=== PATIENT | female | born 1970 | race Caucasian/White ===

== ENCOUNTER 2017-02-28 09:29 | Inpatient (IN) | payer OTHER, MEDICARE ==
[~2017-02-28] VITALS: Ht 162.6 cm; Wt 46.1 kg
[2017-02-28] VITALS (19 sets, daily range): BP systolic 73–137; BP diastolic 52–83; PULSE 100–128; RESP 17–21; TEMP 98.2–98.6; O2SAT 97–100
[2017-02-28] MEDS ORDERED: SODIUM CHLOR 0.9% 1000 ML INJ 1,000 ML IV ONE ×2 (09:41→10:00)
--- NOTE | 2017-02-28 09:50 | PD ---
HPI Chief Complaint: General Weakness Time Seen by Provider: 09:41 Travel History International Travel<30 days: No Contact w/Intl Traveler<30days: No Traveled to known affect area: No History of Present Illness HPI The patient is a 46-year-old female who presents emergency department for lightheadedness, dizziness, weakness, multiple falls, and inability to ambulate. The patient states she has a history of gastric bypass that she states was "botched "by Dr. Villa in [place], [place]. The patient states she weighed 200 pounds when she had the gastric bypass performed, now weighs 80 pounds. The patient states she's had a steady decline in her weight and strength over the last year, progressively worse over the last several weeks. The patient recently moved from [place], [place] to [place], [place] with her best friend after her best friend's mother suffered a CVA several weeks ago. The patient states she has had multiple falls secondary to weakness with inability to ambulate and complains of right rib pain and right upper quadrant and left-sided abdominal pain. She also notes abrasions to the knees bilaterally. She denies any head injury or neck injury with her falls. She states she is unable to eat large quantities of food, has been able to eat a small amount of yogurt and soft foods or last several weeks, but has difficulty with solid foods. The patient does not currently have a primary physician. Symptoms are moderate, possibly exacerbated after previous surgery with steady decline, and there are no current alleviating factors. PFSH Past Medical History Anemia: Yes Asthma: Yes Anxiety: Yes ?: Not Past Surgical History Abdominal Surgery: Yes (GASTRIC BYPASS) Social History Alcohol Use: No Tobacco Use: Yes Substance Use: No Allergies-Medications (Allergen,Severity, Reaction): Coded Allergies: Sulfa (Verified Allergy, Severe, Anaphylaxis, 02/28/17) Reported Meds & Prescriptions Reported Meds & Active Scripts Active Reported Symbicort Inh (Budesonide/Formoterol Fumarate) 80-4.5 Mcg/Act Aero 1 Puff INH Q12HR Ventolin Hfa 18 GM Inh (Albuterol Sulfate) 90 Mcg/Act Aer 1 Puff INH Q4H PRN Percocet (Oxycodone-Acetaminophen) 10-325 mg Tab 1 Tab PO Q4H PRN Review of Systems Except as stated in HPI: all other systems reviewed are Neg General / Constitutional: Positive: Weight Loss, No: Fever HENT: Positive: Lightheadedness Cardiovascular: Positive: Chest Pain or Discomfort (right rib pain) Respiratory: No: Shortness of Breath Gastrointestinal: Positive: Nausea, Abdominal Pain, No: Vomiting Genitourinary: No: Dysuria Musculoskeletal: Positive: Weakness Neurologic: Positive: Weakness, Dizziness Physical Exam Narrative GENERAL: Awake, alert, 46-year-old female who appears her stated age and is in no acute respiratory distress. Cachectic appearing. SKIN: Focused skin assessment warm/dry. HEAD: Atraumatic. Normocephalic. EYES: Pupils equal and round. No scleral icterus. No injection or drainage. ENT: No nasal bleeding or discharge. Dry mucous membranes. Upper bridge is missing. NECK: Trachea midline. No JVD. CARDIOVASCULAR: Regular, tachycardic with a heart rate of 125. RESPIRATORY: No accessory muscle use. Clear to auscultation. Breath sounds equal bilaterally. GASTROINTESTINAL: Abdomen soft, tender palpation right upper quadrant and left flank. Well-healed midline scar superior to the umbilicus. Rectal exam: The exam was performed in the presence of a female nurse, no gross blood, guaiac positive. MUSCULOSKELETAL: No obvious deformities. No clubbing. No cyanosis. No edema. Thin extremities with muscle atrophy. NEUROLOGICAL: Awake and alert. No obvious cranial nerve deficits. Motor grossly within normal limits. Normal speech. Nonfocal. PSYCHIATRIC: Slightly flat affect. Insight and judgment appear normal. Data Data Last Documented VS Vital Signs Date Time Temp Pulse Resp B/P Pulse Ox O2 Delivery O2 Flow Rate FiO2 02/28/17 14:15 98.3 112 18 87/55 97 Room Air Orders Electrocardiogram (02/28/17 09:41) Complete Blood Count With Diff (02/28/17 09:41) Comprehensive Metabolic Panel (02/28/17 09:41) Magnesium (Mg) (02/28/17 09:41) Urinalysis - C+S If Indicated (02/28/17 09:41) Chest, Single Ap (02/28/17 09:41) Ecg Monitoring (02/28/17 09:41) Iv Access Insert/Monitor (02/28/17 09:41) Oximetry (02/28/17 09:41) Sodium Chloride 0.9% Flush (Ns Flush) (02/28/17 09:45) Sodium Chlor 0.9% 1000 Ml Inj (Ns 1000 M (02/28/17 09:41) Orthostatic Vital Signs (02/28/17 09:41) Ct Abd/Pel W/O Iv Contrast (02/28/17 ) Lactic Acid (02/28/17 09:50) Blood Culture (02/28/17 10:00) Sodium Chlor 0.9% 1000 Ml Inj (Ns 1000 M (02/28/17 10:00) Vascular Access Team Consult/P PRN (02/28/17 10:16) Vascular Poc Ultrasound (02/28/17 ) Type And Screen (02/28/17 10:18) Iron/Tibc Profile (02/28/17 10:18) Red Blood Cells (Rbc) (02/28/17 10:18) Blood Product Administration .UPON TRANSFUSION (02/28/17 10:18) Sodium Chlor 0.9% 250 Ml Inj (Ns 250 Ml (02/28/17 10:30) Diphenhydramine Inj (Benadryl Inj) (02/28/17 10:30) Acetaminophen (Tylenol) (02/28/17 10:30) Midazolam Inj (Versed Inj) (02/28/17 12:00) Midazolam Inj (Versed Inj) (02/28/17 11:54) Hydromorphone Pf Inj (Dilaudid Pf Inj) (02/28/17 13:00) Chest, Single Ap (02/28/17 ) Pantoprazole Inj (Protonix Inj) (02/28/17 14:15) Us Abdomen Gallbladder (02/28/17 ) Ampicillin-Sulbactam Inj (Unasyn Inj) (02/28/17 14:45) Admit Order (Ed Use Only) (02/28/17 15:26) Labs Laboratory Tests Test 02/28/17 02/28/17 02/28/17 02/28/17 09:50 09:55 10:52 12:35 White Blood Count 9.3 TH/MM3 Red Blood Count 2.98 MIL/MM3 Hemoglobin 7.2 GM/DL Hematocrit 22.0 % Mean Corpuscular Volume 73.7 FL Mean Corpuscular Hemoglobin 24.2 PG Mean Corpuscular Hemoglobin 32.8 % Concent Red Cell Distribution Width 22.6 % Platelet Count 288 TH/MM3 Mean Platelet Volume 8.5 FL Neutrophils (%) (Auto) 84.6 % Lymphocytes (%) (Auto) 10.0 % Monocytes (%) (Auto) 4.2 % Eosinophils (%) (Auto) 0.5 % Basophils (%) (Auto) 0.7 % Neutrophils # (Auto) 7.9 TH/MM3 Lymphocytes # (Auto) 0.9 TH/MM3 Monocytes # (Auto) 0.4 TH/MM3 Eosinophils # (Auto) 0.0 TH/MM3 Basophils # (Auto) 0.1 TH/MM3 CBC Comment DIFF FINAL Differential Comment Sodium Level 133 MEQ/L Potassium Level 4.1 MEQ/L Chloride Level 101 MEQ/L Carbon Dioxide Level 20.8 MEQ/L Anion Gap 11 MEQ/L Blood Urea Nitrogen 19 MG/DL Creatinine 0.57 MG/DL Estimat Glomerular Filtration 114 ML/MIN Rate Random Glucose 135 MG/DL Calcium Level 7.5 MG/DL Magnesium Level 1.7 MG/DL Iron Level 29 MCG/DL Total Iron Binding Capacity 217 MCG/DL Percent Iron Saturation 13.4 % Total Bilirubin 0.2 MG/DL Aspartate Amino Transf 21 U/L (AST/SGOT) Alanine Aminotransferase 12 U/L (ALT/SGPT) Alkaline Phosphatase 138 U/L Total Protein 5.9 GM/DL Albumin 1.7 GM/DL Lactic Acid Level 2.9 mmol/L Blood Type O POSITIVE O POSITIVE Antibody Screen NEGATIVE Crossmatch Leukocyte-Reduced Red Blood Cells Blood Bank Comment MDM Medical Decision Making Medical Screen Exam Complete: Yes Emergency Medical Condition: Yes Medical Record Reviewed: Yes Interpretation(s) EKG reveals sinus tachycardia with a heart rate of 122. Nonspecific T-wave changes. QT prolongation which appears to be just over one half of the RR interval. Laboratory Tests Test 02/28/17 02/28/17 02/28/17 09:50 09:55 10:52 White Blood Count 9.3 TH/MM3 Red Blood Count 2.98 MIL/MM3 Hemoglobin 7.2 GM/DL Hematocrit 22.0 % Mean Corpuscular Volume 73.7 FL Mean Corpuscular Hemoglobin 24.2 PG Mean Corpuscular Hemoglobin 32.8 % Concent Red Cell Distribution Width 22.6 % Platelet Count 288 TH/MM3 Mean Platelet Volume 8.5 FL Neutrophils (%) (Auto) 84.6 % Lymphocytes (%) (Auto) 10.0 % Monocytes (%) (Auto) 4.2 % Eosinophils (%) (Auto) 0.5 % Basophils (%) (Auto) 0.7 % Neutrophils # (Auto) 7.9 TH/MM3 Lymphocytes # (Auto) 0.9 TH/MM3 Monocytes # (Auto) 0.4 TH/MM3 Eosinophils # (Auto) 0.0 TH/MM3 Basophils # (Auto) 0.1 TH/MM3 CBC Comment DIFF FINAL Differential Comment Sodium Level 133 MEQ/L Potassium Level 4.1 MEQ/L Chloride Level 101 MEQ/L Carbon Dioxide Level 20.8 MEQ/L Anion Gap 11 MEQ/L Blood Urea Nitrogen 19 MG/DL Creatinine 0.57 MG/DL Estimat Glomerular Filtration 114 ML/MIN Rate Random Glucose 135 MG/DL Calcium Level 7.5 MG/DL Magnesium Level 1.7 MG/DL Iron Level 29 MCG/DL Total Iron Binding Capacity 217 MCG/DL Percent Iron Saturation 13.4 % Total Bilirubin 0.2 MG/DL Aspartate Amino Transf 21 U/L (AST/SGOT) Alanine Aminotransferase 12 U/L (ALT/SGPT) Alkaline Phosphatase 138 U/L Total Protein 5.9 GM/DL Albumin 1.7 GM/DL Lactic Acid Level 2.9 mmol/L Blood Type O POSITIVE Antibody Screen NEGATIVE Crossmatch Leukocyte-Reduced Red Blood Cells Blood Bank Comment CT of the abdomen and pelvis reveals apparent gallbladder wall thickening. If there is clinical concern for acute cholecystitis, hepatobiliary scan may be helpful to confirm cystic duct obstruction in this patient. Mild hepatosplenomegaly. Degenerative changes and scoliosis of the lumbar spine. Chronic mild compression deformity is noted involving L1. Last Impressions Chest X-Ray 02/28/17 0941 Signed Impressions: Service Date/Time: Tuesday, February 28, 2017 10:44 - CONCLUSION: Right fifth rib fracture which appears old. No evidence of acute fracture or acute cardiothymic process. Jean Love MD Gall Bladder Ultrasound 02/28/17 0000 Signed Impressions: Service Date/Time: Tuesday, February 28, 2017 14:50 - CONCLUSION: 1. Single mobile stone in the gallbladder. 2. Extrarenal pelvis on the right. Darren Pascual MD Chest X-Ray 02/28/17 0000 Signed Impressions: Service Date/Time: Tuesday, February 28, 2017 13:32 - CONCLUSION: Interval placement of a right jugular central venous catheter which is in good position. No evidence of acute cardio pulmonary process. Jean Love MD Abdomen/Pelvis CT 02/28/17 0000 Signed Impressions: Service Date/Time: Tuesday, February 28, 2017 13:20 - CONCLUSION: 1. Apparent gallbladder wall thickening. If there is clinical concern for acute cholecystitis, a hepatobiliary scan may be helpful to confirm cystic duct obstruction in this patient. 2. Mild hepatosplenomegaly. 3. Degenerative changes and scoliosis of the lumbar spine. Chronic mild compression deformity is noted involving L1. Maycol Castro MD Differential Diagnosis Differential diagnosis includes failure to thrive, right rib fracture, intra- abdominal injury, dehydration, electrolyte abnormality, malnutrition, neglect. Narrative Course IV was established, labs are drawn and sent, and the patient was placed on cardiac telemetry monitoring and continuous pulse oximetry monitoring. EKG was ordered and interpreted. Chest x-ray was obtained. CT of the abdomen and pelvis was obtained. The patient was administered 1 L of IV fluids. As the patient does have a recent history of sepsis with strep and staph per her report , one month ago, blood culture and lactic acid were sent to lab. A second liter of IV fluids was ordered as the patient's heart rate was elevated in the 120s and the patient's blood pressure was low with systolic in the 70s. The patient's previous IV in the right upper extremity "blew", therefore I placed an ultrasound-guided IV in the left upper extremity. There was good blood return, however, after flushing the IV apparently infiltrated once again. Therefore, the vascular access team was consulted for PICC placement. The patient's hemoglobin was low at 7.2, therefore, rectal exam was performed and type and screen was sent to lab. The second ultrasound-guided IV infiltrated, therefore, central line was placed in the right internal jugular vein. The patient was transfused 2 units of packed red blood cells, Protonix 40 mg intravenously as patient's rectal exam revealed guaiac positive blood. The patient's BUN is 19 and creatinine is 0.57, consistent with greater than 20-1 ratio, may be upper GI bleed versus dehydration. The patient is tachycardic, hypotensive, with evidence of dehydration and symptomatic anemia. Therefore, I am profile was sent to lab prior to transfusion consistent with iron deficiency anemia. As the patient continues to be tachycardic and hypotensive, patient will be admitted to intensive care unit. The on-call staff psychologist was paged for admission. CT reveals apparent gallbladder wall thickening, no evidence of intra-abdominal injury from trauma. Therefore, ultrasound was ordered and the patient was covered with Unasyn. The on-call staff psychologist was paged for admission. Critical Care Narrative Aggregate critical care time was 40 minutes. Time to perform other separately billable procedures was not included in the critical care time. My time did not include minutes spent treating any other patients simultaneously or on activities that did not directly contribute to the patient's treatment. The services I provided to this patient were to treat and/or prevent clinically significant deterioration that could result in: Dehydration, symptomatic anemia , hypovolemic shock, septic shock, arrhythmia. I provided critical care services requiring my management, as noted below: Chart data review, documentation time, medication orders and management, vital sign assessments/reviewing monitor data, ordering and reviewing lab tests, ordering and interpreting/reviewing x-rays and diagnostic studies, care of the patient and discussion of the patient with the admitting physicians. Procedures Procedure Narrative An ultrasound-guided IV was placed in the left upper extremity by myself using a linear probe. I was able to place a 20-gauge IV in the left upper extremity above the anterior cubital fossa, there was good blood return and the IV flowed easily. After the risks and benefits were discussed the following procedure was performed: CENTRAL VENOUS LINE: The site was prepped with Betadine and sterilely draped. It was infiltrated with 1% lidocaine plain. The deep vein was cannulated using normal Seldinger technique. A central line was placed in the right internal jugular site and secured with simple interrupted suture. The site was sterilely dressed. The patient tolerated the procedure well. [facility] Point of Care Internal Pos. & Neg. Controls: Passed Fecal Specimen Occult Blood: Positive Physician Communication Physician Communication The on-call staff psychologist was paged for admission. I discussed the patient with Dr. Moy who agrees with admission. Diagnosis Primary Impression: Symptomatic anemia Additional Impressions: GI bleed Qualified Code: K92.2 - Gastrointestinal hemorrhage, unspecified gastrointestinal hemorrhage type Hypotension Qualified Code: I95.9 - Hypotension, unspecified hypotension type Admitting Information Admitting Physician Requests: Admit Condition: Serious Fatima,Everett Z. MD Feb 28, 2017 09:50
[2017-02-28 10:06] LABS: AUTOMATED NEUTROPHIL # 7.9 TH/MM3 (1.8-7.7); BASOPHIL # 0.1 TH/MM3 (0-0.2); BASOPHIL % 0.7 % (0.0-2.0); EOSINOPHIL % 0.5 % (0.0-4.0); HEMO FLAGS DIFF FINAL; LYMPHOCYTE # 0.9 TH/MM3 (1.0-4.8); MEAN CELL VOLUME 73.7 FL (80.0-100.0); MEAN CORPUSCULAR HEMOGLOBIN 24.2 PG (27.0-34.0); MEAN CORPUSCULAR HGB CONC 32.8 % (32.0-36.0); MONO % 4.2 % (0.0-8.0); NEUT % 84.6 % (16.0-70.0); PLATELET COUNT 288 TH/MM3 (150-450); RED BLOOD COUNT 2.98 MIL/MM3 (4.00-5.30); RED CELL DISTRIBUTION WIDTH 22.6 % (11.6-17.2); WHITE BLOOD COUNT 9.3 TH/MM3 (4.0-11.0)
[2017-02-28 10:23] LABS: ALKALINE PHOSPHATASE 138 U/L (45-117); ALT (GPT) 12 U/L (10-53); ANION GAP 11 MEQ/L (5-15); AST (GOT) 21 U/L (15-37); BICARBONATE 20.8 MEQ/L (21.0-32.0); BLOOD UREA NITROGEN 19 MG/DL (7-18); CHLORIDE 101 MEQ/L (98-107); GLOMERULAR FILTRATION RATE 114 ML/MIN (>89); MAGNESIUM 1.7 MG/DL (1.5-2.5); POTASSIUM 4.1 MEQ/L (3.5-5.1); SODIUM (NA) 133 MEQ/L (136-145); TOTAL BILIRUBIN ADULT 0.2 MG/DL (0.2-1.0)
[2017-02-28] MEDS ORDERED: SODIUM CHLOR 0.9% 250 ML INJ 250 ML IV ONE (10:30)
[2017-02-28] MEDS ORDERED: ACETAMINOPHEN 325 MG TAB PO PRN (10:30)
--- NOTE | 2017-02-28 11:36 | RADRPT ---
EXAM DATE/TIME: 02/28/2017 10:44 [facility] COMPARISON: No previous studies available for comparison. INDICATIONS : Right sided chest pain, fall. MEDICAL HISTORY : Asthma SURGICAL HISTORY : None. ENCOUNTER: Initial ACUITY: 2 days PAIN SCORE: 8/10 LOCATION: Right upper chest FINDINGS: A single view of the chest demonstrates the lungs to be symmetrically aerated without evidence of mas s, infiltrate or effusion. The cardiomediastinal contours are unremarkable. No fracture is identifi ed of the right fifth rib. Osseous structures are otherwise intact. CONCLUSION: Right fifth rib fracture which appears old. No evidence of acute fracture or acute cardiothymic process. Jean Love MD on February 28, 2017 at 11:33 Board Certified Radiologist. This report was verified electronically.
[2017-02-28] MEDS ORDERED: MIDAZOLAM HCL 5 MG/ML VIAL (1 ML) ONE (11:54)
[2017-02-28] MEDS ORDERED: MIDAZOLAM HCL 5 MG/5 ML VIAL IV PUSH ONE (12:00)
[2017-02-28 12:07] LABS: TRANSFERRIN IRON PROFILE 155 MG/DL (200-360)
[2017-02-28] MEDS ORDERED: HYDROmorphone HCL PF 1 MG/ML VIAL IV PUSH ONE ×2 (13:00→19:00)
--- NOTE | 2017-02-28 13:53 | EKG ---
Date Performed: 02/28/2017 Time Performed: 09:45:08 PTAGE: 46 years EKG: SINUS TACHYCARDIA MODERATE INTRAVENTRICULAR CONDUCTION DELAY NONSPECIFIC T-WAVE ABNORMALITY ABNORMAL RHYTHM ECG NO PREVIOUS TRACING DOCTOR: Jam Granados Interpretating Date/Time 02/28/2017 13:53:00
[2017-02-28] MEDS ORDERED: PANTOPRAZOLE SODIUM 40 MG VIAL IV PUSH ONE (14:15)
--- NOTE | 2017-02-28 14:23 | RADRPT ---
EXAM DATE/TIME: 02/28/2017 13:32 [facility] COMPARISON: CHEST SINGLE AP, February 28, 2017, 10:44. INDICATIONS : Evaluate central line placement. MEDICAL HISTORY : Asthma SURGICAL HISTORY : None. ENCOUNTER: Initial ACUITY: 1 day PAIN SCORE: 0/10 LOCATION: Bilateral chest FINDINGS: Single view of the chest demonstrates interval insertion of a right jugular central venous catheter w hich is in good position. Lungs remain clear without evidence of acute process or pneumothorax. Heart and mediastinal structures are stable. CONCLUSION: Interval placement of a right jugular central venous catheter which is in good position. No evidence of acute cardio pulmonary process. Jean Love MD on February 28, 2017 at 14:19 Board Certified Radiologist. This report was verified electronically.
--- NOTE | 2017-02-28 14:41 | RADRPT ---
EXAM DATE/TIME: 02/28/2017 13:20 [facility] COMPARISON: No previous studies available for comparison. INDICATIONS : Right upper quadrant pain. Left abdominal pain. Weakness. Multiple falls. ORAL CONTRAST: No oral contrast ingested. RADIATION DOSE: 4.92 CTDIvol (mGy) MEDICAL HISTORY : Asthma. SURGICAL HISTORY : Gastric bypass. ENCOUNTER: Initial ACUITY: 3 weeks PAIN SCALE: 7/10 LOCATION: Right upper quadrant TECHNIQUE: Volumetric scanning of the abdomen and pelvis was performed. Using automated exposure control and ad justment of the mA and/or kV according to patient size, radiation dose was kept as low as reasonably achievable to obtain optimal diagnostic quality images. FINDINGS: The patient is status post gastric bypass procedure. Evaluation of the solid organs of the abdomen i s limited by the lack of intravenous contrast. The wall of the gallbladder appears somewhat thickene d. If there is clinical concern for acute cholelithiasis, a hepatobiliary scan may be helpful to con firm cystic duct obstruction. No bowel obstruction is noted. No acute obstructive uropathy is noted . The patient is status post tubal ligation bilaterally. The urinary bladder is unremarkable. Dege nerative changes and scoliosis of the thoracolumbar spine are noted. Mild compression deformity invo lving the L1 vertebral body is noted. There is evidence of mild hepatosplenomegaly. CONCLUSION: 1. Apparent gallbladder wall thickening. If there is clinical concern for acute cholecystitis, a he patobiliary scan may be helpful to confirm cystic duct obstruction in this patient. 2. Mild hepatosplenomegaly. 3. Degenerative changes and scoliosis of the lumbar spine. Chronic mild compression deformity is no neeraj involving L1. Maycol Castro MD on February 28, 2017 at 14:14 Board Certified Radiologist. This report was verified electronically.
[2017-02-28] MEDS ORDERED: AMPICILLIN-SULBACTAM INJ 3 GM in SODIUM CHLORIDE 0.9% INJ 100 ML IV ONE (14:45)
[2017-02-28] MEDS ORDERED: MISCELLANEOUS NURSING INFORMATION XX SCH (16:00)
[2017-02-28] MEDS ORDERED: CHLORHEXIDINE GLUCONATE 2 % 1 PACK (2 CLOTHS) TOP PRN (16:00)
[2017-02-28] MEDS ORDERED: SYMB80AE INH (16:07)
[2017-02-28] MEDS ORDERED: PERC10TA27 PO (16:07)
[2017-02-28] MEDS ORDERED: VENTAER INH (16:07)
[2017-02-28] MEDS: INSULIN NovoLIN REGULAR SUPPLEMENTAL SCALE SQ SCH ×2 (16:15→22:08)
[2017-02-28] MEDS ORDERED: DEXTROSE 50% IN WATER 50 ML VIAL(D50) IV PRN (16:15)
[2017-02-28] MEDS ORDERED: GLUCAGON 1 MG/ML VIAL OTHER PRN (16:15)
[2017-02-28] MEDS ORDERED: PANTOPRAZOLE SODIUM 40 MG VIAL IV PUSH SCH (16:30)
[2017-02-28] MEDS: RESP: ALBUTEROL 2.5 MG/IPRATROPIUM 0.5 MG NEB (SCH) INH ×2 (16:35→19:49)
--- NOTE | 2017-02-28 16:54 | RADRPT ---
EXAM DATE/TIME: 02/28/2017 14:50 [facility] COMPARISON: No previous studies available for comparison. INDICATIONS : Right upper quadrant pain. MEDICAL HISTORY : Anemia. Asthma. Anxiety. SURGICAL HISTORY : Gastric bypass. ENCOUNTER: Initial ACUITY: 1 year PAIN SCORE: 0/10 LOCATION: Right upper quadrant MEASUREMENTS: LIVER: 15.7 cm length COMMON DUCT: 6 mm RIGHT KIDNEY: 11.5 x 3.7 x 3.3 cm FINDINGS: LIVER: Normal echotexture without focal lesion or ductal dilatation. COMMON DUCT: No intraluminal mass or stone visualized. GALLBLADDER: There is a small mobile stone within the dependent portion the gallbladder. There is minimal sludge w ithin the neck of the gallbladder as well. No significant pericholecystic fluid is seen. No significa nt gallbladder wall thickening is evident. PANCREAS: The visualized portions are within normal limits. RIGHT KIDNEY: No stone or solid mass is seen. There is no hydronephrosis. There is a small extrarenal pelvis CONCLUSION: 1. Single mobile stone in the gallbladder. 2. Extrarenal pelvis on the right. Darren Pascual MD on February 28, 2017 at 16:50 Board Certified Radiologist. This report was verified electronically.
[2017-02-28 17:09] LABS: BACTERIA, URINE RARE /hpf; BLOOD, URINE NEG (NEG); GLUCOSE,URINE NEG (NEG); HYALINE CAST, URINE 1 /lpf (RARE); KETONE, URINE NEG (NEG); MUCUS URINE FEW /lpf (OCC); NITRITE,URINE NEG (NEG); SQUAMOUS EPITHELIAL CELL URINE 3 /hpf (0-5); URINE COLOR YELLOW (YELLW/STRAW)
[2017-02-28 17:13] LABS: COMMENT (UR) CULTURE INDICATED; CULTURE IF INDICATED CULTURE INDICATED
[2017-02-28] MEDS ORDERED: DIATRIZOATE MEGLUM/DIATRIZOATE SOD 120 ML BTL (for RAD DIAG) PO ONE (17:39)
--- NOTE | 2017-02-28 18:14 | RADRPT ---
EXAM DATE/TIME: 02/28/2017 17:21 [facility] COMPARISON: No previous studies available for comparison. INDICATIONS : Abdominal pain, vomiting, possible ulcer. FLUORO TIME: 1.0 minutes IMAGE COUNT: 12 CONTRAST: 1. MD Robin MEDICAL HISTORY : None. SURGICAL HISTORY : Gastric bypass four years ago. ENCOUNTER: Initial ACUITY: 1 week PAIN SCORE: 10/10 LOCATION: Bilateral upper quadrant abdomen. FINDINGS: There is no evidence of extravasation of Gastrografin. The patient is status post gastric bypass proc edure with patent gastrojejunostomy. There is a collection of contrast in the region of the gastric remnant which could represent a focal ulceration. Upper endoscopy may be indicated if there is a str christiane clinical concern for ulceration. CONCLUSION: 1. No evidence of extravasation to suggest perforation. 2. Focal collection of contrast within the gastric remnant raising the possibility of focal ulceratio n. Upper endoscopy would be helpful for further evaluation of this finding if there is strong clinica l concern for ulceration within the gastric remnant. Maycol Castro MD on February 28, 2017 at 18:05 Board Certified Radiologist. This report was verified electronically.
--- NOTE | 2017-02-28 18:26 | MH ---
cc: JANICE GTZ M.D. DATE OF ADMISSION: 02/28/2017 DATE OF : 1970 HISTORY OF PRESENT ILLNESS: The patient is a 46 year-old female with a past medical history of bronchial asthma, bipolar disorder, schizophrenia, anxiety/depression, and anemia. She presented to [facility] Emergency Department withy complaints of feeling dizziness, light headedness, generalized weakness, multiple falls and inability to ambulate. On further history she has a history of gastric bypass four years ago in [place] and another abdominal surgery about one to two years ago for <<1:05>> in [place] as well. The patient states that she weighed 200 lbs when she had the gastric bypass surgery preformed, now she weighs 80 pounds, she reports chronic abdominal pain associated with intractable nausea and vomiting for several months. In addition to decreased p.o. intake. Her abdominal pain progressively worsened and mainly in the right upper quadrant and left lower quadrat. She denies any chest pain, shortness of breath, cough or any constitutional symptoms. On arrival to the emergency room she was hypotensive with systolic blood pressure in the 80's, tachycardic with heart rate in the 120's and her laboratory data showed hemoglobin of 7.2, lactic acid level of 2.9. Her liver enzymes are within normal limits with a total bilirubin of 0.2. Aspartate aminotransferase 21, alt 12, alkaline phosphatase 138. In the ER she received one out of two units of packed red blood cells and approximately 1.5 liters of normal saline. She responded to volume resuscitation and current blood pressure is 108/71 with a pulse of 112. Her o2 saturation is 97% on room air. Due to her abdominal pain, CT abdomen and pelvis were preformed which showed gallbladder wall thickening, mild hepatosplenomegaly and chronic mild compression deformity is noted involving L1. Chest x-ray in the emergency department showed right fifth rib fractures which appear old, otherwise no evidence of acute cardiopulmonary disease. Right eye IJ central line was placed by emergency department physician. She also has a ultrasound of the abdomen which is pending during the time of this dictation. The patient received Protonix, Unasyn and dilated in the emergency room. PAST MEDICAL HISTORY: 1. Significant for schizophrenia. 2. Bipolar disorder. 3. Anxiety, depression. 4. Anemia. 5. Bronchial asthma. PAST SURGICAL HISTORY: 1. Gastric bypass surgery four years ago. 2. Previous abdominal surgery about one to two years ago for <<4:24>> . ALLERGIES SULFA SOCIAL HISTORY: The patient is an active smoker. However, she quit smoking two days ago and normally she smokes one pack per day. Nondrinker. She denies any drug use. MEDICATIONS 1. At home include; Klonopin. 2. Doxepin. 3. Zyprexa FAMILY HISTORY: Noncontributory. REVIEW OF SYSTEMS As per history of present illness. The rest of the review of systems is unremarkable. PHYSICAL EXAMINATION: IN GENERAL: A 46 year-old female, lying in bed in no acute respiratory distress. VITAL SIGNS: Temperature 98.2. Pulse 112, blood pressure 108/71. Saturation 97% on room air. HEAD, EYES, EARS, NOSE, AND THROAT: Atraumatic, normocephalic. Pupils equal, round, accommodation. Extraocular muscles intact. Conjunctivae pink. Nonicteric sclera. Oral mucosa with dry mucous membranes noted. NECK: The neck is supple. No jugular venous distention or adenopathy, or thyromegaly, trachea is midline. CARDIOVASCULAR SYSTEM: Tachycardic, normal S1, S2, no murmurs, rubs or gallops noted. PULMONARY: Normal equal air entry, no rales or wheezing. ABDOMEN: The abdomen is soft, tenderness in the right upper quadrant and left lower quadrant. A well healed mid line scar superior to the umbilicus. EXTREMITIES: No clubbing, cyanosis or edema. Muscle atrophy noted, no focal sensory deficit. LABORATORY DATA: Sodium 133, potassium 4.1. Chloride 101, co2 20. Blood urea nitrogen 19, creatinine 0.57, glucose 135, lactic acid 2.9. Aspartate aminotransferase 21, ALT 12, Alkaline phosphatase 138. Albumin 1.7, hemoglobin 7.2, white blood count 9.3. Hematocrit 22, platelet count 288. Radiographic studies; Chest x-ray showed no evidence of any acute cardiopulmonary disease. Old left fifth rib fracture noted. CT of the abdomen and pelvis, showed gallbladder wall thickening, mild hepatosplenomegaly. IMPRESSION: 1. Hypotension. 2. Dehydration. 3. Mild lactic acidemia. 4. Hyponatremia. 5. Anemia. 6. Chronic abdominal pain associated with retractable nausea and vomiting. 7. Previous gastric bypass surgery four years ago. 8. Malnutrition. 9. History of anxiety and depression. 10. History of schizophrenia. RECOMMENDATIONS: 1. Monitor neurostatus, patient is awake and alert. Oxygen as needed to maintain saturations above 92%. Bronchial dilators on a as needed basis. Moderate heart rhythm, blood pressure grossly and maintain MAP greater then 65 mmHg. The patient received approximately 1.5 liter bolus of normal saline. We will place on maintenance fluids, D5 NS at 84 ml per hour. Serial lactic acid monitoring. 2. Monitor renal function. Intake and outputs and electrolyte replacement protocol. 3. Keep NPO for now and place on Protonix 40 mg IV daily. 4. We will consult gastrointestinal service. The patient will likely need a Panendoscopy. We will defer to gastrointestinal, in addition we will consult general surgery as the patient had significant weight loss since her previous gastric bypass surgery. The case was discussed with Dr. Suárez and he will have Dr. Arias see the patient. 5. Continue with empiric antibiotics in the form of Zosyn and monitor for signs of infections which include fever and white blood count. Follow up on blood cultures which were preformed in the emergency room. 6. Sliding scale insulin as needed for glycemic control. 7. Monitor complete blood count Coags. Patient scheduled to receive two units of packed red blood cells in the emergency room. We will check hemoglobin and hematocrit post transfusion. 8. Gastrointestinal prophylaxis with Protonix 40 mg IV daily. 9. Deep venous thrombosis prophylaxis with sequential compression devices. We will hold off on anticoagulation for now. Given anemia requiring blood transfusions. 10. Further recommendations will be based on hospital course. MD KEILA Sorto/allegra /4:20 PM /4:33 PM
[2017-02-28] MEDS: DEXT 5%-NACL 0.9% 1000 ML INJ 1,000 ML IV SCH (18:54)
[2017-02-28] MEDS: PIPERACIL-TAZO 4.5 GM PREMIX 100 ML IV SCH (18:54)
[2017-02-28 20:14] LABS: HEMATOCRIT 22.9 % (35.0-46.0)
[2017-02-28 20:23] LABS: REVIEW FLAG FINAL
[2017-02-28] MEDS ORDERED: KLON2TAB PO (20:40)
[2017-02-28 21:04] LABS: PROTHROMBIN TIME - PATIENT 10.9 SEC (9.8-11.6)
[2017-02-28] MEDS: clonazePAM 0.5 MG TAB PO PRN (21:17)
--- NOTE | 2017-02-28 21:52 | MB ---
cc: JACK VILLAGOMEZ MD DATE OF CONSULTATION 02/28/17 REASON FOR CONSULTATION Abdominal flank pain, history of gastric bypass. HISTORY OF PRESENT ILLNESS The patient is a 46-year-old female who presented with a history of chronic pain. She states that she has had a gastric bypass four years ago in [place]. She was initially 200 pounds, currently 80 pounds. She states her abdominal pain has been going on for several years. She did relatively well after her bypass, but has developed significant weight loss, nausea, vomiting and decreased p.o. intake. She did undergo surgery for left-sided pain approximately two years ago which she had intussusception and was treated for this. She states some improvement on the left sided pain, but she states pain has recently returned. The patient also with a history of GI bleed and gastrojejunostomy ulcers for which she has had endoscopy and further workup in [place], last approximately two months ago. The patient is somewhat of a difficult historian and does not recall all pertinent details to event. She states again that she is somewhat improved but again had progressively worsening abdominal pain about the left lower quadrant and now in the right upper quadrant as well. This pain has been going on for several weeks and getting worse in intensity. She states the pain got so severe she decided to come to the emergency department. The patient also notes that she has been feeling very dizzy and lightheaded recently and has had multiple falls as a results. Surgery was consulted for further evaluation after obtaining a CT scan showing some thickening of gallbladder wall gallstones along with this history of gastric bypass and the complicated medical-surgical situation. On my exam, the patient is resting comfortably. She does state the pain is pretty persistent and somewhat sharp and diffuse significant in the left lower and right upper quadrant, but on that palpation more diffusely tender. On admission, she was hypotensive and tachycardiac. However, she has received several liter boluses and also received transfusion for a hemoglobin 7.2 which she responded to. She is not currently following up with a bariatric surgeon. Further she does not take her bariatric recommended vitamins post gastric bypass and further the patient admits to chronic long history of smoking from which she states she quit two weeks ago. She further uses chronic NSAIDs including Aleve at least more than two times per week and again confirms the history of GI bleed in the past. The patient states that her diet is relatively poor. She does tolerate small intake but has a lot of nausea and tolerates yogurts and soft consistency. The patient also has issues with bowel movements and is taking lactulose and stool softeners for significant constipation. In regards to the patient's gallbladder, she stated previous issue with her gallbladder several months ago for which she states they are considering removing the gallbladder but for unknown reasons did not proceed with surgery at this time. PAST MEDICAL HISTORY 1. Schizophrenia, 2. Bipolar disorder, 3. Anxiety/depression. 4. GI bleed 5. Morbid obesity 6. Bronchial asthma. PAST SURGICAL HISTORY 1. Gastric bypass four years ago in [place] 2. Exploratory laparotomy with treatment of intussusception 1-2 years ago. ALLERGIES SULFA SOCIAL HISTORY The patient is a smoker but states she quit two weeks ago. Smoked without about one pack a day. Denies ETOH or IVDA. Chronic NSAID USE. MEDICATIONS See EMR. FAMILY HISTORY Hypertension and diabetes. REVIEW OF SYSTEMS GENERAL: The patient complains of dizziness and abdominal pain. HEENT: Denies eye pain, ear pain. Complains of dry mucous membranes. NECK: Denies swelling or pain. CARDIOVASCULAR: Complained of tachycardia. Denies chest pains. RESPIRATORY: Denies cough or wheeze. ABDOMEN: Complains of nausea, vomiting, abdominal pain. EXTREMITIES: Denies arthralgia, myalgia. NEUROLOGIC: Complained of dizziness and falls INTEGUMENTARY: Complained of dry skin, denies lesions. PSYCHIATRIC: Schizophrenia, bipolar PHYSICAL EXAMINATION GENERAL: The patient in mild distress. VITAL SIGNS: Temperature 98.2, pulse 112, blood pressure 108/71, saturation 97%, respirations 22. HEENT: PERRLA. No scleral icterus. NECK: Supple. Trachea midline. HEART: S1-S2, no murmur or tachycardia. PULMONARY: Bilateral expansion. No wheeze. ABDOMEN: Soft, positive tenderness to palpation more significant right upper quadrant than left lower quadrant. No significant rebound or guarding. Diffuse tenderness. Well-healed midline surgical scar, small midline hernias, reducible. EXTREMITIES: Cachectic warm. NEUROLOGIC: 5/5 motor all extremities with numbness. PSYCHIATRIC: Appropriate mood, anxious. LABORATORY AND DIAGNOSTIC DATA WBC 9.3, hemoglobin 7.2, hematocrit 22, platelets 288. Sodium 133, potassium 4.1, BUN 19, creatinine 0.57, lactate 2.9, magnesium 1.7, total bili 0.2, AST 21, ALT 12, alkaline phos 138, albumin 1.7. IMAGING STUDIES CT reviewed by myself. Thickening gallbladder wall, hepatomegaly, degenerative changes, evidence of gastric bypass, retained fecal load. Gallbladder ultrasound single mobile stone in the gallbladder. Chest x-ray - no acute cardiopulmonary abnormality. ASSESSMENT The patient is a 46-year-old female who presents status post gastric bypass with severe weight loss, cachectic, malnutrition, concern for GI bleed, anemia of blood loss, concern for potential ulcers, chronic NSAID use and smoker, poor compliance Bariatric nectar vitamins and medications and gallbladder wall thickening and hypotension. PLAN After full clinical, radiologic and laboratory workup, the patient with above-named issues. The patient has history of gastric bypass for which she does not appear to be compliant with the bariatric medications. Also, further recommendations to avoid all smoking and NSAIDs as these are very significant risk factors to develop ulcers following gastric bypass. This was discussed in detail and counseled with the patient. Further, the patient is anemic status post transfusion. Concern for GI bleed potential gastrojejunostomy ulcer source. Agree with transfusion. We will check coags and continue to monitor closely. Agree with Protonix. We will recommend 40 b.i.d. We will add Carafate as well. I will be available to do endoscopy to evaluate the gastrojejunostomy pouch for any abnormalities and ulcers. Concern further with patient's nausea, vomiting and decreased p.o. intake, possible small pouch due to chronic ulcer and scarring. We will obtain an upper GI to further evaluate this and again further recommend endoscopy for further evaluation. We will give the patient a dose of bariatric vitamins. Recommend stool softeners as the patient appears to have constipation on CT scan. In regards to the patient's gallbladder, AST, ALT, alkaline phos and T bili all within normal limits. However, the patient appears to be potentially symptomatic from her cholelithiasis and thickened gallbladder wall. At this point, recommend antibiotic treatment as I think she has more pressing issue to deal with first. Also would consider nutritional status and potentially recommending TPN until the patient is able to take adequate p.o. intake. MD ANAIS Matos/ /8:33 PM /9:28 PM
[2017-02-28] MEDS: HYDROmorphone HCL PF 1 MG/ML VIAL IV PUSH PRN (22:05)
[2017-02-28] MEDS ORDERED: MULTIVITAMIN INJ 10 ML, THIAMINE INJ 100 MG, FOLIC ACID INJ 1 MG in SODIUM CHLORID 0.9%... IV SCH (22:15)
[2017-03-01] VITALS (17 sets, daily range): BP systolic 101–132; BP diastolic 67–85; PULSE 79–107; RESP 17–28; TEMP 97.7–98.6; O2SAT 96–100
[2017-03-01] MEDS: PIPERACIL-TAZO 4.5 GM PREMIX 100 ML IV SCH ×3 (02:07→17:08)
[2017-03-01] MEDS: HYDROmorphone HCL PF 1 MG/ML VIAL IV PUSH PRN ×7 (02:08→23:11)
[2017-03-01] MEDS: diphenhydrAMINE HCL 50 MG/ML VIAL IV PRN ×2 (02:51→17:09)
[2017-03-01] MEDS: RESP: ALBUTEROL 2.5 MG/IPRATROPIUM 0.5 MG NEB (SCH) INH ×4 (03:13→21:26)
[2017-03-01] MEDS: CHLORHEXIDINE GLUCONATE 2 % 1 PACK (2 CLOTHS) TOP SCH (04:00)
[2017-03-01] MEDS: INSULIN NovoLIN REGULAR SUPPLEMENTAL SCALE SQ SCH ×4 (04:15→20:02)
[2017-03-01] MEDS: DEXT 5%-NACL 0.9% 1000 ML INJ 1,000 ML IV SCH ×2 (04:23→17:10)
[2017-03-01 05:34] LABS: AUTOMATED NEUTROPHIL # 3.4 TH/MM3 (1.8-7.7); BASOPHIL % 0.6 % (0.0-2.0); EOSINOPHIL # 0.2 TH/MM3 (0-0.4); LYMPH % 22.4 % (9.0-44.0); LYMPHOCYTE # 1.2 TH/MM3 (1.0-4.8); MEAN CELL VOLUME 77.2 FL (80.0-100.0); MEAN CORPUSCULAR HEMOGLOBIN 25.9 PG (27.0-34.0); MEAN CORPUSCULAR HGB CONC 33.6 % (32.0-36.0); MONO % 7.4 % (0.0-8.0); NEUT % 66.6 % (16.0-70.0); PLATELET COUNT 173 TH/MM3 (150-450); RED BLOOD COUNT 2.65 MIL/MM3 (4.00-5.30); RED CELL DISTRIBUTION WIDTH 20.6 % (11.6-17.2); WHITE BLOOD COUNT 5.2 TH/MM3 (4.0-11.0)
[2017-03-01 05:36] LABS: HEMO FLAGS AUTO DIFF
[2017-03-01 05:39] LABS: HEMATOCRIT 20.5 % (35.0-46.0)
[2017-03-01 05:51] LABS: BICARBONATE 23.5 MEQ/L (21.0-32.0); CALCIUM-PROTEIN CORRECTED 8.2 MG/DL (8.5-10.1); MAGNESIUM 1.4 MG/DL (1.5-2.5); POTASSIUM 3.4 MEQ/L (3.5-5.1); TOTAL BILIRUBIN ADULT 0.4 MG/DL (0.2-1.0)
[2017-03-01] MEDS: clonazePAM 0.5 MG TAB PO PRN ×2 (06:23→14:35)
[2017-03-01 06:58] LABS: SCAN/DIFF AUTO DIFF CONFIRMED
[2017-03-01] MEDS ORDERED: KETAMINE HCL 500 MG/10 ML VIAL IV ONE (08:00)
--- NOTE | 2017-03-01 08:20 | HHI.PR ---
Subjective Subjective Notes pt with persistent pain, some improvement with dilaudid, anemic s/p transfusion Objective Vitals/I&O Vital Signs Date Time Temp Pulse Resp B/P Pulse Ox O2 Delivery O2 Flow Rate FiO2 03/01/17 08:00 98.4 105 22 110/72 100 Room Air 02/28/17 19:52 21 Labs Laboratory Tests Test 02/28/17 02/28/17 02/28/17 02/28/17 09:50 09:55 10:52 12:35 White Blood Count 9.3 Red Blood Count 2.98 Hemoglobin 7.2 Hematocrit 22.0 Mean Corpuscular Volume 73.7 Mean Corpuscular Hemoglobin 24.2 Mean Corpuscular Hemoglobin 32.8 Concent Red Cell Distribution Width 22.6 Platelet Count 288 Mean Platelet Volume 8.5 Neutrophils (%) (Auto) 84.6 Lymphocytes (%) (Auto) 10.0 Monocytes (%) (Auto) 4.2 Eosinophils (%) (Auto) 0.5 Basophils (%) (Auto) 0.7 Neutrophils # (Auto) 7.9 Lymphocytes # (Auto) 0.9 Monocytes # (Auto) 0.4 Eosinophils # (Auto) 0.0 Basophils # (Auto) 0.1 CBC Comment DIFF FINAL Differential Comment Sodium Level 133 Potassium Level 4.1 Chloride Level 101 Carbon Dioxide Level 20.8 Anion Gap 11 Blood Urea Nitrogen 19 Creatinine 0.57 Estimat Glomerular Filtration 114 Rate Random Glucose 135 Calcium Level 7.5 Magnesium Level 1.7 Iron Level 29 Total Iron Binding Capacity 217 Percent Iron Saturation 13.4 Total Bilirubin 0.2 Aspartate Amino Transf 21 (AST/SGOT) Alanine Aminotransferase 12 (ALT/SGPT) Alkaline Phosphatase 138 Total Protein 5.9 Albumin 1.7 Lactic Acid Level 2.9 Blood Type O POSITIVE O POSITIVE Antibody Screen NEGATIVE Crossmatch Leukocyte-Reduced Red Blood Cells Blood Bank Comment Test 02/28/17 02/28/17 02/28/17 03/01/17 15:50 19:50 20:35 05:15 Urine Color YELLOW Urine Turbidity HAZY Urine pH 6.0 Urine Specific [place] 1.022 Urine Protein TRACE Urine Glucose (UA) NEG Urine Ketones NEG Urine Occult Blood NEG Urine Nitrite NEG Urine Bilirubin NEG Urine Urobilinogen LESS THAN 2.0 Urine Leukocyte Esterase LARGE Urine RBC 3 Urine WBC 65 Urine Squamous Epithelial 3 Cells Urine Bacteria RARE Urine Hyaline Casts 1 Urine Mucus FEW Microscopic Urinalysis Comment CULTURE INDICATED Hemoglobin 7.6 6.9 Hematocrit 22.9 20.5 Lactic Acid Level 0.8 0.9 Prothrombin Time 10.9 Prothromb Time International 1.0 Ratio White Blood Count 5.2 Red Blood Count 2.65 Mean Corpuscular Volume 77.2 Mean Corpuscular Hemoglobin 25.9 Mean Corpuscular Hemoglobin 33.6 Concent Red Cell Distribution Width 20.6 Platelet Count 173 Mean Platelet Volume 8.2 Neutrophils (%) (Auto) 66.6 Lymphocytes (%) (Auto) 22.4 Monocytes (%) (Auto) 7.4 Eosinophils (%) (Auto) 3.0 Basophils (%) (Auto) 0.6 Neutrophils # (Auto) 3.4 Lymphocytes # (Auto) 1.2 Monocytes # (Auto) 0.4 Eosinophils # (Auto) 0.2 Basophils # (Auto) 0.0 CBC Comment AUTO DIFF Differential Comment AUTO DIFF CONFIRMED Sodium Level 138 Potassium Level 3.4 Chloride Level 108 Carbon Dioxide Level 23.5 Anion Gap 7 Blood Urea Nitrogen 14 Creatinine 0.27 Estimat Glomerular Filtration 269 Rate Random Glucose 92 Calcium Level 6.8 Protein Corrected Calcium 8.2 Phosphorus Level 2.4 Magnesium Level 1.4 Total Bilirubin 0.4 Aspartate Amino Transf 16 (AST/SGOT) Alanine Aminotransferase 10 (ALT/SGPT) Alkaline Phosphatase 107 Total Protein 4.5 Albumin 1.4 Test 03/01/17 05:54 Blood Type O POSITIVE Crossmatch Leukocyte-Reduced Red Blood Cells Blood Bank Comment Date/Time Procedure Status Source Growth 02/28/17 15:50 Urine Culture Received Urine Random Urine Pending 02/28/17 12:35 Aerobic Blood Culture Received Blood Peripheral Pending 02/28/17 12:35 Anaerobic Blood Culture Received Blood Peripheral Pending Cardiovascular: Regular Lungs: Clear Abdomen: Other (soft +ttp diffuse right UQ, LLQ, no rebound) A/P Assessment and Plan hx rygb, hx of gj ulcers presents with abd pain, gi bleed UGI shows concern for G-G fistula PLAN EGD today transfusion 2 U prbcs pain control vitamins PPI, Carafate npo, recommend TPN Jerome Arias MD Mar 01, 2017 08:20
[2017-03-01] MEDS ORDERED: PROPOFOL 200 MG/20 ML AMP IV ONE (09:03)
[2017-03-01] MEDS ORDERED: MIDAZOLAM HCL 2 MG/2 ML VIAL IV ONE (09:03)
--- NOTE | 2017-03-01 09:14 | PD.CONS ---
HPI History of Present Illness This is a 46 year old female with multiple medical problems including a history of schizophrenia/bipolar disorder, anxiety/depression, GI bleeding, asthma, gastrojejunostomy ulcers, and asthma, who presented to the ER for evaluation of nausea and vomiting and right upper quadrant pain. She recently relocated from [place]. She underwent a gastric bypass about 4 years ago and has lost 120 pounds since that time. She reports that prior to her surgery she weighed 201 and she is currently at 80 pounds. She is a poor historian. She states that she's been having nausea and vomiting for about a month and a half and that this seems to be associated with any food intake. However she also reports that she is starving and she is requesting a diet including cottage cheese and dry cereal. She reports that she knows what to eat and what aggravates her nausea and vomiting. She also endorses right upper quadrant pain , although she associates this with frequent falls. She reports that she had surgery for left sided abdominal pain about 2 years ago in [place] and was found to have an intussusception. She also has a history of GI bleeding and last had an endoscopy about 2 months ago in [place] which revealed gastrojejunostomy ulcers. She continues to use Aleve at least twice a week. She reports that she has seen a small amount of bright red blood streaked in her emesis at times. She is not currently on any medications for her stomach although she has been on Carafate in the past. She also endorses heartburn that she cannot tell me how often this occurs. It does seem to be aggravated by large meals. She has a long history of chronic constipation and takes lactulose as needed. She has not seen any black tarry stools or red blood in her stool although she reports that she recently had a stool test which was guaiac positive. She has been seen by Dr. Suarez and is scheduled for an upper endoscopy later this morning. (Mere Conrad) PFSH Past Medical History Weight loss 120 pounds since gastric bypass about 4 years ago Schizophrenia Bipolar disorder Anxiety and depression Prior GI bleeding History of obesity Bronchial asthma History of intussusception History of gastrojejunostomy ulcers Past Surgical History Gastric bypass EGD Exploratory laparoscopy for intussusception (Mere Conrad) Coded Allergies: Sulfa (Verified Allergy, Severe, Anaphylaxis, 02/28/17) Medications Allergies Coded Allergies Type Severity Reaction Last Updated Verified Sulfa Allergy Severe Anaphylaxis 02/28/17 Yes Active Scripts Medications Dose Route/Sig Days Date Category Klonopin (Clonazepam) 2 Mg Tab 2 Mg PO TID 02/28/17 Reported Symbicort Inh (Budesonide/Formoterol Fumarate) 80-4.5 Mcg/Act Aero 1 Puff INH Q12HR 02/28/17 Reported Ventolin Hfa 18 GM Inh (Albuterol Sulfate) 90 Mcg/Act Aer 1 Puff INH Q4H PRN 02/28/17 Reported Percocet (Oxycodone-Acetaminophen) 10-325 mg Tab 1 Tab PO Q4H PRN 02/28/17 Reported Family History Denies any family history of esophageal, gastric, colorectal cancer Social History States she stopped smoking about one week ago. Prior to that she smoked 3/4 PPD x 8 years No alcohol use No illicit drug use (Mere Conrad) Review of Systems Constitutional: COMPLAINS OF: Fatigue, Weight loss, Change in appetite, DENIES : Fever, Chills Respiratory: DENIES: Cough Cardiovascular: DENIES: Chest pain Gastrointestinal: COMPLAINS OF: Abdominal pain, Constipation, Nausea, Vomiting , Anorexia, Heartburn, Hematemesis, DENIES: Black stools, Bloody stools, Diarrhea, Swelling of Abdomen Musculoskeletal: COMPLAINS OF: Joint pain, Muscle aches, Back pain Integumentary: DENIES: Abnormal pigmentation Hematologic/lymphatic: DENIES: Bruising Neurologic: COMPLAINS OF: Headache Psychiatric: COMPLAINS OF: Anxiety, DENIES: Confusion (Mere Conrad) GI Exam Vitals I&O Vital Signs Date Time Temp Pulse Resp B/P Pulse Ox O2 Delivery O2 Flow Rate FiO2 03/01/17 08:00 98.4 105 22 110/72 100 Room Air 03/01/17 06:52 18 03/01/17 05:00 102 22 106/67 97 Room Air 03/01/17 03:00 98 20 105/69 96 Room Air 03/01/17 01:00 98 17 101/68 98 Room Air 02/28/17 23:00 100 17 122/63 97 Room Air 02/28/17 21:00 112 19 137/69 97 Room Air 02/28/17 19:52 99 21 02/28/17 19:00 112 21 117/83 97 Room Air 02/28/17 17:45 114 18 104/73 98 Room Air 02/28/17 17:00 108 18 101/71 97 Room Air 02/28/17 15:55 98.2 103 18 100/65 97 Room Air 02/28/17 15:32 104 18 105/58 97 Room Air 02/28/17 14:15 98.3 112 18 87/55 97 Room Air 02/28/17 14:02 98.6 123 18 94/61 97 Room Air 02/28/17 14:02 98.6 120 18 94/61 98 Room Air 02/28/17 12:50 122 18 102/62 98 Room Air 02/28/17 12:30 122 20 96/56 99 Room Air 02/28/17 11:30 120 20 87/61 98 Room Air 02/28/17 11:00 122 18 95/60 98 Room Air 02/28/17 10:30 126 20 86/58 98 Room Air 02/28/17 10:00 120 20 73/52 97 Room Air 02/28/17 09:43 100 Room Air 02/28/17 09:42 98.3 128 18 80/54 100 Room Air 02/28/17 09:35 132 20 95 Room Air Imaging Last Impressions Chest X-Ray 02/28/17 0941 Signed Impressions: Service Date/Time: Tuesday, February 28, 2017 10:44 - CONCLUSION: Right fifth rib fracture which appears old. No evidence of acute fracture or acute cardiothymic process. Jean Love MD Upper GI Series 02/28/17 0000 Signed Impressions: Service Date/Time: Tuesday, February 28, 2017 17:21 - CONCLUSION: 1. No evidence of extravasation to suggest perforation. 2. Focal collection of contrast within the gastric remnant raising the possibility of focal ulceration. Upper endoscopy would be helpful for further evaluation of this finding if there is strong clinical concern for ulceration within the gastric remnant. Maycol Castro MD Gall Bladder Ultrasound 02/28/17 0000 Signed Impressions: Service Date/Time: Tuesday, February 28, 2017 14:50 - CONCLUSION: 1. Single mobile stone in the gallbladder. 2. Extrarenal pelvis on the right. Darren Pascual MD Abdomen/Pelvis CT 02/28/17 0000 Signed Impressions: Service Date/Time: Tuesday, February 28, 2017 13:20 - CONCLUSION: 1. Apparent gallbladder wall thickening. If there is clinical concern for acute cholecystitis, a hepatobiliary scan may be helpful to confirm cystic duct obstruction in this patient. 2. Mild hepatosplenomegaly. 3. Degenerative changes and scoliosis of the lumbar spine. Chronic mild compression deformity is noted involving L1. Maycol Castro MD Laboratory Test 02/28/17 02/28/17 02/28/17 02/28/17 09:50 09:55 10:52 12:35 White Blood Count 9.3 TH/MM3 Red Blood Count 2.98 MIL/MM3 Hemoglobin 7.2 GM/DL Hematocrit 22.0 % Mean Corpuscular Volume 73.7 FL Mean Corpuscular Hemoglobin 24.2 PG Mean Corpuscular Hemoglobin 32.8 % Concent Red Cell Distribution Width 22.6 % Platelet Count 288 TH/MM3 Mean Platelet Volume 8.5 FL Neutrophils (%) (Auto) 84.6 % Lymphocytes (%) (Auto) 10.0 % Monocytes (%) (Auto) 4.2 % Eosinophils (%) (Auto) 0.5 % Basophils (%) (Auto) 0.7 % Neutrophils # (Auto) 7.9 TH/MM3 Lymphocytes # (Auto) 0.9 TH/MM3 Monocytes # (Auto) 0.4 TH/MM3 Eosinophils # (Auto) 0.0 TH/MM3 Basophils # (Auto) 0.1 TH/MM3 CBC Comment DIFF FINAL Differential Comment Sodium Level 133 MEQ/L Potassium Level 4.1 MEQ/L Chloride Level 101 MEQ/L Carbon Dioxide Level 20.8 MEQ/L Anion Gap 11 MEQ/L Blood Urea Nitrogen 19 MG/DL Creatinine 0.57 MG/DL Estimat Glomerular Filtration 114 ML/MIN Rate Random Glucose 135 MG/DL Calcium Level 7.5 MG/DL Magnesium Level 1.7 MG/DL Iron Level 29 MCG/DL Total Iron Binding Capacity 217 MCG/DL Percent Iron Saturation 13.4 % Total Bilirubin 0.2 MG/DL Aspartate Amino Transf 21 U/L (AST/SGOT) Alanine Aminotransferase 12 U/L (ALT/SGPT) Alkaline Phosphatase 138 U/L Total Protein 5.9 GM/DL Albumin 1.7 GM/DL Lactic Acid Level 2.9 mmol/L Blood Type O POSITIVE O POSITIVE Antibody Screen NEGATIVE Crossmatch Leukocyte-Reduced Red Blood Cells Blood Bank Comment Test 02/28/17 02/28/17 02/28/17 03/01/17 15:50 19:50 20:35 05:15 Urine Color YELLOW Urine Turbidity HAZY Urine pH 6.0 Urine Specific [place] 1.022 Urine Protein TRACE mg/dL Urine Glucose (UA) NEG mg/dL Urine Ketones NEG mg/dL Urine Occult Blood NEG Urine Nitrite NEG Urine Bilirubin NEG Urine Urobilinogen LESS THAN 2.0 MG/DL Urine Leukocyte Esterase LARGE Urine RBC 3 /hpf Urine WBC 65 /hpf Urine Squamous Epithelial 3 /hpf Cells Urine Bacteria RARE /hpf Urine Hyaline Casts 1 /lpf Urine Mucus FEW /lpf Microscopic Urinalysis Comment CULTURE INDICATED Hemoglobin 7.6 GM/DL 6.9 GM/DL Hematocrit 22.9 % 20.5 % Lactic Acid Level 0.8 mmol/L 0.9 mmol/L Prothrombin Time 10.9 SEC Prothromb Time International 1.0 RATIO Ratio White Blood Count 5.2 TH/MM3 Red Blood Count 2.65 MIL/MM3 Mean Corpuscular Volume 77.2 FL Mean Corpuscular Hemoglobin 25.9 PG Mean Corpuscular Hemoglobin 33.6 % Concent Red Cell Distribution Width 20.6 % Platelet Count 173 TH/MM3 Mean Platelet Volume 8.2 FL Neutrophils (%) (Auto) 66.6 % Lymphocytes (%) (Auto) 22.4 % Monocytes (%) (Auto) 7.4 % Eosinophils (%) (Auto) 3.0 % Basophils (%) (Auto) 0.6 % Neutrophils # (Auto) 3.4 TH/MM3 Lymphocytes # (Auto) 1.2 TH/MM3 Monocytes # (Auto) 0.4 TH/MM3 Eosinophils # (Auto) 0.2 TH/MM3 Basophils # (Auto) 0.0 TH/MM3 CBC Comment AUTO DIFF Differential Comment AUTO DIFF CONFIRMED Sodium Level 138 MEQ/L Potassium Level 3.4 MEQ/L Chloride Level 108 MEQ/L Carbon Dioxide Level 23.5 MEQ/L Anion Gap 7 MEQ/L Blood Urea Nitrogen 14 MG/DL Creatinine 0.27 MG/DL Estimat Glomerular Filtration 269 ML/MIN Rate Random Glucose 92 MG/DL Calcium Level 6.8 MG/DL Protein Corrected Calcium 8.2 MG/DL Phosphorus Level 2.4 MG/DL Magnesium Level 1.4 MG/DL Total Bilirubin 0.4 MG/DL Aspartate Amino Transf 16 U/L (AST/SGOT) Alanine Aminotransferase 10 U/L (ALT/SGPT) Alkaline Phosphatase 107 U/L Total Protein 4.5 GM/DL Albumin 1.4 GM/DL Test 03/01/17 05:54 Blood Type O POSITIVE Crossmatch Leukocyte-Reduced Red Blood Cells Blood Bank Comment Date/Time Procedure Status Source Growth 02/28/17 15:50 Urine Culture Received Urine Random Urine Pending 02/28/17 12:35 Aerobic Blood Culture Received Blood Peripheral Pending 02/28/17 12:35 Anaerobic Blood Culture Received Blood Peripheral Pending Physical Examination HEENT: Normocephalic; atraumatic; no jaundice. CHEST: CTA CARDIAC: RRR ABDOMEN: Soft, nondistended, RUQ tenderness; no hepatosplenomegaly; bowel sounds are present in all four quadrants. EXTREMITIES: No clubbing, cyanosis, or edema. SKIN: Normal; no rash; no jaundice. PRICING CLERK: No focal deficits; alert and oriented times three. (Mere Conrad) Assessment and Plan Plan ASSESSMENT: - GIB, Hematemesis with recent history of gastrojejunostomy ulcers. Patient has a history of gastric bypass 4 years ago in April. She recently relocated from [place]. She was evaluated with EGD 2 months ago in [place] and states that this revealed gastrojejunostomy ulcers. She reports that she was on Carafate but is no longer taking any medications for her stomach. She continues to use Aleve at least twice a week for headaches or abdominal pain. Abdomen/Pelvis CT (02/28/17)----> 1. Apparent gallbladder wall thickening. If there is clinical concern for acute cholecystitis, a hepatobiliary scan may be helpful to confirm cystic duct obstruction in this patient. 2. Mild hepatosplenomegaly. 3. Degenerative changes and scoliosis of the lumbar spine. Chronic mild compression deformity is noted involving L1. Gall Bladder Ultrasound (02/28/17)----> 1. Single mobile stone in the gallbladder. 2. Extrarenal pelvis on the right. Upper GI Series (02/28/17)---> 1. No evidence of extravasation to suggest perforation. 2. Focal collection of contrast within the gastric remnant raising the possibility of focal ulceration. Upper endoscopy would be helpful for further evaluation of this finding if there is strong clinical concern for ulceration within the gastric remnant. H&H is 6.9/20.5. General surgery is following and has scheduled EGD for today. - RUQ pain. Pt states an intermittent sharp pain associated with movement and inspiration. Pt reports that she has had frequent falls and pain started after hitting her right side during a fall. She does have single mobile stone in the gallbladder. She is on abx per GS. - Iron Deficiency Anemia secondary to blood loss. 6.9/20.5. EGD today with GS. - Abn. Wt. Loss. S/P Gastric Bypass ~ 4 years ago. 201 prior to surgery, now 80. - Constipation. Takes lactulose as needed at home. - Schizophrenia/Bipolar d/o, Depression/Anxiety, Asthma per primary PLAN: - EGD today with GS - NPO - Increase protonix to 40mg IV BID - Cont. Abx per GS - Monitor HH - Transfuse as necessary - Supportive care - Further recommendations to follow based on results of above - Pt seen and examined by Dr. Ortega and myself and this note is written on his behalf (Mere Conrad) Physician Comments Seen and examined with YASMIN, egd earlier today showed large gastr- jejunal ulcers. This was done by Surgery. Not much to add from gi standpoint, discussed with Dr. Arias . Will sign off reconsult as needed. Thank you (Thee Ortega MD) Mere Conrad Mar 01, 2017 09:14 Thee Ortega MD Mar 01, 2017 13:14
--- NOTE | 2017-03-01 09:21 | GIPROC ---
[facility] [address] [facility]. [facility], [address] EGD PROCEDURE REPORT EXAM DATE: 03/01/2017 PATIENT NAME: Dea Baugh MR #: [id number] BIRTHDATE: 1970 ATTENDING: Jerome Arias MD ORDER #: [id number] LAWN CARE PROFESSIONAL: Len Phipps and Amna Ocampo STATUS: inpatient INDICATIONS: The patient is a 46 yr old female here for an EGD due to hematemesis , hx of gastric bypass 4 years ago. Anemia of blood loss. PROCEDURE PERFORMED: EGD, diagnostic MEDICATIONS: None and Per Anesthesia. TOPICAL ANESTHETIC: none CONSENT: The patient understands the risks and benefits of the procedure and understands that these risks include, but are not limited to: sedation, allergic reaction, infection, perforation and/or bleeding. Alternative means of evaluation and treatment include, among others: physical exam, x-rays, and/or surgical intervention. The patient elects to proceed with this endoscopic procedure. medical equipment was checked for proper function. Hand hygiene and appropriate measures for infection prevention was taken. After the risks, benefits and alternatives of the procedure were thoroughly explained, Informed consent was verified, confirmed and timeout was successfully executed by the treatment team. The patient was anesthetized with anesthesia and the Pentax [id number] and [id number] endoscope was introduced through the mouth and advanced to the anastomosis. There was evidence of large ulcer with adherent clot. Likely gastrogastro fitula but could not be confirmed on EGD due to clot. Retroflexion was not performed The gastroscope was then slowly withdrawn and removed. Gastrojejunostomy ulcer, adherent clot, no evidence of acute bleeding. ADVERSE EVENTS: There were no complications. IMPRESSIONS: 1. Gastrojejunostomy ulcer, adherent clot, no evidence of acute bleeding 2. Retroflexion was not performed RECOMMENDATIONS: ICU monitoring PATIENT CONDITION: stable DISPOSITION: Inpatient REPEAT EXAM: Return as needed for EGD Jerome Arias MD eSigned: Jerome Arias MD 03/01/2017 9:20 AM cc:
[2017-03-01] MEDS ORDERED: CYANOCOBALAMIN 1000 MCG/ML VIAL IM ONE (09:45)
[2017-03-01] MEDS ORDERED: POTASSIUM CHLOR 20 MEQ PREMIX 100 ML IV PRN ×2 (10:00)
[2017-03-01] MEDS ORDERED: POTASSIUM PHOSPHATE MONOBASIC 500 MG TAB PO PRN (10:00)
[2017-03-01] MEDS ORDERED: POTASSIUM PHOSPHATE MONOBASIC 500 MG TAB PO/TUBE PRN (10:00)
[2017-03-01] MEDS ORDERED: MAGNESIUM OXIDE 400 MG TAB PO PRN (10:00)
[2017-03-01] MEDS ORDERED: MAGNESIUM SULFATE INJ 4 GM in SODIUM CHLORIDE 0.9% INJ 92 ML IV PRN (10:00)
[2017-03-01] MEDS ORDERED: SODIUM PHOSPHATE INJ 30 MMOL in SODIUM CHLOR 0.9% 250 ML INJ 240 ML IV PRN (10:00)
[2017-03-01] MEDS ORDERED: POTASSIUM PHOSPHATE INJ 30 MMOL in SODIUM CHLOR 0.9% 250 ML INJ 250 ML IV PRN (10:00)
[2017-03-01] MEDS ORDERED: POTASSIUM CHLOR 40 MEQ PREMIX 100 ML IV PRN (10:00)
[2017-03-01] MEDS ORDERED: POTASSIUM CHLORIDE 25 MEQ EFFERVESCENT TAB PO PRN (10:00)
[2017-03-01] MEDS ORDERED: MAGNESIUM SULFATE INJ 2 GM in SODIUM CHLORIDE 0.9% INJ 96 ML IV PRN (10:00)
[2017-03-01] MEDS ORDERED: MIDAZOLAM HCL 2 MG/2 ML VIAL ONE (10:07)
[2017-03-01] MEDS ORDERED: CALCIUM GLUCONATE INJ 1 GM in SODIUM CHLORIDE 0.9% INJ 100 ML IV ONE (10:30)
[2017-03-01] MEDS: PANTOPRAZOLE SODIUM 40 MG VIAL IV PUSH SCH ×2 (10:44→20:02)
[2017-03-01] MEDS: SUCRALFATE 1 GM/10 ML CUP PO SCH ×3 (11:12→20:02)
--- NOTE | 2017-03-01 12:11 | HHI.CCPN ---
Subjective Remarks/Hospital Course Patient is a 46 year-old female with a past medical history of bronchial asthma , bipolar disorder, schizophrenia, anxiety/depression, and anemia. She presented to [facility] Emergency Department withy complaints of feeling dizziness, light headedness, generalized weakness, multiple falls and inability to ambulate. On further history she has a history of gastric bypass four years ago in [place] and another abdominal surgery about one to two years ago for Intussusception in [place] as well. She states that she weighed 200 lbs when she had the gastric bypass surgery preformed, now she weighs 80 pounds, she reports chronic abdominal pain associated with intractable nausea and vomiting for several months. In addition to decreased p.o. intake. Her abdominal pain progressively worsened and mainly in the right upper quadrant and left lower quadrat. She denies any chest pain, shortness of breath, cough or any constitutional symptoms. On arrival to the emergency room she was hypotensive with systolic blood pressure in the 80's, tachycardic with heart rate in the 120's and her laboratory data showed hemoglobin of 7.2, lactic acid level of 2.9. Her liver enzymes are within normal limits with a total bilirubin of 0.2. Aspartate aminotransferase 21, alt 12, alkaline phosphatase 138. In the ER she received one out of two units of packed red blood cells and approximately 1.5 liters of normal saline. She responded to volume resuscitation and current blood pressure is 108/71 with a pulse of 112. Her o2 saturation is 97% on room air. Due to her abdominal pain, CT abdomen and pelvis were preformed which showed gallbladder wall thickening, mild hepatosplenomegaly and chronic mild compression deformity is noted involving L1. Chest x-ray in the emergency department showed right fifth rib fractures which appear old, otherwise no evidence of acute cardiopulmonary disease. Right IJ central line was placed by emergency department physician. She also has a ultrasound of the abdomen which is pending during the time of this dictation. The patient received Protonix, Unasyn and dilated in the emergency room. 03/01 Patient is lying in bed in NAD. s/p transfusion 2units PRBC this morning for Hgb 6.9. s/p EGD showed G-J ulcer, adherent clot with no evidence of bleeding. Objective Vital Signs Date Time Temp Pulse Resp B/P Pulse Ox O2 Delivery O2 Flow Rate FiO2 03/01/17 11:30 97.7 107 22 109/70 99 Room Air 03/01/17 09:55 2.00 02/28/17 19:52 21 Result Diagram: 03/01/17 0515 03/01/17 0515 Other Results Laboratory Tests Test 02/28/17 02/28/17 02/28/17 02/28/17 12:35 15:50 19:50 20:35 Blood Type O POSITIVE Urine Color YELLOW Urine Turbidity HAZY Urine pH 6.0 Urine Specific [place] 1.022 Urine Protein TRACE mg/dL Urine Glucose (UA) NEG mg/dL Urine Ketones NEG mg/dL Urine Occult Blood NEG Urine Nitrite NEG Urine Bilirubin NEG Urine Urobilinogen LESS THAN 2.0 MG/DL Urine Leukocyte Esterase LARGE Urine RBC 3 /hpf Urine WBC 65 /hpf Urine Squamous Epithelial 3 /hpf Cells Urine Bacteria RARE /hpf Urine Hyaline Casts 1 /lpf Urine Mucus FEW /lpf Microscopic Urinalysis Comment CULTURE INDICATED Hemoglobin 7.6 GM/DL Hematocrit 22.9 % Lactic Acid Level 0.8 mmol/L Prothrombin Time 10.9 SEC Prothromb Time International 1.0 RATIO Ratio Test 03/01/17 03/01/17 03/01/17 05:15 05:54 10:00 White Blood Count 5.2 TH/MM3 Red Blood Count 2.65 MIL/MM3 Hemoglobin 6.9 GM/DL Hematocrit 20.5 % Mean Corpuscular Volume 77.2 FL Mean Corpuscular Hemoglobin 25.9 PG Mean Corpuscular Hemoglobin 33.6 % Concent Red Cell Distribution Width 20.6 % Platelet Count 173 TH/MM3 Mean Platelet Volume 8.2 FL Neutrophils (%) (Auto) 66.6 % Lymphocytes (%) (Auto) 22.4 % Monocytes (%) (Auto) 7.4 % Eosinophils (%) (Auto) 3.0 % Basophils (%) (Auto) 0.6 % Neutrophils # (Auto) 3.4 TH/MM3 Lymphocytes # (Auto) 1.2 TH/MM3 Monocytes # (Auto) 0.4 TH/MM3 Eosinophils # (Auto) 0.2 TH/MM3 Basophils # (Auto) 0.0 TH/MM3 CBC Comment AUTO DIFF Differential Comment AUTO DIFF CONFIRMED Sodium Level 138 MEQ/L Potassium Level 3.4 MEQ/L Chloride Level 108 MEQ/L Carbon Dioxide Level 23.5 MEQ/L Anion Gap 7 MEQ/L Blood Urea Nitrogen 14 MG/DL Creatinine 0.27 MG/DL Estimat Glomerular Filtration 269 ML/MIN Rate Random Glucose 92 MG/DL Lactic Acid Level 0.9 mmol/L Calcium Level 6.8 MG/DL Protein Corrected Calcium 8.2 MG/DL Phosphorus Level 2.4 MG/DL Magnesium Level 1.4 MG/DL Total Bilirubin 0.4 MG/DL Aspartate Amino Transf 16 U/L (AST/SGOT) Alanine Aminotransferase 10 U/L (ALT/SGPT) Alkaline Phosphatase 107 U/L Total Protein 4.5 GM/DL Albumin 1.4 GM/DL Blood Type O POSITIVE Crossmatch Leukocyte-Reduced Leukocyte-Reduced Red Blood Red Blood Cells Cells Blood Bank Comment Imaging Last Impressions Chest X-Ray 02/28/17 0941 Signed Impressions: Service Date/Time: Tuesday, February 28, 2017 10:44 - CONCLUSION: Right fifth rib fracture which appears old. No evidence of acute fracture or acute cardiothymic process. Jean Love MD Upper GI Series 02/28/17 0000 Signed Impressions: Service Date/Time: Tuesday, February 28, 2017 17:21 - CONCLUSION: 1. No evidence of extravasation to suggest perforation. 2. Focal collection of contrast within the gastric remnant raising the possibility of focal ulceration. Upper endoscopy would be helpful for further evaluation of this finding if there is strong clinical concern for ulceration within the gastric remnant. Maycol Castro MD Gall Bladder Ultrasound 02/28/17 0000 Signed Impressions: Service Date/Time: Tuesday, February 28, 2017 14:50 - CONCLUSION: 1. Single mobile stone in the gallbladder. 2. Extrarenal pelvis on the right. Darren Pascual MD Abdomen/Pelvis CT 02/28/17 0000 Signed Impressions: Service Date/Time: Tuesday, February 28, 2017 13:20 - CONCLUSION: 1. Apparent gallbladder wall thickening. If there is clinical concern for acute cholecystitis, a hepatobiliary scan may be helpful to confirm cystic duct obstruction in this patient. 2. Mild hepatosplenomegaly. 3. Degenerative changes and scoliosis of the lumbar spine. Chronic mild compression deformity is noted involving L1. Maycol Castro MD Objective Remarks GENERAL: Patient is lying in bed in NAD SKIN: Warm and dry. HEAD: Normocephalic. EYES: No scleral icterus. No injection or drainage. NECK: Supple, trachea midline. No JVD or lymphadenopathy. CARDIOVASCULAR: Regular rate and rhythm without murmurs, gallops, or rubs. RESPIRATORY: Breath sounds equal bilaterally. No accessory muscle use. GASTROINTESTINAL: Abdomen soft, non-tender, nondistended. MUSCULOSKELETAL: No cyanosis, or edema. BACK: Nontender without obvious deformity. No CVA tenderness. Neuro: awake and alert A/P Assessment and Plan 1. Anemia 2. Dehydration. 3. Mild lactic acidemia..resolved 4. Electrolytes abnormalities( Hypokalemia, Hypomag, Hypophos) 5. Anemia. 6. Chronic abdominal pain 7. Previous gastric bypass surgery four years ago. 8. Malnutrition. 9. History of anxiety and depression. 10. History of schizophrenia. Plan Neuro: Monitor neurostatus, Awake and alert Pulm: Oxygen as needed to maintain sats >92%. Bronchodilators PRN CV: Monitor HR and BP and maintain MAP >65 mmHg. lactic acid resolved : Monitor renal function. Intake and outputs and electrolyte replacement protocol. Will need K, Phos, mag replacement today GI: On Protonix 40 mg IV daily. s/p EGD today showed G-G ulcer, adherent clot no evidence of bleeding. Gi and Surgery are following. Patient was placed on TPN per surgery. ID: Continue abx(Zosyn) and monitor for signs of infections( fever and WBC). 02/28 BC, Urine cx: NGTD Endo: SSI if needed for glycemic control. Heme: Monitor CBC, patient s/p transfusion 2units PRBC yesterday and 2units PRBC today for Hgb 6.9 GI prophylaxis with Protonix 40 mg IV daily. DVT prophylaxis with SCD. Lines: Right IJ CVP placed 02/28 Bridgette Acosta MD Mar 01, 2017 12:11
[2017-03-01 16:31] LABS: HEMATOCRIT 33.6 % (35.0-46.0)
[2017-03-01 16:36] LABS: REVIEW FLAG FINAL
[2017-03-01] MEDS: RESP: ALBUTEROL 2.5 MG/IPRATROPIUM 0.5 MG NEB (PRN) INH (19:30)
[2017-03-01] MEDS: CLINIMIX E 4.25/25 2000 mL- >42 mls/hr IV-CENTRAL SCH ×3 (20:01)
[2017-03-01] MEDS: FAT EMULSION 20% INJ 250 ML (Daily over 8 hours) IV-CENTRAL SCH (20:01)
[2017-03-01] MEDS: OLANZapine 2.5 MG TAB PO SCH (20:27)
[2017-03-02] VITALS (13 sets, daily range): BP systolic 93–120; BP diastolic 60–83; PULSE 80–110; RESP 10–30; TEMP 97.9–98.7; O2SAT 97–100
[2017-03-02] MEDS: PIPERACIL-TAZO 4.5 GM PREMIX 100 ML IV SCH ×3 (00:42→16:45)
[2017-03-02 01:07] LABS: HEMATOCRIT 31.2 % (35.0-46.0); REVIEW FLAG FINAL
[2017-03-02] MEDS: HYDROmorphone HCL PF 1 MG/ML VIAL IV PUSH PRN ×8 (01:31→22:55)
[2017-03-02] MEDS: DEXT 5%-NACL 0.9% 1000 ML INJ 1,000 ML IV SCH (02:29)
[2017-03-02] MEDS: CHLORHEXIDINE GLUCONATE 2 % 1 PACK (2 CLOTHS) TOP SCH (02:29)
[2017-03-02] MEDS: SUCRALFATE 1 GM/10 ML CUP PO SCH ×4 (02:30→20:50)
[2017-03-02] MEDS: INSULIN NovoLIN REGULAR SUPPLEMENTAL SCALE SQ SCH ×4 (02:30→21:46)
[2017-03-02] MEDS: RESP: ALBUTEROL 2.5 MG/IPRATROPIUM 0.5 MG NEB (SCH) INH ×4 (03:51→20:22)
[2017-03-02 05:30] LABS: AUTOMATED NEUTROPHIL # 3.6 TH/MM3 (1.8-7.7); BASOPHIL % 0.8 % (0.0-2.0); EOSINOPHIL # 0.2 TH/MM3 (0-0.4); EOSINOPHIL % 4.5 % (0.0-4.0); HEMATOCRIT 33.1 % (35.0-46.0); HEMO FLAGS DIFF FINAL; LYMPH % 22.3 % (9.0-44.0); LYMPHOCYTE # 1.2 TH/MM3 (1.0-4.8); MEAN CELL VOLUME 81.3 FL (80.0-100.0); MEAN CORPUSCULAR HEMOGLOBIN 26.7 PG (27.0-34.0); MEAN CORPUSCULAR HGB CONC 32.9 % (32.0-36.0); MONO % 4.9 % (0.0-8.0); NEUT % 67.5 % (16.0-70.0); PLATELET COUNT 167 TH/MM3 (150-450); RED BLOOD COUNT 4.08 MIL/MM3 (4.00-5.30); RED CELL DISTRIBUTION WIDTH 18.9 % (11.6-17.2); WHITE BLOOD COUNT 5.3 TH/MM3 (4.0-11.0)
[2017-03-02 06:17] LABS: CALCIUM-PROTEIN CORRECTED 8.5 MG/DL (8.5-10.1); MAGNESIUM 1.4 MG/DL (1.5-2.5); TOTAL BILIRUBIN ADULT 0.3 MG/DL (0.2-1.0)
[2017-03-02 06:19] LABS: POTASSIUM 2.7 MEQ/L (3.5-5.1)
[2017-03-02] MEDS: POTASSIUM CHLOR 40 MEQ PREMIX 100 ML IV PRN ×3 (06:37→08:41)
[2017-03-02] MEDS: OLANZapine 2.5 MG TAB PO SCH ×2 (08:38→20:51)
[2017-03-02] MEDS: clonazePAM 0.5 MG TAB PO PRN (08:38)
[2017-03-02] MEDS: PANTOPRAZOLE SODIUM 40 MG VIAL IV PUSH SCH ×2 (08:39→20:50)
[2017-03-02] MEDS: SODIUM CHLORIDE 0.9% FLUSH 10 ML FLUSH IVF PRN (08:40)
--- NOTE | 2017-03-02 12:16 | HHI.PR ---
Subjective Subjective Notes Resting in bed Reports that she is very hungry Wants to drink apple juice and maybe some chicken broth later Objective Vitals/I&O Vital Signs Date Time Temp Pulse Resp B/P Pulse Ox O2 Delivery O2 Flow Rate FiO2 03/02/17 10:00 94 03/02/17 09:14 99 21 03/02/17 09:10 15 03/02/17 08:00 98.3 117/78 03/02/17 07:00 Room Air 03/01/17 09:55 2.00 Labs Laboratory Tests Test 03/01/17 03/01/17 03/01/17 03/02/17 16:07 18:50 23:15 04:00 Hemoglobin 10.9 10.4 10.9 Hematocrit 33.6 31.2 33.1 Phosphorus Level 3.0 2.9 Nasal Screen MRSA (PCR) MRSA NOT DETECTED White Blood Count 5.3 Red Blood Count 4.08 Mean Corpuscular Volume 81.3 Mean Corpuscular Hemoglobin 26.7 Mean Corpuscular Hemoglobin 32.9 Concent Red Cell Distribution Width 18.9 Platelet Count 167 Mean Platelet Volume 8.8 Neutrophils (%) (Auto) 67.5 Lymphocytes (%) (Auto) 22.3 Monocytes (%) (Auto) 4.9 Eosinophils (%) (Auto) 4.5 Basophils (%) (Auto) 0.8 Neutrophils # (Auto) 3.6 Lymphocytes # (Auto) 1.2 Monocytes # (Auto) 0.3 Eosinophils # (Auto) 0.2 Basophils # (Auto) 0.0 CBC Comment DIFF FINAL Differential Comment Sodium Level 141 Potassium Level 2.7 Chloride Level 107 Carbon Dioxide Level 26.0 Anion Gap 8 Blood Urea Nitrogen 8 Creatinine 0.35 Estimat Glomerular Filtration 200 Rate Random Glucose 190 Calcium Level 7.4 Protein Corrected Calcium 8.5 Magnesium Level 1.4 Total Bilirubin 0.3 Aspartate Amino Transf 18 (AST/SGOT) Alanine Aminotransferase 12 (ALT/SGPT) Alkaline Phosphatase 116 Total Protein 5.1 Albumin 1.6 Date/Time Procedure Status Source Growth 02/28/17 15:50 Urine Culture - Final Complete Urine Random Urine 50-100,000 CFU/ML MIXED BRIANNA... 02/28/17 12:35 Aerobic Blood Culture - Preliminary Resulted Blood Peripheral NO GROWTH IN 2 DAYS 02/28/17 12:35 Anaerobic Blood Culture - Preliminary Resulted Blood Peripheral NO GROWTH IN 2 DAYS Cardiovascular: Regular Lungs: Clear Abdomen: Non-distended, Non-tender Extremities: No edema Narrative Exam RIJ Central line in place with TPN infusing A/P Assessment and Plan 46 year old female s/p gastric bypass surgery, weight loss, cachetic, malnutrition, GI bleed; anemia and NSAID use -S/p EGD yesterday -- Gastrojejunostomy ulcer; adherent clot without evidence of active bleeding -Continue to monitor Hmg -Okay for some sips of apple juice -TPN -Labs in AM Attending Statement Patient seen at bedside s/p egd without active bleed but large clot and ulcer ppi, carafate monitor closely ok for apple juice Attestation The exam, history, and the medical decision-making described in the above note were completed with the assistance of the mid-level provider. I reviewed and agree with the findings presented. I attest that I had a [id number] encounter with the patient on the same day, and personally performed and documented my assessment and findings in the medical record. Jannette Garnett Mar 02, 2017 12:16 Jerome Arias MD Mar 09, 2017 23:16
--- NOTE | 2017-03-02 12:22 | HHI.CCPN ---
Subjective Remarks/Hospital Course Patient is a 46 year-old female with a past medical history of bronchial asthma , bipolar disorder, schizophrenia, anxiety/depression, and anemia. She presented to [facility] Emergency Department withy complaints of feeling dizziness, light headedness, generalized weakness, multiple falls and inability to ambulate. On further history she has a history of gastric bypass four years ago in [place] and another abdominal surgery about one to two years ago for Intussusception in [place] as well. She states that she weighed 200 lbs when she had the gastric bypass surgery preformed, now she weighs 80 pounds, she reports chronic abdominal pain associated with intractable nausea and vomiting for several months. In addition to decreased p.o. intake. Her abdominal pain progressively worsened and mainly in the right upper quadrant and left lower quadrat. She denies any chest pain, shortness of breath, cough or any constitutional symptoms. On arrival to the emergency room she was hypotensive with systolic blood pressure in the 80's, tachycardic with heart rate in the 120's and her laboratory data showed hemoglobin of 7.2, lactic acid level of 2.9. Her liver enzymes are within normal limits with a total bilirubin of 0.2. Aspartate aminotransferase 21, alt 12, alkaline phosphatase 138. In the ER she received one out of two units of packed red blood cells and approximately 1.5 liters of normal saline. She responded to volume resuscitation and current blood pressure is 108/71 with a pulse of 112. Her o2 saturation is 97% on room air. Due to her abdominal pain, CT abdomen and pelvis were preformed which showed gallbladder wall thickening, mild hepatosplenomegaly and chronic mild compression deformity is noted involving L1. Chest x-ray in the emergency department showed right fifth rib fractures which appear old, otherwise no evidence of acute cardiopulmonary disease. Right IJ central line was placed by emergency department physician. She also has a ultrasound of the abdomen which is pending during the time of this dictation. The patient received Protonix, Unasyn and dilated in the emergency room. 03/01 Patient is lying in bed in NAD. s/p transfusion 2units PRBC this morning for Hgb 6.9. s/p EGD showed G-J ulcer, adherent clot with no evidence of bleeding. Subjective 03/02: Requesting Klonopin today. Hemoglobin stable for the past 12 hours. Very anxious and verbose. Complaining of pain epigastric/right upper quadrant region. Objective Vital Signs Date Time Temp Pulse Resp B/P Pulse Ox O2 Delivery O2 Flow Rate FiO2 03/02/17 10:00 94 03/02/17 09:14 99 21 03/02/17 09:10 15 03/02/17 08:00 98.3 117/78 03/02/17 07:00 Room Air 03/01/17 09:55 2.00 Intake and Output 03/01/17 03/01/17 03/02/17 08:00 16:00 00:00 Intake Total 475 ml 1267 ml Balance 475 ml 1267 ml Result Diagram: 03/02/17 0400 03/02/17 0400 Other Results Microbiology Date/Time Procedure Status Source Growth 02/28/17 15:50 Urine Culture - Final Complete Urine Random Urine 50-100,000 CFU/ML MIXED BRIANNA... 02/28/17 12:35 Aerobic Blood Culture - Preliminary Resulted Blood Peripheral NO GROWTH IN 2 DAYS 02/28/17 12:35 Anaerobic Blood Culture - Preliminary Resulted Blood Peripheral NO GROWTH IN 2 DAYS Imaging Last Impressions Chest X-Ray 02/28/17 0941 Signed Impressions: Service Date/Time: Tuesday, February 28, 2017 10:44 - CONCLUSION: Right fifth rib fracture which appears old. No evidence of acute fracture or acute cardiothymic process. Jean Love MD Upper GI Series 02/28/17 0000 Signed Impressions: Service Date/Time: Tuesday, February 28, 2017 17:21 - CONCLUSION: 1. No evidence of extravasation to suggest perforation. 2. Focal collection of contrast within the gastric remnant raising the possibility of focal ulceration. Upper endoscopy would be helpful for further evaluation of this finding if there is strong clinical concern for ulceration within the gastric remnant. Maycol Castro MD Gall Bladder Ultrasound 02/28/17 0000 Signed Impressions: Service Date/Time: Tuesday, February 28, 2017 14:50 - CONCLUSION: 1. Single mobile stone in the gallbladder. 2. Extrarenal pelvis on the right. Darren Pascual MD Abdomen/Pelvis CT 02/28/17 0000 Signed Impressions: Service Date/Time: Tuesday, February 28, 2017 13:20 - CONCLUSION: 1. Apparent gallbladder wall thickening. If there is clinical concern for acute cholecystitis, a hepatobiliary scan may be helpful to confirm cystic duct obstruction in this patient. 2. Mild hepatosplenomegaly. 3. Degenerative changes and scoliosis of the lumbar spine. Chronic mild compression deformity is noted involving L1. Maycol Castro MD Objective Remarks GENERAL: 46-year-old cachectic female, lying in bed in no acute distress SKIN: Warm and dry. No rash HEAD: Normocephalic. EYES: No scleral icterus. No injection or drainage. PERRL. 3 mm bilaterally and reactive. NECK: Supple, trachea midline. No JVD or lymphadenopathy. Right IJ clean dry and intact CARDIOVASCULAR: Regular rate and rhythm. S1, S2 no S4 without murmur RESPIRATORY: Breath sounds clear to auscultation and equal bilaterally. Symmetrical excursion. No accessory muscle use. GASTROINTESTINAL: Abdomen soft, tender to palpation epigastric/right upper quadrant with voluntary rebound and no rigidity. Hypoactive bowel sounds MUSCULOSKELETAL: No edema Neuro: awake and alert. Cranial nerves II through XII appear grossly intact. Strength is equal symmetric. Normal sensation. A/P Assessment and Plan 1. Anemia 2. Dehydration. 3. Mild lactic acidemia..resolved 4. Electrolytes abnormalities( Hypokalemia, Hypomag, Hypophos) 5. Anemia. 6. Chronic abdominal pain 7. Previous gastric bypass surgery four years ago. 8. Malnutrition. Plan Neuro/Psych: Bipolar disorder Schizophrenia Depression/anxiety Resume Klonopin 1 mg by mouth 3 times a day/home medication 2 mg 3 times a day On Zyprexa 2.5 mg by mouth twice a day. Continue Hydromorphone 0.5 mill grams every 2 hours. Pain management Monitor neurostatus, Awake and alert Pulm: Tobaccoism History of bronchial asthma Oxygen as needed to maintain sats >92%. Bronchodilators PRN CV: Monitor HR and BP and maintain MAP >65 mmHg. Discontinue IV fluids /renal/FEN: Hypopotassemia Hypo-magnesium Monitor renal function. Intake and outputs and electrolyte replacement protocol. 80 mEq potassium, 3 g mag sulfate IV 1. 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 Upper GI revealed possible extravasation at bypass site. EGD 03/01 revealed a large ulcer with adjacent clot. Recommended TPN and/nothing by mouth status Current Protonix 40 mg IV twice a day and Carafate 1 g 4 times a day ID: Continue abx(Zosyn) and monitor for signs of infections( fever and WBC). 02/28 BC, Urine cx: NGTD Endo: SSI last low regimen with Accu-Cheks every 6 hours for glycemic control. Heme: Acute blood loss posthemorrhagic anemia Monitor CBC, patient s/p transfusion 2units PRBC 02/28 and 2units PRBC 03/01 for Hgb 6.9 GI prophylaxis with Protonix 40 mg IV daily. DVT prophylaxis with SCD. No pharmacological prophylaxis with bleeding Lines: Right IJ CVP placed 02/28 Level II Rich Coles MD Mar 02, 2017 12:21
[2017-03-02] MEDS: clonazePAM 1 MG TAB PO SCH ×2 (12:48→20:51)
[2017-03-02] MEDS: MAGNESIUM SULFATE 1 GM PREMIX 100 ML IV SCH ×3 (12:48→14:37)
[2017-03-02] MEDS ORDERED: clonazePAM 1 MG TAB PO SCH (13:00)
[2017-03-02] MEDS ORDERED: LORazepam 2 MG/ML VIAL IV PUSH SCH (14:00)
[2017-03-02] MEDS ORDERED: PROCHLORPERAZINE INJ 10 MG/2 ML VIAL IV PUSH PRN (16:00)
[2017-03-02] MEDS: ONDANSETRON HCL 4 MG/2 ML VIAL IV PUSH PRN (16:45)
[2017-03-02 19:35] LABS: HEMATOCRIT 36.2 % (35.0-46.0); REVIEW FLAG FINAL
[2017-03-02 20:02] LABS: POTASSIUM 3.9 MEQ/L (3.5-5.1)
[2017-03-02 20:44] LABS: MAGNESIUM 2.5 MG/DL (1.5-2.5)
[2017-03-02] MEDS: BUDESONIDE-FORMOTEROL 80/4.5 MCG INHALER INH SCH (20:51)
[2017-03-02] MEDS: diphenhydrAMINE HCL 50 MG/ML VIAL IV PRN (20:51)
[2017-03-02] MEDS: CLINIMIX E 4.25/25 2000 mL- >42 mls/hr IV-CENTRAL SCH ×3 (20:52)
[2017-03-02] MEDS: FAT EMULSION 20% INJ 250 ML (Daily over 8 hours) IV-CENTRAL SCH (20:52)
[2017-03-02] MEDS: ALPRAZolam 1 MG TAB PO PRN (22:08)
[2017-03-03] VITALS (15 sets, daily range): BP systolic 90–106; BP diastolic 57–73; PULSE 71–118; RESP 16–31; TEMP 97.2–100; O2SAT 92–100
[2017-03-03] MEDS: PIPERACIL-TAZO 4.5 GM PREMIX 100 ML IV SCH ×3 (01:20→18:00)
[2017-03-03] MEDS: HYDROmorphone HCL PF 1 MG/ML VIAL IV PUSH PRN ×7 (01:20→22:03)
[2017-03-03] MEDS: CHLORHEXIDINE GLUCONATE 2 % 1 PACK (2 CLOTHS) TOP SCH (04:00)
[2017-03-03] MEDS: RESP: ALBUTEROL 2.5 MG/IPRATROPIUM 0.5 MG NEB (SCH) INH (04:14)
[2017-03-03] MEDS: INSULIN NovoLIN REGULAR SUPPLEMENTAL SCALE SQ SCH ×4 (04:15→21:43)
[2017-03-03] MEDS: SUCRALFATE 1 GM/10 ML CUP PO SCH ×4 (05:59→21:30)
[2017-03-03] MEDS: clonazePAM 1 MG TAB PO SCH ×3 (06:00→21:37)
[2017-03-03 06:59] LABS: AUTOMATED NEUTROPHIL # 4.3 TH/MM3 (1.8-7.7); BASOPHIL % 0.7 % (0.0-2.0); EOSINOPHIL # 0.2 TH/MM3 (0-0.4); EOSINOPHIL % 3.6 % (0.0-4.0); HEMATOCRIT 36.3 % (35.0-46.0); HEMO FLAGS DIFF FINAL; LYMPH % 20.8 % (9.0-44.0); LYMPHOCYTE # 1.3 TH/MM3 (1.0-4.8); MEAN CELL VOLUME 82.2 FL (80.0-100.0); MEAN CORPUSCULAR HEMOGLOBIN 27.5 PG (27.0-34.0); MEAN CORPUSCULAR HGB CONC 33.5 % (32.0-36.0); NEUT % 68.9 % (16.0-70.0); PLATELET COUNT 211 TH/MM3 (150-450); RED BLOOD COUNT 4.41 MIL/MM3 (4.00-5.30); RED CELL DISTRIBUTION WIDTH 19.6 % (11.6-17.2); WHITE BLOOD COUNT 6.3 TH/MM3 (4.0-11.0)
[2017-03-03 07:31] LABS: ALT (GPT) 14 U/L (10-53); ANION GAP 7 MEQ/L (5-15); AST (GOT) 18 U/L (15-37); BLOOD UREA NITROGEN 9 MG/DL (7-18); CHLORIDE 100 MEQ/L (98-107); GLOMERULAR FILTRATION RATE 200 ML/MIN (>89); MAGNESIUM 2.1 MG/DL (1.5-2.5); SODIUM (NA) 137 MEQ/L (136-145)
[2017-03-03 07:46] LABS: ALKALINE PHOSPHATASE 117 U/L (45-117)
[2017-03-03 07:59] LABS: TOTAL BILIRUBIN ADULT 0.3 MG/DL (0.2-1.0)
[2017-03-03] MEDS: RESP: ALBUTEROL 2.5 MG/IPRATROPIUM 0.5 MG NEB (PRN) INH (08:43)
[2017-03-03] MEDS: BUDESONIDE-FORMOTEROL 80/4.5 MCG INHALER INH SCH ×2 (08:53→21:00)
[2017-03-03] MEDS: PANTOPRAZOLE SODIUM 40 MG VIAL IV PUSH SCH ×2 (08:54→21:24)
[2017-03-03] MEDS: OLANZapine 2.5 MG TAB PO SCH ×2 (08:54→21:35)
[2017-03-03] MEDS: TIOTROPIUM BROMIDE 18 MCG INH INH SCH (08:55)
--- NOTE | 2017-03-03 10:05 | HHI.CCPN ---
Subjective Remarks/Hospital Course Patient is a 46 year-old female with a past medical history of bronchial asthma , bipolar disorder, schizophrenia, anxiety/depression, and anemia. She presented to [facility] Emergency Department withy complaints of feeling dizziness, light headedness, generalized weakness, multiple falls and inability to ambulate. On further history she has a history of gastric bypass four years ago in [place] and another abdominal surgery about one to two years ago for Intussusception in [place] as well. She states that she weighed 200 lbs when she had the gastric bypass surgery preformed, now she weighs 80 pounds, she reports chronic abdominal pain associated with intractable nausea and vomiting for several months. In addition to decreased p.o. intake. Her abdominal pain progressively worsened and mainly in the right upper quadrant and left lower quadrat. She denies any chest pain, shortness of breath, cough or any constitutional symptoms. On arrival to the emergency room she was hypotensive with systolic blood pressure in the 80's, tachycardic with heart rate in the 120's and her laboratory data showed hemoglobin of 7.2, lactic acid level of 2.9. Her liver enzymes are within normal limits with a total bilirubin of 0.2. Aspartate aminotransferase 21, alt 12, alkaline phosphatase 138. In the ER she received one out of two units of packed red blood cells and approximately 1.5 liters of normal saline. She responded to volume resuscitation and current blood pressure is 108/71 with a pulse of 112. Her o2 saturation is 97% on room air. Due to her abdominal pain, CT abdomen and pelvis were preformed which showed gallbladder wall thickening, mild hepatosplenomegaly and chronic mild compression deformity is noted involving L1. Chest x-ray in the emergency department showed right fifth rib fractures which appear old, otherwise no evidence of acute cardiopulmonary disease. Right IJ central line was placed by emergency department physician. She also has a ultrasound of the abdomen which is pending during the time of this dictation. The patient received Protonix, Unasyn and dilated in the emergency room. 03/01 Patient is lying in bed in NAD. s/p transfusion 2units PRBC this morning for Hgb 6.9. s/p EGD showed G-J ulcer, adherent clot with no evidence of bleeding. 03/02: Requesting Klonopin today. Hemoglobin stable for the past 12 hours. Very anxious and verbose. Complaining of pain epigastric/right upper quadrant region. Subjective 03/03: Currently afebrile. Requesting doxepin along with increasing pain medications. Days of pain in epigastric/right upper quadrant region. Hemoglobin stable. Objective Vital Signs Date Time Temp Pulse Resp B/P Pulse Ox O2 Delivery O2 Flow Rate FiO2 03/03/17 09:42 18 03/03/17 08:46 99 21 03/03/17 06:00 71 03/03/17 04:00 98.5 90/62 03/02/17 19:00 Room Air 03/01/17 09:55 2.00 Intake and Output 03/02/17 03/02/17 03/03/17 08:00 16:00 00:00 Intake Total 1214 ml 1701 ml 696 ml Output Total 2500 ml 3300 ml 650 ml Balance -1286 ml -1599 ml 46 ml Result Diagram: 03/03/17 0600 03/03/17 0600 Other Results Microbiology Date/Time Procedure Status Source Growth 02/28/17 15:50 Urine Culture - Final Complete Urine Random Urine 50-100,000 CFU/ML MIXED BRIANNA... 02/28/17 12:35 Aerobic Blood Culture - Preliminary Resulted Blood Peripheral NO GROWTH IN 2 DAYS 02/28/17 12:35 Anaerobic Blood Culture - Preliminary Resulted Blood Peripheral NO GROWTH IN 2 DAYS Imaging Last Impressions Chest X-Ray 02/28/17 0941 Signed Impressions: Service Date/Time: Tuesday, February 28, 2017 10:44 - CONCLUSION: Right fifth rib fracture which appears old. No evidence of acute fracture or acute cardiothymic process. Jean Love MD Upper GI Series 02/28/17 0000 Signed Impressions: Service Date/Time: Tuesday, February 28, 2017 17:21 - CONCLUSION: 1. No evidence of extravasation to suggest perforation. 2. Focal collection of contrast within the gastric remnant raising the possibility of focal ulceration. Upper endoscopy would be helpful for further evaluation of this finding if there is strong clinical concern for ulceration within the gastric remnant. Maycol Castro MD Gall Bladder Ultrasound 02/28/17 0000 Signed Impressions: Service Date/Time: Tuesday, February 28, 2017 14:50 - CONCLUSION: 1. Single mobile stone in the gallbladder. 2. Extrarenal pelvis on the right. Darren Pascual MD Abdomen/Pelvis CT 02/28/17 0000 Signed Impressions: Service Date/Time: Tuesday, February 28, 2017 13:20 - CONCLUSION: 1. Apparent gallbladder wall thickening. If there is clinical concern for acute cholecystitis, a hepatobiliary scan may be helpful to confirm cystic duct obstruction in this patient. 2. Mild hepatosplenomegaly. 3. Degenerative changes and scoliosis of the lumbar spine. Chronic mild compression deformity is noted involving L1. Maycol Castro MD Objective Remarks GENERAL: 46-year-old cachectic female, lying in bed in no acute distress SKIN: Warm and dry. No rash HEAD: Normocephalic. EYES: No scleral icterus. No injection or drainage. PERRL. 3 mm bilaterally and reactive. NECK: Supple, trachea midline. No JVD or lymphadenopathy. Right IJ clean dry and intact CARDIOVASCULAR: Regular rate and rhythm. S1, S2 no S4 without murmur RESPIRATORY: Breath sounds clear to auscultation and equal bilaterally. Symmetrical excursion. No accessory muscle use. GASTROINTESTINAL: Abdomen soft, tender to palpation epigastric/right upper quadrant with voluntary rebound and no rigidity. Hypoactive bowel sounds MUSCULOSKELETAL: No edema Neuro: awake and alert. Cranial nerves II through XII appear grossly intact. Strength is equal symmetric. Normal sensation. A/P Assessment and Plan Neuro/Psych: Bipolar disorder Schizophrenia Depression/anxiety Resume Klonopin 1 mg by mouth 3 times a day/home medication 2 mg 3 times a day On Zyprexa 2.5 mg by mouth twice a day. Continue Hydromorphone 1 mg every 3 hours for. pain management Monitor neurostatus, Awake and alert Requesting doxepin we'll start at 2 mg at night. Pulm: Tobaccoism History of bronchial asthma Oxygen as needed to maintain sats >92%. Albuterol HFA 4 times a day with Spiriva daily and Symbicort twice a day CV: Monitor HR and BP and maintain MAP >65 mmHg. Discontinue IV fluids /renal/FEN: Hypopotassemia - resolved Hypo-magnesium - resolved Monitor renal function. Intake and outputs and electrolyte replacement protocol. GI: Large ulcer with adjacent thrombus at GJ junction Possible GG fistula Seen by Dr Arias. Upper GI revealed possible extravasation at bypass site. EGD 03/01 revealed a large ulcer with adjacent clot. Recommended TPN. On clears per surgery Current Protonix 40 mg IV twice a day and Carafate 1 g 4 times a day ID: Continue abx(Zosyn) and monitor for signs of infections( fever and WBC). 02/28 BC, Urine cx: NGTD Endo: SSI last low regimen with Accu-Cheks every 6 hours for glycemic control. Heme: Acute blood loss posthemorrhagic anemia Monitor CBC, patient s/p transfusion 2units PRBC 02/28 and 2units PRBC 03/01 for Hgb 6.9. Hemoglobin currently 12 GI prophylaxis with Protonix 40 mg IV twice a day. DVT prophylaxis with SCD. No pharmacological prophylaxis with bleeding Lines: Right IJ CVP placed 02/28 Level II Rich Coles MD Mar 03, 2017 10:05
--- NOTE | 2017-03-03 12:03 | PD.TRANSFR ---
Transfer Summary Admission Date Feb 28, 2017 at 15:29 Transfer Date: Mar 03, 2017 Admitting Diagnosis symptomatic anemia, GI bleed, hypotension, right upper quadrant abdo Diagnoses: (1) GI bleed Diagnosis: Principal Significant Findings EGD - fistula to GJ junction. Possible GG fistula. Transfer Summary/Subjective Please see note below Objective Vital Signs Date Time Temp Pulse Resp B/P Pulse Ox O2 Delivery O2 Flow Rate FiO2 03/03/17 10:00 110 03/03/17 09:42 18 03/03/17 08:46 99 21 03/03/17 07:00 Room Air 03/03/17 04:00 98.5 90/62 03/01/17 09:55 2.00 Intake and Output 03/02/17 03/02/17 03/03/17 08:00 16:00 00:00 Intake Total 1214 ml 1701 ml 696 ml Output Total 2500 ml 3300 ml 650 ml Balance -1286 ml -1599 ml 46 ml Result Diagram: 03/03/17 0600 03/03/17 0600 Other Results Microbiology Date/Time Procedure Status Source Growth 02/28/17 15:50 Urine Culture - Final Complete Urine Random Urine 50-100,000 CFU/ML MIXED BRIANNA... Imaging Last Impressions Chest X-Ray 02/28/17 0941 Signed Impressions: Service Date/Time: Tuesday, February 28, 2017 10:44 - CONCLUSION: Right fifth rib fracture which appears old. No evidence of acute fracture or acute cardiothymic process. Jean Love MD Upper GI Series 02/28/17 0000 Signed Impressions: Service Date/Time: Tuesday, February 28, 2017 17:21 - CONCLUSION: 1. No evidence of extravasation to suggest perforation. 2. Focal collection of contrast within the gastric remnant raising the possibility of focal ulceration. Upper endoscopy would be helpful for further evaluation of this finding if there is strong clinical concern for ulceration within the gastric remnant. Maycol Castro MD Gall Bladder Ultrasound 02/28/17 0000 Signed Impressions: Service Date/Time: Tuesday, February 28, 2017 14:50 - CONCLUSION: 1. Single mobile stone in the gallbladder. 2. Extrarenal pelvis on the right. Darren Pascual MD Abdomen/Pelvis CT 02/28/17 0000 Signed Impressions: Service Date/Time: Tuesday, February 28, 2017 13:20 - CONCLUSION: 1. Apparent gallbladder wall thickening. If there is clinical concern for acute cholecystitis, a hepatobiliary scan may be helpful to confirm cystic duct obstruction in this patient. 2. Mild hepatosplenomegaly. 3. Degenerative changes and scoliosis of the lumbar spine. Chronic mild compression deformity is noted involving L1. Maycol Castro MD Objective Remarks GENERAL: 46-year-old cachectic female, lying in bed in no acute distress SKIN: Warm and dry. No rash HEAD: Normocephalic. EYES: No scleral icterus. No injection or drainage. PERRL. 3 mm bilaterally and reactive. NECK: Supple, trachea midline. No JVD or lymphadenopathy. Right IJ clean dry and intact CARDIOVASCULAR: Regular rate and rhythm. S1, S2 no S4 without murmur RESPIRATORY: Breath sounds clear to auscultation and equal bilaterally. Symmetrical excursion. No accessory muscle use. GASTROINTESTINAL: Abdomen soft, tender to palpation epigastric/right upper quadrant with voluntary rebound and no rigidity. Hypoactive bowel sounds MUSCULOSKELETAL: No edema Neuro: awake and alert. Cranial nerves II through XII appear grossly intact. Strength is equal symmetric. Normal sensation. A/P Assessment and Plan Neuro/Psych: Bipolar disorder Schizophrenia Depression/anxiety Resume Klonopin 1 mg by mouth 3 times a day/home medication 2 mg 3 times a day On Zyprexa 2.5 mg by mouth twice a day. Continue Hydromorphone 1 mg every 3 hours for. pain management Monitor neurostatus, Awake and alert Requesting doxepin we'll start at 2 mg at night. Pulm: Tobaccoism History of bronchial asthma Oxygen as needed to maintain sats >92%. Albuterol HFA 4 times a day with Spiriva daily and Symbicort twice a day CV: Monitor HR and BP and maintain MAP >65 mmHg. Discontinue IV fluids /renal/FEN: Hypopotassemia - resolved Hypo-magnesium - resolved Monitor renal function. Intake and outputs and electrolyte replacement protocol. GI: Large ulcer with adjacent thrombus at GJ junction Possible GG fistula Seen by Dr Arias. Upper GI revealed possible extravasation at bypass site. EGD 03/01 revealed a large ulcer with adjacent clot. Recommended TPN. On clears per surgery Current Protonix 40 mg IV twice a day and Carafate 1 g 4 times a day ID: Continue abx(Zosyn) and monitor for signs of infections( fever and WBC). 02/28 BC, Urine cx: NGTD Endo: SSI last low regimen with Accu-Cheks every 6 hours for glycemic control. Heme: Acute blood loss posthemorrhagic anemia Monitor CBC, patient s/p transfusion 2units PRBC 02/28 and 2units PRBC 03/01 for Hgb 6.9. Hemoglobin currently 12 GI prophylaxis with Protonix 40 mg IV twice a day. DVT prophylaxis with SCD. No pharmacological prophylaxis with bleeding Lines: Right IJ CVP placed 02/28 Level II Rich Coles MD Mar 03, 2017 12:03
[2017-03-03] MEDS: ALBUTEROL SULFATE 90 MCG/ACT HFA 18 GM INHALER INH SCH ×2 (12:32→17:40)
[2017-03-03] MEDS: FAT EMULSION 20% INJ 250 ML (Daily over 8 hours) IV-CENTRAL SCH (20:12)
[2017-03-03] MEDS: CLINIMIX E 4.25/25 2000 mL- >42 mls/hr IV-CENTRAL SCH ×3 (20:13)
[2017-03-03] MEDS: DOXEPIN HCL 50 MG CAP PO SCH (21:28)
[2017-03-04] VITALS (7 sets, daily range): BP systolic 86–104; BP diastolic 54–66; PULSE 76–118; RESP 16–20; TEMP 96–97.3; O2SAT 95–100
[2017-03-04] MEDS: PIPERACIL-TAZO 4.5 GM PREMIX 100 ML IV SCH ×3 (02:10→16:58)
[2017-03-04] MEDS: ALBUTEROL SULFATE 90 MCG/ACT HFA 18 GM INHALER INH SCH ×4 (02:10→16:58)
[2017-03-04] MEDS: SUCRALFATE 1 GM/10 ML CUP PO SCH ×4 (02:27→21:31)
[2017-03-04] MEDS: HYDROmorphone HCL PF 1 MG/ML VIAL IV PUSH PRN ×5 (02:32→21:32)
[2017-03-04] MEDS: CHLORHEXIDINE GLUCONATE 2 % 1 PACK (2 CLOTHS) TOP SCH (04:00)
[2017-03-04] MEDS: INSULIN NovoLIN REGULAR SUPPLEMENTAL SCALE SQ SCH ×4 (04:15→22:15)
[2017-03-04] MEDS: clonazePAM 1 MG TAB PO SCH ×3 (05:55→21:31)
[2017-03-04 06:49] LABS: AUTOMATED NEUTROPHIL # 3.6 TH/MM3 (1.8-7.7); BASOPHIL % 0.8 % (0.0-2.0); EOSINOPHIL # 0.2 TH/MM3 (0-0.4); EOSINOPHIL % 4.4 % (0.0-4.0); HEMATOCRIT 32.8 % (35.0-46.0); HEMO FLAGS DIFF FINAL; LYMPH % 22.3 % (9.0-44.0); LYMPHOCYTE # 1.2 TH/MM3 (1.0-4.8); MEAN CELL VOLUME 83.1 FL (80.0-100.0); MEAN CORPUSCULAR HEMOGLOBIN 27.8 PG (27.0-34.0); MEAN CORPUSCULAR HGB CONC 33.5 % (32.0-36.0); MONO % 6.6 % (0.0-8.0); NEUT % 65.9 % (16.0-70.0); PLATELET COUNT 178 TH/MM3 (150-450); RED BLOOD COUNT 3.95 MIL/MM3 (4.00-5.30); RED CELL DISTRIBUTION WIDTH 18.8 % (11.6-17.2); WHITE BLOOD COUNT 5.5 TH/MM3 (4.0-11.0)
[2017-03-04 07:04] LABS: ALKALINE PHOSPHATASE 111 U/L (45-117); ALT (GPT) 13 U/L (10-53); ANION GAP 6 MEQ/L (5-15); AST (GOT) 20 U/L (15-37); BICARBONATE 32.1 MEQ/L (21.0-32.0); BLOOD UREA NITROGEN 9 MG/DL (7-18); CHLORIDE 100 MEQ/L (98-107); GLOMERULAR FILTRATION RATE 214 ML/MIN (>89); MAGNESIUM 1.7 MG/DL (1.5-2.5); POTASSIUM 4.2 MEQ/L (3.5-5.1); SODIUM (NA) 138 MEQ/L (136-145); TOTAL BILIRUBIN ADULT 0.2 MG/DL (0.2-1.0)
[2017-03-04] MEDS: TIOTROPIUM BROMIDE 18 MCG INH INH SCH (08:13)
[2017-03-04] MEDS: OLANZapine 2.5 MG TAB PO SCH ×2 (08:14→19:44)
[2017-03-04] MEDS: PANTOPRAZOLE SODIUM 40 MG VIAL IV PUSH SCH ×2 (08:15→19:44)
[2017-03-04] MEDS: BUDESONIDE-FORMOTEROL 80/4.5 MCG INHALER INH SCH ×2 (08:21→21:00)
--- NOTE | 2017-03-04 12:12 | HHI.PR ---
Subjective Subjective Notes c/o diffuse discomfort. Had a red and black stool. No nausea, no hematemesis. Objective Vitals/I&O Vital Signs Date Time Temp Pulse Resp B/P Pulse Ox O2 Delivery O2 Flow Rate FiO2 03/04/17 08:00 97.1 89 18 102/66 97 03/04/17 07:00 Room Air 21 03/01/17 09:55 2.00 Labs Laboratory Tests Test 03/04/17 05:59 White Blood Count 5.5 Red Blood Count 3.95 Hemoglobin 11.0 Hematocrit 32.8 Mean Corpuscular Volume 83.1 Mean Corpuscular Hemoglobin 27.8 Mean Corpuscular Hemoglobin 33.5 Concent Red Cell Distribution Width 18.8 Platelet Count 178 Mean Platelet Volume 8.7 Neutrophils (%) (Auto) 65.9 Lymphocytes (%) (Auto) 22.3 Monocytes (%) (Auto) 6.6 Eosinophils (%) (Auto) 4.4 Basophils (%) (Auto) 0.8 Neutrophils # (Auto) 3.6 Lymphocytes # (Auto) 1.2 Monocytes # (Auto) 0.4 Eosinophils # (Auto) 0.2 Basophils # (Auto) 0.0 CBC Comment DIFF FINAL Differential Comment Sodium Level 138 Potassium Level 4.2 Chloride Level 100 Carbon Dioxide Level 32.1 Anion Gap 6 Blood Urea Nitrogen 9 Creatinine 0.33 Estimat Glomerular Filtration 214 Rate Random Glucose 85 Calcium Level 8.3 Phosphorus Level 3.6 Magnesium Level 1.7 Total Bilirubin 0.2 Aspartate Amino Transf 20 (AST/SGOT) Alanine Aminotransferase 13 (ALT/SGPT) Alkaline Phosphatase 111 Total Protein 5.6 Albumin 1.7 Date/Time Procedure Status Source Growth 02/28/17 15:50 Urine Culture - Final Complete Urine Random Urine 50-100,000 CFU/ML MIXED BRIANNA... 02/28/17 12:35 Aerobic Blood Culture - Preliminary Resulted Blood Peripheral NO GROWTH IN 4 DAYS 02/28/17 12:35 Anaerobic Blood Culture - Preliminary Resulted Blood Peripheral NO GROWTH IN 4 DAYS Abdomen: Other (soft protuberant abdomen, normal bowel sounds, mildly tender L side to palpation, no rebound or guarding.) A/P Assessment and Plan GJ anastomotic ulcer. Hgb stable, no sign of active bleed. Pt wants full liquids- chocolate milk and chicken soup. Will follow along. Henry Luke MD Mar 04, 2017 12:12
[2017-03-04] MEDS ORDERED: oxyCODONE/ACETAMINOPHEN 5 MG/325 MG TAB PO PRN (13:00)
[2017-03-04] MEDS: ONDANSETRON HCL 4 MG/2 ML VIAL IV PUSH PRN ×2 (13:26→17:08)
--- NOTE | 2017-03-04 13:41 | HHI.PR ---
Subjective Remarks Patient complains of bilateral lower rib pains. No complaints of nausea. She is tolerating by mouth clear liquid diet. Objective Vital Signs Date Time Temp Pulse Resp B/P Pulse Ox O2 Delivery O2 Flow Rate FiO2 03/04/17 12:00 97.3 85 20 104/64 97 03/04/17 08:00 97.1 89 18 102/66 97 03/04/17 07:00 Room Air 21 03/04/17 04:00 96.0 83 16 99/63 100 03/04/17 03:56 20 03/04/17 00:00 96.3 90 16 86/63 99 03/03/17 21:00 100 Room Air 21 03/03/17 21:00 83 03/03/17 20:00 97.2 103 17 106/73 100 03/03/17 17:54 Room Air 03/03/17 16:59 98.0 118 16 99/57 92 03/03/17 16:00 100.0 104 25 96/57 97 03/03/17 16:00 95 03/03/17 14:00 79 I/O 03/03/17 03/03/17 03/03/17 03/04/17 03/04/17 03/04/17 07:00 15:00 23:00 07:00 15:00 23:00 Intake Total 672 ml 2844 ml 480 ml 960 ml Output Total 1000 ml 2000 ml 700 ml 1450 ml 700 ml Balance -328 ml 844 ml -220 ml -490 ml -700 ml Intake Oral 1920 ml 480 ml 960 ml IV Total 672 ml 149 ml TPN/PPN 775 ml Output Urine Total 1000 ml 2000 ml 700 ml 1450 ml 700 ml # Bowel Movements 0 0 Result Diagram: 03/04/17 0559 03/04/17 0559 Imaging Last Impressions Chest X-Ray 02/28/17 0941 Signed Impressions: Service Date/Time: Tuesday, February 28, 2017 10:44 - CONCLUSION: Right fifth rib fracture which appears old. No evidence of acute fracture or acute cardiothymic process. Jean Love MD Upper GI Series 02/28/17 0000 Signed Impressions: Service Date/Time: Tuesday, February 28, 2017 17:21 - CONCLUSION: 1. No evidence of extravasation to suggest perforation. 2. Focal collection of contrast within the gastric remnant raising the possibility of focal ulceration. Upper endoscopy would be helpful for further evaluation of this finding if there is strong clinical concern for ulceration within the gastric remnant. Maycol Castro MD Gall Bladder Ultrasound 02/28/17 0000 Signed Impressions: Service Date/Time: Tuesday, February 28, 2017 14:50 - CONCLUSION: 1. Single mobile stone in the gallbladder. 2. Extrarenal pelvis on the right. Darrne Pascual MD Abdomen/Pelvis CT 02/28/17 0000 Signed Impressions: Service Date/Time: Tuesday, February 28, 2017 13:20 - CONCLUSION: 1. Apparent gallbladder wall thickening. If there is clinical concern for acute cholecystitis, a hepatobiliary scan may be helpful to confirm cystic duct obstruction in this patient. 2. Mild hepatosplenomegaly. 3. Degenerative changes and scoliosis of the lumbar spine. Chronic mild compression deformity is noted involving L1. Maycol Castro MD Objective Remarks GENERAL: NAD, A&Ox3 HEAD: Normocephalic. NECK: Supple, trachea midline. No lymphadenopathy. EYES: No scleral icterus. No injection or drainage. CARDIOVASCULAR: Regular rate and rhythm without murmurs, gallops, or rubs. RESPIRATORY: Breath sounds equal bilaterally. No accessory muscle use. GASTROINTESTINAL: Abdomen soft, non-tender, nondistended. MUSCULOSKELETAL: No cyanosis, or edema. SKIN: Warm and dry. Right jugular line NEURO: No focal neurological deficitis. Medications and IVs Administered Medications Medications (Trade) Dose Ordered Sig/Kaleb Route PRN Reason Start Time Stop Time Status Last Admin Dose Admin Sodium Chloride (NS Flush) 2 ml UNSCH PRN IVF FLUSH AFTER USING IV ACCESS 02/28/17 09:45 03/02/17 08:40 Chlorhexidine Gluconate 3 pack 3 pack Taper DAILY@04 TOP 03/01/17 04:00 02/25/18 03:59 03/04/17 04:00 Piperacillin Sod/ Tazobactam Sod (Zosyn 4.5 Gm Premix) 100 ml @ 200 mls/hr Q8H IV 02/28/17 18:00 03/04/17 09:49 Pantoprazole Sodium (Protonix Inj) 40 mg BID IV PUSH 03/01/17 09:30 03/04/17 08:15 Sucralfate 1 gm 1 gm Q6H PO 03/01/17 10:00 03/04/17 09:48 Potassium Chloride 100 ml @ 50 mls/hr Q2H PRN IV For Potassium 2.8 - 3.2 mEq/L 03/01/17 10:00 03/02/17 08:41 Multivitamins 10 ml/Folic Acid 1 mg/Amino Acids/ Electrolytes/ Dextrose 2,010.2 ml @ 60 mls/hr Q24H IV-CENTRAL 03/01/17 20:00 03/03/17 20:13 Fat Emulsion Intravenous (Liposyn Iii 20% Inj) 250 ml @ 31.25 mls/ hr Q24H IV-CENTRAL 03/01/17 20:00 03/03/17 20:12 Olanzapine (ZyPREXA) 2.5 mg Q12HR PO 03/01/17 21:00 03/04/17 08:14 Clonazepam (KlonoPIN) 1 mg Q8HR PO 03/02/17 14:00 03/04/17 13:26 Ondansetron HCl (Zofran Inj) 4 mg Q6H PRN IV PUSH NAUSEA 03/02/17 16:00 03/04/17 13:26 Alprazolam (Xanax) 1 mg Q8H PRN PO ANXIETY 03/02/17 22:00 03/02/17 22:08 Albuterol Sulfate (Ventolin Hfa Inh) 2 puff Q6HR INH 03/03/17 12:00 03/04/17 06:18 Tiotropium [place] (Spiriva Inh) 18 mcg DAILY INH 03/03/17 09:00 03/04/17 08:13 Doxepin HCl (SINEquan) 200 mg HS PO 03/03/17 21:00 03/03/17 21:28 Budesonide/ Formoterol Fumarate (Symbicort 80-4.5 Mcg Inh) 2 puff Q12HR INH 03/03/17 21:00 03/04/17 08:21 Oxycodone/ Acetaminophen (Percocet 5-325 Mg) 1 tab Q4H PRN PO PAIN SCALE 4 TO 10 03/04/17 13:00 03/04/17 13:27 A/P Problem List: (1) Symptomatic anemia ICD Code: D64.9 (2) GI bleed ICD Code: K92.2 Assessment and Plan Assessment and Plan 46-year-old female admitted with GI bleed Large ulcer with adjacent thrombus at GJ junction Possible GG fistula GI bleed Acute blood loss posthemorrhagic anemia GI following Clear liquids for now Surgery following Continue Protonix Continue Carafate transfuse as needed Follow CBC s/p transfusion 2units PRBC 02/28 and 2units PRBC 03/01 Hydromorphone 1 mg every 3 hours for. pain management History of bronchial asthma Albuterol as needed Spiriva Symbicort twice a day Leukocytosis Fever Continue Zosyn Follow for signs of infection Follow cultures Bipolar disorder Schizophrenia Depression/anxiety Continue Klonopin 1 mg by mouth 3 times (home dosing is 2 mg 3 times a day) Continue Zyprexa 2.5 mg by mouth twice a day. Doxepin 2 mg by mouth daily at bedtime Tobaccoism As needed oxygen Follow clinically GI prophylaxis Protonix 40 mg IV twice a day. DVT prophylaxis SCDs, no blood thinners secondary to bleeding Lines: Right IJ CVP placed 02/28 Problem Qualifiers (1) GI bleed: Qualified Code: K92.2 - Gastrointestinal hemorrhage, unspecified gastrointestinal hemorrhage type Darren Brock MD Mar 04, 2017 13:41
[2017-03-04] MEDS ORDERED: cloNIDine HCL 0.1 MG TAB PO PRN (16:30)
[2017-03-04] MEDS: oxyCODONE/ACETAMINOPHEN 10 MG/325 MG TAB PO PRN (16:58)
[2017-03-04] MEDS: DOXEPIN HCL 50 MG CAP PO SCH (19:44)
[2017-03-04] MEDS: CLINIMIX E 4.25/25 2000 mL- >42 mls/hr IV-CENTRAL SCH ×3 (19:53)
[2017-03-04] MEDS: FAT EMULSION 20% INJ 250 ML (Daily over 8 hours) IV-CENTRAL SCH (19:53)
[2017-03-05] VITALS (7 sets, daily range): BP systolic 88–102; BP diastolic 52–61; PULSE 75–151; RESP 16–22; TEMP 96–97.8; O2SAT 88–100
[2017-03-05] MEDS: PIPERACIL-TAZO 4.5 GM PREMIX 100 ML IV SCH ×3 (01:43→17:03)
[2017-03-05] MEDS: ALBUTEROL SULFATE 90 MCG/ACT HFA 18 GM INHALER INH SCH ×4 (01:44→16:54)
[2017-03-05] MEDS: HYDROmorphone HCL PF 1 MG/ML VIAL IV PUSH PRN ×3 (01:44→16:53)
[2017-03-05] MEDS: SUCRALFATE 1 GM/10 ML CUP PO SCH ×4 (03:57→22:00)
[2017-03-05] MEDS: CHLORHEXIDINE GLUCONATE 2 % 1 PACK (2 CLOTHS) TOP SCH (03:57)
[2017-03-05] MEDS: INSULIN NovoLIN REGULAR SUPPLEMENTAL SCALE SQ SCH ×3 (03:58→16:15)
[2017-03-05] MEDS ORDERED: SODIUM BICARBONATE 8.4% INJ 50 MEQ/50 ML SYR IV ONE (05:00)
[2017-03-05] MEDS: clonazePAM 1 MG TAB PO SCH ×3 (05:42→22:00)
[2017-03-05] MEDS: oxyCODONE/ACETAMINOPHEN 10 MG/325 MG TAB PO PRN ×3 (05:42→14:10)
[2017-03-05 06:26] LABS: HEMATOCRIT 34.2 % (35.0-46.0); MEAN CELL VOLUME 83.5 FL (80.0-100.0); MEAN CORPUSCULAR HEMOGLOBIN 26.8 PG (27.0-34.0); MEAN CORPUSCULAR HGB CONC 32.1 % (32.0-36.0); PLATELET COUNT 165 TH/MM3 (150-450); RED CELL DISTRIBUTION WIDTH 19.3 % (11.6-17.2); REVIEW FLAG FINAL; WHITE BLOOD COUNT 4.9 TH/MM3 (4.0-11.0)
[2017-03-05] MEDS: BUDESONIDE-FORMOTEROL 80/4.5 MCG INHALER INH SCH ×2 (09:00→21:00)
[2017-03-05] MEDS: PANTOPRAZOLE SODIUM 40 MG VIAL IV PUSH SCH (09:38)
[2017-03-05] MEDS: OLANZapine 2.5 MG TAB PO SCH ×2 (09:38→21:00)
[2017-03-05] MEDS: TIOTROPIUM BROMIDE 18 MCG INH INH SCH (09:40)
--- NOTE | 2017-03-05 11:20 | HHI.PR ---
Subjective Subjective Notes Still painful, but tolerating full liquids Objective Vitals/I&O Vital Signs Date Time Temp Pulse Resp B/P Pulse Ox O2 Delivery O2 Flow Rate FiO2 03/05/17 09:30 95 21 03/05/17 08:00 97.6 77 20 102/61 03/04/17 07:00 Room Air 03/01/17 09:55 2.00 Labs Laboratory Tests Test 03/05/17 05:50 White Blood Count 4.9 Red Blood Count 4.10 Hemoglobin 11.0 Hematocrit 34.2 Mean Corpuscular Volume 83.5 Mean Corpuscular Hemoglobin 26.8 Mean Corpuscular Hemoglobin 32.1 Concent Red Cell Distribution Width 19.3 Platelet Count 165 Mean Platelet Volume 8.6 Sodium Level 137 Potassium Level 4.0 Chloride Level 97 Carbon Dioxide Level 35.0 Anion Gap 5 Blood Urea Nitrogen 10 Creatinine 0.37 Estimat Glomerular Filtration 187 Rate Random Glucose 127 Calcium Level 8.5 Date/Time Procedure Status Source Growth 02/28/17 15:50 Urine Culture - Final Complete Urine Random Urine 50-100,000 CFU/ML MIXED BRIANNA... 02/28/17 12:35 Aerobic Blood Culture - Final Complete Blood Peripheral NO GROWTH IN 5 DAYS 02/28/17 12:35 Anaerobic Blood Culture - Final Complete Blood Peripheral NO GROWTH IN 5 DAYS Lungs: Clear Abdomen: Non-distended A/P Assessment and Plan Assessment and Plan GJ anastomotic ulcer. Hgb stable. Tolerating full liquids Will follow along. Attending Note - Dr. Monterroso Abdomen still sore, but not acute The exam, history, and the medical decision-making described in the above note were completed with the assistance of the mid-level provider. I reviewed and agree with the findings presented. I attest that I had a [id number] encounter with the patient on the same day, and personally performed and documented my assessment and findings in the medical record. Mesfin Monterroso MD Mar 05, 2017 11:20
--- NOTE | 2017-03-05 14:42 | HHI.PR ---
Subjective Remarks Rib pains have improved. Patient complains of lower abdominal pain today. It is colicky in nature. She reports that she needed to have bowel movement at the end of her visit. No fevers. She does feel nauseous and has not been eating as much. She hasn't found benefit from the by mouth Percocet and right now is feeling nauseous and unable to take pills. Objective Vital Signs Date Time Temp Pulse Resp B/P Pulse Ox O2 Delivery O2 Flow Rate FiO2 03/05/17 12:00 97.8 113 20 96/55 97 03/05/17 09:30 95 21 03/05/17 08:00 97.6 77 20 102/61 97 03/05/17 07:13 18 03/05/17 04:00 96.0 103 16 90/57 94 03/05/17 02:24 18 03/05/17 00:00 97.8 108 16 88/53 94 03/04/17 20:12 76 03/04/17 20:00 96.2 114 16 92/54 95 03/04/17 15:42 97.0 118 20 102/62 97 I/O 03/04/17 03/04/17 03/04/17 03/05/17 03/05/17 03/05/17 07:00 15:00 23:00 07:00 15:00 23:00 Intake Total 960 ml 440 ml 2160 ml 480 ml Output Total 1450 ml 700 ml 3950 ml 1200 ml Balance -490 ml -260 ml -1790 ml -720 ml Intake Oral 960 ml 2160 ml 480 ml IV Total 440 ml Output Urine Total 1450 ml 700 ml 3950 ml 1200 ml Result Diagram: 03/05/17 0550 03/05/17 0550 Objective Remarks GENERAL: NAD, A&Ox3 HEAD: Normocephalic. NECK: Supple, trachea midline. No lymphadenopathy. EYES: No scleral icterus. No injection or drainage. CARDIOVASCULAR: Regular rate and rhythm without murmurs, gallops, or rubs. RESPIRATORY: Breath sounds equal bilaterally. No accessory muscle use. GASTROINTESTINAL: Abdomen soft, non-tender, nondistended. MUSCULOSKELETAL: No cyanosis, or edema. SKIN: Warm and dry. Right jugular line NEURO: No focal neurological deficitis. A/P Problem List: (1) Symptomatic anemia ICD Code: D64.9 (2) GI bleed ICD Code: K92.2 Assessment and Plan Assessment and Plan 46-year-old female admitted with GI bleed secondary to ulcer. Hemoglobin stable overnight. Return to IV Dilaudid as patient can take by mouth treatments at the moment. Increase IV hydration rate. Large ulcer with adjacent thrombus at GJ junction Possible GG fistula GI bleed Acute blood loss posthemorrhagic anemia GI following Clear liquids for now Surgery following Continue Protonix Continue Carafate transfuse as needed Follow CBC s/p transfusion 2units PRBC 02/28 and 2units PRBC 03/01 Hydromorphone 1 mg every 3 hours for. pain management History of bronchial asthma Albuterol as needed Spiriva Symbicort twice a day Leukocytosis Fever Continue Zosyn Follow for signs of infection Follow cultures Bipolar disorder Schizophrenia Depression/anxiety Continue Klonopin 1 mg by mouth 3 times (home dosing is 2 mg 3 times a day) Continue Zyprexa 2.5 mg by mouth twice a day. Doxepin 2 mg by mouth daily at bedtime Tobaccoism As needed oxygen Follow clinically GI prophylaxis Protonix 40 mg IV twice a day. DVT prophylaxis SCDs, no blood thinners secondary to bleeding Lines: Right IJ CVP placed 02/28 Problem Qualifiers (1) GI bleed: Qualified Code: K92.2 - Gastrointestinal hemorrhage, unspecified gastrointestinal hemorrhage type Darren Brock MD Mar 05, 2017 14:42
[2017-03-05] MEDS: SODIUM CHLOR 0.9% 1000 ML INJ 1,000 ML IV SCH (14:45)
[2017-03-05 18:20] LABS: BLOOD GAS BASE EXCESS -0.5 mmol/L (-2-2); BLOOD GAS CARBOXYHEMOGLOBIN 1.3 % (0-4); BLOOD GAS HCO3 24 mmol/L (22-26); BLOOD GAS METHEMOGLOBIN 1.3 % (0-2); BLOOD GAS O2 HGB SATURATION 98 % (90-100); BLOOD GAS OXYGEN CONTENT 12.5 Vol % (12.0-20.0); BLOOD GAS PCO2 44 mmHg (38-42); BLOOD GAS PO2 418 mmHg (61-120); BLOOD GAS TOTAL HGB 8.3 G/DL (12.0-16.0); CRITICAL VALUE NO; DRAW SITE RT RADIAL; LITER FLOW 15 L/M; NUMBER OF ARTERIAL PUNCTURES 1; OXYGEN DEVICE NONREBREATHER; STAT YES; TEMP CORR TO 98.6
[2017-03-05] MEDS ORDERED: PANTOPRAZOLE SODIUM 40 MG VIAL IV PUSH SCH (18:30)
[2017-03-05 18:31] LABS: AUTOMATED NEUTROPHIL # 2.9 TH/MM3 (1.8-7.7); BASOPHIL # 0.1 TH/MM3 (0-0.2); BASOPHIL % 1.4 % (0.0-2.0); EOSINOPHIL # 0.4 TH/MM3 (0-0.4); EOSINOPHIL % 5.3 % (0.0-4.0); HEMATOCRIT 25.5 % (35.0-46.0); HEMO FLAGS DIFF FINAL; LYMPHOCYTE # 2.6 TH/MM3 (1.0-4.8); MEAN CELL VOLUME 85.6 FL (80.0-100.0); MEAN CORPUSCULAR HEMOGLOBIN 27.3 PG (27.0-34.0); MEAN CORPUSCULAR HGB CONC 31.9 % (32.0-36.0); MONO % 10.9 % (0.0-8.0); NEUT % 43.4 % (16.0-70.0); PLATELET COUNT 218 TH/MM3 (150-450); RED BLOOD COUNT 2.98 MIL/MM3 (4.00-5.30); RED CELL DISTRIBUTION WIDTH 19.4 % (11.6-17.2); WHITE BLOOD COUNT 6.7 TH/MM3 (4.0-11.0)
--- NOTE | 2017-03-05 18:41 | PD.CONS ---
HPI Service Critical Care Medicine Consult Requested By Primary Care Physician No Primary Care Physician History of Present Illness 46-year-old female with past medical history of bronchial asthma, bipolar disorder schizophrenia, anxiety depression, anemia status post bypass surgery, presented to [facility] with complaints of feeling dizzy, lightheaded, generalized weakness, multiple falls, inability to ambulate. On further history and examination she had a gastric bypass 4 years ago in [place] and had essentially 12 years ago. She was admitted with severe anemia and abdominal pain. She had upper EGD done by Dr. Arias with findings of nonbleeding gastric ulcer with a clot on the surface. Today March 05, 2017 around 6 PM a rapid response was activated due to low blood pressure in the hematemesis. She was transferred to ICU. The fluid resuscitation was started however patient continued vomiting blood and required intubation for an airway protection. Shortly probably intubation she dropped her blood pressure again without palpable pulses in the CPR was initiated. There was a run of 2 cycles of CPR with return of spontaneous circulation. The Cordis introducer was inserted to left femoral vein and the rapid infuser was used to transfuse 4 units of PRBCs and FFP since cryoprecipitate. Dr. Arias emergently performed upper EGD. Without successful finding off source of bleeding. This was discussed with interventional radiologist Dr. Pascual and the patient is going to be taken to IR for possible embolization emergently due to life-threatening condition uncontrolled GI bleed. Review of Systems ROS Unable to obtain patient is sedated and intubated Past Family Social History Allergies: Coded Allergies: Sulfa (Verified Allergy, Severe, Anaphylaxis, 02/28/17) Past Medical History Schizophrenia Bipolar disorder Anxiety/depression Anemia Bronchial asthma Past Surgical History Gastric bypass surgery 4 years ago Reported Medications Reported Meds & Active Scripts Active Reported Klonopin (Clonazepam) 2 Mg Tab 2 Mg PO TID Symbicort Inh (Budesonide/Formoterol Fumarate) 80-4.5 Mcg/Act Aero 1 Puff INH Q12HR Ventolin Hfa 18 GM Inh (Albuterol Sulfate) 90 Mcg/Act Aer 1 Puff INH Q4H PRN Percocet (Oxycodone-Acetaminophen) 10-325 mg Tab 1 Tab PO Q4H PRN Active Ordered Medications Current Medications Medications (Trade) Dose Ordered Sig/Kaleb Route PRN Reason Start Time Stop Time Status Last Admin Dose Admin Sodium Chloride (NS Flush) 2 ml UNSCH PRN IVF FLUSH AFTER USING IV ACCESS 02/28/17 09:45 03/02/17 08:40 Miscellaneous Information 1 Q361D XX 02/28/17 16:00 Chlorhexidine Gluconate (Chlorhexidine 2% Cloth) 3 pack Taper DAILY@04 TOP 03/01/17 04:00 02/25/18 03:59 03/05/17 03:57 Chlorhexidine Gluconate (Chlorhexidine 2% Cloth) 3 pack UNSCH PRN TOP HYGIENIC CARE 02/28/17 16:00 Dextrose (D50w (Vial) Inj) 50 ml UNSCH PRN IV HYPOGLYCEMIA-SEE COMMENTS 02/28/17 16:15 Glucagon (Glucagon Inj) 1 mg UNSCH PRN OTHER HYPOGLYCEMIA-SEE COMMENTS 02/28/17 16:15 Insulin Human Regular 1 1 Q6H SQ 02/28/17 16:15 Piperacillin Sod/ Tazobactam Sod (Zosyn 4.5 Gm Premix) 100 ml @ 200 mls/hr Q8H IV 02/28/17 18:00 03/05/17 17:03 Sucralfate 1 gm 1 gm Q6H PO 03/01/17 10:00 03/05/17 16:53 Potassium Chloride 100 ml @ 50 mls/hr Q2H PRN IV For Potassium 2.8 - 3.2 mEq/L 03/01/17 10:00 03/02/17 08:41 Potassium Chloride (KCl 20 Meq Premix Inj) 100 ml @ 50 mls/hr Q2H PRN IV For Potassium 2.8 - 3.2 mEq/L 03/01/17 10:00 Potassium Bicarb/ Potassium Chloride 50 meq 50 meq UNSCH PRN PO For Potassium 3.3 - 3.5 mEq/L 03/01/17 10:00 Potassium Chloride 100 ml @ 25 mls/hr UNSCH PRN IV For Potassium 3.3 - 3.5 mEq/L 03/01/17 10:00 Potassium Chloride 100 ml @ 50 mls/hr Q2H PRN IV For Potassium 3.3 - 3.5 mEq/L 03/01/17 10:00 Magnesium Sulfate/ Sodium Chloride (Magnesium Sulfate Inj/NS Inj) 100 ml @ 50 mls/hr UNSCH PRN IV For Magnesium 0.9 - 1.1 mg/dL 03/01/17 10:00 Magnesium Oxide 800 mg 800 mg UNSCH PRN PO For Magnesium 1.2 - 1.6 mg/dL 03/01/17 10:00 Magnesium Sulfate/ Sodium Chloride (Magnesium Sulfate Inj/NS Inj) 100 ml @ 50 mls/hr UNSCH PRN IV For Magnesium 1.2 - 1.6 mg/dL 03/01/17 10:00 Potassium Phosphate 2000 mg 2,000 mg Q4H PRN PO For Phosphorus < 2.5 mg/dL 03/01/17 10:00 Sodium Phosphate/ Sodium Chloride (Sodium Phosphate Inj/NS 250 ml Inj) 250 ml @ 42 mls/hr UNSCH PRN IV For Phosphorus < 2.5 mg/dL 03/01/17 10:00 Potassium Phosphate 2000 mg 2,000 mg UNSCH PRN PO/TUBE SEE LABEL COMMENTS 03/01/17 10:00 Potassium Phosphate 30 mmol/ Sodium Chloride 260 ml @ 42 mls/hr UNSCH PRN IV SEE LABEL COMMENTS 03/01/17 10:00 Multivitamins 10 ml/Folic Acid 1 mg/Amino Acids/ Electrolytes/ Dextrose 2,010.2 ml @ 60 mls/hr Q24H IV-CENTRAL 03/01/17 20:00 03/04/17 19:53 Fat Emulsion Intravenous (Liposyn Iii 20% Inj) 250 ml @ 31.25 mls/ hr Q24H IV-CENTRAL 03/01/17 20:00 03/04/17 19:53 Olanzapine (ZyPREXA) 2.5 mg Q12HR PO 03/01/17 21:00 03/05/17 09:38 Clonazepam (KlonoPIN) 1 mg Q8HR PO 03/02/17 14:00 03/05/17 12:56 Ondansetron HCl (Zofran Inj) 4 mg Q6H PRN IV PUSH NAUSEA 03/02/17 16:00 03/04/17 17:08 Prochlorperazine Edisylate (Compazine Inj) 5 mg Q6H PRN IV PUSH NAUSEA 03/02/17 16:00 Alprazolam (Xanax) 1 mg Q8H PRN PO ANXIETY 03/02/17 22:00 03/02/17 22:08 Albuterol Sulfate (Ventolin Hfa Inh) 2 puff Q6HR INH 03/03/17 12:00 03/05/17 16:54 Tiotropium Ralph (Spiriva Inh) 18 mcg DAILY INH 03/03/17 09:00 03/05/17 09:40 Doxepin HCl (SINEquan) 200 mg HS PO 03/03/17 21:00 03/04/17 19:44 Budesonide/ Formoterol Fumarate (Symbicort 80-4.5 Mcg Inh) 2 puff Q12HR INH 03/03/17 21:00 03/05/17 09:00 Clonidine (Catapres) 0.1 mg Q6H PRN PO SEE LABEL COMMENTS 03/04/17 16:30 Hydromorphone HCl 1 mg 1 mg Q4H PRN IV PUSH PAIN SCALE 4 TO 10 03/05/17 14:45 03/05/17 16:53 Sodium Chloride (NS 1000 ml Inj) 1,000 ml @ 84 mls/hr [id number] IV 03/05/17 14:45 03/05/17 14:45 Pantoprazole Sodium 40 mg 40 mg Q12H IV PUSH 03/05/17 18:30 Norepinephrine Bitartrate 250 ml @ 0 mls/hr TITRATE IV 03/05/17 20:00 Vasopressin 40 units/Dextrose 100 ml @ 30 mls/hr Q3H20M IV 03/05/17 19:52 Epinephrine HCl 2 mg/Dextrose 250 ml @ 22.5 mls/hr TITRATE IV 03/05/17 20:00 Fentanyl Citrate 250 ml @ 0 mls/hr TITRATE IV 03/05/17 20:45 Midazolam HCl (Versed Inj) 100 ml @ 0 mls/hr TITRATE IV 03/05/17 20:45 Family History Noncontributory Social History Unable to obtain Physical Exam Vital Signs Vital Signs Date Time Temp Pulse Resp B/P Pulse Ox O2 Delivery O2 Flow Rate FiO2 03/05/17 16:00 97.2 75 20 98/59 97 03/05/17 12:00 97.8 113 20 96/55 97 03/05/17 09:30 95 21 03/05/17 08:00 97.6 77 20 102/61 97 03/05/17 07:13 18 03/05/17 04:00 96.0 103 16 90/57 94 03/05/17 02:24 18 03/05/17 00:00 97.8 108 16 88/53 94 03/04/17 20:12 76 03/04/17 20:00 96.2 114 16 92/54 95 Physical Exam GENERAL: 46-year-old cachectic female, lying in bed in no acute distress SKIN: Warm and dry. No rash HEAD: Normocephalic. EYES: No scleral icterus. No injection or drainage. PERRL. 3 mm bilaterally and reactive. NECK: Supple, trachea midline. No JVD or lymphadenopathy. Right IJ clean dry and intact CARDIOVASCULAR: Regular rate and rhythm. S1, S2 no S4 without murmur RESPIRATORY: Breath sounds clear to auscultation and equal bilaterally. Symmetrical excursion. No accessory muscle use. GASTROINTESTINAL: Abdomen soft, tender to palpation epigastric/right upper quadrant with voluntary rebound and no rigidity. Hypoactive bowel sounds MUSCULOSKELETAL: No edema Neuro: awake and alert. Cranial nerves II through XII appear grossly intact. Strength is equal symmetric. Normal sensation. Laboratory Laboratory Tests Test 03/05/17 03/05/17 05:50 18:08 White Blood Count 4.9 Red Blood Count 4.10 Hemoglobin 11.0 Hematocrit 34.2 Mean Corpuscular Volume 83.5 Mean Corpuscular Hemoglobin 26.8 Mean Corpuscular Hemoglobin 32.1 Concent Red Cell Distribution Width 19.3 Platelet Count 165 Mean Platelet Volume 8.6 Sodium Level 137 Potassium Level 4.0 Chloride Level 97 Carbon Dioxide Level 35.0 Anion Gap 5 Blood Urea Nitrogen 10 Creatinine 0.37 Estimat Glomerular Filtration 187 Rate Random Glucose 127 Calcium Level 8.5 Blood Gas Puncture Site RT RADIAL Blood Gas Patient Temperature 98.6 Blood Gas HCO3 24 Blood Gas Base Excess -0.5 Blood Gas Oxygen Saturation 98 Arterial Blood pH 7.36 Arterial Blood Partial 44 Pressure CO2 Arterial Blood Partial 418 Pressure O2 Arterial Blood Oxygen Content 12.5 Arterial Blood 1.3 Carboxyhemoglobin Arterial Blood Methemoglobin 1.3 Blood Gas Hemoglobin 8.3 Oxygen Delivery Device NONREBREATHER Blood Gas Liter Flow 15 Result Diagram: 03/05/17 0550 03/05/17 0550 Imaging Last 24 hours Impressions Chest X-Ray 03/05/17 0000 Signed Impressions: Service Date/Time: Sunday, March 05, 2017 21:05 - CONCLUSION: 1. The endotracheal tube extends into the right main bronchus and should be retracted. 2. No other acute finding is identified. 3. 4. These findings were relayed to the patient's nurse via telephone at 9: 5. 40 PM on 03/05/2017. Terry Larry MD Chest X-Ray 03/05/17 0000 Signed Impressions: Service Date/Time: Sunday, March 05, 2017 18:19 - CONCLUSION: 1. No acute abnormality or significant change. Evangelista Louise MD Assessment and Plan Assessment and Plan Neuro/Psych: Bipolar disorder Schizophrenia Depression/anxiety Fentanyl/Versed drip for sedation ESTRADA goal -2 Continue Klonopin 1 mg by mouth 3 times a day/home medication 2 mg 3 times a day On Zyprexa 2.5 mg by mouth twice a day. Continue Hydromorphone 1 mg every 3 hours for. pain management Monitor neurostatus, Awake and alert Requesting doxepin we'll start at 2 mg at night. Pulm: Acute respiratory failure Tobaccoism History of bronchial asthma Intubated for an airway protection Oxygen as needed to maintain sats >92%. Albuterol HFA 4 times a day with Spiriva daily and Symbicort twice a day CV: Hypotension Due to volume loss Monitor HR and BP and maintain MAP >65 mmHg. IV fluids resuscitation Transfuse blood products Levophed epinephrine vasopressin when necessary to keep MEP above 65 /renal/FEN: Hypopotassemia - resolved Hypo-magnesium - resolved Monitor renal function. Intake and outputs and electrolyte replacement protocol. GI: Active GI bleeding Large ulcer with adjacent thrombus at GJ junction Possible GG fistula Dr Arias's assistance appreciated Status post emergent EGD Upper GI revealed possible extravasation at bypass site. EGD 03/01 revealed a large ulcer with adjacent clot. Recommended TPN. Current Protonix 40 mg IV twice a day and Carafate 1 g 4 times a day Protonix drip and octreotide drip Emergent IR intervention with possible embolization due to life-threatening upper GI bleed ID: Continue abx(Zosyn) and monitor for signs of infections( fever and WBC). 02/28 BC, Urine cx: NGTD Endo: SSI last low regimen with Accu-Cheks every 6 hours for glycemic control. Heme: Acute blood loss posthemorrhagic anemia Transfuse 4 units of PRBC/4 units of FFP's/1 unit of cryoprecipitate Monitor CBC, patient s/p transfusion 2units PRBC 02/28 and 2units PRBC 03/01 for Hgb 6.9. Hemoglobin currently 12 GI prophylaxis with Protonix 40 mg IV twice a day. DVT prophylaxis with SCD. No pharmacological prophylaxis with bleeding Lines: Right IJ CVP placed 02/28 Critical Care: The total critical care time was 45 minutes. Time to perform other separately billable procedures was not included in the critical care time. Liu Joshi MD Mar 05, 2017 18:41
[2017-03-05] MEDS ORDERED: SODIUM CHLOR 0.9% 1000 ML INJ 1,000 ML IV ONE ×2 (18:45)
--- NOTE | 2017-03-05 18:56 | RADRPT ---
EXAM DATE/TIME: 03/05/2017 18:19 [facility] COMPARISON: CHEST SINGLE AP, February 28, 2017, 13:32. INDICATIONS : Shortness of breath. Helicat. MEDICAL HISTORY : Asthma SURGICAL HISTORY : None. ENCOUNTER: Subsequent ACUITY: 1 week PAIN SCORE: 0/10 LOCATION: Bilateral chest FINDINGS: Stable right IJ central line with tip near the atrial junction. No significant new focal pleural or p arenteral opacities. Cardiomediastinal contours are within normal limits. Remainder of exam is unchan ged. CONCLUSION: 1. No acute abnormality or significant change. Evangelista Louise MD on March 05, 2017 at 18:53 Board Certified Radiologist. This report was verified electronically.
[2017-03-05 18:58] LABS: BICARBONATE 29.3 MEQ/L (21.0-32.0); POTASSIUM 4.3 MEQ/L (3.5-5.1)
[2017-03-05 19:02] LABS: CALCIUM-PROTEIN CORRECTED 7.8 MG/DL (8.5-10.1); TOTAL BILIRUBIN ADULT 0.2 MG/DL (0.2-1.0)
[2017-03-05] MEDS ORDERED: VASOPRESSIN INJ 40 UNITS in DEXTROSE 5% IN WATER 100ML INJ 98 ML IV SCH ×2 (19:52)
[2017-03-05] MEDS ORDERED: EPINEPHrine HCL (1:10,000) 1 MG/10 ML SYRINGE ONE (19:56)
[2017-03-05] MEDS ORDERED: NOREPINEPHRINE 4 MG/D5W 250 ML IV SCH (20:00)
[2017-03-05] MEDS ORDERED: EPINEPHrine (1:1000) INJ 2 MG in DEXTROSE 5% IN WATER INJ 248 ML IV SCH ×2 (20:00)
[2017-03-05] MEDS ORDERED: SODIUM BICARBONATE 8.4% INJ 50 MEQ/50 ML SYR ONE (20:15)
[2017-03-05 20:26] LABS: BLOOD GAS HCO3 17 mmol/L (22-26); BLOOD GAS METHEMOGLOBIN 1.2 % (0-2); BLOOD GAS O2 HGB SATURATION 93 % (90-100); BLOOD GAS OXYGEN CONTENT 6.1 Vol % (12.0-20.0); BLOOD GAS PCO2 44 mmHg (38-42); BLOOD GAS PO2 88 mmHg (61-120); BLOOD GAS TOTAL HGB 4.5 G/DL (12.0-16.0); CRITICAL VALUE YES; DRAW SITE ALINE; FIO2 100 %; LITER FLOW 15 L/M; OXYGEN DEVICE AMBU; STAT YES; TEMP CORR TO 98.6; ULNAR PULSE PRESENT
[2017-03-05] MEDS ORDERED: MIDAZOLAM HCL 5 MG/ML VIAL (1 ML) ONE (20:46)
[2017-03-05] MEDS: DOXEPIN HCL 50 MG CAP PO SCH (21:00)
[2017-03-05] MEDS ORDERED: MIDAZOLAM HCL 2 MG/2 ML VIAL ONE (21:07)
[2017-03-05] MEDS ORDERED: KETAMINE HCL 500 MG/5 ML VIAL ONE (21:08)
--- NOTE | 2017-03-05 21:45 | RADRPT ---
EXAM DATE/TIME: 03/05/2017 21:05 [facility] COMPARISON: CHEST SINGLE AP, March 05, 2017, 18:19. INDICATIONS : Post intubation. MEDICAL HISTORY : Asthma. SURGICAL HISTORY : None. ENCOUNTER: Subsequent ACUITY: 1 week PAIN SCORE: 0/10 LOCATION: Bilateral chest FINDINGS: Portable AP view of the chest demonstrates a normal-sized cardiac silhouette. Endotracheal tube has b een placed and extends into the right main bronchus. Nasogastric tube courses beyond the GE junction and right IJ line tip is in the SVC. No pneumothorax is identified. No effusion or consolidation is p resent. CONCLUSION: 1. The endotracheal tube extends into the right main bronchus and should be retracted. 2. No other acute finding is identified. 3. 4. These findings were relayed to the patient's nurse via telephone at 9: 5. 40 PM on 03/05/2017. Terry Larry MD on March 05, 2017 at 21:33 Board Certified Radiologist. This report was verified electronically.
[2017-03-05 21:51] LABS: BLOOD GAS BASE EXCESS 4.8 mmol/L (-2-2); BLOOD GAS CARBOXYHEMOGLOBIN 1.6 % (0-4); BLOOD GAS HCO3 30 mmol/L (22-26); BLOOD GAS METHEMOGLOBIN 1.2 % (0-2); BLOOD GAS O2 HGB SATURATION 97 % (90-100); BLOOD GAS OXYGEN CONTENT 15.6 Vol % (12.0-20.0); BLOOD GAS PCO2 52 mmHg (38-42); BLOOD GAS PO2 528 mmHg (61-120); BLOOD GAS TOTAL HGB 10.4 G/DL (12.0-16.0); TEMP CORR TO 98.6
[2017-03-05 21:52] LABS: CRITICAL VALUE YES; OXYGEN DEVICE VENTILATOR
[2017-03-05 21:53] LABS: DRAW SITE ART LINE; FIO2 100 %; STAT NO; VENT SETTINGS AC 14/500/PEEP8
[2017-03-05 22:09] LABS: APTT (PATIENT) 31.3 SEC (24.3-30.1); INTERNATIONAL NORMALIZED RATIO 1.1 RATIO; PROTHROMBIN TIME - PATIENT 11.8 SEC (9.8-11.6)
--- NOTE | 2017-03-05 22:49 | GIPROC ---
[facility] [address] [facility], [address] EGD PROCEDURE REPORT EXAM DATE: 03/05/2017 PATIENT NAME: Dea Baugh MR #: [id number] BIRTHDATE: 1970 ATTENDING: Jerome Arias MD ORDER #: [id number] [employer] PROGRAM MANAGER: Debra Spaulding RN and Linette Hernandez RN STATUS: inpatient INDICATIONS: The patient is a 46 yr old female here for an EGD due to hematemesis, hx of GJ ulcer, hx or RYGB PROCEDURE PERFORMED: Panendoscopy with GI bleeding control MEDICATIONS: Per Anesthesia and None. TOPICAL ANESTHETIC: none CONSENT: The patient understands the risks and benefits of the procedure and understands that these risks include, but are not limited to: sedation, allergic reaction, infection, perforation and/or bleeding. Alternative means of evaluation and treatment include, among others: physical exam, x-rays, and/or surgical intervention. The patient elects to proceed with this endoscopic procedure. medical equipment was checked for proper function. Hand hygiene and appropriate measures for infection prevention was taken. After the risks, benefits and alternatives of the procedure were thoroughly explained, Informed consent was verified, confirmed and timeout was successfully executed by the treatment team. The patient was anesthetized with topical anesthesia and the Pentax [id number] endoscope was introduced through the mouth and advanced to the anastomosis There was large clot with bright red blood, unable to identify bleeding site. Retroflexion was not performed The gastroscope was then slowly withdrawn and removed. Large clot with bright red blood. ADVERSE EVENTS: There were no complications. IMPRESSIONS: 1. Large clot with bright red blood 2. Retroflexion was not performed RECOMMENDATIONS: 1. Continue PPI, Carafate, resuscitation 2. Transfer to PATIENT CONDITION: stable DISPOSITION: Inpatient REPEAT EXAM: NONE Jerome Arias MD eSigned: Jerome Arias MD 03/05/2017 10:49 PM cc:
[2017-03-05] MEDS ORDERED: PROPOFOL 200 MG/20 ML AMP IV ONE (23:09)
[2017-03-05 23:11] LABS: HEMATOCRIT 30.9 % (35.0-46.0)
[2017-03-05 23:13] LABS: REVIEW FLAG FINAL
--- NOTE | 2017-03-05 23:19 | HHI.PR ---
Subjective Subjective Notes intubated sedated, GI bleed Objective Vitals/I&O Vital Signs Date Time Temp Pulse Resp B/P Pulse Ox O2 Delivery O2 Flow Rate FiO2 03/05/17 20:00 100 100 03/05/17 18:33 19 03/05/17 16:00 97.2 75 98/59 03/04/17 07:00 Room Air 03/01/17 09:55 2.00 Labs Laboratory Tests Test 03/05/17 03/05/17 03/05/17 03/05/17 05:50 18:08 18:15 18:28 White Blood Count 4.9 6.7 Red Blood Count 4.10 2.98 Hemoglobin 11.0 8.1 Hematocrit 34.2 25.5 Mean Corpuscular Volume 83.5 85.6 Mean Corpuscular Hemoglobin 26.8 27.3 Mean Corpuscular Hemoglobin 32.1 31.9 Concent Red Cell Distribution Width 19.3 19.4 Platelet Count 165 218 Mean Platelet Volume 8.6 8.8 Sodium Level 137 138 Potassium Level 4.0 4.3 Chloride Level 97 102 Carbon Dioxide Level 35.0 29.3 Anion Gap 5 7 Blood Urea Nitrogen 10 12 Creatinine 0.37 0.35 Estimat Glomerular Filtration 187 200 Rate Random Glucose 127 241 Calcium Level 8.5 6.5 Blood Gas Puncture Site RT RADIAL Blood Gas Patient Temperature 98.6 Blood Gas HCO3 24 Blood Gas Base Excess -0.5 Blood Gas Oxygen Saturation 98 Arterial Blood pH 7.36 Arterial Blood Partial 44 Pressure CO2 Arterial Blood Partial 418 Pressure O2 Arterial Blood Oxygen Content 12.5 Arterial Blood 1.3 Carboxyhemoglobin Arterial Blood Methemoglobin 1.3 Blood Gas Hemoglobin 8.3 Oxygen Delivery Device NONREBREATHER Blood Gas Liter Flow 15 Neutrophils (%) (Auto) 43.4 Lymphocytes (%) (Auto) 39.0 Monocytes (%) (Auto) 10.9 Eosinophils (%) (Auto) 5.3 Basophils (%) (Auto) 1.4 Neutrophils # (Auto) 2.9 Lymphocytes # (Auto) 2.6 Monocytes # (Auto) 0.7 Eosinophils # (Auto) 0.4 Basophils # (Auto) 0.1 CBC Comment DIFF FINAL Differential Comment Protein Corrected Calcium 7.8 Total Bilirubin 0.2 Aspartate Amino Transf 16 (AST/SGOT) Alanine Aminotransferase 11 (ALT/SGPT) Alkaline Phosphatase 78 Total Protein 4.5 Albumin 1.4 Blood Type O POSITIVE Antibody Screen NEGATIVE Crossmatch Leukocyte-Reduced Red Blood Cells Blood Bank Comment Test 03/05/17 03/05/17 03/05/17 03/05/17 20:00 20:28 21:37 21:46 Blood Gas Puncture Site CORDELIA ART LINE Blood Gas Patient Temperature 98.6 98.6 Blood Gas HCO3 17 30 Blood Gas Base Excess -10.0 4.8 Blood Gas Oxygen Saturation 93 97 Arterial Blood pH 7.20 7.38 Arterial Blood Partial 44 52 Pressure CO2 Arterial Blood Partial 88 528 Pressure O2 Arterial Blood Oxygen Content 6.1 15.6 Arterial Blood 1.0 1.6 Carboxyhemoglobin Arterial Blood Methemoglobin 1.2 1.2 Blood Gas Hemoglobin 4.5 10.4 Oxygen Delivery Device AMBU VENTILATOR Blood Gas Liter Flow 15 Blood Gas Inspired Oxygen 100 100 Crossmatch Leukocyte-Reduced Red Blood Cells Blood Bank Comment Blood Gas Ventilator Setting AC 14/500/PEEP8 Prothrombin Time 11.8 Prothromb Time International 1.1 Ratio Activated Partial 31.3 Thromboplast Time Test 03/05/17 03/05/17 21:54 22:49 Crossmatch Leukocyte-Reduced Red Blood Cells Blood Bank Comment Hemoglobin 10.6 Hematocrit 30.9 Cardiovascular: Regular Lungs: Upper airway course sound Abdomen: Other (distended ) A/P Assessment and Plan hx rygb, hx of gj ulcers presents with abd pain, gi bleed UGI shows concern for G-G fistula, egd with bleeding and clot unable to visualized ulcer due to blood, pt remains tachycardic on pressors PLAN Discuss with IR Patient in need of emergent embolization to assist with bleeding cessation, patient is intubated sedated and unable to consent to procedure transfuse at needed ISC aware PPI, Carafate npo, recommend TPN Jerome Arias MD Mar 05, 2017 23:19
[2017-03-06] VITALS (17 sets, daily range): BP systolic 82–114; BP diastolic 41–64; PULSE 88–124; RESP 14–16; TEMP 98.1–100.7; O2SAT 97–100
[2017-03-06] MEDS ORDERED: GELATIN 12 MM/7 MM FOAM I-ARTERIAL ONE (01:00)
[2017-03-06] MEDS ORDERED: IODIXANOL 320 MG/ML 50 ML VIAL (for RAD SPEC) I-ARTERIAL ONE (01:25)
--- NOTE | 2017-03-06 01:28 | PD.RAD ---
Post Procedure Progress Note Pre Procedure Diagnosis: (1) GI bleed Post Procedure Diagnosis: (1) GI bleed Procedure Date: Mar 06, 2017 Supervising Radiologist: Darren Pascual Anesthesia: Local Plan of Activity Patient to Unit: Critical Care Patient Condition: Critical Additional Comments: Mesenteric angio completed. Angio demonstrated erosion through the splenic artery with a very large pseudoaneurysm and active, massive GI bleed. Splenic artery was essentially transected and the distal artery could not be accessed. Splenic artery was embolized to occlusion with coils and Gel foam. Spoke with Dr. Arias via telephone at conclusion of the case. See PACS Report for procedural detail/treatment Darren Pascual MD Mar 06, 2017 01:28
[2017-03-06] MEDS ORDERED: PANTOPRAZOLE 80 MG/35 ML NS - BOLUS IV ONE ×2 (01:30)
--- NOTE | 2017-03-06 02:16 | RADRPT ---
EXAM DATE/TIME: 03/06/2017 01:51 [facility] COMPARISON: CT ABDOMEN & PELVIS W/O CONTRAST, February 28, 2017, 13:20. INDICATIONS : G I bleed; abdominal distention. ORAL CONTRAST: No oral contrast ingested. RADIATION DOSE: 9.96 CTDIvol (mGy) MEDICAL HISTORY : Asthma SURGICAL HISTORY : Gastric bypass. ENCOUNTER: Subsequent ACUITY: 1 week PAIN SCALE: Non-responsive LOCATION: abdomen TECHNIQUE: Volumetric scanning of the abdomen and pelvis was performed. Using automated exposure control and ad justment of the mA and/or kV according to patient size, radiation dose was kept as low as reasonably achievable to obtain optimal diagnostic quality images. FINDINGS: There is distention now seen of essentially all of the small bowel but I believe a few fairly normal caliber loops of distal ileum. There is stool and contrast from the previous CT seen in the colon, ge nerally upper limits of normal caliber. Patient has had previous gastric bypass in the region of the gastrojejunal anastomosis is also very distended. No evidence of perforation. A moderate size hiatal hernia is present. There is a nasogastric tube with tip just above the diaphragm. Small ascites has developed. Noncontrast appearance of the liver within normal limits. Patchy areas o f heterogeneous attenuation have developed in the spleen. Intravenous contrast is being excreted by t he kidneys, when this was administered uncertain. Patient is cachectic and there is body wall edema. Small effusions are seen of both lung bases and wi th mild atelectasis. CONCLUSION: 1. Apparent early or partial small bowel obstruction, appears to be occurring at the level of the mid to distal ileum and is probably in the low abdomen. 2. Heterogeneous attenuation of the spleen and of concern for incomplete infarction. Patient has been administered intravenous contrast recently but not for this study. 3. Mild ascites. Anasarca and small bilateral pleural effusions are also noted. 4. Previous gastric bypass, with distention of the stomach and gastrojejunal anastomosis noted. The n asogastric tube tip is above the diaphragm within a moderate hiatal hernia. 5. There is a right femoral vein catheter with tip in main common iliac vein. A left femoral vein she ath is present with tip in main external iliac vein. Terry Hurtado MD on March 06, 2017 at 2:06 Board Certified Radiologist. This report was verified electronically.
[2017-03-06] MEDS: OCTREOTIDE 500 MCG/NS 500 ML - 50 mcg/hr IV SCH ×6 (03:33→22:17)
[2017-03-06] MEDS: PANTOPRAZOLE 80 MG/100 ML NS IV SCH ×6 (03:33→22:18)
[2017-03-06] MEDS: PIPERACIL-TAZO 4.5 GM PREMIX 100 ML IV SCH ×3 (03:34→17:59)
[2017-03-06] MEDS: SODIUM CHLOR 0.9% 1000 ML INJ 1,000 ML IV SCH ×5 (03:37→18:00)
[2017-03-06] MEDS: FAT EMULSION 20% INJ 250 ML (Daily over 8 hours) IV-CENTRAL SCH ×2 (03:37→20:27)
[2017-03-06] MEDS: CLINIMIX E 4.25/25 2000 mL- >42 mls/hr IV-CENTRAL SCH ×6 (03:37→20:27)
[2017-03-06] MEDS: CHLORHEXIDINE GLUCONATE 2 % 1 PACK (2 CLOTHS) TOP SCH (04:00)
[2017-03-06] MEDS: SUCRALFATE 1 GM/10 ML CUP PO SCH ×4 (04:00→22:17)
[2017-03-06] MEDS: INSULIN NovoLIN REGULAR SUPPLEMENTAL SCALE SQ SCH ×4 (04:15→22:15)
[2017-03-06 05:13] LABS: HEMATOCRIT 28.3 % (35.0-46.0); MEAN CELL VOLUME 82.9 FL (80.0-100.0); MEAN CORPUSCULAR HEMOGLOBIN 27.9 PG (27.0-34.0); MEAN CORPUSCULAR HGB CONC 33.7 % (32.0-36.0); PLATELET COUNT 103 TH/MM3 (150-450); RED BLOOD COUNT 3.41 MIL/MM3 (4.00-5.30); RED CELL DISTRIBUTION WIDTH 15.4 % (11.6-17.2); REVIEW FLAG FINAL
[2017-03-06 05:36] LABS: ANION GAP 4 MEQ/L (5-15); BICARBONATE 33.6 MEQ/L (21.0-32.0); BLOOD UREA NITROGEN 14 MG/DL (7-18); CHLORIDE 107 MEQ/L (98-107); GLOMERULAR FILTRATION RATE 381 ML/MIN (>89); POTASSIUM 3.7 MEQ/L (3.5-5.1); SODIUM (NA) 145 MEQ/L (136-145)
[2017-03-06] MEDS: clonazePAM 1 MG TAB PO SCH ×3 (06:00→22:17)
[2017-03-06] MEDS: ALBUTEROL SULFATE 90 MCG/ACT HFA 18 GM INHALER INH SCH ×3 (06:00→12:00)
[2017-03-06 06:11] LABS: CALCIUM-PROTEIN CORRECTED 6.5 MG/DL (8.5-10.1)
[2017-03-06] MEDS ORDERED: CALCIUM CHLORIDE INJ 2 GM in DEXTROSE 5% IN WATER 100ML INJ 100 ML IV ONE ×2 (07:00)
[2017-03-06] MEDS: fentaNYL DRIP 250 ML IV SCH ×2 (07:35→17:59)
[2017-03-06] MEDS: MIDAZOLAM 100 MG/ML INJ 100 ML IV SCH ×2 (07:35→20:23)
[2017-03-06] MEDS: OLANZapine 2.5 MG TAB PO SCH ×2 (07:53→20:25)
[2017-03-06] MEDS: TIOTROPIUM BROMIDE 18 MCG INH INH SCH (07:53)
[2017-03-06] MEDS: BUDESONIDE-FORMOTEROL 80/4.5 MCG INHALER INH SCH ×2 (07:53→20:26)
[2017-03-06 08:29] LABS: AUTOMATED NEUTROPHIL # 8.4 TH/MM3 (1.8-7.7); BASOPHIL # 0.1 TH/MM3 (0-0.2); BASOPHIL % 0.5 % (0.0-2.0); EOSINOPHIL # 0.2 TH/MM3 (0-0.4); EOSINOPHIL % 1.9 % (0.0-4.0); HEMATOCRIT 26.5 % (35.0-46.0); LYMPH % 13.9 % (9.0-44.0); LYMPHOCYTE # 1.5 TH/MM3 (1.0-4.8); MEAN CELL VOLUME 83.4 FL (80.0-100.0); MEAN CORPUSCULAR HGB CONC 33.5 % (32.0-36.0); MONO % 7.2 % (0.0-8.0); NEUT % 76.5 % (16.0-70.0); PLATELET COUNT 97 TH/MM3 (150-450); RED BLOOD COUNT 3.18 MIL/MM3 (4.00-5.30); RED CELL DISTRIBUTION WIDTH 15.4 % (11.6-17.2)
[2017-03-06 08:31] LABS: HEMO FLAGS AUTO DIFF
[2017-03-06 08:57] LABS: PLATELET ESTIMATE SMEAR LOW (NORMAL); PLATELET MORPHOLOGY NORMAL (NORMAL); SCAN/DIFF AUTO DIFF CONFIRMED
--- NOTE | 2017-03-06 09:09 | HHI.CCPN ---
Subjective Remarks/Hospital Course Patient is a 46 year-old female with a past medical history of bronchial asthma , bipolar disorder, schizophrenia, anxiety/depression, and anemia. She presented to [facility] Emergency Department withy complaints of feeling dizziness, light headedness, generalized weakness, multiple falls and inability to ambulate. On further history she has a history of gastric bypass four years ago in [place] and another abdominal surgery about one to two years ago for Intussusception in [place] as well. She states that she weighed 200 lbs when she had the gastric bypass surgery preformed, now she weighs 80 pounds, she reports chronic abdominal pain associated with intractable nausea and vomiting for several months. In addition to decreased p.o. intake. Her abdominal pain progressively worsened and mainly in the right upper quadrant and left lower quadrat. She denies any chest pain, shortness of breath, cough or any constitutional symptoms. On arrival to the emergency room she was hypotensive with systolic blood pressure in the 80's, tachycardic with heart rate in the 120's and her laboratory data showed hemoglobin of 7.2, lactic acid level of 2.9. Her liver enzymes are within normal limits with a total bilirubin of 0.2. Aspartate aminotransferase 21, alt 12, alkaline phosphatase 138. In the ER she received one out of two units of packed red blood cells and approximately 1.5 liters of normal saline. She responded to volume resuscitation and current blood pressure is 108/71 with a pulse of 112. Her o2 saturation is 97% on room air. Due to her abdominal pain, CT abdomen and pelvis were preformed which showed gallbladder wall thickening, mild hepatosplenomegaly and chronic mild compression deformity is noted involving L1. Chest x-ray in the emergency department showed right fifth rib fractures which appear old, otherwise no evidence of acute cardiopulmonary disease. Right IJ central line was placed by emergency department physician. She also has a ultrasound of the abdomen which is pending during the time of this dictation. The patient received Protonix, Unasyn and dilated in the emergency room. 03/01 Patient is lying in bed in NAD. s/p transfusion 2units PRBC this morning for Hgb 6.9. s/p EGD showed G-J ulcer, adherent clot with no evidence of bleeding. 03/02: Requesting Klonopin today. Hemoglobin stable for the past 12 hours. Very anxious and verbose. Complaining of pain epigastric/right upper quadrant region. Subjective 02/22/16: Currently afebrile. Requesting doxepin along with increasing pain medications. Days of pain in epigastric/right upper quadrant region. Hemoglobin stable. CCM reconsulted on 03/05/17 -around 6 PM a rapid response was activated due to low blood pressure and hematemesis. She was transferred to ICU. The fluid resuscitation was started however patient continued vomiting blood and required intubation for an airway protection. Shortly after intubation she dropped her blood pressure again without palpable pulses in the CPR was initiated. There was a run of 2 cycles of CPR with return of spontaneous circulation. The Cordis introducer was inserted to left femoral vein and the rapid infuser was used to transfuse 4 units of PRBCs and FFP since cryoprecipitate. Dr. Arias emergently performed upper EGD. Without successful finding off source of bleeding. This was discussed with interventional radiologist Dr. Pascual and the patient is going to be taken to IR for possible embolization emergently due to life-threatening condition uncontrolled GI bleed. 03/06: Remains intubated sedated. 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 Pascual. Episode of hypotension today, started on Levophed, 2U PRBC stat ordered, and 2L NS bolus. with improvement in BP. No evident GIB. Remains on Protonix and octreotide gtt. Hb 8.9 on Stat re check Objective Vital Signs Date Time Temp Pulse Resp B/P Pulse Ox O2 Delivery O2 Flow Rate FiO2 03/06/17 08:34 99 45 03/06/17 04:00 99.5 114 16 99/64 101/57 Manual Cuff/Auscultation 03/04/17 07:00 Room Air Intake and Output 03/05/17 03/05/17 03/06/17 08:00 16:00 00:00 Intake Total 480 ml 960 ml Output Total 1200 ml 1500 ml Balance -720 ml -540 ml Result Diagram: 03/06/17 0810 03/06/17 0423 Other Results Laboratory Tests Test 03/05/17 03/05/17 03/05/17 18:08 20:00 21:37 Blood Gas Puncture Site RT RADIAL CORDELIA ART LINE Blood Gas Patient Temperature 98.6 98.6 98.6 Blood Gas HCO3 24 mmol/L 17 mmol/L 30 mmol/L (22-26) (22-26) (22-26) Blood Gas Base Excess -0.5 mmol/L -10.0 mmol/L 4.8 mmol/L (-2-2) (-2-2) (-2-2) Blood Gas Oxygen Saturation 98 % (90-100) 93 % (90-100) 97 % (90-100) Arterial Blood pH 7.36 7.20 7.38 (7.380-7.420) (7.380-7.420) (7.380-7.420) Arterial Blood Partial 44 mmHg (38-42) 44 mmHg (38-42) 52 mmHg (38-42) Pressure CO2 Arterial Blood Partial 418 mmHg 88 mmHg 528 mmHg Pressure O2 (61-120) (61-120) (61-120) Arterial Blood Oxygen Content 12.5 Vol % 6.1 Vol % 15.6 Vol % (12.0-20.0) (12.0-20.0) (12.0-20.0) Arterial Blood 1.3 % (0-4) 1.0 % (0-4) 1.6 % (0-4) Carboxyhemoglobin Arterial Blood Methemoglobin 1.3 % (0-2) 1.2 % (0-2) 1.2 % (0-2) Blood Gas Hemoglobin 8.3 G/DL 4.5 G/DL 10.4 G/DL (12.0-16.0) (12.0-16.0) (12.0-16.0) Oxygen Delivery Device NONREBREATHER AMBU VENTILATOR Blood Gas Liter Flow 15 L/M 15 L/M Blood Gas Inspired Oxygen 100 % 100 % Blood Gas Ventilator Setting AC 14/500/PEEP8 Imaging Last 24 hours Impressions Chest X-Ray 03/05/17 0000 Signed Impressions: Service Date/Time: Sunday, March 05, 2017 21:05 - CONCLUSION: 1. The endotracheal tube extends into the right main bronchus and should be retracted. 2. No other acute finding is identified. 3. 4. These findings were relayed to the patient's nurse via telephone at 9: 5. 40 PM on 03/05/2017. Terry Larry MD Chest X-Ray 03/05/17 0000 Signed Impressions: Service Date/Time: Sunday, March 05, 2017 18:19 - CONCLUSION: 1. No acute abnormality or significant change. Evangelista Louise MD Objective Remarks GENERAL: 46-year-old cachectic female, lying in bed in intubated sedates SKIN: Warm and dry. No rash HEAD: Normocephalic. EYES: No scleral icterus. No injection or drainage. PERRL. 3 mm bilaterally and reactive. NECK: Supple, trachea midline. No JVD or lymphadenopathy. Right IJ clean dry and intact CARDIOVASCULAR: Regular rate and rhythm. S1, S2 no S4 without murmur RESPIRATORY: Breath sounds clear to auscultation and equal bilaterally. Symmetrical excursion. No accessory muscle use. GASTROINTESTINAL: Abdomen soft, tender to palpation epigastric/right upper quadrant with voluntary rebound and no rigidity. Hypoactive bowel sounds MUSCULOSKELETAL: No edema. R groin Cordis in place Neuro: awake on sedation. Attempts to follow commands while on sedation A/P Assessment and Plan Neuro/Psych: Bipolar disorder Schizophrenia Depression/anxiety Fentanyl/Versed drip for sedation. ESTRADA goal -2 Continue Klonopin 1 mg by mouth 3 times a day/home medication 2 mg 3 times a day On Zyprexa 2.5 mg by mouth twice a day. Continue Hold Hydromorphone 1 mg every 3 hours for. pain management Monitor neurostatus, Awake on sedation Pulm: Acute respiratory failure Tobaccoism History of bronchial asthma Intubated for airway protection Oxygen as needed to maintain sats >90%. Albuterol HFA 4 times a day with Spiriva daily and Symbicort twice a day SBT once hemodynamically stable and bleeding controlled CV: Hypotension Hemorrhagic shock Due to volume loss Monitor HR and BP and maintain MAP >65 mmHg. IV fluids resuscitation Transfuse blood products, keep Hb >8 Levophed to keep MAP above 65 /renal/FEN: Hypocalcemia Monitor renal function. Intake and outputs and electrolyte replacement protocol. GI: Massive upper GIB secondary to erosion through the splenic artery with a very large pseudoaneurysm Large ulcer with adjacent thrombus at GJ junction Possible GG fistula Mesenteric angio 03/05/17 demonstrated erosion through the splenic artery with a very large pseudoaneurysm and active, massive GI bleed. 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 Pascual. Status post emergent EGD by Dr. Arias EGD 03/01 revealed a large ulcer with adjacent clot. Protonix drip and octreotide drip ID: Continue abx (Zosyn) and monitor for signs of infections( fever and WBC). 02/28 BC, Urine cx: NGTD Endo: SSI last low regimen with Accu-Cheks every 6 hours for glycemic control. Heme: Acute blood loss posthemorrhagic anemia Thrombocytopenia, consumptive s/p 4 units of PRBC/4 units of FFP's/1 unit of cryoprecipitate Additional 2 U PRBC today 03/06 Monitor CBC, patient s/p transfusion 2units PRBC 02/28 and 2units PRBC 03/01 for Hgb 6.9. GI prophylaxis with Protonix gtt DVT prophylaxis with SCD. No pharmacological prophylaxis with bleeding Lines: Right IJ CVP placed 02/28, R femoral cordis placed 03/05 Critical Care: The total critical care time was 40 minutes. Time to perform other separately billable procedures was not included in the critical care time. Kaycee Stewart MD Mar 06, 2017 09:09 billable procedures was not included in the critical care time. Kaycee Stewart MD Mar 06, 2017 09:09 Kaycee Stewart MD Mar 06, 2017 09:09
--- NOTE | 2017-03-06 10:52 | RADRPT ---
EXAM DATE/TIME: 03/05/2017 23:50 [place] COMPARISON: No previous studies available for comparison. INDICATIONS : Patient is in need of a splenic arteriogram with embolization due to acute arterial bleed. MEDICAL HISTORY : History of asthma, bipolar disorder, schizophrenia, anemia, gastric ulcer. SURGICAL HISTORY : History of EGD, gastric bypass, abdominal surgery for intussusception. ENCOUNTER: Initial ACUITY: 4-6 days PAIN SCORE: 0/10 LOCATION: Patient is vented. FLUORO TIME: 30.7 minutes IMAGE SERIES: 14 ACCESS SITE: Right Femoral artery CONTRAST: 1.) 102 cc Visipaque (iodixanol) DEVICE(S): 1.) Splenic artery 12-7mm Gelfoam 2.) Splenic artery 5mm x 8cm embolic coil(s).018 Interlock 3.) Splenic artery 6mm x 20cm embolic coil(s).018 Interlock 4.) Splenic artery 6/2 embolic coil(s).018 [place]ornado 5.) Splenic artery 4/2 embolic coil(s).018 [place]ornado PROCEDURE : 1. Ultrasound-guided puncture of the access site. 2. Conscious sedation with continuous EKG and Oximetry monitoring. 3. Angiography of the SMA 4. Angiography of the hepatic artery 5. Angiography of the splenic artery 6. Coil embolization of the splenic artery. The patient had an active massive GI bleed. Consent was deemed emergent as the patient was intubated. Emergent consent orders were written by Dr. Arias and Dr. Joshi. The site was prepped in sterile fas hion. Full sterile technique was used, including cap, mask, sterile gloves and gown and a large ster ile sheet. Hand hygiene and 2% chlorhexidine and/or betadine/alcohol prep was utilized per protocol for cutaneous antisepsis. The skin and subcutaneous tissues were infiltrated with local anesthetic s olution. The right common femoral artery was accessed under direct ulcer nonvisualization. A 4 Sudanese sheath w as placed. A 0.035 angle Glidewire and catheter were advanced into the abdominal aorta. The SMA was e asily selected. Angiography of the superior mesenteric artery was performed. Results: The SMA is widely patent. No active gastrointestinal bleed was seen arising from the superior mesente dalila circulation. The catheter was withdrawn. The hepatic artery and splenic artery arise from a separate trunk. The he patic artery was easily selected. Angiographic runs of the hepatic circulation were performed. No GI bleed was seen. The catheter was placed at the origin of the splenic artery. 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 There was ac tive contrast extravasation from the splenic artery into what appeared to be residual stomach. Rugal folds could be identified with injection of the splenic artery. The artery was accessed. Covered stent placement within the splenic artery was not felt to be a viabl e option due to the extensive tortuosity of the artery and the steep angle which she artery arose fro m the aorta. Several attempts were made to pass a 0.018 wire and a retrograde high flow microcatheter through the pseudoaneurysm and into the more distal aspect of the splenic artery in an attempt to coil both dista l and proximal to the pseudoaneurysm. Each time the catheter wire were passed through the splenic art leo they simply fell into the stomach and pseudoaneurysm. The decision was made to embolize the patient splenic artery in its entirety. Approximately 4-5 cc of Gelfoam was advanced into the pseudoaneurysm. A coil was placed at the neck of the aneurysm. Then se veral large coils were placed approximately 1-2 cm distal to the origin of the splenic artery. There was complete occlusion of the splenic artery at the termination of the procedure. The puncture site was closed with manual pressure and hemostasis was obtained. The patient tolerated the procedure well and there were no complications. Conscious sedation was performed with the prescribed dosages and duration as above in the presence of an independent trained radiology nurse to assist in the monitoring of the patient. EKG and oximetry remained stable throughout the procedure. CONCLUSION: 1. The examination demonstrated complete erosion of the anterior wall of the splenic artery at the pa tient's anastomosis from the gastric bypass. It was not possible to trap the aneurysm both proximal a nd distal nor was it possible to place a covered stent. The proximal splenic artery was embolized to occlusion. The patient will likely need splenectomy to prevent back bleeding into the anastomosis. Th ere is also high probability of complete infarct of the spleen as well. Darren Pascual MD on March 06, 2017 at 10:38 Board Certified Radiologist. This report was verified electronically.
--- NOTE | 2017-03-06 13:49 | HHI.PR ---
Subjective Subjective Notes hypotension, placed on levo, acute gi bleed, s/p ir coil of splenic a, pressure improved, hypotension this am transfused with improvement, minimal ng output, no bloody bm Objective Vitals/I&O Vital Signs Date Time Temp Pulse Resp B/P Pulse Ox O2 Delivery O2 Flow Rate FiO2 03/06/17 12:00 98.8 118 14 107/62 97 114/61 03/06/17 12:00 40 03/04/17 07:00 Room Air Labs Laboratory Tests Test 03/05/17 03/05/17 03/05/17 03/05/17 18:08 18:15 18:28 20:00 Blood Gas Puncture Site RT RADIAL CORDELIA Blood Gas Patient Temperature 98.6 98.6 Blood Gas HCO3 24 17 Blood Gas Base Excess -0.5 -10.0 Blood Gas Oxygen Saturation 98 93 Arterial Blood pH 7.36 7.20 Arterial Blood Partial 44 44 Pressure CO2 Arterial Blood Partial 418 88 Pressure O2 Arterial Blood Oxygen Content 12.5 6.1 Arterial Blood 1.3 1.0 Carboxyhemoglobin Arterial Blood Methemoglobin 1.3 1.2 Blood Gas Hemoglobin 8.3 4.5 Oxygen Delivery Device NONREBREATHER AMBU Blood Gas Liter Flow 15 15 White Blood Count 6.7 Red Blood Count 2.98 Hemoglobin 8.1 Hematocrit 25.5 Mean Corpuscular Volume 85.6 Mean Corpuscular Hemoglobin 27.3 Mean Corpuscular Hemoglobin 31.9 Concent Red Cell Distribution Width 19.4 Platelet Count 218 Mean Platelet Volume 8.8 Neutrophils (%) (Auto) 43.4 Lymphocytes (%) (Auto) 39.0 Monocytes (%) (Auto) 10.9 Eosinophils (%) (Auto) 5.3 Basophils (%) (Auto) 1.4 Neutrophils # (Auto) 2.9 Lymphocytes # (Auto) 2.6 Monocytes # (Auto) 0.7 Eosinophils # (Auto) 0.4 Basophils # (Auto) 0.1 CBC Comment DIFF FINAL Differential Comment Sodium Level 138 Potassium Level 4.3 Chloride Level 102 Carbon Dioxide Level 29.3 Anion Gap 7 Blood Urea Nitrogen 12 Creatinine 0.35 Estimat Glomerular Filtration 200 Rate Random Glucose 241 Calcium Level 6.5 Protein Corrected Calcium 7.8 Total Bilirubin 0.2 Aspartate Amino Transf 16 (AST/SGOT) Alanine Aminotransferase 11 (ALT/SGPT) Alkaline Phosphatase 78 Total Protein 4.5 Albumin 1.4 Blood Type O POSITIVE Antibody Screen NEGATIVE Crossmatch Leukocyte-Reduced Red Blood Cells Blood Bank Comment Blood Gas Inspired Oxygen 100 Test 03/05/17 03/05/17 03/05/17 03/05/17 20:28 21:37 21:46 21:54 Crossmatch Leukocyte-Reduced Leukocyte-Reduced Red Blood Red Blood Cells Cells Blood Bank Comment Blood Gas Puncture Site ART LINE Blood Gas Patient Temperature 98.6 Blood Gas HCO3 30 Blood Gas Base Excess 4.8 Blood Gas Oxygen Saturation 97 Arterial Blood pH 7.38 Arterial Blood Partial 52 Pressure CO2 Arterial Blood Partial 528 Pressure O2 Arterial Blood Oxygen Content 15.6 Arterial Blood 1.6 Carboxyhemoglobin Arterial Blood Methemoglobin 1.2 Blood Gas Hemoglobin 10.4 Oxygen Delivery Device VENTILATOR Blood Gas Ventilator Setting AC 14/500/PEEP8 Blood Gas Inspired Oxygen 100 Prothrombin Time 11.8 Prothromb Time International 1.1 Ratio Activated Partial 31.3 Thromboplast Time Test 03/05/17 03/06/17 03/06/17 03/06/17 22:49 04:23 08:09 08:10 Hemoglobin 10.6 9.5 8.9 Hematocrit 30.9 28.3 26.5 White Blood Count 11.0 11.0 Red Blood Count 3.41 3.18 Mean Corpuscular Volume 82.9 83.4 Mean Corpuscular Hemoglobin 27.9 28.0 Mean Corpuscular Hemoglobin 33.7 33.5 Concent Red Cell Distribution Width 15.4 15.4 Platelet Count 103 97 Mean Platelet Volume 9.3 8.9 Sodium Level 145 Potassium Level 3.7 Chloride Level 107 Carbon Dioxide Level 33.6 Anion Gap 4 Blood Urea Nitrogen 14 Creatinine 0.20 Estimat Glomerular Filtration 381 Rate Random Glucose 193 Calcium Level LESS THAN 5.0 Protein Corrected Calcium 6.5 Total Protein 3.5 Crossmatch Leukocyte-Reduced Red Blood Cells Blood Bank Comment Neutrophils (%) (Auto) 76.5 Lymphocytes (%) (Auto) 13.9 Monocytes (%) (Auto) 7.2 Eosinophils (%) (Auto) 1.9 Basophils (%) (Auto) 0.5 Neutrophils # (Auto) 8.4 Lymphocytes # (Auto) 1.5 Monocytes # (Auto) 0.8 Eosinophils # (Auto) 0.2 Basophils # (Auto) 0.1 CBC Comment AUTO DIFF Differential Comment AUTO DIFF CONFIRMED Platelet Estimate LOW Platelet Morphology Comment NORMAL Red Cell Morphology Comment NORMAL Cardiovascular: Regular Abdomen: Other (soft distended) A/P Assessment and Plan hx rygb, hx of gj ulcers presents with abd pain, gi bleed UGI shows concern for G-G fistula, egd with bleeding and clot unable to visualized ulcer due to blood, pt remains tachycardic on pressors, s/p EGD s/p ir coil splenic a PLAN transfuse at needed, recheck hh ISC aware PPI, Carafate npo, recommend TPN Jerome Arias MD Mar 06, 2017 13:49
--- NOTE | 2017-03-06 15:54 | EKG ---
Date Performed: 03/05/2017 Time Performed: 18:28:00 PTAGE: 46 years EKG: Probable supraventricular tachycardia Lateral ST changes are nonspecific When compared to p revious tracing, the probable supraventricular Tachycardia has replaced sinus tachycardia. Abnormal E CG PREVIOUS TRACING : 02/28/2017 09.45 DOCTOR: Shree Payan Interpretating Date/Time 03/06/2017 15:53:48
[2017-03-06 16:21] LABS: HEMATOCRIT 30.6 % (35.0-46.0)
[2017-03-06 16:33] LABS: REVIEW FLAG FINAL
[2017-03-06] MEDS: DOXEPIN HCL 50 MG CAP PO SCH (20:25)
[2017-03-07] VITALS (41 sets, daily range): BP systolic 81–130; BP diastolic 46–83; PULSE 67–111; RESP 0–28; TEMP 98.4–100; O2SAT 95–100
[2017-03-07] MEDS: ALBUTEROL SULFATE 90 MCG/ACT HFA 18 GM INHALER INH SCH ×2 (00:20→05:28)
[2017-03-07] MEDS: CHLORHEXIDINE GLUCONATE 2 % 1 PACK (2 CLOTHS) TOP SCH (02:00)
[2017-03-07] MEDS: PIPERACIL-TAZO 4.5 GM PREMIX 100 ML IV SCH ×3 (02:23→17:56)
[2017-03-07] MEDS: SUCRALFATE 1 GM/10 ML CUP PO SCH ×4 (04:07→21:24)
[2017-03-07] MEDS: fentaNYL DRIP 250 ML IV SCH (04:07)
[2017-03-07] MEDS: INSULIN NovoLIN REGULAR SUPPLEMENTAL SCALE SQ SCH ×4 (04:07→21:24)
[2017-03-07] MEDS: clonazePAM 1 MG TAB PO SCH ×3 (05:28→21:23)
[2017-03-07] MEDS: SODIUM CHLOR 0.9% 1000 ML INJ 1,000 ML IV SCH ×2 (05:36→22:44)
[2017-03-07 08:11] LABS: HEMATOCRIT 27.6 % (35.0-46.0); MEAN CELL VOLUME 82.5 FL (80.0-100.0); MEAN CORPUSCULAR HEMOGLOBIN 27.9 PG (27.0-34.0); MEAN CORPUSCULAR HGB CONC 33.8 % (32.0-36.0); PLATELET COUNT 100 TH/MM3 (150-450); RED BLOOD COUNT 3.35 MIL/MM3 (4.00-5.30); RED CELL DISTRIBUTION WIDTH 17.3 % (11.6-17.2); REVIEW FLAG FINAL; WHITE BLOOD COUNT 8.3 TH/MM3 (4.0-11.0)
[2017-03-07] MEDS: OLANZapine 2.5 MG TAB PO SCH ×2 (08:23→21:23)
[2017-03-07] MEDS: PANTOPRAZOLE 80 MG/100 ML NS IV SCH ×4 (08:24→17:55)
[2017-03-07] MEDS: OCTREOTIDE 500 MCG/NS 500 ML - 50 mcg/hr IV SCH ×4 (08:25→18:13)
[2017-03-07 08:30] LABS: BICARBONATE 34.1 MEQ/L (21.0-32.0); POTASSIUM 3.7 MEQ/L (3.5-5.1); TOTAL BILIRUBIN ADULT 0.2 MG/DL (0.2-1.0)
[2017-03-07] MEDS ORDERED: BUMETANIDE INJ 1 MG/4 ML VIAL IV PUSH ONE (08:30)
--- NOTE | 2017-03-07 08:37 | HHI.CCPN ---
Subjective Remarks/Hospital Course Patient is a 46 year-old female with a past medical history of bronchial asthma , bipolar disorder, schizophrenia, anxiety/depression, and anemia. She presented to [facility] Emergency Department withy complaints of feeling dizziness, light headedness, generalized weakness, multiple falls and inability to ambulate. On further history she has a history of gastric bypass four years ago in [place] and another abdominal surgery about one to two years ago for Intussusception in [place] as well. She states that she weighed 200 lbs when she had the gastric bypass surgery preformed, now she weighs 80 pounds, she reports chronic abdominal pain associated with intractable nausea and vomiting for several months. In addition to decreased p.o. intake. Her abdominal pain progressively worsened and mainly in the right upper quadrant and left lower quadrat. She denies any chest pain, shortness of breath, cough or any constitutional symptoms. On arrival to the emergency room she was hypotensive with systolic blood pressure in the 80's, tachycardic with heart rate in the 120's and her laboratory data showed hemoglobin of 7.2, lactic acid level of 2.9. Her liver enzymes are within normal limits with a total bilirubin of 0.2. Aspartate aminotransferase 21, alt 12, alkaline phosphatase 138. In the ER she received one out of two units of packed red blood cells and approximately 1.5 liters of normal saline. She responded to volume resuscitation and current blood pressure is 108/71 with a pulse of 112. Her o2 saturation is 97% on room air. Due to her abdominal pain, CT abdomen and pelvis were preformed which showed gallbladder wall thickening, mild hepatosplenomegaly and chronic mild compression deformity is noted involving L1. Chest x-ray in the emergency department showed right fifth rib fractures which appear old, otherwise no evidence of acute cardiopulmonary disease. Right IJ central line was placed by emergency department physician. She also has a ultrasound of the abdomen which is pending during the time of this dictation. The patient received Protonix, Unasyn and dilated in the emergency room. 03/01 Patient is lying in bed in NAD. s/p transfusion 2units PRBC this morning for Hgb 6.9. s/p EGD showed G-J ulcer, adherent clot with no evidence of bleeding. 03/02: Requesting Klonopin today. Hemoglobin stable for the past 12 hours. Very anxious and verbose. Complaining of pain epigastric/right upper quadrant region. Subjective 02/22/16: Currently afebrile. Requesting doxepin along with increasing pain medications. Days of pain in epigastric/right upper quadrant region. Hemoglobin stable. [facility] reconsulted on 03/05/17 -around 6 PM a rapid response was activated due to low blood pressure and hematemesis. She was transferred to ICU. The fluid resuscitation was started however patient continued vomiting blood and required intubation for an airway protection. Shortly after intubation she dropped her blood pressure again without palpable pulses in the CPR was initiated. There was a run of 2 cycles of CPR with return of spontaneous circulation. The Cordis introducer was inserted to left femoral vein and the rapid infuser was used to transfuse 4 units of PRBCs and FFP since cryoprecipitate. Dr. Beverly emergently performed upper EGD. Without successful finding off source of bleeding. This was discussed with interventional radiologist Dr. Pascual and the patient is going to be taken to IR for possible embolization emergently due to life-threatening condition uncontrolled GI bleed. 03/06: Remains intubated sedated. 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 Pascual. Episode of hypotension today, started on Levophed, 2U PRBC stat ordered, and 2L NS bolus. with improvement in BP. No evident GIB. Remains on Protonix and octreotide gtt. Hb 8.9 on Stat re check 03/07: Remains intubated, now off Levophed. Hb remains stable. No GIB reported. Will attempt SBT today for possible extubation. Discuss with Dr. Jerome Beverly. No plan for any surgical procedures at this time. DC octreotide in 24 hours. Continue Protonix infusion and Carafate per Dr. beverly Objective Vital Signs Date Time Temp Pulse Resp B/P Pulse Ox O2 Delivery O2 Flow Rate FiO2 03/07/17 06:00 68 03/07/17 04:00 100.0 14 90/55 100 105/48 03/07/17 04:00 40 03/04/17 07:00 Room Air Intake and Output 03/06/17 03/06/17 03/07/17 08:00 16:00 00:00 Intake Total 89637 ml 4564 ml 2216 ml Output Total 2225 ml 800 ml 1000 ml Balance 7872 ml 3764 ml 1216 ml Result Diagram: 03/07/17 0743 03/06/17 0423 Imaging Last 24 hours Impressions Chest X-Ray 03/05/17 0000 Signed Impressions: Service Date/Time: Sunday, March 05, 2017 21:05 - CONCLUSION: 1. The endotracheal tube extends into the right main bronchus and should be retracted. 2. No other acute finding is identified. 3. 4. These findings were relayed to the patient's nurse via telephone at 9: 5. 40 PM on 03/05/2017. Terry Larry MD Chest X-Ray 03/05/17 0000 Signed Impressions: Service Date/Time: Sunday, March 05, 2017 18:19 - CONCLUSION: 1. No acute abnormality or significant change. Evangelista Louise MD Objective Remarks GENERAL: 46-year-old cachectic female, lying in bed in intubated sedated. Wakes up and follows commands SKIN: Warm and dry. No rash HEAD: Normocephalic. EYES: No scleral icterus. No injection or drainage. PERRL. 3 mm bilaterally and reactive. NECK: Supple, trachea midline. No JVD or lymphadenopathy. Right IJ clean dry and intact CARDIOVASCULAR: Regular rate and rhythm. S1, S2 no S4 without murmur RESPIRATORY: Breath sounds clear to auscultation and equal bilaterally. Symmetrical excursion. No accessory muscle use. GASTROINTESTINAL: Abdomen soft, tender to palpation epigastric/right upper quadrant with voluntary rebound and no rigidity. Hypoactive bowel sounds MUSCULOSKELETAL: No edema. L groin Cordis in place, R groin art line in place Neuro: awake on sedation. Attempts to follow commands while on sedation Urinary Catheter: Yes Assessment to: Continue Vascular Central Line Catheter: Yes Assessment to: Continue A/P Assessment and Plan Neuro/Psych: Bipolar disorder Schizophrenia Depression/anxiety Fentanyl/Versed drip for sedation. ESTRADA goal -1. Hold sedation for weaning trials Continue Klonopin 1 mg by mouth 3 times a day/home medication 2 mg 3 times a day On Zyprexa 2.5 mg by mouth twice a day. Hold Hydromorphone 1 mg every 3 hours for. pain management Monitor neurostatus, Awake on sedation Pulm: Acute respiratory failure Tobaccoism History of bronchial asthma Intubated for airway protection Maintain sats >90%. DuoNeb PRN Post extubation, restart Albuterol HFA 4 times a day with Spiriva daily and Symbicort twice a day SBT with possible extubation CV: Hypotension Hemorrhagic shock Due to volume loss Monitor HR and BP and maintain MAP >65 mmHg. IV fluids resuscitation Transfuse blood products, keep Hb >8 Levophed to keep MAP above 65, now weaned off /renal/FEN: Hypocalcemia Monitor renal function. Intake and outputs and electrolyte replacement protocol. GI: Massive upper GIB secondary to erosion through the splenic artery with a very large pseudoaneurysm Large ulcer with adjacent thrombus at GJ junction Possible GG fistula Mesenteric angio 03/05/17 demonstrated erosion through the splenic artery with a very large pseudoaneurysm and active, massive GI bleed. 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 Pascual. Status post emergent EGD by Dr. Beverly, no further surgical interventions planned at this time EGD 03/01 revealed a large ulcer with adjacent clot. Protonix drip and octreotide drip. Discontinue octreotide drip in 24 hours Continue Carafate po q6hr ID: Continue abx (Zosyn) and monitor for signs of infections( fever and WBC). 02/28 BC, Urine cx: NGTD Endo: SSI last low regimen with Accu-Cheks every 6 hours for glycemic control. Heme: Acute blood loss posthemorrhagic anemia Thrombocytopenia, consumptive s/p 4 units of PRBC/4 units of FFP's/1 unit of cryoprecipitate Additional 2 U PRBC 03/06 Monitor CBC, patient s/p transfusion 2units PRBC 02/28 and 2units PRBC 03/01 for Hgb 6.9. GI prophylaxis with Protonix gtt DVT prophylaxis with SCD. No pharmacological prophylaxis with bleeding Lines: Right IJ CVP placed 02/28, femoral cordis placed 03/05-DC 03/07 Critical Care: The total critical care time was 35 minutes. Time to perform other separately billable procedures was not included in the critical care time. Kaycee Stewart MD Mar 07, 2017 08:37
[2017-03-07] MEDS ORDERED: ALBUMIN HUMAN 25% 25 GM/100 ML BAGP IV ONE (09:00)
[2017-03-07] MEDS: TIOTROPIUM BROMIDE 18 MCG INH INH SCH (09:00)
[2017-03-07] MEDS: BUDESONIDE-FORMOTEROL 80/4.5 MCG INHALER INH SCH ×2 (09:00→21:00)
[2017-03-07] MEDS ORDERED: POTASSIUM CHLORIDE INJ 40 MEQ in SODIUM CHLORID 0.9% 500 ML INJ 500 ML IV-CENTRAL ONE (09:00)
--- NOTE | 2017-03-07 10:15 | RADRPT ---
EXAM DATE/TIME: 03/07/2017 09:02 [facility] COMPARISON: CHEST SINGLE AP, March 05, 2017, 21:05. INDICATIONS : Respiratory distress. MEDICAL HISTORY : Asthma. SURGICAL HISTORY : Gastric bypass. ENCOUNTER: Subsequent ACUITY: 4 - 6 days PAIN SCORE: Non-responsive. LOCATION: Bilateral chest FINDINGS: The patient is intubated with the tip of the ET tube 3 cm from the aleksander. NG tube is in place with the tip at the EG junction. It should be advanced. There is a right internal jugular central line i n place with the tip overlying the right atrium. The heart size is normal. There is mild increased density at the right bases some silhouetting at the left hemidiaphragm. There is some minimal increa sed density at the right base. CONCLUSION: 1. Mild areas of consolidation or atelectasis at the bases being worse on the left. 2. The NG tube tip is at the EG junction and should be advanced. Terry Poon MD on March 07, 2017 at 9:42 Board Certified Radiologist. This report was verified electronically.
--- NOTE | 2017-03-07 12:51 | HHI.PR ---
Subjective Subjective Notes Intubated; planning for extubation today Able to answer yes and no questions BREANA Castillo and BREANA Saul at bedside Objective Vitals/I&O Vital Signs Date Time Temp Pulse Resp B/P Pulse Ox O2 Delivery O2 Flow Rate FiO2 03/07/17 12:30 99 Nasal Cannula 3 03/07/17 11:30 40 03/07/17 10:00 98 03/07/17 08:00 98.8 14 84/54 102/52 Labs Laboratory Tests Test 03/06/17 03/06/17 03/07/17 15:25 18:40 07:43 Hemoglobin 10.4 9.3 Hematocrit 30.6 27.6 Nasal Screen MRSA (PCR) MRSA NOT DETECTED White Blood Count 8.3 Red Blood Count 3.35 Mean Corpuscular Volume 82.5 Mean Corpuscular Hemoglobin 27.9 Mean Corpuscular Hemoglobin 33.8 Concent Red Cell Distribution Width 17.3 Platelet Count 100 Mean Platelet Volume 9.6 Sodium Level 144 Potassium Level 3.7 Chloride Level 107 Carbon Dioxide Level 34.1 Anion Gap 3 Blood Urea Nitrogen 11 Creatinine 0.21 Estimat Glomerular Filtration 360 Rate Random Glucose 117 Lactic Acid Level 0.6 Calcium Level 7.0 Protein Corrected Calcium 9.0 Total Bilirubin 0.2 Aspartate Amino Transf 39 (AST/SGOT) Alanine Aminotransferase 13 (ALT/SGPT) Alkaline Phosphatase 51 Total Protein 3.7 Albumin 1.2 Cardiovascular: Regular Lungs: Clear Abdomen: Non-distended, Non-tender Extremities: Other (mild BUE edema ) Narrative Exam RIJ Central line in place with TPN infusing A/P Assessment and Plan 46 year old female s/p gastric bypass surgery, weight loss, cachetic, malnutrition, GI bleed; anemia and NSAID use -S/p EGD yesterday -- Gastrojejunostomy ulcer; with active bleeding Monday night -S/p EGD and IR coil of splenic artery for massive GI bleed -Continue to monitor Hmg; transfuse as needed -Off pressors -TPN -NPO Attending Statement patient seen at bedside as above off pressors stable no bm Attestation The exam, history, and the medical decision-making described in the above note were completed with the assistance of the mid-level provider. I reviewed and agree with the findings presented. I attest that I had a [id number] encounter with the patient on the same day, and personally performed and documented my assessment and findings in the medical record. Jannette Garnett Mar 07, 2017 12:51 Jerome Arias MD Mar 14, 2017 22:40
[2017-03-07] MEDS: HYDROmorphone HCL PF 1 MG/ML VIAL IV PUSH PRN ×3 (13:57→21:39)
[2017-03-07] MEDS: DOXEPIN HCL 50 MG CAP PO SCH (21:24)
[2017-03-07] MEDS: CLINIMIX E 4.25/25 2000 mL- >42 mls/hr IV-CENTRAL SCH ×3 (21:24)
[2017-03-07] MEDS: FAT EMULSION 20% INJ 250 ML (Daily over 8 hours) IV-CENTRAL SCH (21:24)
[2017-03-07] MEDS: ALPRAZolam 1 MG TAB PO PRN (22:50)
[2017-03-08] VITALS (24 sets, daily range): BP systolic 98–139; BP diastolic 64–81; PULSE 64–92; RESP 6–29; TEMP 97.8–98.8; O2SAT 91–100
[2017-03-08] MEDS: PIPERACIL-TAZO 4.5 GM PREMIX 100 ML IV SCH ×3 (02:11→17:38)
[2017-03-08] MEDS: ALBUTEROL SULFATE 90 MCG/ACT HFA 18 GM INHALER INH SCH ×4 (02:13→17:44)
[2017-03-08] MEDS: HYDROmorphone HCL PF 1 MG/ML VIAL IV PUSH PRN ×7 (03:10→22:44)
[2017-03-08] MEDS: PANTOPRAZOLE 80 MG/100 ML NS IV SCH ×6 (03:48→22:47)
[2017-03-08] MEDS: OCTREOTIDE 500 MCG/NS 500 ML - 50 mcg/hr IV SCH ×6 (03:48→22:47)
[2017-03-08] MEDS: CHLORHEXIDINE GLUCONATE 2 % 1 PACK (2 CLOTHS) TOP SCH (04:00)
[2017-03-08] MEDS: SUCRALFATE 1 GM/10 ML CUP PO SCH ×4 (04:06→22:45)
[2017-03-08] MEDS: INSULIN NovoLIN REGULAR SUPPLEMENTAL SCALE SQ SCH ×4 (04:07→22:15)
[2017-03-08 05:20] LABS: AUTOMATED NEUTROPHIL # 5.8 TH/MM3 (1.8-7.7); BASOPHIL % 0.5 % (0.0-2.0); EOSINOPHIL # 0.3 TH/MM3 (0-0.4); EOSINOPHIL % 3.3 % (0.0-4.0); HEMATOCRIT 28.3 % (35.0-46.0); HEMO FLAGS DIFF FINAL; LYMPH % 17.1 % (9.0-44.0); LYMPHOCYTE # 1.4 TH/MM3 (1.0-4.8); MEAN CELL VOLUME 82.2 FL (80.0-100.0); MEAN CORPUSCULAR HEMOGLOBIN 28.4 PG (27.0-34.0); MEAN CORPUSCULAR HGB CONC 34.6 % (32.0-36.0); MONO % 7.3 % (0.0-8.0); NEUT % 71.8 % (16.0-70.0); PLATELET COUNT 114 TH/MM3 (150-450); RED BLOOD COUNT 3.44 MIL/MM3 (4.00-5.30); RED CELL DISTRIBUTION WIDTH 16.9 % (11.6-17.2); WHITE BLOOD COUNT 8.1 TH/MM3 (4.0-11.0)
[2017-03-08] MEDS: clonazePAM 1 MG TAB PO SCH ×3 (05:34→22:44)
[2017-03-08 05:43] LABS: ANION GAP 7 MEQ/L (5-15); AST (GOT) 34 U/L (15-37); BICARBONATE 33.8 MEQ/L (21.0-32.0); BLOOD UREA NITROGEN 8 MG/DL (7-18); CHLORIDE 101 MEQ/L (98-107); GLOMERULAR FILTRATION RATE 381 ML/MIN (>89); MAGNESIUM 1.2 MG/DL (1.5-2.5); POTASSIUM 3.4 MEQ/L (3.5-5.1); SODIUM (NA) 142 MEQ/L (136-145)
[2017-03-08 05:44] LABS: ALT (GPT) 13 U/L (10-53)
[2017-03-08 05:46] LABS: ALKALINE PHOSPHATASE 64 U/L (45-117); TOTAL BILIRUBIN ADULT 0.2 MG/DL (0.2-1.0)
--- NOTE | 2017-03-08 05:46 | RADRPT ---
EXAM DATE/TIME: 03/08/2017 04:35 [facility] COMPARISON: CHEST SINGLE AP, March 07, 2017, 9:02. INDICATIONS : Short of breath. MEDICAL HISTORY : Asthma. SURGICAL HISTORY : Gastric bypass. ENCOUNTER: Subsequent ACUITY: 1 week PAIN SCORE: 0/10 LOCATION: Bilateral chest FINDINGS: Mild left greater than right bibasilar atelectasis again noted without significant change. No large e ffusion seen. No pneumothorax. Heart size stable, normal. Right internal jugular central venous catheter remains in place, tip in the superior vena cava. Endot ginger tube and nasogastric tube have been removed. CONCLUSION: Internal extubation and nasogastric tube removal. Otherwise no significant change. Terry Hurtado MD on March 08, 2017 at 5:43 Board Certified Radiologist. This report was verified electronically.
[2017-03-08] MEDS: OLANZapine 2.5 MG TAB PO SCH ×2 (08:39→20:17)
[2017-03-08] MEDS: TIOTROPIUM BROMIDE 18 MCG INH INH SCH (08:44)
[2017-03-08] MEDS: BUDESONIDE-FORMOTEROL 80/4.5 MCG INHALER INH SCH ×2 (08:44→20:57)
--- NOTE | 2017-03-08 09:17 | HHI.CCPN ---
Subjective Remarks/Hospital Course Patient is a 46 year-old female with a past medical history of bronchial asthma , bipolar disorder, schizophrenia, anxiety/depression, and anemia. She presented to [facility] Emergency Department withy complaints of feeling dizziness, light headedness, generalized weakness, multiple falls and inability to ambulate. On further history she has a history of gastric bypass four years ago in [place] and another abdominal surgery about one to two years ago for Intussusception in [place] as well. She states that she weighed 200 lbs when she had the gastric bypass surgery preformed, now she weighs 80 pounds, she reports chronic abdominal pain associated with intractable nausea and vomiting for several months. In addition to decreased p.o. intake. Her abdominal pain progressively worsened and mainly in the right upper quadrant and left lower quadrat. She denies any chest pain, shortness of breath, cough or any constitutional symptoms. On arrival to the emergency room she was hypotensive with systolic blood pressure in the 80's, tachycardic with heart rate in the 120's and her laboratory data showed hemoglobin of 7.2, lactic acid level of 2.9. Her liver enzymes are within normal limits with a total bilirubin of 0.2. Aspartate aminotransferase 21, alt 12, alkaline phosphatase 138. In the ER she received one out of two units of packed red blood cells and approximately 1.5 liters of normal saline. She responded to volume resuscitation and current blood pressure is 108/71 with a pulse of 112. Her o2 saturation is 97% on room air. Due to her abdominal pain, CT abdomen and pelvis were preformed which showed gallbladder wall thickening, mild hepatosplenomegaly and chronic mild compression deformity is noted involving L1. Chest x-ray in the emergency department showed right fifth rib fractures which appear old, otherwise no evidence of acute cardiopulmonary disease. Right IJ central line was placed by emergency department physician. She also has a ultrasound of the abdomen which is pending during the time of this dictation. The patient received Protonix, Unasyn and dilated in the emergency room. 03/01 Patient is lying in bed in NAD. s/p transfusion 2units PRBC this morning for Hgb 6.9. s/p EGD showed G-J ulcer, adherent clot with no evidence of bleeding. 03/02: Requesting Klonopin today. Hemoglobin stable for the past 12 hours. Very anxious and verbose. Complaining of pain epigastric/right upper quadrant region. 02/22/16: Currently afebrile. Requesting doxepin along with increasing pain medications. Days of pain in epigastric/right upper quadrant region. Hemoglobin stable. [facility] reconsulted on 03/05/17 -around 6 PM a rapid response was activated due to low blood pressure and hematemesis. She was transferred to ICU. The fluid resuscitation was started however patient continued vomiting blood and required intubation for an airway protection. Shortly after intubation she dropped her blood pressure again without palpable pulses in the CPR was initiated. There was a run of 2 cycles of CPR with return of spontaneous circulation. The Cordis introducer was inserted to left femoral vein and the rapid infuser was used to transfuse 4 units of PRBCs and FFP since cryoprecipitate. Dr. Beverly emergently performed upper EGD. Without successful finding off source of bleeding. This was discussed with interventional radiologist Dr. Pascual and the patient is going to be taken to IR for possible embolization emergently due to life-threatening condition uncontrolled GI bleed. 03/06: Remains intubated sedated. 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 Pascual. Episode of hypotension today, started on Levophed, 2U PRBC stat ordered, and 2L NS bolus. with improvement in BP. No evident GIB. Remains on Protonix and octreotide gtt. Hb 8.9 on Stat re check 03/07: Remains intubated, now off Levophed. Hb remains stable. No GIB reported. Will attempt SBT today for possible extubation. Discuss with Dr. Jerome Beverly. No plan for any surgical procedures at this time. DC octreotide in 24 hours. Continue Protonix infusion and Carafate per Dr. beverly Subjective 03/08: Extubated yesterday without complication. Hemoglobin this a.m. pending. No additional GI bleeding. Still complaining of abdominal pain. Requesting pain medication at the present time. Objective Vital Signs Date Time Temp Pulse Resp B/P Pulse Ox O2 Delivery O2 Flow Rate FiO2 03/08/17 07:34 98 Nasal Cannula 2.00 03/08/17 06:00 66 9 03/08/17 05:34 117/77 6/21/17 04:00 97.8 03/07/17 12:00 35 Intake and Output 03/07/17 03/07/17 03/08/17 08:00 16:00 00:00 Intake Total 1958 ml 2421 ml 1781 ml Output Total 2625 ml 4450 ml 3725 ml Balance -667 ml -2029 ml -1944 ml Result Diagram: 03/08/17 0358 03/08/17 0358 Imaging Last Impressions Chest X-Ray 03/08/17 0600 Signed Impressions: Service Date/Time: Wednesday, March 08, 2017 04:35 - CONCLUSION: Internal extubation and nasogastric tube removal. Otherwise no significant change. Terry Hurtado MD Splenic Arteriogram 03/06/17 0000 Signed Impressions: Service Date/Time: Sunday, March 05, 2017 23:50 - CONCLUSION: 1. 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 The proximal splenic artery was embolized to occlusion. The patient will likely need splenectomy to prevent back bleeding into the anastomosis. There is also high probability of complete infarct of the spleen as well. Darren Pascual MD Abdomen/Pelvis CT 03/05/17 0000 Signed Impressions: Service Date/Time: Monday, March 06, 2017 01:51 - CONCLUSION: 1. Apparent early or partial small bowel obstruction, appears to be occurring at the level of the mid to distal ileum and is probably in the low abdomen. 2. Heterogeneous attenuation of the spleen and of concern for incomplete infarction. Patient has been administered intravenous contrast recently but not for this study. 3. Mild ascites. Anasarca and small bilateral pleural effusions are also noted. 4. Previous gastric bypass, with distention of the stomach and gastrojejunal anastomosis noted. The nasogastric tube tip is above the diaphragm within a moderate hiatal hernia. 5. There is a right femoral vein catheter with tip in main common iliac vein. A left femoral vein sheath is present with tip in main external iliac vein. Terry Hurtado MD Upper GI Series 02/28/17 0000 Signed Impressions: Service Date/Time: Tuesday, February 28, 2017 17:21 - CONCLUSION: 1. No evidence of extravasation to suggest perforation. 2. Focal collection of contrast within the gastric remnant raising the possibility of focal ulceration. Upper endoscopy would be helpful for further evaluation of this finding if there is strong clinical concern for ulceration within the gastric remnant. Maycol Castro MD Gall Bladder Ultrasound 02/28/17 0000 Signed Impressions: Service Date/Time: Tuesday, February 28, 2017 14:50 - CONCLUSION: 1. Single mobile stone in the gallbladder. 2. Extrarenal pelvis on the right. Darren Pascual MD Objective Remarks GENERAL: 46-year-old cachectic female, lying in bed in no acute distress SKIN: Warm and dry. No rash HEAD: Normocephalic. EYES: No scleral icterus. No injection or drainage. PERRL. 3 mm bilaterally and reactive. NECK: Supple, trachea midline. No JVD or lymphadenopathy. Right IJ clean dry and intact CARDIOVASCULAR: RRR. S1, S2. No S4. Without murmur, clicks, Gallops or rubs RESPIRATORY: Breath sounds clear to auscultation and equal bilaterally. Symmetrical excursion. No accessory muscle use. GASTROINTESTINAL: Abdomen soft, tender to palpation epigastric/right upper quadrant with voluntary rebound and no rigidity. Hypoactive bowel sounds MUSCULOSKELETAL: No edema. L groin Cordis removed yesterday that hematoma, R groin art line removed yesterday without hematoma Neuro: Cranial nerves II through XII grossly intact. Strength is equal symmetric. Normal sensation. Vascular Central Line Catheter: Yes Assessment to: Continue Line: Central Venous Catheter Side: Right Location: Internal, Jugular A/P Assessment and Plan Neuro/Psych: Bipolar disorder Schizophrenia Depression/anxiety Continue Klonopin 1 mg by mouth 3 times a day/home medication 2 mg 3 times a day On Zyprexa 2.5 mg by mouth twice a day. Continue doxepin 200 mg at night Kidney Xanax 1 every 8 when necessary anxiety Hydromorphone 1 mg every 3 hours for. pain management Pulm: Acute respiratory failure - resolved Tobaccoism History of bronchial asthma Nasal cannula to maintain saturations greater than equal to 92% Incentive spirometry while awake Albuterol HFA 4 times a day with Spiriva 18 mg inhalation daily and Symbicort 80 /4.5 2 puffs twice a day CV: Hemorrhagic shock - resolved Monitor HR and BP and maintain MAP >65 mmHg. IV fluids resuscitation Transfuse blood products, keep Hb >8 Currently off all vasopressors /Renal/FEN: Hypocalcemia Hypopotassemia Hypo-magnesium Monitor renal function. Intake and outputs and electrolyte replacement protocol. 30 mEq KCl, 2 g mag sulfate. 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 Pascual. Status post emergent EGD on 03/[address] Beverly, no further surgical interventions planned at this time EGD 03/01 revealed a large ulcer with adjacent clot. Protonix drip and octreotide drip. Discontinue octreotide drip in 24 hours Continue Carafate 1 g po q6hr ID: Continue abx (Zosyn) and monitor for signs of infections( fever and WBC). 02/28 BC, Urine cx: NGTD Endo: SSI last low regimen with Accu-Cheks every 6 hours for glycemic control. Heme: Acute blood loss posthemorrhagic anemia Thrombocytopenia, consumptive s/p 4 units of PRBC/4 units of FFP's/1 unit of cryoprecipitate Additional 2 U PRBC 03/06 Monitor CBC, patient s/p transfusion 2units PRBC 02/28 and 2units PRBC 03/01 for Hgb 6.9. GI prophylaxis with Protonix gtt DVT prophylaxis with SCD. No pharmacological prophylaxis with bleeding Lines: Right IJ CVP placed 02/28, femoral cordis placed 03/05-DC 03/07 Critical Care: Level II. Rich Coles MD Mar 08, 2017 09:17
[2017-03-08] MEDS: MAGNESIUM SULFATE 1 GM PREMIX 100 ML IV SCH ×2 (09:48→11:01)
[2017-03-08] MEDS ORDERED: POTASSIUM CHLORIDE INJ 30 MEQ in SODIUM CHLORIDE 0.9% INJ 100 ML IV-CENTRAL ONE ×2 (11:00→20:00)
--- NOTE | 2017-03-08 12:13 | HHI.PR ---
Subjective Subjective Notes Resting in bed Requesting apple juice Objective Vitals/I&O Vital Signs Date Time Temp Pulse Resp B/P Pulse Ox O2 Delivery O2 Flow Rate FiO2 03/08/17 10:50 16 03/08/17 10:00 66 03/08/17 08:00 98.2 98/64 99 03/08/17 07:34 Nasal Cannula 2.00 03/07/17 12:00 35 Labs Laboratory Tests Test 03/08/17 03/08/17 03:58 09:50 White Blood Count 8.1 Red Blood Count 3.44 Hemoglobin 9.8 Hematocrit 28.3 Mean Corpuscular Volume 82.2 Mean Corpuscular Hemoglobin 28.4 Mean Corpuscular Hemoglobin 34.6 Concent Red Cell Distribution Width 16.9 Platelet Count 114 Mean Platelet Volume 11.2 Neutrophils (%) (Auto) 71.8 Lymphocytes (%) (Auto) 17.1 Monocytes (%) (Auto) 7.3 Eosinophils (%) (Auto) 3.3 Basophils (%) (Auto) 0.5 Neutrophils # (Auto) 5.8 Lymphocytes # (Auto) 1.4 Monocytes # (Auto) 0.6 Eosinophils # (Auto) 0.3 Basophils # (Auto) 0.0 CBC Comment DIFF FINAL Differential Comment Sodium Level 142 Potassium Level 3.4 Chloride Level 101 Carbon Dioxide Level 33.8 Anion Gap 7 Blood Urea Nitrogen 8 Creatinine 0.20 Estimat Glomerular Filtration 381 Rate Random Glucose 117 Calcium Level 7.5 Magnesium Level 1.2 Total Bilirubin 0.2 Aspartate Amino Transf 34 (AST/SGOT) Alanine Aminotransferase 13 (ALT/SGPT) Alkaline Phosphatase 64 Total Protein 4.4 Albumin 1.4 Phosphorus Level 3.4 Blood Type O POSITIVE Antibody Screen NEGATIVE Crossmatch Leukocyte-Reduced Red Blood Cells Blood Bank Comment Cardiovascular: Regular Lungs: Clear Abdomen: Other (abdomen flat; non distended; RLQ pain with palpation ) Extremities: No edema Narrative Exam RIJ Central line in place with TPN infusing A/P Assessment and Plan 46 year old female s/p gastric bypass surgery, weight loss, cachetic, malnutrition, GI bleed; anemia and NSAID use -S/p EGD -- Gastrojejunostomy ulcer; with active bleeding Monday night -S/p EGD and IR coil of splenic artery for massive GI bleed -Continue to monitor Hmg; transfuse as needed--hmg currently 9.8 -Cotninue to stay off pressors -Continue TPN -Okay for sips of clear liquids -NPO Attending Statement patient seen at bedside as above HH stable start sips of clears Attestation The exam, history, and the medical decision-making described in the above note were completed with the assistance of the mid-level provider. I reviewed and agree with the findings presented. I attest that I had a [id number] encounter with the patient on the same day, and personally performed and documented my assessment and findings in the medical record. Jannette Garnett Mar 08, 2017 12:13 Jerome Arias MD Mar 14, 2017 22:45
[2017-03-08 15:49] LABS: MAGNESIUM 1.9 MG/DL (1.5-2.5); POTASSIUM 3.6 MEQ/L (3.5-5.1)
[2017-03-08] MEDS: ALPRAZolam 1 MG TAB PO PRN (17:38)
[2017-03-08] MEDS ORDERED: MAGNESIUM SULFATE 1 GM PREMIX 100 ML IV ONE (18:00)
[2017-03-08] MEDS: FAT EMULSION 20% INJ 250 ML (Daily over 8 hours) IV-CENTRAL SCH (20:15)
[2017-03-08] MEDS: CLINIMIX E 4.25/25 2000 mL- >42 mls/hr IV-CENTRAL SCH ×3 (20:16)
[2017-03-08] MEDS: DOXEPIN HCL 50 MG CAP PO SCH (20:55)
[2017-03-09] VITALS (16 sets, daily range): BP systolic 100–140; BP diastolic 68–88; PULSE 64–111; RESP 10–27; TEMP 97.9–98.6; O2SAT 92–98
[2017-03-09] MEDS: ALBUTEROL SULFATE 90 MCG/ACT HFA 18 GM INHALER INH SCH ×5 (01:02→20:46)
[2017-03-09] MEDS: PIPERACIL-TAZO 4.5 GM PREMIX 100 ML IV SCH ×3 (01:02→17:39)
[2017-03-09] MEDS: SUCRALFATE 1 GM/10 ML CUP PO SCH ×4 (03:12→20:45)
[2017-03-09] MEDS: HYDROmorphone HCL PF 1 MG/ML VIAL IV PUSH PRN ×8 (03:12→22:31)
[2017-03-09] MEDS: ALPRAZolam 1 MG TAB PO PRN ×3 (03:12→22:30)
[2017-03-09] MEDS: CHLORHEXIDINE GLUCONATE 2 % 1 PACK (2 CLOTHS) TOP SCH (03:51)
[2017-03-09] MEDS: INSULIN NovoLIN REGULAR SUPPLEMENTAL SCALE SQ SCH ×4 (03:51→22:15)
[2017-03-09 05:21] LABS: AUTOMATED NEUTROPHIL # 4.2 TH/MM3 (1.8-7.7); BASOPHIL % 0.7 % (0.0-2.0); EOSINOPHIL # 0.3 TH/MM3 (0-0.4); EOSINOPHIL % 4.7 % (0.0-4.0); HEMATOCRIT 28.8 % (35.0-46.0); HEMO FLAGS DIFF FINAL; LYMPH % 21.7 % (9.0-44.0); LYMPHOCYTE # 1.4 TH/MM3 (1.0-4.8); MEAN CELL VOLUME 82.5 FL (80.0-100.0); MEAN CORPUSCULAR HEMOGLOBIN 28.4 PG (27.0-34.0); MEAN CORPUSCULAR HGB CONC 34.5 % (32.0-36.0); MONO % 8.3 % (0.0-8.0); NEUT % 64.6 % (16.0-70.0); PLATELET COUNT 122 TH/MM3 (150-450); WHITE BLOOD COUNT 6.5 TH/MM3 (4.0-11.0)
[2017-03-09] MEDS: clonazePAM 1 MG TAB PO SCH ×3 (05:24→20:46)
[2017-03-09 05:48] LABS: BICARBONATE 35.4 MEQ/L (21.0-32.0); CALCIUM-PROTEIN CORRECTED 8.5 MG/DL (8.5-10.1); MAGNESIUM 1.5 MG/DL (1.5-2.5); POTASSIUM 3.5 MEQ/L (3.5-5.1); TOTAL BILIRUBIN ADULT 0.2 MG/DL (0.2-1.0)
[2017-03-09] MEDS: BUDESONIDE-FORMOTEROL 80/4.5 MCG INHALER INH SCH ×2 (09:00→20:48)
[2017-03-09] MEDS: OCTREOTIDE 500 MCG/NS 500 ML - 50 mcg/hr IV SCH ×2 (09:00)
[2017-03-09] MEDS ORDERED: POTASSIUM CHLOR 40 MEQ PREMIX 100 ML IV ONE (09:00)
[2017-03-09] MEDS: PANTOPRAZOLE 80 MG/100 ML NS IV SCH ×4 (09:01→20:45)
[2017-03-09] MEDS: TIOTROPIUM BROMIDE 18 MCG INH INH SCH (09:02)
[2017-03-09] MEDS: OLANZapine 2.5 MG TAB PO SCH ×2 (09:16→19:52)
--- NOTE | 2017-03-09 09:16 | HHI.CCPN ---
Subjective Remarks/Hospital Course Patient is a 46 year-old female with a past medical history of bronchial asthma , bipolar disorder, schizophrenia, anxiety/depression, and anemia. She presented to [facility] Emergency Department withy complaints of feeling dizziness, light headedness, generalized weakness, multiple falls and inability to ambulate. On further history she has a history of gastric bypass four years ago in [place] and another abdominal surgery about one to two years ago for Intussusception in [place] as well. She states that she weighed 200 lbs when she had the gastric bypass surgery preformed, now she weighs 80 pounds, she reports chronic abdominal pain associated with intractable nausea and vomiting for several months. In addition to decreased p.o. intake. Her abdominal pain progressively worsened and mainly in the right upper quadrant and left lower quadrat. She denies any chest pain, shortness of breath, cough or any constitutional symptoms. On arrival to the emergency room she was hypotensive with systolic blood pressure in the 80's, tachycardic with heart rate in the 120's and her laboratory data showed hemoglobin of 7.2, lactic acid level of 2.9. Her liver enzymes are within normal limits with a total bilirubin of 0.2. Aspartate aminotransferase 21, alt 12, alkaline phosphatase 138. In the ER she received one out of two units of packed red blood cells and approximately 1.5 liters of normal saline. She responded to volume resuscitation and current blood pressure is 108/71 with a pulse of 112. Her o2 saturation is 97% on room air. Due to her abdominal pain, CT abdomen and pelvis were preformed which showed gallbladder wall thickening, mild hepatosplenomegaly and chronic mild compression deformity is noted involving L1. Chest x-ray in the emergency department showed right fifth rib fractures which appear old, otherwise no evidence of acute cardiopulmonary disease. Right IJ central line was placed by emergency department physician. She also has a ultrasound of the abdomen which is pending during the time of this dictation. The patient received Protonix, Unasyn and dilated in the emergency room. 03/01 Patient is lying in bed in NAD. s/p transfusion 2units PRBC this morning for Hgb 6.9. s/p EGD showed G-J ulcer, adherent clot with no evidence of bleeding. 03/02: Requesting Klonopin today. Hemoglobin stable for the past 12 hours. Very anxious and verbose. Complaining of pain epigastric/right upper quadrant region. 02/22/16: Currently afebrile. Requesting doxepin along with increasing pain medications. Days of pain in epigastric/right upper quadrant region. Hemoglobin stable. [facility] reconsulted on 03/05/17 -around 6 PM a rapid response was activated due to low blood pressure and hematemesis. She was transferred to ICU. The fluid resuscitation was started however patient continued vomiting blood and required intubation for an airway protection. Shortly after intubation she dropped her blood pressure again without palpable pulses in the CPR was initiated. There was a run of 2 cycles of CPR with return of spontaneous circulation. The Cordis introducer was inserted to left femoral vein and the rapid infuser was used to transfuse 4 units of PRBCs and FFP since cryoprecipitate. Dr. Beverly emergently performed upper EGD. Without successful finding off source of bleeding. This was discussed with interventional radiologist Dr. Pascual and the patient is going to be taken to IR for possible embolization emergently due to life-threatening condition uncontrolled GI bleed. 03/06: Remains intubated sedated. 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 Pascual. Episode of hypotension today, started on Levophed, 2U PRBC stat ordered, and 2L NS bolus. with improvement in BP. No evident GIB. Remains on Protonix and octreotide gtt. Hb 8.9 on Stat re check 03/07: Remains intubated, now off Levophed. Hb remains stable. No GIB reported. Will attempt SBT today for possible extubation. Discuss with Dr. Jerome Beverly. No plan for any surgical procedures at this time. DC octreotide in 24 hours. Continue Protonix infusion and Carafate per Dr. beverly 03/08: Extubated yesterday without complication. Hemoglobin this a.m. pending. No additional GI bleeding. Still complaining of abdominal pain. Requesting pain medication at the present time. Subjective 03/09: Complaining of abdominal pain 8 out of 10. Hemoglobin remained stable. Positive BM. Tolerating clear liquid diet. Objective Vital Signs Date Time Temp Pulse Resp B/P Pulse Ox O2 Delivery O2 Flow Rate FiO2 03/09/17 06:00 79 03/09/17 04:00 98.6 10 122/70 94 03/08/17 20:00 21 03/08/17 19:00 Nasal Cannula 2.00 Intake and Output 03/08/17 03/08/17 03/09/17 08:00 16:00 00:00 Intake Total 1636 ml 2230 ml 1624 ml Output Total 2875 ml 3250 ml 5125 ml Balance -1239 ml -1020 ml -3501 ml Result Diagram: 03/09/17 0454 03/09/17 0454 Imaging Last Impressions Chest X-Ray 03/08/17 0600 Signed Impressions: Service Date/Time: Wednesday, March 08, 2017 04:35 - CONCLUSION: Internal extubation and nasogastric tube removal. Otherwise no significant change. Terry Hurtado MD Splenic Arteriogram 03/06/17 0000 Signed Impressions: Service Date/Time: Sunday, March 05, 2017 23:50 - CONCLUSION: 1. 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 The proximal splenic artery was embolized to occlusion. The patient will likely need splenectomy to prevent back bleeding into the anastomosis. There is also high probability of complete infarct of the spleen as well. Darren Pascual MD Abdomen/Pelvis CT 03/05/17 0000 Signed Impressions: Service Date/Time: Monday, March 06, 2017 01:51 - CONCLUSION: 1. Apparent early or partial small bowel obstruction, appears to be occurring at the level of the mid to distal ileum and is probably in the low abdomen. 2. Heterogeneous attenuation of the spleen and of concern for incomplete infarction. Patient has been administered intravenous contrast recently but not for this study. 3. Mild ascites. Anasarca and small bilateral pleural effusions are also noted. 4. Previous gastric bypass, with distention of the stomach and gastrojejunal anastomosis noted. The nasogastric tube tip is above the diaphragm within a moderate hiatal hernia. 5. There is a right femoral vein catheter with tip in main common iliac vein. A left femoral vein sheath is present with tip in main external iliac vein. Terry Hurtado MD Upper GI Series 02/28/17 0000 Signed Impressions: Service Date/Time: Tuesday, February 28, 2017 17:21 - CONCLUSION: 1. No evidence of extravasation to suggest perforation. 2. Focal collection of contrast within the gastric remnant raising the possibility of focal ulceration. Upper endoscopy would be helpful for further evaluation of this finding if there is strong clinical concern for ulceration within the gastric remnant. Maycol Castro MD Gall Bladder Ultrasound 02/28/17 0000 Signed Impressions: Service Date/Time: Tuesday, February 28, 2017 14:50 - CONCLUSION: 1. Single mobile stone in the gallbladder. 2. Extrarenal pelvis on the right. Darren Pascual MD Objective Remarks GENERAL: 46-year-old cachectic female, lying in bed in no acute distress SKIN: Warm and dry. No rash HEAD: Normocephalic. EYES: No scleral icterus. No injection or drainage. PERRL. 3 mm bilaterally and reactive. NECK: Supple, trachea midline. No JVD or lymphadenopathy. Right IJ clean dry and intact CARDIOVASCULAR: RRR. S1, S2. No S4. Without murmur, clicks, Gallops or rubs RESPIRATORY: Breath sounds clear to auscultation and equal bilaterally. Symmetrical excursion. No accessory muscle use. GASTROINTESTINAL: Abdomen soft, tender to palpation epigastric/right upper quadrant with voluntary rebound and no rigidity. Hypoactive bowel sounds MUSCULOSKELETAL: No edema. L groin Cordis removed yesterday that hematoma, R groin art line removed yesterday without hematoma Neuro: Cranial nerves II through XII grossly intact. Strength is equal symmetric. Normal sensation. Line: Central Venous Catheter Side: Right Location: Internal, Jugular A/P Assessment and Plan Neuro/Psych: Bipolar disorder Schizophrenia Depression/anxiety Continue Klonopin 1 mg by mouth 3 times a day/home medication 2 mg 3 times a day On Zyprexa 2.5 mg by mouth twice a day. Continue doxepin 200 mg at night Kidney Xanax 1 every 8 when necessary anxiety Hydromorphone 1 mg every 3 hours for. pain management Pulm: Acute respiratory failure - resolved Tobaccoism History of bronchial asthma Nasal cannula to maintain saturations greater than equal to 92% currently on room air Incentive spirometry while awake Albuterol HFA 4 times a day with Spiriva 18 mg inhalation daily and Symbicort 80 /4.5 2 puffs twice a day CV: Hemorrhagic shock - resolved Monitor HR and BP and maintain MAP >65 mmHg. IV fluids resuscitation has been completed Transfuse blood products, keep Hb >8 Currently off all vasopressors /Renal/FEN: Hypocalcemia Hypopotassemia Hypo-magnesium Currently on clear liquid diet per general surgery Monitor renal function. Intake and outputs and electrolyte replacement protocol. 40 mEq KCl, 2 g mag sulfate. Recheck in a.m. 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 Pascual. Status post emergent EGD on 03/[address] Beverly, no further surgical interventions planned at this time EGD 03/01 revealed a large ulcer with adjacent clot. Protonix drip and octreotide drip. Discontinue octreotide drip in 24 hours Continue Carafate 1 g po q6hr ID: Continue abx (Zosyn) and monitor for signs of infections( fever and WBC). 02/28 BC, Urine cx: NGTD Endo: SSI last low regimen with Accu-Cheks every 6 hours for glycemic control. Heme: Acute blood loss posthemorrhagic anemia Thrombocytopenia, consumptive s/p 4 units of PRBC/4 units of FFP's/1 unit of cryoprecipitate Additional 2 U PRBC 03/06 Monitor CBC, patient s/p transfusion 2units PRBC 02/28 and 2units PRBC 03/01 for Hgb 6.9. GI prophylaxis with Protonix gtt DVT prophylaxis with SCD. No pharmacological prophylaxis with bleeding Lines: Right IJ CVP placed 02/28, femoral cordis placed 03/05-DC 03/07 Critical Care: Level II. Rich Coles MD Mar 09, 2017 09:16
[2017-03-09] MEDS: MAGNESIUM SULFATE 1 GM PREMIX 100 ML IV SCH ×2 (09:31→11:23)
--- NOTE | 2017-03-09 12:02 | HHI.PR ---
Subjective Subjective Notes Requesting tomato soup Otherwise no issues Objective Vitals/I&O Vital Signs Date Time Temp Pulse Resp B/P Pulse Ox O2 Delivery O2 Flow Rate FiO2 03/09/17 10:16 94 Nasal Cannula 2.00 03/09/17 06:00 79 03/09/17 04:00 98.6 10 122/70 03/08/17 20:00 21 Labs Laboratory Tests Test 03/08/17 03/09/17 14:40 04:54 Potassium Level 3.6 3.5 Magnesium Level 1.9 1.5 White Blood Count 6.5 Red Blood Count 3.50 Hemoglobin 9.9 Hematocrit 28.8 Mean Corpuscular Volume 82.5 Mean Corpuscular Hemoglobin 28.4 Mean Corpuscular Hemoglobin 34.5 Concent Red Cell Distribution Width 17.0 Platelet Count 122 Mean Platelet Volume 10.0 Neutrophils (%) (Auto) 64.6 Lymphocytes (%) (Auto) 21.7 Monocytes (%) (Auto) 8.3 Eosinophils (%) (Auto) 4.7 Basophils (%) (Auto) 0.7 Neutrophils # (Auto) 4.2 Lymphocytes # (Auto) 1.4 Monocytes # (Auto) 0.5 Eosinophils # (Auto) 0.3 Basophils # (Auto) 0.0 CBC Comment DIFF FINAL Differential Comment Sodium Level 142 Chloride Level 102 Carbon Dioxide Level 35.4 Anion Gap 5 Blood Urea Nitrogen 8 Creatinine 0.22 Estimat Glomerular Filtration 341 Rate Random Glucose 125 Calcium Level 7.4 Protein Corrected Calcium 8.5 Phosphorus Level 4.0 Total Bilirubin 0.2 Aspartate Amino Transf 33 (AST/SGOT) Alanine Aminotransferase 13 (ALT/SGPT) Alkaline Phosphatase 64 Total Protein 5.1 Albumin 1.7 Cardiovascular: Regular Lungs: Clear Abdomen: Other (Abdomen flat; tenderness with palpation ) Extremities: No edema Narrative Exam RIJ Central line in place with TPN infusing A/P Assessment and Plan 46 year old female s/p gastric bypass surgery, weight loss, cachetic, malnutrition, GI bleed; anemia and NSAID use -S/p EGD -- Gastrojejunostomy ulcer; with active bleeding Monday night -S/p EGD and IR coil of splenic artery for massive GI bleed -Continue to monitor Hmg; transfuse as needed--hmg currently 9.9 -Cotninue to stay off pressors -Continue TPN -DC Sandostatin -Okay for sips of clear liquids + tomato soup Attending Statement patient seen at bedside as above hh stable no more bleeding currently Attestation The exam, history, and the medical decision-making described in the above note were completed with the assistance of the mid-level provider. I reviewed and agree with the findings presented. I attest that I had a [id number] encounter with the patient on the same day, and personally performed and documented my assessment and findings in the medical record. Jannette Garnett Mar 09, 2017 12:02 Jerome Arias MD Mar 21, 2017 14:49
[2017-03-09] MEDS: SODIUM CHLORIDE 0.9% FLUSH 10 ML FLUSH IVF PRN (17:18)
[2017-03-09] MEDS: CLINIMIX E 4.25/25 2000 mL- >42 mls/hr IV-CENTRAL SCH ×3 (19:51)
[2017-03-09] MEDS: FAT EMULSION 20% INJ 250 ML (Daily over 8 hours) IV-CENTRAL SCH (19:51)
[2017-03-09] MEDS: DOXEPIN HCL 50 MG CAP PO SCH (19:52)
[2017-03-10] VITALS (13 sets, daily range): BP systolic 86–116; BP diastolic 55–70; PULSE 71–127; RESP 11–17; TEMP 98.6–98.9; O2SAT 93–97
[2017-03-10] MEDS: PIPERACIL-TAZO 4.5 GM PREMIX 100 ML IV SCH ×3 (01:19→16:59)
[2017-03-10] MEDS: HYDROmorphone HCL PF 1 MG/ML VIAL IV PUSH PRN ×10 (01:19→21:34)
[2017-03-10] MEDS: CHLORHEXIDINE GLUCONATE 2 % 1 PACK (2 CLOTHS) TOP SCH (03:40)
[2017-03-10] MEDS: INSULIN NovoLIN REGULAR SUPPLEMENTAL SCALE SQ SCH ×4 (03:40→21:41)
[2017-03-10] MEDS: SUCRALFATE 1 GM/10 ML CUP PO SCH ×4 (03:40→21:34)
[2017-03-10] MEDS: PANTOPRAZOLE 80 MG/100 ML NS IV SCH ×6 (05:13→20:32)
[2017-03-10] MEDS: clonazePAM 1 MG TAB PO SCH ×3 (05:13→21:34)
[2017-03-10] MEDS: ALBUTEROL SULFATE 90 MCG/ACT HFA 18 GM INHALER INH SCH ×4 (05:13→23:51)
[2017-03-10 05:15] LABS: AUTOMATED NEUTROPHIL # 3.6 TH/MM3 (1.8-7.7); BASOPHIL # 0.1 TH/MM3 (0-0.2); BASOPHIL % 1.1 % (0.0-2.0); EOSINOPHIL # 0.4 TH/MM3 (0-0.4); EOSINOPHIL % 6.1 % (0.0-4.0); HEMATOCRIT 31.1 % (35.0-46.0); HEMO FLAGS DIFF FINAL; LYMPH % 23.2 % (9.0-44.0); LYMPHOCYTE # 1.4 TH/MM3 (1.0-4.8); MEAN CELL VOLUME 83.2 FL (80.0-100.0); MEAN CORPUSCULAR HEMOGLOBIN 28.4 PG (27.0-34.0); MEAN CORPUSCULAR HGB CONC 34.2 % (32.0-36.0); MONO % 9.4 % (0.0-8.0); NEUT % 60.2 % (16.0-70.0); PLATELET COUNT 172 TH/MM3 (150-450); RED BLOOD COUNT 3.74 MIL/MM3 (4.00-5.30); RED CELL DISTRIBUTION WIDTH 16.5 % (11.6-17.2)
[2017-03-10 05:40] LABS: ALKALINE PHOSPHATASE 78 U/L (45-117); ALT (GPT) 14 U/L (10-53); ANION GAP 7 MEQ/L (5-15); AST (GOT) 23 U/L (15-37); BICARBONATE 33.3 MEQ/L (21.0-32.0); BLOOD UREA NITROGEN 6 MG/DL (7-18); CHLORIDE 100 MEQ/L (98-107); GLOMERULAR FILTRATION RATE 200 ML/MIN (>89); MAGNESIUM 1.7 MG/DL (1.5-2.5); POTASSIUM 3.6 MEQ/L (3.5-5.1); SODIUM (NA) 140 MEQ/L (136-145); TOTAL BILIRUBIN ADULT 0.2 MG/DL (0.2-1.0)
[2017-03-10] MEDS: BUDESONIDE-FORMOTEROL 80/4.5 MCG INHALER INH SCH ×2 (08:44→20:25)
[2017-03-10] MEDS: TIOTROPIUM BROMIDE 18 MCG INH INH SCH (08:44)
[2017-03-10] MEDS: OLANZapine 2.5 MG TAB PO SCH ×2 (08:46→20:25)
[2017-03-10] MEDS: ACETAMINOPHEN 325MG/HYDROcodone 7.5MG/15ML UDC PO PRN ×3 (09:43→17:57)
--- NOTE | 2017-03-10 10:05 | HHI.CCPN ---
Subjective Remarks/Hospital Course Patient is a 46 year-old female with a past medical history of bronchial asthma , bipolar disorder, schizophrenia, anxiety/depression, and anemia. She presented to [facility] Emergency Department withy complaints of feeling dizziness, light headedness, generalized weakness, multiple falls and inability to ambulate. On further history she has a history of gastric bypass four years ago in [place] and another abdominal surgery about one to two years ago for Intussusception in [place] as well. She states that she weighed 200 lbs when she had the gastric bypass surgery preformed, now she weighs 80 pounds, she reports chronic abdominal pain associated with intractable nausea and vomiting for several months. In addition to decreased p.o. intake. Her abdominal pain progressively worsened and mainly in the right upper quadrant and left lower quadrat. She denies any chest pain, shortness of breath, cough or any constitutional symptoms. On arrival to the emergency room she was hypotensive with systolic blood pressure in the 80's, tachycardic with heart rate in the 120's and her laboratory data showed hemoglobin of 7.2, lactic acid level of 2.9. Her liver enzymes are within normal limits with a total bilirubin of 0.2. Aspartate aminotransferase 21, alt 12, alkaline phosphatase 138. In the ER she received one out of two units of packed red blood cells and approximately 1.5 liters of normal saline. She responded to volume resuscitation and current blood pressure is 108/71 with a pulse of 112. Her o2 saturation is 97% on room air. Due to her abdominal pain, CT abdomen and pelvis were preformed which showed gallbladder wall thickening, mild hepatosplenomegaly and chronic mild compression deformity is noted involving L1. Chest x-ray in the emergency department showed right fifth rib fractures which appear old, otherwise no evidence of acute cardiopulmonary disease. Right IJ central line was placed by emergency department physician. She also has a ultrasound of the abdomen which is pending during the time of this dictation. The patient received Protonix, Unasyn and dilated in the emergency room. 03/01 Patient is lying in bed in NAD. s/p transfusion 2units PRBC this morning for Hgb 6.9. s/p EGD showed G-J ulcer, adherent clot with no evidence of bleeding. 03/02: Requesting Klonopin today. Hemoglobin stable for the past 12 hours. Very anxious and verbose. Complaining of pain epigastric/right upper quadrant region. 02/22/16: Currently afebrile. Requesting doxepin along with increasing pain medications. Days of pain in epigastric/right upper quadrant region. Hemoglobin stable. [facility] reconsulted on 03/05/17 -around 6 PM a rapid response was activated due to low blood pressure and hematemesis. She was transferred to ICU. The fluid resuscitation was started however patient continued vomiting blood and required intubation for an airway protection. Shortly after intubation she dropped her blood pressure again without palpable pulses in the CPR was initiated. There was a run of 2 cycles of CPR with return of spontaneous circulation. The Cordis introducer was inserted to left femoral vein and the rapid infuser was used to transfuse 4 units of PRBCs and FFP since cryoprecipitate. Dr. Beverly emergently performed upper EGD. Without successful finding off source of bleeding. This was discussed with interventional radiologist Dr. Pascual and the patient is going to be taken to IR for possible embolization emergently due to life-threatening condition uncontrolled GI bleed. 03/06: Remains intubated sedated. 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 Pascual. Episode of hypotension today, started on Levophed, 2U PRBC stat ordered, and 2L NS bolus. with improvement in BP. No evident GIB. Remains on Protonix and octreotide gtt. Hb 8.9 on Stat re check 03/07: Remains intubated, now off Levophed. Hb remains stable. No GIB reported. Will attempt SBT today for possible extubation. Discuss with Dr. Jerome Beverly. No plan for any surgical procedures at this time. DC octreotide in 24 hours. Continue Protonix infusion and Carafate per Dr. beverly 03/08: Extubated yesterday without complication. Hemoglobin this a.m. pending. No additional GI bleeding. Still complaining of abdominal pain. Requesting pain medication at the present time. 03/09: Complaining of abdominal pain 8 out of 10. Hemoglobin remained stable. Positive BM. Tolerating clear liquid diet. Subjective 03/10: Complaining of right lower quadrant pain 8 out of 10. On liquid [place] 7.5/325 added by general surgery today. On full liquid diet. Continues to have heme + smelling stools. Objective Vital Signs Date Time Temp Pulse Resp B/P Pulse Ox O2 Delivery O2 Flow Rate FiO2 03/10/17 08:00 85 03/10/17 08:00 98.8 13 116/70 94 03/10/17 07:00 Room Air 2.00 03/09/17 21:07 21 Intake and Output 03/09/17 03/09/17 03/10/17 08:00 16:00 00:00 Intake Total 1586 ml 2011 ml 1664 ml Output Total 825 ml 4850 ml 3450 ml Balance 761 ml -2839 ml -1786 ml Result Diagram: 03/10/17 0350 03/10/17 0350 Imaging Last Impressions Chest X-Ray 03/08/17 0600 Signed Impressions: Service Date/Time: Wednesday, March 08, 2017 04:35 - CONCLUSION: Internal extubation and nasogastric tube removal. Otherwise no significant change. Terry Hurtado MD Splenic Arteriogram 03/06/17 0000 Signed Impressions: Service Date/Time: Sunday, March 05, 2017 23:50 - CONCLUSION: 1. 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 The proximal splenic artery was embolized to occlusion. The patient will likely need splenectomy to prevent back bleeding into the anastomosis. There is also high probability of complete infarct of the spleen as well. Darren Pascual MD Abdomen/Pelvis CT 03/05/17 0000 Signed Impressions: Service Date/Time: Monday, March 06, 2017 01:51 - CONCLUSION: 1. Apparent early or partial small bowel obstruction, appears to be occurring at the level of the mid to distal ileum and is probably in the low abdomen. 2. Heterogeneous attenuation of the spleen and of concern for incomplete infarction. Patient has been administered intravenous contrast recently but not for this study. 3. Mild ascites. Anasarca and small bilateral pleural effusions are also noted. 4. Previous gastric bypass, with distention of the stomach and gastrojejunal anastomosis noted. The nasogastric tube tip is above the diaphragm within a moderate hiatal hernia. 5. There is a right femoral vein catheter with tip in main common iliac vein. A left femoral vein sheath is present with tip in main external iliac vein. Terry Hurtado MD Upper GI Series 02/28/17 0000 Signed Impressions: Service Date/Time: Tuesday, February 28, 2017 17:21 - CONCLUSION: 1. No evidence of extravasation to suggest perforation. 2. Focal collection of contrast within the gastric remnant raising the possibility of focal ulceration. Upper endoscopy would be helpful for further evaluation of this finding if there is strong clinical concern for ulceration within the gastric remnant. Maycol Castro MD Gall Bladder Ultrasound 02/28/17 0000 Signed Impressions: Service Date/Time: Tuesday, February 28, 2017 14:50 - CONCLUSION: 1. Single mobile stone in the gallbladder. 2. Extrarenal pelvis on the right. Darren Pascual MD Objective Remarks GENERAL: 46-year-old cachectic female, lying in bed in no acute distress SKIN: Warm and dry. No rash HEAD: Normocephalic. EYES: No scleral icterus. No injection or drainage. PERRL. 3 mm bilaterally and reactive. NECK: Supple, trachea midline. No JVD or lymphadenopathy. Right IJ clean dry and intact CARDIOVASCULAR: RRR. S1, S2. No S4. Without murmur, clicks, Gallops or rubs RESPIRATORY: Breath sounds clear to auscultation and equal bilaterally. Symmetrical excursion. No accessory muscle use. GASTROINTESTINAL: Abdomen soft, tender to palpation epigastric/right lower quadrant with voluntary rebound and no rigidity. Hypoactive bowel sounds MUSCULOSKELETAL: No edema. L groin Cordis removed yesterday that hematoma, R groin art line removed yesterday without hematoma Neuro: Cranial nerves II through XII grossly intact. Strength is equal symmetric. Normal sensation. Line: Central Venous Catheter Side: Right Location: Internal, Jugular A/P Assessment and Plan Neuro/Psych: Bipolar disorder Schizophrenia Depression/anxiety Continue Klonopin 1 mg by mouth 3 times a day/home medication 2 mg 3 times a day On Zyprexa 2.5 mg by mouth twice a day. Continue doxepin 200 mg at night Continue Xanax 1 every 8 when necessary anxiety Hydrocodone 7.5/325 every 4 hours and Hydromorphone 1 mg every 2hours for pain management Pulm: Acute respiratory failure - resolved Tobaccoism History of bronchial asthma Nasal cannula to maintain saturations greater than equal to 92% currently on room air Incentive spirometry while awake Albuterol HFA 4 times a day with Spiriva 18 mg inhalation daily and Symbicort 80 /4.5 2 puffs twice a day CV: Hemorrhagic shock - resolved Monitor HR and BP and maintain MAP >65 mmHg. IV fluids resuscitation has been completed Transfuse blood products, keep Hb >8 Currently off all vasopressors /Renal/FEN: Hypopotassemia - resolved Hypo-magnesium - resolved Currently on full liquid diet per general surgery Monitor renal function. Intake and outputs and electrolyte replacement protocol. 40 mEq KCl, 2 g mag sulfate IV 1. Recheck in a.m. 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 Pascual. Status post emergent EGD on 03/[address] Beverly, no further surgical interventions planned at this time EGD 03/01 revealed a large ulcer with adjacent clot. Protonix drip continued at 8 mg an hour discontinue octreotide drip at 03/09 Continue Carafate 1 g po q6hr ID: Continue abx (Zosyn) and monitor for signs of infections( fever and WBC). 02/28 BC, Urine cx: NGTD Endo: SSI last low regimen with Accu-Cheks every 6 hours for glycemic control. Heme: Acute blood loss posthemorrhagic anemia Thrombocytopenia, consumptive s/p 4 units of PRBC/4 units of FFP's/1 unit of cryoprecipitate Additional 2 U PRBC 03/06 Monitor CBC, patient s/p transfusion 2units PRBC 02/28 and 2units PRBC 03/01 for Hgb 6.9. GI prophylaxis with Protonix gtt DVT prophylaxis with SCD. No pharmacological prophylaxis with bleeding Lines: Right IJ CVP placed 02/28, likely will need PICC line for long-term TPN. Femoral cordis placed 03/05-DC 03/07 Critical Care: Level II. Rich Coles MD Mar 10, 2017 10:05
[2017-03-10] MEDS: MAGNESIUM SULFATE 1 GM PREMIX 100 ML IV SCH ×2 (10:29→11:31)
[2017-03-10] MEDS ORDERED: POTASSIUM CHLOR 40 MEQ PREMIX 100 ML IV ONE (11:00)
[2017-03-10] MEDS: ONDANSETRON HCL 4 MG/2 ML VIAL IV PUSH PRN (11:38)
--- NOTE | 2017-03-10 14:31 | HHI.PR ---
Subjective Subjective Notes Resting in bed Jonatan RN at bedside Objective Vitals/I&O Vital Signs Date Time Temp Pulse Resp B/P Pulse Ox O2 Delivery O2 Flow Rate FiO2 03/10/17 12:00 116 03/10/17 12:00 98.9 12 106/56 94 03/10/17 07:00 Room Air 2.00 03/09/17 21:07 21 Labs Laboratory Tests Test 03/10/17 03:50 White Blood Count 6.0 Red Blood Count 3.74 Hemoglobin 10.6 Hematocrit 31.1 Mean Corpuscular Volume 83.2 Mean Corpuscular Hemoglobin 28.4 Mean Corpuscular Hemoglobin 34.2 Concent Red Cell Distribution Width 16.5 Platelet Count 172 Mean Platelet Volume 10.2 Neutrophils (%) (Auto) 60.2 Lymphocytes (%) (Auto) 23.2 Monocytes (%) (Auto) 9.4 Eosinophils (%) (Auto) 6.1 Basophils (%) (Auto) 1.1 Neutrophils # (Auto) 3.6 Lymphocytes # (Auto) 1.4 Monocytes # (Auto) 0.6 Eosinophils # (Auto) 0.4 Basophils # (Auto) 0.1 CBC Comment DIFF FINAL Differential Comment Sodium Level 140 Potassium Level 3.6 Chloride Level 100 Carbon Dioxide Level 33.3 Anion Gap 7 Blood Urea Nitrogen 6 Creatinine 0.35 Estimat Glomerular Filtration 200 Rate Random Glucose 105 Calcium Level 8.6 Phosphorus Level 4.3 Magnesium Level 1.7 Total Bilirubin 0.2 Aspartate Amino Transf 23 (AST/SGOT) Alanine Aminotransferase 14 (ALT/SGPT) Alkaline Phosphatase 78 Total Protein 5.8 Albumin 1.9 Cardiovascular: Regular Lungs: Clear Abdomen: Other (abdomen flat; non distended; tender ) Extremities: No edema Narrative Exam RIJ Central line in place with TPN infusing A/P Assessment and Plan 46 year old female s/p gastric bypass surgery, weight loss, cachetic, malnutrition, GI bleed; anemia and NSAID use -S/p EGD -- Gastrojejunostomy ulcer; with active bleeding Monday -S/p EGD and IR coil of splenic artery for massive GI bleed -Continue to monitor Hmg; transfuse as needed--hmg currently 10.6 -Continue TPN -Advance to full liquids -Liquid Loratab added -General Surgery will see peripherally over the weekend Attending Statement patient seen at bedside doing better, hh stable still with decreased po intake no further surgical indication at this time Attestation The exam, history, and the medical decision-making described in the above note were completed with the assistance of the mid-level provider. I reviewed and agree with the findings presented. I attest that I had a [id number] encounter with the patient on the same day, and personally performed and documented my assessment and findings in the medical record. Jannette Garnett Mar 10, 2017 14:31 Jerome Arias MD Mar 22, 2017 22:29
[2017-03-10] MEDS: ALPRAZolam 1 MG TAB PO PRN (15:39)
[2017-03-10] MEDS: CLINIMIX E 4.25/25 2000 mL- >42 mls/hr IV-CENTRAL SCH ×3 (20:24)
[2017-03-10] MEDS: FAT EMULSION 20% INJ 250 ML (Daily over 8 hours) IV-CENTRAL SCH (20:24)
[2017-03-10] MEDS: DOXEPIN HCL 50 MG CAP PO SCH (20:25)
[2017-03-11] VITALS (14 sets, daily range): BP systolic 94–133; BP diastolic 58–78; PULSE 100–141; RESP 12–19; TEMP 98.7–103.3; O2SAT 94–97
[2017-03-11] MEDS: PIPERACIL-TAZO 4.5 GM PREMIX 100 ML IV SCH ×2 (02:11→09:35)
[2017-03-11] MEDS: CHLORHEXIDINE GLUCONATE 2 % 1 PACK (2 CLOTHS) TOP SCH (02:11)
[2017-03-11] MEDS: HYDROmorphone HCL PF 1 MG/ML VIAL IV PUSH PRN ×9 (02:37→19:48)
[2017-03-11] MEDS: ALPRAZolam 1 MG TAB PO PRN (02:38)
[2017-03-11] MEDS: SUCRALFATE 1 GM/10 ML CUP PO SCH ×4 (03:42→22:33)
[2017-03-11] MEDS: ACETAMINOPHEN 325MG/HYDROcodone 7.5MG/15ML UDC PO PRN (03:43)
[2017-03-11] MEDS: INSULIN NovoLIN REGULAR SUPPLEMENTAL SCALE SQ SCH ×4 (03:56→22:15)
[2017-03-11 04:54] LABS: HEMATOCRIT 31.5 % (35.0-46.0); MEAN CELL VOLUME 84.1 FL (80.0-100.0); MEAN CORPUSCULAR HEMOGLOBIN 28.6 PG (27.0-34.0); PLATELET COUNT 204 TH/MM3 (150-450); RED BLOOD COUNT 3.74 MIL/MM3 (4.00-5.30); RED CELL DISTRIBUTION WIDTH 16.7 % (11.6-17.2); REVIEW FLAG FINAL; WHITE BLOOD COUNT 5.7 TH/MM3 (4.0-11.0)
[2017-03-11 05:11] LABS: BICARBONATE 29.5 MEQ/L (21.0-32.0); MAGNESIUM 1.7 MG/DL (1.5-2.5); POTASSIUM 3.9 MEQ/L (3.5-5.1)
[2017-03-11] MEDS: PANTOPRAZOLE 80 MG/100 ML NS IV SCH ×4 (05:26→15:59)
[2017-03-11] MEDS: ALBUTEROL SULFATE 90 MCG/ACT HFA 18 GM INHALER INH SCH ×3 (05:26→17:00)
[2017-03-11] MEDS: clonazePAM 1 MG TAB PO SCH ×3 (05:26→22:00)
[2017-03-11] MEDS: OLANZapine 2.5 MG TAB PO SCH ×2 (09:35→20:06)
[2017-03-11] MEDS ORDERED: SODIUM CHLORID 0.9% 500 ML INJ 500 ML IV ONE ×3 (10:45→22:00)
[2017-03-11] MEDS: TIOTROPIUM BROMIDE 18 MCG INH INH SCH (11:12)
[2017-03-11] MEDS: BUDESONIDE-FORMOTEROL 80/4.5 MCG INHALER INH SCH ×2 (11:12→20:06)
--- NOTE | 2017-03-11 13:57 | HHI.PR ---
Subjective Remarks activities specialist Notes: Patient is a 46 year-old female with a past medical history of bronchial asthma , bipolar disorder, schizophrenia, anxiety/depression, and anemia. She presented to [facility] Emergency Department with complaints of feeling dizziness, light headedness, generalized weakness, multiple falls and inability to ambulate. On further history she has a history of gastric bypass four years ago in [place] and another abdominal surgery about one to two years ago for Intussusception in [place] as well. She states that she weighed 200 lbs when she had the gastric bypass surgery preformed, now she weighs 80 pounds, she reports chronic abdominal pain associated with intractable nausea and vomiting for several months. In addition to decreased p.o. intake. Her abdominal pain progressively worsened and mainly in the right upper quadrant and left lower quadrat. She denies any chest pain, shortness of breath, cough or any constitutional symptoms. On arrival to the emergency room she was hypotensive with systolic blood pressure in the 80's, tachycardic with heart rate in the 120's and her laboratory data showed hemoglobin of 7.2, lactic acid level of 2.9. Her liver enzymes are within normal limits with a total bilirubin of 0.2. Aspartate aminotransferase 21, alt 12, alkaline phosphatase 138. In the ER she received one out of two units of packed red blood cells and approximately 1.5 liters of normal saline. She responded to volume resuscitation and current blood pressure is 108/71 with a pulse of 112. Her o2 saturation is 97% on room air. Due to her abdominal pain, CT abdomen and pelvis were preformed which showed gallbladder wall thickening, mild hepatosplenomegaly and chronic mild compression deformity is noted involving L1. Chest x-ray in the emergency department showed right fifth rib fractures which appear old, otherwise no evidence of acute cardiopulmonary disease. Right IJ central line was placed by emergency department physician. She also has a ultrasound of the abdomen which is pending during the time of this dictation. The patient received Protonix, Unasyn and dilated in the emergency room. 03/01 Patient is lying in bed in NAD. s/p transfusion 2units PRBC this morning for Hgb 6.9. s/p EGD showed G-J ulcer, adherent clot with no evidence of bleeding. 03/02: Requesting Klonopin today. Hemoglobin stable for the past 12 hours. Very anxious and verbose. Complaining of pain epigastric/right upper quadrant region. 02/22/16: Currently afebrile. Requesting doxepin along with increasing pain medications. Days of pain in epigastric/right upper quadrant region. Hemoglobin stable. [facility] reconsulted on 03/05/17 -around 6 PM a rapid response was activated due to low blood pressure and hematemesis. She was transferred to ICU. The fluid resuscitation was started however patient continued vomiting blood and required intubation for an airway protection. Shortly after intubation she dropped her blood pressure again without palpable pulses in the CPR was initiated. There was a run of 2 cycles of CPR with return of spontaneous circulation. The Cordis introducer was inserted to left femoral vein and the rapid infuser was used to transfuse 4 units of PRBCs and FFP since cryoprecipitate. Dr. Beverly emergently performed upper EGD. Without successful finding off source of bleeding. This was discussed with interventional radiologist Dr. Pascual and the patient is going to be taken to IR for possible embolization emergently due to life-threatening condition uncontrolled GI bleed. 03/06: Remains intubated sedated. 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 Pascual. Episode of hypotension today, started on Levophed, 2U PRBC stat ordered, and 2L NS bolus. with improvement in BP. No evident GIB. Remains on Protonix and octreotide gtt. Hb 8.9 on Stat re check 03/07: Remains intubated, now off Levophed. Hb remains stable. No GIB reported. Will attempt SBT today for possible extubation. Discuss with Dr. Jerome Beverly. No plan for any surgical procedures at this time. DC octreotide in 24 hours. Continue Protonix infusion and Carafate per Dr. beverly 03/08: Extubated yesterday without complication. Hemoglobin this a.m. pending. No additional GI bleeding. Still complaining of abdominal pain. Requesting pain medication at the present time. 03/09: Complaining of abdominal pain 8 out of 10. Hemoglobin remained stable. Positive BM. Tolerating clear liquid diet. 03/10: Complaining of right lower quadrant pain 8 out of 10. On liquid [place] 7.5/325 added by general surgery today. On full liquid diet. Continues to have heme + smelling stools. Hospitalist Notes: 03/11: Seen in her bedroom, discussed with nurse Miss Ortega, no nausea, vomit or diarrhea, no signs of infection, has fever 103F, she is been on Empiric management with Zosyn by internet marketing director, asked for CXR, UA, blood cultures, Vancomycin started and asked for ID specialist. Objective Vital Signs Date Time Temp Pulse Resp B/P Pulse Ox O2 Delivery O2 Flow Rate FiO2 03/11/17 12:11 14 03/11/17 12:00 130 03/11/17 12:00 103.3 130 14 112/72 97 03/11/17 10:00 135 03/11/17 08:00 108 03/11/17 08:00 100.7 108 17 106/68 97 03/11/17 07:57 96 03/11/17 07:00 Room Air 03/11/17 06:00 116 03/11/17 04:00 98.9 126 19 105/58 97 03/11/17 04:00 126 03/11/17 02:00 104 03/11/17 00:00 100 03/11/17 00:00 98.7 100 12 94/59 94 03/10/17 22:00 127 03/10/17 20:00 97 03/10/17 20:00 98.8 97 15 86/55 93 03/10/17 19:11 93 21 03/10/17 19:00 95 Room Air 03/10/17 18:00 120 03/10/17 16:00 98.9 113 17 97/57 94 03/10/17 16:00 113 03/10/17 14:00 102 I/O 03/10/17 03/10/17 03/10/17 03/11/17 03/11/17 03/11/17 07:00 15:00 23:00 07:00 15:00 23:00 Intake Total 1856 ml 2746 ml 1363 ml 2081 ml Output Total 2550 ml 3400 ml 2600 ml 1300 ml Balance -694 ml -654 ml -1237 ml 781 ml Intake Oral 1000 ml 1400 ml 750 ml 1250 ml IV Total 208 ml 842 ml 203 ml 202 ml TPN/PPN 448 ml 504 ml 377 ml 415 ml Lipid 200 ml 33 ml 214 ml Output Urine Total 2550 ml 3400 ml 2600 ml 1300 ml # Bowel Movements 1 2 0 0 Result Diagram: 03/11/17 0345 03/11/17 0345 Imaging Last Impressions Chest X-Ray 03/08/17 0600 Signed Impressions: Service Date/Time: Wednesday, March 08, 2017 04:35 - CONCLUSION: Internal extubation and nasogastric tube removal. Otherwise no significant change. Terry Hurtado MD Splenic Arteriogram 03/06/17 0000 Signed Impressions: Service Date/Time: Sunday, March 05, 2017 23:50 - CONCLUSION: 1. 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 The proximal splenic artery was embolized to occlusion. The patient will likely need splenectomy to prevent back bleeding into the anastomosis. There is also high probability of complete infarct of the spleen as well. Darren Pascual MD Abdomen/Pelvis CT 03/05/17 0000 Signed Impressions: Service Date/Time: Monday, March 06, 2017 01:51 - CONCLUSION: 1. Apparent early or partial small bowel obstruction, appears to be occurring at the level of the mid to distal ileum and is probably in the low abdomen. 2. Heterogeneous attenuation of the spleen and of concern for incomplete infarction. Patient has been administered intravenous contrast recently but not for this study. 3. Mild ascites. Anasarca and small bilateral pleural effusions are also noted. 4. Previous gastric bypass, with distention of the stomach and gastrojejunal anastomosis noted. The nasogastric tube tip is above the diaphragm within a moderate hiatal hernia. 5. There is a right femoral vein catheter with tip in main common iliac vein. A left femoral vein sheath is present with tip in main external iliac vein. Terry Hurtado MD Upper GI Series 02/28/17 0000 Signed Impressions: Service Date/Time: Tuesday, February 28, 2017 17:21 - CONCLUSION: 1. No evidence of extravasation to suggest perforation. 2. Focal collection of contrast within the gastric remnant raising the possibility of focal ulceration. Upper endoscopy would be helpful for further evaluation of this finding if there is strong clinical concern for ulceration within the gastric remnant. Maycol Castro MD Gall Bladder Ultrasound 02/28/17 0000 Signed Impressions: Service Date/Time: Tuesday, February 28, 2017 14:50 - CONCLUSION: 1. Single mobile stone in the gallbladder. 2. Extrarenal pelvis on the right. Darren Pascual MD Procedures Line: Central Venous Catheter Side: Right Location: Internal, Jugular Endotracheal Intubation Pressors use. Other Results Laboratory Tests Test 03/06/17 03/07/17 03/08/17 03/09/17 18:40 07:43 09:50 04:54 Nasal Screen MRSA (PCR) MRSA NOT DETECTED Lactic Acid Level 0.6 mmol/L Blood Type O POSITIVE Antibody Screen NEGATIVE Crossmatch Leukocyte-Reduced Red Blood Cells Blood Bank Comment Protein Corrected Calcium 8.5 MG/DL Triglycerides Level 90 MG/DL Test 03/10/17 03/11/17 03:50 03:45 Neutrophils (%) (Auto) 60.2 % Lymphocytes (%) (Auto) 23.2 % Monocytes (%) (Auto) 9.4 % Eosinophils (%) (Auto) 6.1 % Basophils (%) (Auto) 1.1 % Neutrophils # (Auto) 3.6 TH/MM3 Lymphocytes # (Auto) 1.4 TH/MM3 Monocytes # (Auto) 0.6 TH/MM3 Eosinophils # (Auto) 0.4 TH/MM3 Basophils # (Auto) 0.1 TH/MM3 CBC Comment DIFF FINAL Differential Comment Total Bilirubin 0.2 MG/DL Aspartate Amino Transf 23 U/L (AST/SGOT) Alanine Aminotransferase 14 U/L (ALT/SGPT) Alkaline Phosphatase 78 U/L Total Protein 5.8 GM/DL Albumin 1.9 GM/DL White Blood Count 5.7 TH/MM3 Red Blood Count 3.74 MIL/MM3 Hemoglobin 10.7 GM/DL Hematocrit 31.5 % Mean Corpuscular Volume 84.1 FL Mean Corpuscular Hemoglobin 28.6 PG Mean Corpuscular Hemoglobin 34.0 % Concent Red Cell Distribution Width 16.7 % Platelet Count 204 TH/MM3 Mean Platelet Volume 10.3 FL Sodium Level 138 MEQ/L Potassium Level 3.9 MEQ/L Chloride Level 98 MEQ/L Carbon Dioxide Level 29.5 MEQ/L Anion Gap 11 MEQ/L Blood Urea Nitrogen 6 MG/DL Creatinine 0.47 MG/DL Estimat Glomerular Filtration 142 ML/MIN Rate Random Glucose 87 MG/DL Calcium Level 8.1 MG/DL Phosphorus Level 3.9 MG/DL Magnesium Level 1.7 MG/DL Objective Remarks GENERAL: 46-year-old cachectic female, lying in bed in no acute distress SKIN: Warm and dry. No rash HEAD: Normocephalic. EYES: No scleral icterus. No injection or drainage. PERRL. 3 mm bilaterally and reactive. NECK: Supple, trachea midline. No JVD or lymphadenopathy. Right IJ clean dry and intact CARDIOVASCULAR: RRR. S1, S2. No S4. Without murmur, clicks, Gallops or rubs RESPIRATORY: Breath sounds clear to auscultation and equal bilaterally. Symmetrical excursion. No accessory muscle use. GASTROINTESTINAL: Abdomen soft, tender to palpation epigastric/right lower quadrant with voluntary rebound and no rigidity. Hypoactive bowel sounds MUSCULOSKELETAL: No edema. L groin Cordis removed yesterday that hematoma, R groin art line removed yesterday without hematoma Neuro: Cranial nerves II through XII grossly intact. Strength is equal symmetric. Normal sensation. Medications and IVs Current Medications Medications (Trade) Dose Ordered Sig/Kaleb Route Start Time Stop Time Status Last Admin (NS Flush) 2 ml UNSCH PRN IVF 02/28/17 09:45 03/09/17 17:18 Miscellaneous Information 1 Q361D XX 02/28/17 16:00 (Chlorhexidine 2% Cloth) Taper DAILY@04 TOP 03/01/17 04:00 02/25/18 03:59 03/09/17 03:51 (Chlorhexidine 2% Cloth) 3 pack UNSCH PRN TOP 02/28/17 16:00 (D50w (Vial) Inj) 50 ml UNSCH PRN IV 02/28/17 16:15 (Glucagon Inj) 1 mg UNSCH PRN OTHER 02/28/17 16:15 Insulin Human Regular 1 1 Q6H SQ 02/28/17 16:15 03/08/17 22:15 (Zosyn 4.5 Gm Premix) 100 ml @ 200 mls/hr Q8H IV 02/28/17 18:00 03/11/17 09:35 Sucralfate 1 gm 1 gm Q6H PO 03/01/17 10:00 03/11/17 09:35 Potassium Chloride 100 ml @ 50 mls/hr Q2H PRN IV 03/01/17 10:00 03/02/17 08:41 (KCl 20 Meq Premix Inj) 100 ml @ 50 mls/hr Q2H PRN IV 03/01/17 10:00 Potassium Bicarb/ Potassium Chloride 50 meq 50 meq UNSCH PRN PO 03/01/17 10:00 Potassium Chloride 100 ml @ 25 mls/hr UNSCH PRN IV 03/01/17 10:00 Potassium Chloride 100 ml @ 50 mls/hr Q2H PRN IV 03/01/17 10:00 (Magnesium Sulfate Inj/NS Inj) 100 ml @ 50 mls/hr UNSCH PRN IV 03/01/17 10:00 Magnesium Oxide 800 mg 800 mg UNSCH PRN PO 03/01/17 10:00 (Magnesium Sulfate Inj/NS Inj) 100 ml @ 50 mls/hr UNSCH PRN IV 03/01/17 10:00 Potassium Phosphate 2000 mg 2,000 mg Q4H PRN PO 03/01/17 10:00 (Sodium Phosphate Inj/NS 250 ml Inj) 250 ml @ 42 mls/hr UNSCH PRN IV 03/01/17 10:00 Potassium Phosphate 2000 mg 2,000 mg UNSCH PRN PO/TUBE 03/01/17 10:00 Potassium Phosphate 30 mmol/ Sodium Chloride 260 ml @ 42 mls/hr UNSCH PRN IV 03/01/17 10:00 Multivitamins 10 ml/Folic Acid 1 mg/Amino Acids/ Electrolytes/ Dextrose 2,010.2 ml @ 60 mls/hr Q24H IV-CENTRAL 03/01/17 20:00 03/10/17 20:24 (Liposyn Iii 20% Inj) 250 ml @ 31.25 mls/ hr Q24H IV-CENTRAL 03/01/17 20:00 03/10/17 20:24 (ZyPREXA) 2.5 mg Q12HR PO 03/01/17 21:00 03/11/17 09:35 (KlonoPIN) 1 mg Q8HR PO 03/02/17 14:00 03/11/17 13:40 (Zofran Inj) 4 mg Q6H PRN IV PUSH 03/02/17 16:00 03/10/17 11:38 (Compazine Inj) 5 mg Q6H PRN IV PUSH 03/02/17 16:00 (Xanax) 1 mg Q8H PRN PO 03/02/17 22:00 03/11/17 02:38 (Ventolin Hfa Inh) 2 puff Q6HR INH 03/03/17 12:00 03/11/17 11:12 (Spiriva Inh) 18 mcg DAILY INH 03/03/17 09:00 03/11/17 11:12 (SINEquan) 200 mg HS PO 03/03/17 21:00 03/10/17 20:25 (Symbicort 80-4.5 Mcg Inh) 2 puff Q12HR INH 03/03/17 21:00 03/11/17 11:12 Clonidine 0.1 mg 0.1 mg Q6H PRN PO 03/04/17 16:30 (Protonix Inj/NS Inj) 100 ml @ 10 mls/hr Q10H IV 03/06/17 01:35 03/11/17 05:26 (Dilaudid Pf Inj) 1 mg Q2HR PRN IV PUSH 03/08/17 10:00 03/11/17 13:40 (Hycet 325-7.5 Mg Liq) 15 ml Q4H PRN PO 03/10/17 08:30 03/11/17 03:43 A/P Assessment and Plan 1. Bipolar Disorder/Schizophrenia/Depression and Anxiety Continue Klonopin, Zyprexa, Doxepin,Xanax PRN for Anxiety, Pain medicines Hydrocodone and Hydromorphone 2. VDRF Improved. status post Endotracheal Intubation Tobacco dependence Follow Oxygen saturation, continue Bronchodilator, Mucolytic, Incentive spirometry 3. Hemorrhagic Shock resolved, received fluid resuscitation, Blood transfusion and Vasopressors 4. Electrolyte derangement replaced. Currently on full liquid diet per general surgery Monitor Is and Os. 5. 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 Pascual. Status post emergent EGD on 03/[address] Beverly, no further surgical interventions planned at this time EGD 03/01 revealed a large ulcer with adjacent clot. Protonix drip continued at 8 mg an hour discontinue octreotide drip at 03/09 Continue Carafate 1 g po q6hr 6. New Fevers in a patient treated with Empiric Zosyn, developed fever 103F today, started on Vancomycin, asked for Blood cultures, UA, CXR, evaluated in the room, no signs of infection has Urinary Catheter and IJ on the right side of the neck, consulted ID specialist. 7. Acute blood loss post hemorrhagic anemia, Thrombocytopenia s/p transfusion 2units PRBC 02/28 and 2units PRBC 03/01 for Hgb 6.9/4 units of FFP's/1 unit of cryoprecipitate Additional 2 U PRBC 03/06 GI prophylaxis with Protonix gtt DVT prophylaxis with SCD. No pharmacological prophylaxis with bleeding Lines: Right IJ CVP placed 02/28, likely will need PICC line for long-term TPN. Femoral cordis placed 03/05-DC 03/07 Discharge Planning Once cleared by Specialists. Anoop Stern MD Mar 11, 2017 13:57
[2017-03-11] MEDS ORDERED: VANCOMYCIN INJ 1,250 MG in SODIUM CHLOR 0.9% 250 ML INJ 250 ML IV ONE (14:15)
[2017-03-11] MEDS ORDERED: Vancomycin Consult Pharmacy 1 EA OTHER SCH (14:15)
--- NOTE | 2017-03-11 14:27 | RADRPT ---
EXAM DATE/TIME: 03/11/2017 14:14 [place] COMPARISON: CHEST SINGLE AP, March 08, 2017, 4:35. INDICATIONS : Evaluate for pneumonia. MEDICAL HISTORY : Asthma. SURGICAL HISTORY : Gastric bypass. ENCOUNTER: Subsequent ACUITY: 1 week PAIN SCORE: 0/10 LOCATION: chest FINDINGS: A single view of the chest demonstrates the lungs to be symmetrically aerated without evidence of mas s, infiltrate or effusion. The cardiomediastinal contours are unremarkable. Osseous structures are intact. There is a right internal jugular central line in place with the tip overlying the SVC. No pneumothor ax is seen. CONCLUSION: No acute disease. Terry Poon MD on March 11, 2017 at 14:25 Board Certified Radiologist. This report was verified electronically.
--- NOTE | 2017-03-11 15:05 | PD.CONS ---
History of Present Illness Service Infectious disease Consult Requested By Dr Dorado Reason for Consult Evaluate patient with fever Primary Care Physician No Primary Care Physician Diagnoses: History of Present Illness Patient seen and examined. Records reviewed. Patient is a 46-year-old female, admitted to the hospital February 28 with complaints of generalized weakness, lightheadedness and dizziness. She also was complaining of abdominal pain. She gave a history that she had bypass surgery about 4 years ago. When she presented she had a significant low hemoglobin and upper endoscopy revealed evidence of a gastrojejunal ulcer which was not actively bleeding at the time of the procedure. She received multiple transfusions, and her hemoglobin stabilized. She was initially in the ICU, and was transferred out to the floor. On March 05 she had development of hypotension and active GI bleed, and was transferred back to the ICU. IR was consult to due to the life-threatening bleed, and the patient underwent embolization of her splenic artery. She ended up getting intubated, on the , and was successfully extubated on the . Patient has been on Zosyn since admission. She had some cultures done on admission and they were all negative. Patient has been stabilizing, and today she started having fevers up to 103. She denies any respiratory complaint. She has a Lion catheter in place. She has a central line in the right IJ. She is complaining of abdominal pain, and points more to the right than on the left. Infectious disease consultation has been requested to evaluate the patient with new fevers. Review of Systems Constitutional: COMPLAINS OF: Fever, Chills Eyes: DENIES: Eye pain Ears, nose, mouth, throat: DENIES: Nasal discharge, Oral lesions, Throat pain, Ear Pain, Sinus Pain, Odynophagia Respiratory: DENIES: Cough, Shortness of breath Cardiovascular: DENIES: Chest pain, Palpitations Gastrointestinal: COMPLAINS OF: Abdominal pain, Diarrhea, DENIES: Nausea, Vomiting, Difficulty Swallowing Musculoskeletal: DENIES: Joint pain, Joint Swelling Immunologic/allergic: DENIES: Urticaria Neurologic: DENIES: Headache, Localized weakness Psychiatric: DENIES: Hallucinations Past Family Social History Allergies: Coded Allergies: Sulfa (Verified Allergy, Severe, Anaphylaxis, 02/28/17) Past Medical History Schizophrenia. Bipolar disorder. Anxiety, depression. Anemia. Bronchial asthma. Past Surgical History Gastric bypass surgery four years ago. Previous abdominal surgery about one to two years ago for <<4:24>> . Active Ordered Medications Hycet Albuterol Xanax Symbicort Klonopin Clonidine Dilaudid Insulin Magnesium MVI folic acid Zyprexa Zofran Protonix Zosyn Potassium Spiriva Vancomycin Family History Noncontributory to current ID problem Social History Smoker No ETOH abuse No illicit drugs Physical Exam Vital Signs Vital Signs Date Time Temp Pulse Resp B/P Pulse Ox O2 Delivery O2 Flow Rate FiO2 03/11/17 14:00 136 03/11/17 12:11 14 03/11/17 12:00 130 03/11/17 12:00 103.3 130 14 112/72 97 03/11/17 10:00 135 03/11/17 08:00 108 03/11/17 08:00 100.7 108 17 106/68 97 03/11/17 07:57 96 03/11/17 07:00 Room Air 03/11/17 06:00 116 03/11/17 04:00 98.9 126 19 105/58 97 03/11/17 04:00 126 03/11/17 02:00 104 03/11/17 00:00 100 03/11/17 00:00 98.7 100 12 94/59 94 03/10/17 22:00 127 03/10/17 20:00 97 03/10/17 20:00 98.8 97 15 86/55 93 03/10/17 19:11 93 21 03/10/17 19:00 95 Room Air 03/10/17 18:00 120 03/10/17 16:00 98.9 113 17 97/57 94 03/10/17 16:00 113 Physical Exam GENERAL: Patient is a thin, well-developed CF, awake and alert, not in respiratory distress. SKIN: Warm and dry. No generalized rash, no ecchymoses and no evidence of embolic lesions. Decreased turgor HEAD: Atraumatic. Normocephalic. No temporal wasting, or tenderness. EYES: Gustine conjunctiva. No petechia or hemorrhage. Pupils equal, round and reactive to light. Extraocular movements full and intact. No scleral icterus. No injection or drainage. EARS, NOSE AND THROAT: Nose without bleeding or purulent nasal discharge. No sinus tenderness. Mucous membranes pink and moist. Poor dentition. No oral lesions noted. No exudate. No oral thrush. NECK: Trachea midline. Supple and not tender, no meningeal signs CARDIOVASCULAR: Regular rate and rhythm. Tachycardic. No murmurs, rubs or gallops heard RESPIRATORY: Clear to auscultation. Breath sounds equal bilaterally. No rales , wheezing or rhonchi ABDOMEN: Soft, mildly distended, with tenderness in both upper quadrant. Bowel sounds present and normoactive. No guarding. No rebound. EXTREMITIES: No clubbing, cyanosis, or edema. No joint effusion, has good ROM. No calf tenderness. Well perfused and warm. NEUROLOGICAL: Awake and alert. Cranial nerves grossly intact. Motor grossly within normal limits. PSYCHIATRIC: Normal affect, calm and cooperative. LINE: No evidence of infection RIJ, no drainage Laboratory Laboratory Tests Test 03/11/17 03:45 White Blood Count 5.7 Red Blood Count 3.74 Hemoglobin 10.7 Hematocrit 31.5 Mean Corpuscular Volume 84.1 Mean Corpuscular Hemoglobin 28.6 Mean Corpuscular Hemoglobin 34.0 Concent Red Cell Distribution Width 16.7 Platelet Count 204 Mean Platelet Volume 10.3 Sodium Level 138 Potassium Level 3.9 Chloride Level 98 Carbon Dioxide Level 29.5 Anion Gap 11 Blood Urea Nitrogen 6 Creatinine 0.47 Estimat Glomerular Filtration 142 Rate Random Glucose 87 Calcium Level 8.1 Phosphorus Level 3.9 Magnesium Level 1.7 Result Diagram: 03/11/17 0345 03/11/17 0345 Imaging RADIOLOGY STUDIES/FILMS REVIEWED Chest X-Ray 03/11/17 0000 Signed Impressions: Service Date/Time: Saturday, March 11, 2017 14:14 - CONCLUSION: No acute disease. Terry Poon MD Splenic Arteriogram 03/06/17 0000 Signed Impressions: Service Date/Time: Sunday, March 05, 2017 23:50 - CONCLUSION: 1. 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 The proximal splenic artery was embolized to occlusion. The patient will likely need splenectomy to prevent back bleeding into the anastomosis. There is also high probability of complete infarct of the spleen as well. Darren Pascual MD Abdomen/Pelvis CT 03/05/17 0000 Signed Impressions: Service Date/Time: Monday, March 06, 2017 01:51 - CONCLUSION: 1. Apparent early or partial small bowel obstruction, appears to be occurring at the level of the mid to distal ileum and is probably in the low abdomen. 2. Heterogeneous attenuation of the spleen and of concern for incomplete infarction. Patient has been administered intravenous contrast recently but not for this study. 3. Mild ascites. Anasarca and small bilateral pleural effusions are also noted. 4. Previous gastric bypass, with distention of the stomach and gastrojejunal anastomosis noted. The nasogastric tube tip is above the diaphragm within a moderate hiatal hernia. 5. There is a right femoral vein catheter with tip in main common iliac vein. A left femoral vein sheath is present with tip in main external iliac vein. Terry Hurtado MD Upper GI Series 02/28/17 0000 Signed Impressions: Service Date/Time: Tuesday, February 28, 2017 17:21 - CONCLUSION: 1. No evidence of extravasation to suggest perforation. 2. Focal collection of contrast within the gastric remnant raising the possibility of focal ulceration. Upper endoscopy would be helpful for further evaluation of this finding if there is strong clinical concern for ulceration within the gastric remnant. Maycol Castro MD Gall Bladder Ultrasound 02/28/17 0000 Signed Impressions: Service Date/Time: Tuesday, February 28, 2017 14:50 - CONCLUSION: 1. Single mobile stone in the gallbladder. 2. Extrarenal pelvis on the right. Darren Pascual MD Assessment and Plan Assessment and Plan IMPRESSION New fever, sepsis, source? - line - ? - CXR clear - ?spleen (S/P embolization splenic artery, ?infarct, ?abscess) GIB, GJ ulcer Previous gastric bypass RECOMMENDATION Change Zosyn to Cefepime and Flagyl Continue Vanco Add Diflucan CT A/P C/S: BC, UC Follow C/S Monitor temps Monitor progress I will follow along with you and determine course of Abx Rx Thank you for this consultation Discussed Condition With D/W Luz Lopez MD Mar 11, 2017 15:05
[2017-03-11 15:28] LABS: BLOOD, URINE NEG (NEG); COMMENT (UR) CATH-CULT NOT IND; CULTURE IF INDICATED CATH CULTURE NOT IND; GLUCOSE,URINE NEG (NEG); KETONE, URINE NEG (NEG); MUCUS URINE FEW /lpf (OCC); NITRITE,URINE NEG (NEG); PH, URINE 7.5 (5.0-8.5); URINE COLOR LIGHT-YELLOW (YELLW/STRAW)
[2017-03-11] MEDS: CEFEPIME INJ 2,000 MG in SODIUM CHLORIDE 0.9% INJ 100 ML IV SCH (15:48)
[2017-03-11] MEDS: metroNIDAZOLE 500 MG TAB PO SCH (15:48)
[2017-03-11] MEDS: VANCOMYCIN INJ 750 MG in SODIUM CHLOR 0.9% 250 ML INJ 250 ML IV SCH (16:05)
[2017-03-11] MEDS: FLUCONAZOLE 400 MG PREMIX BAG 200 ML IV SCH (17:43)
[2017-03-11] MEDS ORDERED: SODIUM CHLOR 0.9% 1000 ML INJ 1,000 ML IV SCH (19:30)
[2017-03-11] MEDS: ACETAMINOPHEN 500 MG CPLT PO PRN (19:48)
[2017-03-11] MEDS: FAT EMULSION 20% INJ 250 ML (Daily over 8 hours) IV-CENTRAL SCH (20:05)
[2017-03-11] MEDS: CLINIMIX E 4.25/25 2000 mL- >42 mls/hr IV-CENTRAL SCH ×3 (20:05)
[2017-03-11] MEDS: DOXEPIN HCL 50 MG CAP PO SCH (20:06)
[2017-03-11 22:58] LABS: AUTOMATED NEUTROPHIL # 7.3 TH/MM3 (1.8-7.7); BASOPHIL % 0.3 % (0.0-2.0); EOSINOPHIL % 0.1 % (0.0-4.0); HEMATOCRIT 32.4 % (35.0-46.0); HEMO FLAGS DIFF FINAL; LYMPH % 3.7 % (9.0-44.0); LYMPHOCYTE # 0.3 TH/MM3 (1.0-4.8); MEAN CELL VOLUME 83.4 FL (80.0-100.0); MEAN CORPUSCULAR HEMOGLOBIN 28.3 PG (27.0-34.0); MEAN CORPUSCULAR HGB CONC 33.9 % (32.0-36.0); MONO % 2.5 % (0.0-8.0); NEUT % 93.4 % (16.0-70.0); PLATELET COUNT 241 TH/MM3 (150-450); RED BLOOD COUNT 3.88 MIL/MM3 (4.00-5.30); RED CELL DISTRIBUTION WIDTH 16.6 % (11.6-17.2); WHITE BLOOD COUNT 7.8 TH/MM3 (4.0-11.0)
[2017-03-12] VITALS (16 sets, daily range): BP systolic 92–116; BP diastolic 55–75; PULSE 91–153; RESP 16–27; TEMP 98.1–103.1; O2SAT 95–100
[2017-03-12] MEDS: metroNIDAZOLE 500 MG TAB PO SCH ×4 (01:05→23:04)
[2017-03-12] MEDS: ALBUTEROL SULFATE 90 MCG/ACT HFA 18 GM INHALER INH SCH ×4 (01:05→18:00)
[2017-03-12] MEDS: ACETAMINOPHEN 500 MG CPLT PO PRN ×3 (01:27→20:50)
[2017-03-12] MEDS: PANTOPRAZOLE 80 MG/100 ML NS IV SCH ×4 (01:54→16:17)
[2017-03-12] MEDS ORDERED: SODIUM CHLOR 0.9% 1000 ML INJ 1,000 ML IV ONE (02:30)
[2017-03-12] MEDS: VANCOMYCIN INJ 750 MG in SODIUM CHLOR 0.9% 250 ML INJ 250 ML IV SCH ×2 (03:21→14:59)
[2017-03-12] MEDS: CHLORHEXIDINE GLUCONATE 2 % 1 PACK (2 CLOTHS) TOP SCH (04:00)
[2017-03-12] MEDS: INSULIN NovoLIN REGULAR SUPPLEMENTAL SCALE SQ SCH ×4 (04:15→22:15)
[2017-03-12] MEDS: SUCRALFATE 1 GM/10 ML CUP PO SCH ×4 (04:17→20:51)
[2017-03-12] MEDS: CEFEPIME INJ 2,000 MG in SODIUM CHLORIDE 0.9% INJ 100 ML IV SCH ×2 (04:17→16:11)
[2017-03-12] MEDS: HYDROmorphone HCL PF 1 MG/ML VIAL IV PUSH PRN ×8 (04:52→23:04)
[2017-03-12] MEDS: clonazePAM 1 MG TAB PO SCH ×3 (05:52→20:50)
[2017-03-12] MEDS: oxyCODONE/ACETAMINOPHEN 10 MG/325 MG TAB PO PRN ×2 (05:53→13:51)
[2017-03-12] MEDS ORDERED: MICAFUNGIN INJ 100 MG in SODIUM CHLORIDE 0.9% INJ 100 ML IV ONE (09:00)
[2017-03-12] MEDS ORDERED: LORazepam 2 MG/ML VIAL ONE (09:40)
[2017-03-12] MEDS ORDERED: HYDROmorphone HCL PF 1 MG/ML VIAL IV ONE (10:00)
[2017-03-12] MEDS ORDERED: LORazepam 2 MG/ML VIAL IV PUSH ONE (10:00)
--- NOTE | 2017-03-12 10:02 | PD.PROCEDR ---
Central Line Procedure REASON FOR PROCEDURE Central venous access PROCEDURE PERFORMED Central line placement: L subclavian central line CONSENT Informed consent for procedure was obtained and time out performed. The risks and benefits of the procedure were discussed to include but limited to bleeding , clot formation, infection, and even . ANESTHESIA Local injection of 1% Lidocaine DESCRIPTION OF THE PROCEDURE The patient was placed in supine, mild Trendelenburg position. The area was exposed and cleansed with ChloraPrep, times two. Large sterile drape was used to cover the patient, with the site exposed, under sterile conditions including cap, face mask, sterile gown, and sterile gloves. On single attempt, the introducer needle was inserted with negative pressure in syringe and venous flash was obtained. The guide wire was then advanced without any restriction and the needle was removed. The dilator was used without any complications. Using Seldinger technique the 20 CM 7F triple lumen catheter was advanced over the guide wire to a depth of 18 centimeters. The guide wire was removed. All ports were aspirated with dark venous blood return and flushed easily with sterile saline. All ports were capped. Antibiotic disc was placed around central line at puncture site. The central line was secured to the skin with two interrupted 2.0 silk sutures. The area was bandaged with sterile see- through central line bandage. COMPLICATIONS: No apparent complications ESTIMATED BLOOD LOSS: Less than 1 cc. Kaycee Stewart MD Mar 12, 2017 10:02
[2017-03-12] MEDS: OLANZapine 2.5 MG TAB PO SCH ×2 (10:40→20:50)
[2017-03-12] MEDS: TIOTROPIUM BROMIDE 18 MCG INH INH SCH (10:42)
[2017-03-12] MEDS: BUDESONIDE-FORMOTEROL 80/4.5 MCG INHALER INH SCH ×2 (10:42→21:00)
--- NOTE | 2017-03-12 11:27 | RADRPT ---
EXAM DATE/TIME: 03/12/2017 10:04 [facility] COMPARISON: CHEST SINGLE AP, March 11, 2017, 14:14. INDICATIONS : Left sided central line placement. MEDICAL HISTORY : Asthma. SURGICAL HISTORY : Gastric bypass. ENCOUNTER: Initial ACUITY: 1 day PAIN SCORE: 0/10 LOCATION: Bilateral chest FINDINGS: A single view of the chest demonstrates the lungs to be symmetrically aerated without evidence of mas s, infiltrate or effusion. A new left sided central line has been placed. There is no pneumothorax. T he right central line remains in place. The cardiomediastinal contours are unremarkable. Osseous str uctures are intact. CONCLUSION: 1. Left central line in good position. No pneumothorax. 2. No acute pulmonary infiltrates. Edwin Martin MD on March 12, 2017 at 11:24 Board Certified Radiologist. This report was verified electronically.
--- NOTE | 2017-03-12 13:07 | HHI.PR ---
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 She presented to [facility] Emergency Department with complaints of feeling dizziness, light headedness, generalized weakness, multiple falls and inability to ambulate. On further history she has a history of gastric bypass four years ago in [place] and another abdominal surgery about one to two years ago for Intussusception in [place] as well. She states that she weighed 200 lbs when she had the gastric bypass surgery preformed, now she weighs 80 pounds, she reports chronic abdominal pain associated with intractable nausea and vomiting for several months. In addition to decreased p.o. intake. Her abdominal pain progressively worsened and mainly in the right upper quadrant and left lower quadrat. She denies any chest pain, shortness of breath, cough or any constitutional symptoms. On arrival to the emergency room she was hypotensive with systolic blood pressure in the 80's, tachycardic with heart rate in the 120's and her laboratory data showed hemoglobin of 7.2, lactic acid level of 2.9. Her liver enzymes are within normal limits with a total bilirubin of 0.2. Aspartate aminotransferase 21, alt 12, alkaline phosphatase 138. In the ER she received one out of two units of packed red blood cells and approximately 1.5 liters of normal saline. She responded to volume resuscitation and current blood pressure is 108/71 with a pulse of 112. Her o2 saturation is 97% on room air. Due to her abdominal pain, CT abdomen and pelvis were preformed which showed gallbladder wall thickening, mild hepatosplenomegaly and chronic mild compression deformity is noted involving L1. Chest x-ray in the emergency department showed right fifth rib fractures which appear old, otherwise no evidence of acute cardiopulmonary disease. Right IJ central line was placed by emergency department physician. She also has a ultrasound of the abdomen which is pending during the time of this dictation. The patient received Protonix, Unasyn and dilated in the emergency room. 03/01 Patient is lying in bed in NAD. s/p transfusion 2units PRBC this morning for Hgb 6.9. s/p EGD showed G-J ulcer, adherent clot with no evidence of bleeding. 03/02: Requesting Klonopin today. Hemoglobin stable for the past 12 hours. Very anxious and verbose. Complaining of pain epigastric/right upper quadrant region. 02/22/16: Currently afebrile. Requesting doxepin along with increasing pain medications. Days of pain in epigastric/right upper quadrant region. Hemoglobin stable. [facility] reconsulted on 03/05/17 -around 6 PM a rapid response was activated due to low blood pressure and hematemesis. She was transferred to ICU. The fluid resuscitation was started however patient continued vomiting blood and required intubation for an airway protection. Shortly after intubation she dropped her blood pressure again without palpable pulses in the CPR was initiated. There was a run of 2 cycles of CPR with return of spontaneous circulation. The Cordis introducer was inserted to left femoral vein and the rapid infuser was used to transfuse 4 units of PRBCs and FFP since cryoprecipitate. Dr. Beverly emergently performed upper EGD. Without successful finding off source of bleeding. This was discussed with interventional radiologist Dr. Pascual and the patient is going to be taken to IR for possible embolization emergently due to life-threatening condition uncontrolled GI bleed. 03/06: Remains intubated sedated. 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 Pascual. Episode of hypotension today, started on Levophed, 2U PRBC stat ordered, and 2L NS bolus. with improvement in BP. No evident GIB. Remains on Protonix and octreotide gtt. Hb 8.9 on Stat re check 03/07: Remains intubated, now off Levophed. Hb remains stable. No GIB reported. Will attempt SBT today for possible extubation. Discuss with Dr. Jerome Beverly. No plan for any surgical procedures at this time. DC octreotide in 24 hours. Continue Protonix infusion and Carafate per Dr. beverly 03/08: Extubated yesterday without complication. Hemoglobin this a.m. pending. No additional GI bleeding. Still complaining of abdominal pain. Requesting pain medication at the present time. 03/09: Complaining of abdominal pain 8 out of 10. Hemoglobin remained stable. Positive BM. Tolerating clear liquid diet. 03/10: Complaining of right lower quadrant pain 8 out of 10. On liquid [place] 7.5/325 added by general surgery today. On full liquid diet. Continues to have heme + smelling stools. Hospitalist Notes: 03/11: Seen in her bedroom, discussed with nurse Miss Ortega, no nausea, vomit or diarrhea, no signs of infection, has fever 103F, she is been on Empiric management with Zosyn by deck worker, asked for CXR, UA, blood cultures, Vancomycin started and asked for ID specialist. 03/12: Stable in her bedroom seen in the presence of nurse Miss Ortega, no nausea , vomit or diarrhea continue with Fever, blood cultures taken yesterday Yeast growing, is on Diflucan, given one dose of Micafungin by ID specialist, removed IJ catheter and changed from the Right side to the left neck side. recommended to continue Cefepime and Flagyl, Diflucan, Sent IJ tip for culture. No nausea, vomit or diarrhea. Objective Vital Signs Date Time Temp Pulse Resp B/P Pulse Ox O2 Delivery O2 Flow Rate FiO2 03/12/17 09:30 16 03/12/17 07:28 95 03/12/17 07:00 96 Room Air 03/12/17 06:00 123 03/12/17 04:00 122 03/12/17 04:00 98.7 122 20 116/75 97 03/12/17 02:00 150 03/12/17 01:15 103.1 153 27 108/72 99 03/12/17 00:00 98.9 115 18 112/71 95 03/12/17 00:00 115 03/11/17 22:00 120 03/11/17 20:45 96 21 03/11/17 20:00 130 03/11/17 20:00 102.7 130 15 133/78 97 03/11/17 19:00 97 Room Air 03/11/17 18:00 136 03/11/17 16:00 141 03/11/17 16:00 102.8 141 18 121/68 94 03/11/17 14:00 136 I/O 03/11/17 03/11/17 03/11/17 03/12/17 03/12/17 03/12/17 07:00 15:00 23:00 07:00 15:00 23:00 Intake Total 2081 ml 1485 ml 1878 ml 3441 ml Output Total 1300 ml 2600 ml 2375 ml 1200 ml Balance 781 ml -1115 ml -497 ml 2241 ml Intake Oral 1250 ml 240 ml 250 ml 500 ml IV Total 202 ml 715 ml 1111 ml 2278 ml TPN/PPN 415 ml 530 ml 465 ml 475 ml Lipid 214 ml 52 ml 188 ml Output Urine Total 1300 ml 2600 ml 2375 ml 1200 ml # Bowel Movements 0 0 0 Result Diagram: 03/11/17 2225 03/11/17 0345 Imaging Last Impressions Chest X-Ray 03/12/17 0000 Signed Impressions: Service Date/Time: Sunday, March 12, 2017 10:04 - CONCLUSION: 1. Left central line in good position. No pneumothorax. 2. No acute pulmonary infiltrates. Edwin Martin MD Splenic Arteriogram 03/06/17 0000 Signed Impressions: Service Date/Time: Sunday, March 05, 2017 23:50 - CONCLUSION: 1. 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 The proximal splenic artery was embolized to occlusion. The patient will likely need splenectomy to prevent back bleeding into the anastomosis. There is also high probability of complete infarct of the spleen as well. Darren Pascual MD Abdomen/Pelvis CT 03/05/17 0000 Signed Impressions: Service Date/Time: Monday, March 06, 2017 01:51 - CONCLUSION: 1. Apparent early or partial small bowel obstruction, appears to be occurring at the level of the mid to distal ileum and is probably in the low abdomen. 2. Heterogeneous attenuation of the spleen and of concern for incomplete infarction. Patient has been administered intravenous contrast recently but not for this study. 3. Mild ascites. Anasarca and small bilateral pleural effusions are also noted. 4. Previous gastric bypass, with distention of the stomach and gastrojejunal anastomosis noted. The nasogastric tube tip is above the diaphragm within a moderate hiatal hernia. 5. There is a right femoral vein catheter with tip in main common iliac vein. A left femoral vein sheath is present with tip in main external iliac vein. Terry Hurtado MD Upper GI Series 02/28/17 0000 Signed Impressions: Service Date/Time: Tuesday, February 28, 2017 17:21 - CONCLUSION: 1. No evidence of extravasation to suggest perforation. 2. Focal collection of contrast within the gastric remnant raising the possibility of focal ulceration. Upper endoscopy would be helpful for further evaluation of this finding if there is strong clinical concern for ulceration within the gastric remnant. Maycol Castro MD Gall Bladder Ultrasound 02/28/17 0000 Signed Impressions: Service Date/Time: Tuesday, February 28, 2017 14:50 - CONCLUSION: 1. Single mobile stone in the gallbladder. 2. Extrarenal pelvis on the right. Darren Pascual MD Procedures Line: Central Venous Catheter Side: Right Location: Internal, Jugular Endotracheal Intubation Pressors use. Other Results Laboratory Tests Test 03/08/17 03/09/17 03/10/17 03/11/17 09:50 04:54 03:50 03:45 Blood Type O POSITIVE Antibody Screen NEGATIVE Crossmatch Leukocyte-Reduced Red Blood Cells Blood Bank Comment Protein Corrected Calcium 8.5 MG/DL Triglycerides Level 90 MG/DL Total Bilirubin 0.2 MG/DL Aspartate Amino Transf 23 U/L (AST/SGOT) Alanine Aminotransferase 14 U/L (ALT/SGPT) Alkaline Phosphatase 78 U/L Total Protein 5.8 GM/DL Albumin 1.9 GM/DL Sodium Level 138 MEQ/L Potassium Level 3.9 MEQ/L Chloride Level 98 MEQ/L Carbon Dioxide Level 29.5 MEQ/L Anion Gap 11 MEQ/L Blood Urea Nitrogen 6 MG/DL Creatinine 0.47 MG/DL Estimat Glomerular Filtration 142 ML/MIN Rate Random Glucose 87 MG/DL Calcium Level 8.1 MG/DL Phosphorus Level 3.9 MG/DL Magnesium Level 1.7 MG/DL Test 03/11/17 03/11/17 03/12/17 14:10 22:25 11:44 Urine Color LIGHT-YELLOW Urine Turbidity CLEAR Urine pH 7.5 Urine Specific [place] 1.005 Urine Protein NEG mg/dL Urine Glucose (UA) NEG mg/dL Urine Ketones NEG mg/dL Urine Occult Blood NEG Urine Nitrite NEG Urine Bilirubin NEG Urine Urobilinogen LESS THAN 2.0 MG/DL Urine Leukocyte Esterase NEG Urine RBC 1 /hpf Urine Mucus FEW /lpf Microscopic Urinalysis Comment CATH-CULT NOT IND White Blood Count 7.8 TH/MM3 Red Blood Count 3.88 MIL/MM3 Hemoglobin 11.0 GM/DL Hematocrit 32.4 % Mean Corpuscular Volume 83.4 FL Mean Corpuscular Hemoglobin 28.3 PG Mean Corpuscular Hemoglobin 33.9 % Concent Red Cell Distribution Width 16.6 % Platelet Count 241 TH/MM3 Mean Platelet Volume 10.5 FL Neutrophils (%) (Auto) 93.4 % Lymphocytes (%) (Auto) 3.7 % Monocytes (%) (Auto) 2.5 % Eosinophils (%) (Auto) 0.1 % Basophils (%) (Auto) 0.3 % Neutrophils # (Auto) 7.3 TH/MM3 Lymphocytes # (Auto) 0.3 TH/MM3 Monocytes # (Auto) 0.2 TH/MM3 Eosinophils # (Auto) 0.0 TH/MM3 Basophils # (Auto) 0.0 TH/MM3 CBC Comment DIFF FINAL Differential Comment Vitamin B12 Level 618 PG/ML Objective Remarks GENERAL: No acute distress SKIN: Warm and dry. No rash HEAD: Normocephalic. EYES: No scleral icterus. No injection or drainage. PERRL. 3 mm bilaterally and reactive. NECK: Supple, trachea midline. No JVD or lymphadenopathy. Right IJ clean dry and intact CARDIOVASCULAR: RRR. S1, S2. No S4. Without murmur, clicks, Gallops or rubs, Tachycardia. RESPIRATORY: Breath sounds clear to auscultation and equal bilaterally. Symmetrical excursion. No accessory muscle use. GASTROINTESTINAL: Abdomen soft, tender to palpation epigastric/right lower quadrant with voluntary rebound and no rigidity. Hypoactive bowel sounds MUSCULOSKELETAL: No edema. L groin Cordis removed yesterday that hematoma, R groin art line removed yesterday without hematoma Neuro: Cranial nerves II through XII grossly intact. Strength is equal symmetric. Normal sensation. Medications and IVs Current Medications Medications (Trade) Dose Ordered Sig/Kaleb Route Start Time Stop Time Status Last Admin (NS Flush) 2 ml UNSCH PRN IVF 02/28/17 09:45 03/09/17 17:18 Miscellaneous Information 1 Q361D XX 02/28/17 16:00 (Chlorhexidine 2% Cloth) Taper DAILY@04 TOP 03/01/17 04:00 02/25/18 03:59 03/09/17 03:51 (Chlorhexidine 2% Cloth) 3 pack UNSCH PRN TOP 02/28/17 16:00 (D50w (Vial) Inj) 50 ml UNSCH PRN IV 02/28/17 16:15 (Glucagon Inj) 1 mg UNSCH PRN OTHER 02/28/17 16:15 (NovoLIN R SUPPLEMENTAL SCALE) 1 Q6H SQ 02/28/17 16:15 03/08/17 22:15 Sucralfate 1 gm 1 gm Q6H PO 03/01/17 10:00 03/12/17 10:41 Potassium Chloride 100 ml @ 50 mls/hr Q2H PRN IV 03/01/17 10:00 03/02/17 08:41 (KCl 20 Meq Premix Inj) 100 ml @ 50 mls/hr Q2H PRN IV 03/01/17 10:00 Potassium Bicarb/ Potassium Chloride 50 meq 50 meq UNSCH PRN PO 03/01/17 10:00 Potassium Chloride 100 ml @ 25 mls/hr UNSCH PRN IV 03/01/17 10:00 Potassium Chloride 100 ml @ 50 mls/hr Q2H PRN IV 03/01/17 10:00 (Magnesium Sulfate Inj/NS Inj) 100 ml @ 50 mls/hr UNSCH PRN IV 03/01/17 10:00 Magnesium Oxide 800 mg 800 mg UNSCH PRN PO 03/01/17 10:00 (Magnesium Sulfate Inj/NS Inj) 100 ml @ 50 mls/hr UNSCH PRN IV 03/01/17 10:00 Potassium Phosphate 2000 mg 2,000 mg Q4H PRN PO 03/01/17 10:00 (Sodium Phosphate Inj/NS 250 ml Inj) 250 ml @ 42 mls/hr UNSCH PRN IV 03/01/17 10:00 Potassium Phosphate 2000 mg 2,000 mg UNSCH PRN PO/TUBE 03/01/17 10:00 Potassium Phosphate 30 mmol/ Sodium Chloride 260 ml @ 42 mls/hr UNSCH PRN IV 03/01/17 10:00 Multivitamins 10 ml/Folic Acid 1 mg/Amino Acids/ Electrolytes/ Dextrose 2,010.2 ml @ 60 mls/hr Q24H IV-CENTRAL 03/01/17 20:00 03/11/17 20:05 (Liposyn Iii 20% Inj) 250 ml @ 31.25 mls/ hr Q24H IV-CENTRAL 03/01/17 20:00 03/11/17 20:05 (ZyPREXA) 2.5 mg Q12HR PO 03/01/17 21:00 03/12/17 10:40 (KlonoPIN) 1 mg Q8HR PO 03/02/17 14:00 03/12/17 05:52 (Zofran Inj) 4 mg Q6H PRN IV PUSH 03/02/17 16:00 03/10/17 11:38 (Compazine Inj) 5 mg Q6H PRN IV PUSH 03/02/17 16:00 (Xanax) 1 mg Q8H PRN PO 03/02/17 22:00 03/11/17 02:38 (Ventolin Hfa Inh) 2 puff Q6HR INH 03/03/17 12:00 03/12/17 11:53 (Spiriva Inh) 18 mcg DAILY INH 03/03/17 09:00 03/12/17 10:42 (SINEquan) 200 mg HS PO 03/03/17 21:00 03/11/17 20:06 (Symbicort 80-4.5 Mcg Inh) 2 puff Q12HR INH 03/03/17 21:00 03/12/17 10:42 Clonidine 0.1 mg 0.1 mg Q6H PRN PO 03/04/17 16:30 (Protonix Inj/NS Inj) 100 ml @ 10 mls/hr Q10H IV 03/06/17 01:35 03/12/17 01:54 Hydromorphone HCl 1 mg 1 mg Q2HR PRN IV PUSH 03/08/17 10:00 03/12/17 11:53 Pharmacy Profile Note 0 ml @ 0 mls/hr UNSCH OTHER 03/11/17 14:15 Vancomycin HCl 750 mg/Sodium Chloride 257.5 ml @ 250 mls/hr Q12H IV 03/11/17 15:00 03/12/17 03:21 (Maxipime Inj/NS Inj) 100 ml @ 200 mls/hr Q12H IV 03/11/17 16:00 03/12/17 04:17 Metronidazole 500 mg 500 mg Q8H PO 03/11/17 16:00 03/12/17 11:53 (Diflucan 400 Mg Premix Bag) 200 ml @ 100 mls/hr Q24H IV 03/11/17 17:00 03/11/17 17:43 Miscellaneous Information SPECIFIC LAB TO BE DRAWN:[facility]... ONCE ONCE .XX 03/13/17 02:45 03/13/17 02:46 (Tylenol) 500 mg Q4H PRN PO 03/11/17 19:30 03/12/17 12:01 (Percocet 10-325 Mg) 1 tab Q4H PRN PO 03/11/17 19:30 03/12/17 05:53 A/P Assessment and Plan 1. Bipolar Disorder/Schizophrenia/Depression and Anxiety Continue Klonopin, Zyprexa, Doxepin,Xanax PRN for Anxiety, Pain medicines Hydrocodone and Hydromorphone 2. VDRF Improved. status post Endotracheal Intubation Tobacco dependence Follow Oxygen saturation, continue Bronchodilator, Mucolytic, Incentive spirometry 3. Hemorrhagic Shock resolved, received fluid resuscitation, Blood transfusion and Vasopressors 4. Electrolyte derangement replaced. Currently on full liquid diet per general surgery Monitor Is and Os. 5. 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 Pascual. Status post emergent EGD on 03/[address] Beverly, no further surgical interventions planned at this time EGD 03/01 revealed a large ulcer with adjacent clot. Protonix drip continued at 8 mg an hour discontinue octreotide drip at 03/09 Continue Carafate 1 g po q6hr 6. New Fevers in a patient treated with Empiric Zosyn since admission developed fever 103F recommended Vancomycin, taken blood cultures now growing yeast she received Micafungin and continue Fluconazole, Lion cath removed, removed central line sent tip for culture, continue Cefepime and Flagyl, removed Zosyn and continued Diflucan. 7. Acute blood loss post hemorrhagic anemia, Thrombocytopenia s/p transfusion 2units PRBC 02/28 and 2units PRBC 03/01 for Hgb 6.9/4 units of FFP's/1 unit of cryoprecipitate Additional 2 U PRBC 03/06 GI prophylaxis with Protonix gtt DVT prophylaxis with SCD. No pharmacological prophylaxis with bleeding Lines: Right IJ CVP placed 02/28, new IJ on Left Neck area 03/12/17. Femoral cordis placed 03/05-DC 03/07 Discharge Planning Once cleared by Specialists. Anoop Stern MD Mar 12, 2017 13:07
--- NOTE | 2017-03-12 13:20 | HHI.IDPN ---
Subjective Subjective Remarks Patient is a 46-year-old female, admitted to the hospital February 28 with complaints of generalized weakness, lightheadedness and dizziness. She also was complaining of abdominal pain. She gave a history that she had bypass surgery about 4 years ago. When she presented she had a significant low hemoglobin and upper endoscopy revealed evidence of a gastrojejunal ulcer which was not actively bleeding at the time of the procedure. She received multiple transfusions, and her hemoglobin stabilized. She was initially in the ICU, and was transferred out to the floor. On March 05 she had development of hypotension and active GI bleed, and was transferred back to the ICU. IR was consult to due to the life-threatening bleed, and the patient underwent embolization of her splenic artery. She ended up getting intubated, on the , and was successfully extubated on the . Patient has been on Zosyn since admission. She had some cultures done on admission and they were all negative. Patient has been stabilizing, and today she started having fevers up to 103. She denies any respiratory complaint. She has a Lion catheter in place. She has a central line in the right IJ. She is complaining of abdominal pain, and points more to the right than on the left. Notes reviewed D/W RN Temps 103 at 1 am One BC with yeast Line removed CCM placed new line LSC No new complaint UA ok On TPN Antibiotics Diflucan Vanco Cefepime Flagyl Lines new line - LSC Past Medical History Schizophrenia. Bipolar disorder. Anxiety, depression. Anemia. Bronchial asthma. Past Surgical History Gastric bypass surgery four years ago. Previous abdominal surgery about one to two years ago for Allergies: Coded Allergies: Sulfa (Verified Allergy, Severe, Anaphylaxis, 02/28/17) Objective . Vital Signs Date Time Temp Pulse Resp B/P Pulse Ox O2 Delivery O2 Flow Rate FiO2 03/12/17 09:30 16 03/12/17 07:28 95 03/12/17 07:00 96 Room Air 03/12/17 06:00 123 03/12/17 04:00 122 03/12/17 04:00 98.7 122 20 116/75 97 03/12/17 02:00 150 03/12/17 01:15 103.1 153 27 108/72 99 03/12/17 00:00 98.9 115 18 112/71 95 03/12/17 00:00 115 6/24/17 22:00 120 03/11/17 20:45 96 21 03/11/17 20:00 130 03/11/17 20:00 102.7 130 15 133/78 97 03/11/17 19:00 97 Room Air 03/11/17 18:00 136 03/11/17 16:00 141 03/11/17 16:00 102.8 141 18 121/68 94 03/11/17 14:00 136 03/11/17 03/11/17 03/12/17 15:00 23:00 07:00 Intake Total 1485 ml 1878 ml 3441 ml Output Total 2600 ml 2375 ml 1200 ml Balance -1115 ml -497 ml 2241 ml Intake Oral 240 ml 250 ml 500 ml IV Total 715 ml 1111 ml 2278 ml TPN/PPN 530 ml 465 ml 475 ml Lipid 52 ml 188 ml Output Urine Total 2600 ml 2375 ml 1200 ml # Bowel Movements 0 0 . Laboratory Tests Test 03/10/17 03/11/17 03/11/17 14:00 03:45 22:25 Hemoglobin 10.7 GM/DL 10.7 GM/DL 11.0 GM/DL Hematocrit 32.0 % 31.5 % 32.4 % White Blood Count 5.7 TH/MM3 7.8 TH/MM3 Red Blood Count 3.74 MIL/MM3 3.88 MIL/MM3 Mean Corpuscular Volume 84.1 FL 83.4 FL Mean Corpuscular Hemoglobin 28.6 PG 28.3 PG Mean Corpuscular Hemoglobin 34.0 % 33.9 % Concent Red Cell Distribution Width 16.7 % 16.6 % Platelet Count 204 TH/MM3 241 TH/MM3 Mean Platelet Volume 10.3 FL 10.5 FL Neutrophils (%) (Auto) 93.4 % Lymphocytes (%) (Auto) 3.7 % Monocytes (%) (Auto) 2.5 % Eosinophils (%) (Auto) 0.1 % Basophils (%) (Auto) 0.3 % Neutrophils # (Auto) 7.3 TH/MM3 Lymphocytes # (Auto) 0.3 TH/MM3 Monocytes # (Auto) 0.2 TH/MM3 Eosinophils # (Auto) 0.0 TH/MM3 Basophils # (Auto) 0.0 TH/MM3 CBC Comment DIFF FINAL Differential Comment Laboratory Tests Test 03/11/17 03/12/17 03:45 11:44 Sodium Level 138 MEQ/L Potassium Level 3.9 MEQ/L Chloride Level 98 MEQ/L Carbon Dioxide Level 29.5 MEQ/L Anion Gap 11 MEQ/L Blood Urea Nitrogen 6 MG/DL Creatinine 0.47 MG/DL Estimat Glomerular Filtration 142 ML/MIN Rate Random Glucose 87 MG/DL Calcium Level 8.1 MG/DL Phosphorus Level 3.9 MG/DL Magnesium Level 1.7 MG/DL Vitamin B12 Level 618 PG/ML Microbiology Date/Time Procedure Status Source Growth 03/11/17 15:12 Aerobic Blood Culture - Preliminary Resulted Blood Peripheral NO GROWTH IN 1 DAY 03/11/17 15:12 Anaerobic Blood Culture - Preliminary Resulted Blood Peripheral NO GROWTH IN 1 DAY 03/11/17 15:16 Aerobic Blood Culture - Preliminary Resulted Blood Peripheral NO GROWTH IN 1 DAY 03/11/17 15:16 Anaerobic Blood Culture - Preliminary Resulted Yeast-Id To Follow Imaging Last Impressions Chest X-Ray 03/12/17 0000 Signed Impressions: Service Date/Time: Sunday, March 12, 2017 10:04 - CONCLUSION: 1. Left central line in good position. No pneumothorax. 2. No acute pulmonary infiltrates. Edwin Martin MD Splenic Arteriogram 03/06/17 0000 Signed Impressions: Service Date/Time: Sunday, March 05, 2017 23:50 - CONCLUSION: 1. 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 The proximal splenic artery was embolized to occlusion. The patient will likely need splenectomy to prevent back bleeding into the anastomosis. There is also high probability of complete infarct of the spleen as well. Darren Pascual MD Abdomen/Pelvis CT 03/05/17 0000 Signed Impressions: Service Date/Time: Monday, March 06, 2017 01:51 - CONCLUSION: 1. Apparent early or partial small bowel obstruction, appears to be occurring at the level of the mid to distal ileum and is probably in the low abdomen. 2. Heterogeneous attenuation of the spleen and of concern for incomplete infarction. Patient has been administered intravenous contrast recently but not for this study. 3. Mild ascites. Anasarca and small bilateral pleural effusions are also noted. 4. Previous gastric bypass, with distention of the stomach and gastrojejunal anastomosis noted. The nasogastric tube tip is above the diaphragm within a moderate hiatal hernia. 5. There is a right femoral vein catheter with tip in main common iliac vein. A left femoral vein sheath is present with tip in main external iliac vein. Terry Hurtado MD Upper GI Series 02/28/17 0000 Signed Impressions: Service Date/Time: Tuesday, February 28, 2017 17:21 - CONCLUSION: 1. No evidence of extravasation to suggest perforation. 2. Focal collection of contrast within the gastric remnant raising the possibility of focal ulceration. Upper endoscopy would be helpful for further evaluation of this finding if there is strong clinical concern for ulceration within the gastric remnant. Maycol Castro MD Gall Bladder Ultrasound 02/28/17 0000 Signed Impressions: Service Date/Time: Tuesday, February 28, 2017 14:50 - CONCLUSION: 1. Single mobile stone in the gallbladder. 2. Extrarenal pelvis on the right. Darren Pascual MD Physical Exam GENERAL: awake and alert, not in respiratory distress. SKIN: Warm and dry. No generalized rash, no ecchymoses and no evidence of embolic lesions. Decreased turgor HEAD: Atraumatic. Normocephalic. No temporal wasting, or tenderness. EYES: [place] conjunctiva. No petechia or hemorrhage. Pupils equal, round and reactive to light. Extraocular movements full and intact. No scleral icterus. No injection or drainage. EARS, NOSE AND THROAT: Nose without bleeding or purulent nasal discharge. No sinus tenderness. Mucous membranes pink and moist. Poor dentition. No oral lesions noted. No exudate. No oral thrush. NECK: Trachea midline. Supple and not tender, no meningeal signs CARDIOVASCULAR: Regular rate and rhythm. Tachycardic. No murmurs, rubs or gallops heard RESPIRATORY: Clear to auscultation. Breath sounds equal bilaterally. No rales , wheezing or rhonchi ABDOMEN: Soft, mildly distended, with tenderness in both upper quadrant. Bowel sounds present and normoactive. No guarding. No rebound. EXTREMITIES: No clubbing, cyanosis, or edema. No joint effusion, has good ROM. No calf tenderness. Well perfused and warm. NEUROLOGICAL: Awake and alert. Cranial nerves grossly intact. Motor grossly within normal limits. PSYCHIATRIC: Normal affect, calm and cooperative. LINE: New line LSC Assessment & Plan Remarks IMPRESSION New fever, sepsis, source? likely line - has yeast in BC - line removed, has new central line - ?spleen (S/P embolization splenic artery, ?infarct, ?abscess) GIB, GJ ulcer Previous gastric bypass RECOMMENDATION Continue Cefepime and Flagyl Continue Vanco Continue Diflucan I gave dose of Micafungin today Line removed and tip for C/S Await CT A/P Follow C/S - deescalate Abx once C/S finalized Monitor temps Monitor progress D/W Luz Lopez MD Mar 12, 2017 13:20
--- NOTE | 2017-03-12 14:55 | RADRPT ---
EXAM DATE/TIME: 03/12/2017 14:01 [facility] COMPARISON: No previous studies available for comparison. INDICATIONS : Bilateral leg pain. MEDICAL HISTORY : Thyroid disease. Asthma. Back pain. Anxiety. Anemia. SURGICAL HISTORY : Gastric bypass. ENCOUNTER: Initial ACUITY: 1 day PAIN SCORE: 3/10 LOCATION: Bilateral legs. TECHNIQUE: Venous ultrasound of the left and right leg was performed from the inguinal ligament to the proximal calf. Real-time, color Doppler and spectral tracing, compression and augmentation techniques were us ed. FINDINGS: RIGHT LEG: There is normal compressibility of the deep venous system from the inguinal region to the proximal ca lf. No echogenic clot is seen in the lumen of the common femoral, femoral, popliteal, and posterior tibial veins. There is a normal response of the venous system to proximal and distal augmentation an d respiration. LEFT LEG: There is normal compressibility of the deep venous system from the inguinal region to the proximal ca lf. No echogenic clot is seen in the lumen of the common femoral, femoral, popliteal, and posterior tibial veins. There is a normal response of the venous system to proximal and distal augmentation an d respiration. CONCLUSION: No DVT. Terry Poon MD on March 12, 2017 at 14:52 Board Certified Radiologist. This report was verified electronically.
[2017-03-12] MEDS: MAGNESIUM SULFATE 1 GM PREMIX 100 ML IV SCH ×2 (16:11→17:59)
[2017-03-12] MEDS: FLUCONAZOLE 400 MG PREMIX BAG 200 ML IV SCH (18:00)
[2017-03-12] MEDS: CLINIMIX E 4.25/25 2000 mL- >42 mls/hr IV-CENTRAL SCH ×3 (20:00)
[2017-03-12] MEDS: DOXEPIN HCL 50 MG CAP PO SCH (20:50)
[2017-03-12] MEDS: FAT EMULSION 20% INJ 250 ML (Daily over 8 hours) IV-CENTRAL SCH ×2 (20:51→20:53)
[2017-03-13] VITALS (14 sets, daily range): BP systolic 87–137; BP diastolic 50–78; PULSE 87–126; RESP 10–37; TEMP 98.3–100.7; O2SAT 93–100
[2017-03-13] MEDS: HYDROmorphone HCL PF 1 MG/ML VIAL IV PUSH PRN ×6 (02:28→19:59)
[2017-03-13] MEDS ORDERED: PHARMACY ORDERED LAB ONE ×2 (02:45→14:45)
[2017-03-13] MEDS: PANTOPRAZOLE 80 MG/100 ML NS IV SCH ×6 (03:03→22:00)
[2017-03-13] MEDS: CHLORHEXIDINE GLUCONATE 2 % 1 PACK (2 CLOTHS) TOP SCH (03:08)
[2017-03-13] MEDS: VANCOMYCIN INJ 750 MG in SODIUM CHLOR 0.9% 250 ML INJ 250 ML IV SCH ×2 (03:08→13:36)
[2017-03-13] MEDS: CEFEPIME INJ 2,000 MG in SODIUM CHLORIDE 0.9% INJ 100 ML IV SCH ×2 (03:08→16:11)
[2017-03-13] MEDS: SUCRALFATE 1 GM/10 ML CUP PO SCH ×4 (03:08→22:00)
[2017-03-13] MEDS: INSULIN NovoLIN REGULAR SUPPLEMENTAL SCALE SQ SCH ×4 (04:15→22:03)
[2017-03-13] MEDS: clonazePAM 1 MG TAB PO SCH ×3 (05:17→22:00)
[2017-03-13] MEDS: ALBUTEROL SULFATE 90 MCG/ACT HFA 18 GM INHALER INH SCH ×4 (05:19→18:09)
[2017-03-13] MEDS: ACETAMINOPHEN 500 MG CPLT PO PRN (05:55)
[2017-03-13] MEDS: metroNIDAZOLE 500 MG TAB PO SCH ×2 (07:49→16:11)
[2017-03-13] MEDS: OLANZapine 2.5 MG TAB PO SCH ×2 (07:50→20:02)
--- NOTE | 2017-03-13 07:50 | HHI.PR ---
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 She presented to [facility] Emergency Department with complaints of feeling dizziness, light headedness, generalized weakness, multiple falls and inability to ambulate. On further history she has a history of gastric bypass four years ago in [place] and another abdominal surgery about one to two years ago for Intussusception in [place] as well. She states that she weighed 200 lbs when she had the gastric bypass surgery preformed, now she weighs 80 pounds, she reports chronic abdominal pain associated with intractable nausea and vomiting for several months. In addition to decreased p.o. intake. Her abdominal pain progressively worsened and mainly in the right upper quadrant and left lower quadrat. She denies any chest pain, shortness of breath, cough or any constitutional symptoms. On arrival to the emergency room she was hypotensive with systolic blood pressure in the 80's, tachycardic with heart rate in the 120's and her laboratory data showed hemoglobin of 7.2, lactic acid level of 2.9. Her liver enzymes are within normal limits with a total bilirubin of 0.2. Aspartate aminotransferase 21, alt 12, alkaline phosphatase 138. In the ER she received one out of two units of packed red blood cells and approximately 1.5 liters of normal saline. She responded to volume resuscitation and current blood pressure is 108/71 with a pulse of 112. Her o2 saturation is 97% on room air. Due to her abdominal pain, CT abdomen and pelvis were preformed which showed gallbladder wall thickening, mild hepatosplenomegaly and chronic mild compression deformity is noted involving L1. Chest x-ray in the emergency department showed right fifth rib fractures which appear old, otherwise no evidence of acute cardiopulmonary disease. Right IJ central line was placed by emergency department physician. She also has a ultrasound of the abdomen which is pending during the time of this dictation. The patient received Protonix, Unasyn and dilated in the emergency room. 03/01 Patient is lying in bed in NAD. s/p transfusion 2units PRBC this morning for Hgb 6.9. s/p EGD showed G-J ulcer, adherent clot with no evidence of bleeding. 03/02: Requesting Klonopin today. Hemoglobin stable for the past 12 hours. Very anxious and verbose. Complaining of pain epigastric/right upper quadrant region. 02/22/16: Currently afebrile. Requesting doxepin along with increasing pain medications. Days of pain in epigastric/right upper quadrant region. Hemoglobin stable. [facility] reconsulted on 03/05/17 -around 6 PM a rapid response was activated due to low blood pressure and hematemesis. She was transferred to ICU. The fluid resuscitation was started however patient continued vomiting blood and required intubation for an airway protection. Shortly after intubation she dropped her blood pressure again without palpable pulses in the CPR was initiated. There was a run of 2 cycles of CPR with return of spontaneous circulation. The Cordis introducer was inserted to left femoral vein and the rapid infuser was used to transfuse 4 units of PRBCs and FFP since cryoprecipitate. Dr. Beverly emergently performed upper EGD. Without successful finding off source of bleeding. This was discussed with interventional radiologist Dr. Pascual and the patient is going to be taken to IR for possible embolization emergently due to life-threatening condition uncontrolled GI bleed. 03/06: Remains intubated sedated. 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 Pascual. Episode of hypotension today, started on Levophed, 2U PRBC stat ordered, and 2L NS bolus. with improvement in BP. No evident GIB. Remains on Protonix and octreotide gtt. Hb 8.9 on Stat re check 03/07: Remains intubated, now off Levophed. Hb remains stable. No GIB reported. Will attempt SBT today for possible extubation. Discuss with Dr. Jerome Beverly. No plan for any surgical procedures at this time. DC octreotide in 24 hours. Continue Protonix infusion and Carafate per Dr. beverly 03/08: Extubated yesterday without complication. Hemoglobin this a.m. pending. No additional GI bleeding. Still complaining of abdominal pain. Requesting pain medication at the present time. 03/09: Complaining of abdominal pain 8 out of 10. Hemoglobin remained stable. Positive BM. Tolerating clear liquid diet. 03/10: Complaining of right lower quadrant pain 8 out of 10. On liquid [place] 7.5/325 added by general surgery today. On full liquid diet. Continues to have heme + smelling stools. Hospitalist Notes: 03/11: Seen in her bedroom, discussed with nurse Miss Ortega, no nausea, vomit or diarrhea, no signs of infection, has fever 103F, she is been on Empiric management with Zosyn by sampler pickup, asked for CXR, UA, blood cultures, Vancomycin started and asked for ID specialist. 03/12: Stable in her bedroom seen in the presence of nurse Shannon, no nausea , vomit or diarrhea continue with Fever, blood cultures taken yesterday Yeast growing, is on Diflucan, given one dose of Micafungin by ID specialist, removed IJ catheter and changed from the Right side to the left neck side. recommended to continue Cefepime and Flagyl, Diflucan, Sent IJ tip for culture. No nausea, vomit or diarrhea. 03/13: Patient complaint of dizziness on Orthostatic position, also is been Hypotensive since admission, receiving large amounts of fluids, asked for Echocardiogram, Orthostatic vital sings customer resolution specialist consult, she continue Tachycardic. continue management as per ID specialist with antibiotics by now for sepsis. Objective Vital Signs Date Time Temp Pulse Resp B/P Pulse Ox O2 Delivery O2 Flow Rate FiO2 03/13/17 07:12 97 21 03/13/17 06:00 106 03/13/17 05:45 100.7 106 37 137/78 93 03/13/17 04:00 110 03/13/17 02:00 97 03/13/17 00:00 99.0 91 10 93/59 100 03/13/17 00:00 91 03/12/17 22:00 127 03/12/17 20:01 100.5 100 20 102/70 95 03/12/17 20:00 100 03/12/17 19:31 98 21 03/12/17 19:00 94 Room Air 03/12/17 18:00 107 03/12/17 16:00 98.1 99 16 96/55 100 03/12/17 16:00 99 03/12/17 14:50 12 03/12/17 14:00 108 03/12/17 12:00 102.9 123 20 111/64 96 03/12/17 12:00 123 03/12/17 10:00 123 03/12/17 09:30 16 03/12/17 08:00 98.4 91 20 92/58 96 03/12/17 08:00 91 I/O 03/12/17 03/12/17 03/12/17 03/13/17 03/13/17 03/13/17 07:00 15:00 23:00 07:00 15:00 23:00 Intake Total 3441 ml 2143 ml 1340 ml 1540 ml Output Total 1200 ml 1000 ml 1000 ml Balance 2241 ml 2143 ml 340 ml 540 ml Intake Oral 500 ml 960 ml 250 ml 250 ml IV Total 2278 ml 736 ml 598 ml 605 ml TPN/PPN 475 ml 447 ml 452 ml 475 ml Lipid 188 ml 40 ml 210 ml Output Urine Total 1200 ml 1000 ml 1000 ml # Voids 7 # Bowel Movements 0 Result Diagram: 03/11/17 2225 03/13/17 0545 Imaging Last Impressions Lower Extremity Ultrasound 03/12/17 0000 Signed Impressions: Service Date/Time: Sunday, March 12, 2017 14:01 - CONCLUSION: No DVT. Terry Poon MD Chest X-Ray 03/12/17 0000 Signed Impressions: Service Date/Time: Sunday, March 12, 2017 10:04 - CONCLUSION: 1. Left central line in good position. No pneumothorax. 2. No acute pulmonary infiltrates. Edwin Martin MD Splenic Arteriogram 03/06/17 0000 Signed Impressions: Service Date/Time: Sunday, March 05, 2017 23:50 - CONCLUSION: 1. 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 The proximal splenic artery was embolized to occlusion. The patient will likely need splenectomy to prevent back bleeding into the anastomosis. There is also high probability of complete infarct of the spleen as well. Darren Pascual MD Abdomen/Pelvis CT 03/05/17 0000 Signed Impressions: Service Date/Time: Monday, March 06, 2017 01:51 - CONCLUSION: 1. Apparent early or partial small bowel obstruction, appears to be occurring at the level of the mid to distal ileum and is probably in the low abdomen. 2. Heterogeneous attenuation of the spleen and of concern for incomplete infarction. Patient has been administered intravenous contrast recently but not for this study. 3. Mild ascites. Anasarca and small bilateral pleural effusions are also noted. 4. Previous gastric bypass, with distention of the stomach and gastrojejunal anastomosis noted. The nasogastric tube tip is above the diaphragm within a moderate hiatal hernia. 5. There is a right femoral vein catheter with tip in main common iliac vein. A left femoral vein sheath is present with tip in main external iliac vein. Terry Hurtado MD Upper GI Series 02/28/17 0000 Signed Impressions: Service Date/Time: Tuesday, February 28, 2017 17:21 - CONCLUSION: 1. No evidence of extravasation to suggest perforation. 2. Focal collection of contrast within the gastric remnant raising the possibility of focal ulceration. Upper endoscopy would be helpful for further evaluation of this finding if there is strong clinical concern for ulceration within the gastric remnant. Maycol Castro MD Gall Bladder Ultrasound 02/28/17 0000 Signed Impressions: Service Date/Time: Tuesday, February 28, 2017 14:50 - CONCLUSION: 1. Single mobile stone in the gallbladder. 2. Extrarenal pelvis on the right. Darren Pascual MD Procedures Line: Central Venous Catheter Side: Right Location: Internal, Jugular Endotracheal Intubation Pressors use. Other Results Laboratory Tests Test 03/08/17 03/09/17 03/10/17 03/11/17 09:50 04:54 03:50 03:45 Blood Type O POSITIVE Antibody Screen NEGATIVE Crossmatch Leukocyte-Reduced Red Blood Cells Blood Bank Comment Protein Corrected Calcium 8.5 MG/DL Triglycerides Level 90 MG/DL Total Bilirubin 0.2 MG/DL Aspartate Amino Transf 23 U/L (AST/SGOT) Alanine Aminotransferase 14 U/L (ALT/SGPT) Alkaline Phosphatase 78 U/L Total Protein 5.8 GM/DL Albumin 1.9 GM/DL Sodium Level 138 MEQ/L Potassium Level 3.9 MEQ/L Chloride Level 98 MEQ/L Carbon Dioxide Level 29.5 MEQ/L Anion Gap 11 MEQ/L Blood Urea Nitrogen 6 MG/DL Random Glucose 87 MG/DL Calcium Level 8.1 MG/DL Phosphorus Level 3.9 MG/DL Magnesium Level 1.7 MG/DL Test 03/11/17 03/11/17 03/12/17 03/13/17 14:10 22:25 11:44 05:45 Urine Color LIGHT-YELLOW Urine Turbidity CLEAR Urine pH 7.5 Urine Specific [place] 1.005 Urine Protein NEG mg/dL Urine Glucose (UA) NEG mg/dL Urine Ketones NEG mg/dL Urine Occult Blood NEG Urine Nitrite NEG Urine Bilirubin NEG Urine Urobilinogen LESS THAN 2.0 MG/DL Urine Leukocyte Esterase NEG Urine RBC 1 /hpf Urine Mucus FEW /lpf Microscopic Urinalysis Comment CATH-CULT NOT IND White Blood Count 7.8 TH/MM3 Red Blood Count 3.88 MIL/MM3 Hemoglobin 11.0 GM/DL Hematocrit 32.4 % Mean Corpuscular Volume 83.4 FL Mean Corpuscular Hemoglobin 28.3 PG Mean Corpuscular Hemoglobin 33.9 % Concent Red Cell Distribution Width 16.6 % Platelet Count 241 TH/MM3 Mean Platelet Volume 10.5 FL Neutrophils (%) (Auto) 93.4 % Lymphocytes (%) (Auto) 3.7 % Monocytes (%) (Auto) 2.5 % Eosinophils (%) (Auto) 0.1 % Basophils (%) (Auto) 0.3 % Neutrophils # (Auto) 7.3 TH/MM3 Lymphocytes # (Auto) 0.3 TH/MM3 Monocytes # (Auto) 0.2 TH/MM3 Eosinophils # (Auto) 0.0 TH/MM3 Basophils # (Auto) 0.0 TH/MM3 CBC Comment DIFF FINAL Differential Comment Vitamin B12 Level 618 PG/ML Creatinine 0.29 MG/DL Estimat Glomerular Filtration 248 ML/MIN Rate Objective Remarks GENERAL: No acute distress SKIN: Warm and dry. No rash HEAD: Normocephalic. EYES: No scleral icterus. No injection or drainage. PERRL. 3 mm bilaterally and reactive. NECK: Supple, trachea midline. No JVD or lymphadenopathy. Right IJ clean dry and intact CARDIOVASCULAR: RRR. S1, S2. No S4. Without murmur, clicks, Gallops or rubs, Tachycardia. RESPIRATORY: Breath sounds clear to auscultation and equal bilaterally. Symmetrical excursion. No accessory muscle use. GASTROINTESTINAL: Abdomen soft, tender to palpation epigastric/right lower quadrant with voluntary rebound and no rigidity. Hypoactive bowel sounds MUSCULOSKELETAL: No edema. L groin Cordis removed yesterday that hematoma, R groin art line removed yesterday without hematoma Neuro: Cranial nerves II through XII grossly intact. Strength is equal symmetric. Normal sensation. Medications and IVs Current Medications Medications (Trade) Dose Ordered Sig/Kaleb Route Start Time Stop Time Status Last Admin (NS Flush) 2 ml UNSCH PRN IVF 02/28/17 09:45 03/09/17 17:18 Miscellaneous Information 1 Q361D XX 02/28/17 16:00 (Chlorhexidine 2% Cloth) Taper DAILY@04 TOP 03/01/17 04:00 02/25/18 03:59 03/13/17 03:08 (Chlorhexidine 2% Cloth) 3 pack UNSCH PRN TOP 02/28/17 16:00 (D50w (Vial) Inj) 50 ml UNSCH PRN IV 02/28/17 16:15 (Glucagon Inj) 1 mg UNSCH PRN OTHER 02/28/17 16:15 (NovoLIN R SUPPLEMENTAL SCALE) 1 Q6H SQ 02/28/17 16:15 03/12/17 16:47 Sucralfate 1 gm 1 gm Q6H PO 03/01/17 10:00 03/13/17 03:08 Potassium Chloride 100 ml @ 50 mls/hr Q2H PRN IV 03/01/17 10:00 03/02/17 08:41 (KCl 20 Meq Premix Inj) 100 ml @ 50 mls/hr Q2H PRN IV 03/01/17 10:00 Potassium Bicarb/ Potassium Chloride 50 meq 50 meq UNSCH PRN PO 03/01/17 10:00 Potassium Chloride 100 ml @ 25 mls/hr UNSCH PRN IV 03/01/17 10:00 Potassium Chloride 100 ml @ 50 mls/hr Q2H PRN IV 03/01/17 10:00 (Magnesium Sulfate Inj/NS Inj) 100 ml @ 50 mls/hr UNSCH PRN IV 03/01/17 10:00 Magnesium Oxide 800 mg 800 mg UNSCH PRN PO 03/01/17 10:00 (Magnesium Sulfate Inj/NS Inj) 100 ml @ 50 mls/hr UNSCH PRN IV 03/01/17 10:00 Potassium Phosphate 2000 mg 2,000 mg Q4H PRN PO 03/01/17 10:00 (Sodium Phosphate Inj/NS 250 ml Inj) 250 ml @ 42 mls/hr UNSCH PRN IV 03/01/17 10:00 Potassium Phosphate 2000 mg 2,000 mg UNSCH PRN PO/TUBE 03/01/17 10:00 Potassium Phosphate 30 mmol/ Sodium Chloride 260 ml @ 42 mls/hr UNSCH PRN IV 03/01/17 10:00 Multivitamins 10 ml/Folic Acid 1 mg/Amino Acids/ Electrolytes/ Dextrose 2,010.2 ml @ 60 mls/hr Q24H IV-CENTRAL 03/01/17 20:00 03/12/17 20:00 (Liposyn Iii 20% Inj) 250 ml @ 31.25 mls/ hr Q24H IV-CENTRAL 03/01/17 20:00 03/12/17 20:53 (ZyPREXA) 2.5 mg Q12HR PO 03/01/17 21:00 03/12/17 20:50 (KlonoPIN) 1 mg Q8HR PO 03/02/17 14:00 03/13/17 05:17 (Zofran Inj) 4 mg Q6H PRN IV PUSH 03/02/17 16:00 03/10/17 11:38 (Compazine Inj) 5 mg Q6H PRN IV PUSH 03/02/17 16:00 (Xanax) 1 mg Q8H PRN PO 03/02/17 22:00 03/11/17 02:38 (Ventolin Hfa Inh) 2 puff Q6HR INH 03/03/17 12:00 03/13/17 05:19 (Spiriva Inh) 18 mcg DAILY INH 03/03/17 09:00 03/12/17 10:42 (SINEquan) 200 mg HS PO 03/03/17 21:00 03/12/17 20:50 (Symbicort 80-4.5 Mcg Inh) 2 puff Q12HR INH 03/03/17 21:00 03/12/17 21:00 Clonidine 0.1 mg 0.1 mg Q6H PRN PO 03/04/17 16:30 (Protonix Inj/NS Inj) 100 ml @ 10 mls/hr Q10H IV 03/06/17 01:35 03/13/17 03:03 Hydromorphone HCl 1 mg 1 mg Q2HR PRN IV PUSH 03/08/17 10:00 03/13/17 05:16 Pharmacy Profile Note 0 ml @ 0 mls/hr UNSCH OTHER 03/11/17 14:15 Vancomycin HCl 750 mg/Sodium Chloride 257.5 ml @ 250 mls/hr Q12H IV 03/11/17 15:00 03/13/17 03:08 (Maxipime Inj/NS Inj) 100 ml @ 200 mls/hr Q12H IV 03/11/17 16:00 03/13/17 03:08 Metronidazole 500 mg 500 mg Q8H PO 03/11/17 16:00 03/12/17 23:04 (Diflucan 400 Mg Premix Bag) 200 ml @ 100 mls/hr Q24H IV 03/11/17 17:00 03/12/17 18:00 (Tylenol) 500 mg Q4H PRN PO 03/11/17 19:30 03/13/17 05:55 (Percocet 10-325 Mg) 1 tab Q4H PRN PO 03/11/17 19:30 03/12/17 13:51 A/P Assessment and Plan 1. Bipolar Disorder/Schizophrenia/Depression and Anxiety Continue Klonopin, Zyprexa, Doxepin,Xanax PRN for Anxiety, Pain medicines Hydrocodone, decrease Hydromorphone dosages. 2. VDRF Improved. status post Endotracheal Intubation Tobacco dependence Follow Oxygen saturation, continue Bronchodilator, Mucolytic, Incentive spirometry 3. Hemorrhagic Shock resolved, received fluid resuscitation, Blood transfusion and Vasopressors 4. Electrolyte derangement replaced. 5. 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 Pascual. Status post emergent EGD on 03/[address] Beverly, no further surgical interventions planned at this time EGD 03/01 revealed a large ulcer with adjacent clot. Protonix drip continued at 8 mg an hour discontinue octreotide drip at 03/09 Continue Carafate 1 g po q6hr 6. New Fevers in a patient treated with Empiric Zosyn since admission developed fever 103F recommended Vancomycin, taken blood cultures now growing yeast she received Micafungin and continue Fluconazole, Lion cath removed, removed central line sent tip for culture, continue Cefepime and Flagyl, removed Zosyn and continued Diflucan. 7. Acute blood loss post hemorrhagic anemia, Thrombocytopenia s/p transfusion 2units PRBC 02/28 and 2units PRBC 03/01 for Hgb 6.9/4 units of FFP's/1 unit of cryoprecipitate Additional 2 U PRBC 03/06 8. Hypotension and dizziness, asked for Orthostatic vital signs, Echocardiogram and Cardiology consult she may benefit for Midodrine will follow Cardiology recommendations. GI prophylaxis with Protonix gtt DVT prophylaxis with SCD. No pharmacological prophylaxis with bleeding Lines: Right IJ CVP placed 02/28, new IJ on Left Neck area 03/12/17. Femoral cordis placed 03/05-DC 03/07 Seen in the room in the presence of nurse Mr. Madrigal appreciated. Discharge Planning Once cleared by Specialists. Anoop Stern MD Mar 13, 2017 07:50
[2017-03-13] MEDS: TIOTROPIUM BROMIDE 18 MCG INH INH SCH (07:52)
[2017-03-13] MEDS: RESP: ALBUTEROL 2.5 MG/IPRATROPIUM 0.5 MG NEB (PRN) INH (08:24)
[2017-03-13] MEDS: oxyCODONE/ACETAMINOPHEN 10 MG/325 MG TAB PO PRN ×3 (09:32→19:07)
[2017-03-13] MEDS: BUDESONIDE-FORMOTEROL 80/4.5 MCG INHALER INH SCH ×2 (09:32→20:03)
--- NOTE | 2017-03-13 10:15 | HHI.IDPN ---
Subjective Subjective Remarks Patient is a 46-year-old female, admitted to the hospital February 28 with complaints of generalized weakness, lightheadedness and dizziness. She also was complaining of abdominal pain. She gave a history that she had bypass surgery about 4 years ago. When she presented she had a significant low hemoglobin and upper endoscopy revealed evidence of a gastrojejunal ulcer which was not actively bleeding at the time of the procedure. She received multiple transfusions, and her hemoglobin stabilized. She was initially in the ICU, and was transferred out to the floor. On March 05 she had development of hypotension and active GI bleed, and was transferred back to the ICU. IR was consult to due to the life-threatening bleed, and the patient underwent embolization of her splenic artery. She ended up getting intubated, on the , and was successfully extubated on the . Patient has been on Zosyn since admission. She had some cultures done on admission and they were all negative. Patient has been stabilizing, and today she started having fevers up to 103. She denies any respiratory complaint. She has a Lion catheter in place. She has a central line in the right IJ. She is complaining of abdominal pain, and points more to the right than on the left. Notes reviewed D/W RN Still having high fevers C/O abdominal pain, seems worse CT A/P not done yet Has new (+) BC with yeast No ID yet on firts (+) BC Has new line LSC UA ok On TPN Ambulating in hallways Antibiotics Diflucan Vanco Cefepime Flagyl Lines new line - LSC Past Medical History Schizophrenia. Bipolar disorder. Anxiety, depression. Anemia. Bronchial asthma. Past Surgical History Gastric bypass surgery four years ago. Previous abdominal surgery about one to two years ago for Allergies: Coded Allergies: Sulfa (Verified Allergy, Severe, Anaphylaxis, 02/28/17) Objective . Vital Signs Date Time Temp Pulse Resp B/P Pulse Ox O2 Delivery O2 Flow Rate FiO2 03/13/17 07:12 97 21 03/13/17 06:00 106 03/13/17 05:45 100.7 106 37 137/78 93 03/13/17 04:00 110 03/13/17 02:00 97 03/13/17 00:00 99.0 91 10 93/59 100 03/13/17 00:00 91 03/12/17 22:00 127 6/25/17 20:01 100.5 100 20 102/70 95 03/12/17 20:00 100 03/12/17 19:31 98 21 03/12/17 19:00 94 Room Air 03/12/17 18:00 107 03/12/17 16:00 98.1 99 16 96/55 100 03/12/17 16:00 99 03/12/17 14:50 12 03/12/17 14:00 108 03/12/17 12:00 102.9 123 20 111/64 96 03/12/17 12:00 123 03/12/17 03/12/17 03/13/17 15:00 23:00 07:00 Intake Total 2143 ml 1340 ml 1540 ml Output Total 1000 ml 1000 ml Balance 2143 ml 340 ml 540 ml Intake Oral 960 ml 250 ml 250 ml IV Total 736 ml 598 ml 605 ml TPN/PPN 447 ml 452 ml 475 ml Lipid 40 ml 210 ml Output Urine Total 1000 ml 1000 ml # Voids 7 . Laboratory Tests Test 03/11/17 22:25 White Blood Count 7.8 TH/MM3 Red Blood Count 3.88 MIL/MM3 Hemoglobin 11.0 GM/DL Hematocrit 32.4 % Mean Corpuscular Volume 83.4 FL Mean Corpuscular Hemoglobin 28.3 PG Mean Corpuscular Hemoglobin 33.9 % Concent Red Cell Distribution Width 16.6 % Platelet Count 241 TH/MM3 Mean Platelet Volume 10.5 FL Neutrophils (%) (Auto) 93.4 % Lymphocytes (%) (Auto) 3.7 % Monocytes (%) (Auto) 2.5 % Eosinophils (%) (Auto) 0.1 % Basophils (%) (Auto) 0.3 % Neutrophils # (Auto) 7.3 TH/MM3 Lymphocytes # (Auto) 0.3 TH/MM3 Monocytes # (Auto) 0.2 TH/MM3 Eosinophils # (Auto) 0.0 TH/MM3 Basophils # (Auto) 0.0 TH/MM3 CBC Comment DIFF FINAL Differential Comment Laboratory Tests Test 03/12/17 03/13/17 11:44 05:45 Vitamin B12 Level 618 PG/ML Creatinine 0.29 MG/DL Estimat Glomerular Filtration 248 ML/MIN Rate Microbiology Date/Time Procedure Status Source Growth 03/11/17 15:12 Aerobic Blood Culture - Preliminary Resulted Blood Peripheral NO GROWTH IN 1 DAY 03/11/17 15:12 Anaerobic Blood Culture - Preliminary Resulted Blood Peripheral NO GROWTH IN 1 DAY 03/11/17 15:16 Aerobic Blood Culture - Preliminary Resulted Blood Peripheral NO GROWTH IN 1 DAY 03/11/17 15:16 Anaerobic Blood Culture - Preliminary Resulted Yeast-Id To Follow 03/12/17 12:55 Aerobic Blood Culture Received Blood Line Pending 03/12/17 12:55 Anaerobic Blood Culture Received Blood Line Pending 03/12/17 12:55 Wound Culture Received Catheter Tip Central Venous Line Pending Imaging Last Impressions Chest X-Ray 03/12/17 0000 Signed Impressions: Service Date/Time: Sunday, March 12, 2017 10:04 - CONCLUSION: 1. Left central line in good position. No pneumothorax. 2. No acute pulmonary infiltrates. Edwin Martin MD Splenic Arteriogram 03/06/17 0000 Signed Impressions: Service Date/Time: Sunday, March 05, 2017 23:50 - CONCLUSION: 1. 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 The proximal splenic artery was embolized to occlusion. The patient will likely need splenectomy to prevent back bleeding into the anastomosis. There is also high probability of complete infarct of the spleen as well. Darren Pascual MD Abdomen/Pelvis CT 03/05/17 0000 Signed Impressions: Service Date/Time: Monday, March 06, 2017 01:51 - CONCLUSION: 1. Apparent early or partial small bowel obstruction, appears to be occurring at the level of the mid to distal ileum and is probably in the low abdomen. 2. Heterogeneous attenuation of the spleen and of concern for incomplete infarction. Patient has been administered intravenous contrast recently but not for this study. 3. Mild ascites. Anasarca and small bilateral pleural effusions are also noted. 4. Previous gastric bypass, with distention of the stomach and gastrojejunal anastomosis noted. The nasogastric tube tip is above the diaphragm within a moderate hiatal hernia. 5. There is a right femoral vein catheter with tip in main common iliac vein. A left femoral vein sheath is present with tip in main external iliac vein. Terry Hurtado MD Upper GI Series 02/28/17 0000 Signed Impressions: Service Date/Time: Tuesday, February 28, 2017 17:21 - CONCLUSION: 1. No evidence of extravasation to suggest perforation. 2. Focal collection of contrast within the gastric remnant raising the possibility of focal ulceration. Upper endoscopy would be helpful for further evaluation of this finding if there is strong clinical concern for ulceration within the gastric remnant. Maycol Castro MD Gall Bladder Ultrasound 02/28/17 0000 Signed Impressions: Service Date/Time: Tuesday, February 28, 2017 14:50 - CONCLUSION: 1. Single mobile stone in the gallbladder. 2. Extrarenal pelvis on the right. Darren Pascual MD Physical Exam GENERAL: awake and alert, not in respiratory distress. SKIN: Warm and dry. No generalized rash, no ecchymoses and no evidence of embolic lesions. Decreased turgor HEAD: Atraumatic. Normocephalic. No temporal wasting, or tenderness. EYES: Chaplin conjunctiva. No petechia or hemorrhage. Pupils equal, round and reactive to light. Extraocular movements full and intact. No scleral icterus. No injection or drainage. EARS, NOSE AND THROAT: Nose without bleeding or purulent nasal discharge. No sinus tenderness. Mucous membranes pink and moist. Poor dentition. No oral lesions noted. No exudate. No oral thrush. NECK: Trachea midline. Supple and not tender, no meningeal signs CARDIOVASCULAR: Regular rate and rhythm. Tachycardic. No murmurs, rubs or gallops heard RESPIRATORY: Clear to auscultation. Breath sounds equal bilaterally. No rales , wheezing or rhonchi ABDOMEN: Soft, mildly distended, with tenderness in both upper quadrant. Bowel sounds present and normoactive. No guarding. No rebound. EXTREMITIES: No clubbing, cyanosis, or edema. No joint effusion, has good ROM. No calf tenderness. Well perfused and warm. NEUROLOGICAL: Awake and alert. Cranial nerves grossly intact. Motor grossly within normal limits. PSYCHIATRIC: Normal affect, calm and cooperative. LINE: New line [facility] Assessment & Plan Remarks IMPRESSION New fever, sepsis, source? likely line - has yeast in BC - line removed, has new central line - ?spleen (S/P embolization splenic artery, ?infarct, ?abscess) Yeast in BC Fevers, persistent GIB, GJ ulcer Previous gastric bypass RECOMMENDATION Continue Cefepime and Flagyl Continue Vanco Continue Diflucan Continue Micafungin Will reorder CT A/P Follow C/S - deescalate Abx once C/S finalized Monitor temps Monitor progress Agree with echo D/W RN Explained plan to the patient Luz Amaro MD Mar 13, 2017 10:15
[2017-03-13] MEDS: MICAFUNGIN INJ 100 MG in SODIUM CHLORIDE 0.9% INJ 100 ML IV SCH (10:33)
--- NOTE | 2017-03-13 11:07 | HHI.PR ---
Subjective Subjective Notes Fevers over the weekend Otherwise hmg remained stable; tolerating full liquids Objective Vitals/I&O Vital Signs Date Time Temp Pulse Resp B/P Pulse Ox O2 Delivery O2 Flow Rate FiO2 03/13/17 07:12 97 21 03/13/17 06:00 106 03/13/17 05:45 100.7 37 137/78 03/12/17 19:00 Room Air 03/10/17 07:00 2.00 Labs Laboratory Tests Test 03/12/17 03/13/17 11:44 05:45 Vitamin B12 Level 618 Creatinine 0.29 Estimat Glomerular Filtration 248 Rate Date/Time Procedure Status Source Growth 03/12/17 12:55 Wound Culture Received Catheter Tip Central Venous Line Pending 03/12/17 12:55 Aerobic Blood Culture Received Blood Line Pending 03/12/17 12:55 Anaerobic Blood Culture Received Blood Line Pending 03/11/17 15:16 Aerobic Blood Culture - Preliminary Resulted Blood Peripheral Yeast-Id To Follow 03/11/17 15:16 Anaerobic Blood Culture - Preliminary Resulted Yeast-Id To Follow Cardiovascular: Regular Lungs: Clear Abdomen: Other (abdomen flat; tender to palpation; non distended ) Extremities: No edema A/P Assessment and Plan 46 year old female s/p gastric bypass surgery, weight loss, cachetic, malnutrition, GI bleed; anemia and NSAID use -S/p EGD -- Gastrojejunostomy ulcer; with active bleeding--stable -S/p EGD and IR coil of splenic artery for massive GI bleed -Continue to monitor Hmg; transfuse as needed--hmg currently 11.0 -Continue TPN -Tolerating fulls -Percocet and IV Dilaudid for pain Attending Statement patient seen at bedside fever this past weekend otherwise stable Attestation The exam, history, and the medical decision-making described in the above note were completed with the assistance of the mid-level provider. I reviewed and agree with the findings presented. I attest that I had a [id number] encounter with the patient on the same day, and personally performed and documented my assessment and findings in the medical record. Jannette Garnett Mar 13, 2017 11:07 Jerome Arias MD Mar 22, 2017 22:33
[2017-03-13] MEDS ORDERED: IOHEXOL 350 MG/ML 10 ML VIAL (for RAD DIAG) IV ONE (11:10)
[2017-03-13 11:21] LABS: AUTOMATED NEUTROPHIL # 3.6 TH/MM3 (1.8-7.7); BASOPHIL # 0.1 TH/MM3 (0-0.2); BASOPHIL % 1.2 % (0.0-2.0); EOSINOPHIL # 0.1 TH/MM3 (0-0.4); EOSINOPHIL % 2.1 % (0.0-4.0); HEMATOCRIT 30.1 % (35.0-46.0); HEMO FLAGS DIFF FINAL; LYMPH % 13.8 % (9.0-44.0); LYMPHOCYTE # 0.6 TH/MM3 (1.0-4.8); MEAN CELL VOLUME 83.5 FL (80.0-100.0); MEAN CORPUSCULAR HEMOGLOBIN 27.9 PG (27.0-34.0); MEAN CORPUSCULAR HGB CONC 33.5 % (32.0-36.0); MONO % 5.3 % (0.0-8.0); NEUT % 77.6 % (16.0-70.0); PLATELET COUNT 198 TH/MM3 (150-450); RED BLOOD COUNT 3.61 MIL/MM3 (4.00-5.30); RED CELL DISTRIBUTION WIDTH 16.8 % (11.6-17.2); WHITE BLOOD COUNT 4.7 TH/MM3 (4.0-11.0)
[2017-03-13 11:50] LABS: ALKALINE PHOSPHATASE 160 U/L (45-117); ALT (GPT) 60 U/L (10-53); ANION GAP 6 MEQ/L (5-15); AST (GOT) 108 U/L (15-37); BICARBONATE 28.6 MEQ/L (21.0-32.0); BLOOD UREA NITROGEN 6 MG/DL (7-18); CHLORIDE 103 MEQ/L (98-107); GLOMERULAR FILTRATION RATE 238 ML/MIN (>89); MAGNESIUM 1.7 MG/DL (1.5-2.5); POTASSIUM 3.5 MEQ/L (3.5-5.1); SODIUM (NA) 138 MEQ/L (136-145); TOTAL BILIRUBIN ADULT 0.4 MG/DL (0.2-1.0)
--- NOTE | 2017-03-13 12:08 | RADRPT ---
EXAM DATE/TIME: 03/13/2017 11:03 [place] COMPARISON: CT ABDOMEN & PELVIS W/O CONTRAST, February 28, 2017, 13:20. ANGIOGRAM, SPLENIC ARTERY, March 05, 2017, 23 :50. CT ABDOMEN & PELVIS W/O CONTRAST, March 06, 2017, 1:51. INDICATIONS : Gastrointestinal bleed. IV CONTRAST: 100 cc Omnipaque 350 (iohexol) IV ORAL CONTRAST: No oral contrast ingested. RADIATION DOSE: 9.96 CTDIvol (mGy) MEDICAL HISTORY : None SURGICAL HISTORY : Gastric bypass. ENCOUNTER: Initial ACUITY: 1 day PAIN SCALE: 4/10 LOCATION: Bilateral abdomen. TECHNIQUE: Volumetric scanning of the abdomen and pelvis was performed. Using automated exposure control and ad justment of the mA and/or kV according to patient size, radiation dose was kept as low as reasonably achievable to obtain optimal diagnostic quality images. DICOM format image data is available electro nically for review and comparison. FINDINGS: LOWER LUNGS: Lower lung zones demonstrate no acute finding. LIVER: Homogeneous density without lesion. There is no dilation of the biliary tree. No calcified gallston es. SPLEEN: Spleen measures 14.2 cm and 9. There are multiple wedge-shaped hypoenhancing areas the largest at the superior aspect characteristic of infarcts. PANCREAS: No significant abnormality is identified. Both patient coils near the pancreatic tail cause beam hard ening artifact. KIDNEYS: Normal in size and shape. There is no mass, stone or hydronephrosis. ADRENAL GLANDS: Within normal limits. VASCULAR: There is no aortic aneurysm. There is mild atherosclerotic disease. Embolization coils are within the region of the a splenic artery and the left upper quadrant. BOWEL/MESENTERY: Stomach demonstrates changes characteristic of prior [place]-en-Y gastric bypass surgery. A small hiatal hernia is present. The excluded stomach contains a small amount of air and fluid. Small bowel anasto mosis is near the level of the left mid kidney and demonstrates no acute finding. There is some type of a metallic structure in the transverse colon. Bowel is distended but no transition point is identi fied to suggest obstruction. Bowel is significantly less distended than present on the prior examinat ion. No free air is identified. No free fluid is seen. ABDOMINAL WALL: Within normal limits. RETROPERITONEUM: There is no lymphadenopathy. BLADDER: No wall thickening or mass. REPRODUCTIVE: Within normal limits. Tubal ligation clips are present. INGUINAL: There is no lymphadenopathy or hernia. MUSCULOSKELETAL: There is anterior wedge compression deformity of the L1 vertebral body that is of uncertain chronicit y. However, it was present on the prior CT examinations. No acute osseous abnormality is visualized. CONCLUSION: 1. 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 No findings are present to indicate acute hemorrhage. 2. Nonacute findings include small hiatal hernia and mild atherosclerotic disease. There are postsurg ical findings indicative of prior [place]-en-Y gastric bypass surgery. 3. L1 compression fracture of uncertain chronicity. Terry Larry MD on March 13, 2017 at 11:53 Board Certified Radiologist. This report was verified electronically.
--- NOTE | 2017-03-13 14:25 | MB ---
cc: FRANTZ WARREN DO DATE OF CONSULTATION: 03/13/2017 REASON FOR CONSULTATION Hypotension. HISTORY OF PRESENT ILLNESS Dea Baugh is a pleasant 46-year-old female who originally presented February 28, 2017 to the [facility] Emergency Room feeling dizzy and lightheaded with generalized weakness. At that time she was complaining of abdominal pain. She was found to be anemic and upper endoscopy revealed evidence of a gastrojejunal ulcer which was not actively bleeding at the time. She received multiple transfusions and her hemoglobin stabilized. After that she was transferred from the ICU to the general medical floor. On March 05, 2017 she had a hypotensive episode and an active GI bleed and was transferred back to the ICU. Interventional radiology was consulted due to a life-threatening bleed and the patient underwent embolization of her splenic artery. At that time she ended up getting intubated and was then successfully extubated on the March 07. The patient has since been on Zosyn and started noticing fevers starting on March 11, 2017 as high as 103.3. During these episodes she was noted to have increasing heart rate into the 130s to 140s. As well with these episodes she appears to have mild hypotension with blood pressure systolic in the 90s and diastolic in the upper 50s. In speaking to her she is currently having some abdominal pain but denies chest pain, shortness of breath, lightheadedness or dizziness. PAST MEDICAL HISTORY 1. Schizophrenia. 2. Bipolar disorder. 3. Anxiety/depression. 4. Anemia. 5. Bronchial asthma. 6. History of morbid obesity (Previously weighed 200 pounds, had gastric bypass surgery and now weighs 80 pounds). PAST SURGICAL HISTORY 1. Gastric bypass surgery (2012). 2. Exploratory laparoscopy for intussusception. ALLERGIES SULFA. MEDICATIONS 1. Klonopin 2 mg t.i.d. 2. Albuterol, one puff every 4 hours as needed. 3. Symbicort, one puff every 12 hours. 4. Percocet 10/325 mg every 4 hours as needed for pain. FAMILY HISTORY Denies premature coronary artery disease or sudden cardiac within the family. SOCIAL HISTORY The patient denies alcohol or illicit drug abuse. The patient does have a history of smoking and is an active smoker but quit supposedly two days before arriving to the emergency room. REVIEW OF SYSTEMS 14 systems were reviewed including osteopathic. Pertinent positives and negatives as above, otherwise negative. PHYSICAL EXAMINATION VITAL SIGNS: Temperature 100.7, heart rate 106, blood pressure 137/78, respirations 30. Pulse ox 97% on room air. GENERAL: The patient appears overall thin and cachectic, alert awake and oriented x3, in no acute distress. HEENT: Extraocular muscles intact. Mucous membranes moist. NECK: Supple. No JVD at 45 degrees. No carotid bruits heard bilaterally. Carotid upstroke is brisk in nature. HEART: Tachycardic but regular. Positive first and second heart sounds without murmurs, gallops or rubs. LUNGS: Clear to auscultation bilaterally. No wheezes, rales or rhonchi. ABDOMEN: Soft. Mildly tender in the left upper quadrant but no guarding is noted or rebound tenderness. EXTREMITIES: No clubbing, cyanosis or edema. Femoral and distal pulses are intact bilaterally. NEUROLOGIC: No focal deficits. SKIN: Warm, dry and intact. MUSCULOSKELETAL: Osteopathically no kyphoscoliosis, lordosis or paraspinal tender points. LABORATORY DATA Hemoglobin 10.1, hematocrit 30.1, platelets 198. Potassium 3.5, BUN 6, creatinine 0.30. IMPRESSION 1. New-onset fevers. 2. Mildly hypotensive episodes which seemed to correlate with timing of elevated temperature and heart rate, most likely due to sepsis/SIRS. 3. Previous massive upper GI bleed leading to hemorrhagic shock, status post splenic artery embolization. 4. History of bipolar disorder 5. History of schizophrenia. 6. History of depression/anxiety. 7. History of morbid obesity status post gastric bypass surgery (2012) with a 120 pound loss. 8. Previous vent dependent respiratory failure. 9. Tobacco abuse. RECOMMENDATIONS 1. Ms. Baugh's episodes of hypotension do seem to correlate when she is having fevers and elevation of her heart rate. I will defer to Infectious Disease and the primary care team for further work-up into sepsis/SIRS. 2. Will check a 2-D echo to look at her overall left ventricular function, cardiac structure and possible valvulopathies. 3. As far as her episodes of tachycardia these appear to be sinus tachycardia and correlate with her fevers. The goal would be for treatment of the underlying for her sinus tachycardia. 4. Continue with fluid resuscitation for her hypotension and if further episodes she may need further vasopressor support which I will defer to the primary team. Thank you for allowing me to see Dea Baugh. If there are any questions, please do not hesitate to call. Frantz Warren DO VGP/BT /12:59 PM /2:05 PM
[2017-03-13] MEDS ORDERED: POTASSIUM CHLORIDE 20 MEQ CONTROLLED RELEASE TAB PO ONE (14:30)
[2017-03-13] MEDS: MAGNESIUM SULFATE 1 GM PREMIX 100 ML IV SCH ×2 (14:49→16:12)
[2017-03-13] MEDS: FLUCONAZOLE 400 MG PREMIX BAG 200 ML IV SCH (16:12)
[2017-03-13] MEDS: CLINIMIX E 4.25/25 2000 mL- >42 mls/hr IV-CENTRAL SCH ×3 (19:59)
[2017-03-13] MEDS: DOXEPIN HCL 50 MG CAP PO SCH (20:02)
[2017-03-13] MEDS: ALPRAZolam 1 MG TAB PO PRN (20:02)
[2017-03-13] MEDS: FAT EMULSION 20% INJ 250 ML (Daily over 8 hours) IV-CENTRAL SCH (20:04)
[2017-03-14] VITALS (12 sets, daily range): BP systolic 97–124; BP diastolic 59–78; PULSE 89–111; RESP 11–33; TEMP 97.7–98.8; O2SAT 97–100
[2017-03-14] MEDS: ALBUTEROL SULFATE 90 MCG/ACT HFA 18 GM INHALER INH SCH ×4 (00:36→18:24)
[2017-03-14] MEDS: oxyCODONE/ACETAMINOPHEN 10 MG/325 MG TAB PO PRN ×5 (00:36→19:48)
[2017-03-14] MEDS: metroNIDAZOLE 500 MG TAB PO SCH ×2 (00:36→08:07)
[2017-03-14] MEDS ORDERED: PHARMACY ORDERED LAB ONE (02:45)
[2017-03-14] MEDS: SUCRALFATE 1 GM/10 ML CUP PO SCH ×4 (03:55→21:40)
[2017-03-14] MEDS: HYDROmorphone HCL PF 1 MG/ML VIAL IV PUSH PRN ×4 (03:55→17:35)
[2017-03-14] MEDS: CEFEPIME INJ 2,000 MG in SODIUM CHLORIDE 0.9% INJ 100 ML IV SCH (03:55)
[2017-03-14] MEDS: VANCOMYCIN INJ 750 MG in SODIUM CHLOR 0.9% 250 ML INJ 250 ML IV SCH (03:55)
[2017-03-14] MEDS: CHLORHEXIDINE GLUCONATE 2 % 1 PACK (2 CLOTHS) TOP SCH (03:56)
[2017-03-14] MEDS: INSULIN NovoLIN REGULAR SUPPLEMENTAL SCALE SQ SCH ×4 (04:15→21:50)
[2017-03-14] MEDS: clonazePAM 1 MG TAB PO SCH ×3 (05:04→21:40)
[2017-03-14] MEDS: RESP: ALBUTEROL 2.5 MG/IPRATROPIUM 0.5 MG NEB (PRN) INH ×2 (08:02→21:00)
[2017-03-14] MEDS: OLANZapine 2.5 MG TAB PO SCH ×2 (08:07→19:48)
[2017-03-14] MEDS: TIOTROPIUM BROMIDE 18 MCG INH INH SCH (08:08)
[2017-03-14] MEDS: BUDESONIDE-FORMOTEROL 80/4.5 MCG INHALER INH SCH ×2 (08:08→21:39)
[2017-03-14] MEDS: PANTOPRAZOLE 80 MG/100 ML NS IV SCH ×4 (10:09→19:50)
--- NOTE | 2017-03-14 10:15 | HHI.PR ---
Subjective Remarks integration specialist Notes: Patient is a 46 year-old female with a past medical history of bronchial asthma , bipolar disorder, schizophrenia, anxiety/depression, and anemia. She presented to [facility] Emergency Department with complaints of feeling dizziness, light headedness, generalized weakness, multiple falls and inability to ambulate. On further history she has a history of gastric bypass four years ago in [place] and another abdominal surgery about one to two years ago for Intussusception in [place] as well. She states that she weighed 200 lbs when she had the gastric bypass surgery preformed, now she weighs 80 pounds, she reports chronic abdominal pain associated with intractable nausea and vomiting for several months. In addition to decreased p.o. intake. Her abdominal pain progressively worsened and mainly in the right upper quadrant and left lower quadrat. She denies any chest pain, shortness of breath, cough or any constitutional symptoms. On arrival to the emergency room she was hypotensive with systolic blood pressure in the 80's, tachycardic with heart rate in the 120's and her laboratory data showed hemoglobin of 7.2, lactic acid level of 2.9. Her liver enzymes are within normal limits with a total bilirubin of 0.2. Aspartate aminotransferase 21, alt 12, alkaline phosphatase 138. In the ER she received one out of two units of packed red blood cells and approximately 1.5 liters of normal saline. She responded to volume resuscitation and current blood pressure is 108/71 with a pulse of 112. Her o2 saturation is 97% on room air. Due to her abdominal pain, CT abdomen and pelvis were preformed which showed gallbladder wall thickening, mild hepatosplenomegaly and chronic mild compression deformity is noted involving L1. Chest x-ray in the emergency department showed right fifth rib fractures which appear old, otherwise no evidence of acute cardiopulmonary disease. Right IJ central line was placed by emergency department physician. She also has a ultrasound of the abdomen which is pending during the time of this dictation. The patient received Protonix, Unasyn and dilated in the emergency room. 03/01 Patient is lying in bed in NAD. s/p transfusion 2units PRBC this morning for Hgb 6.9. s/p EGD showed G-J ulcer, adherent clot with no evidence of bleeding. 03/02: Requesting Klonopin today. Hemoglobin stable for the past 12 hours. Very anxious and verbose. Complaining of pain epigastric/right upper quadrant region. 02/22/16: Currently afebrile. Requesting doxepin along with increasing pain medications. Days of pain in epigastric/right upper quadrant region. Hemoglobin stable. [facility] reconsulted on 03/05/17 -around 6 PM a rapid response was activated due to low blood pressure and hematemesis. She was transferred to ICU. The fluid resuscitation was started however patient continued vomiting blood and required intubation for an airway protection. Shortly after intubation she dropped her blood pressure again without palpable pulses in the CPR was initiated. There was a run of 2 cycles of CPR with return of spontaneous circulation. The Cordis introducer was inserted to left femoral vein and the rapid infuser was used to transfuse 4 units of PRBCs and FFP since cryoprecipitate. Dr. Beverly emergently performed upper EGD. Without successful finding off source of bleeding. This was discussed with interventional radiologist Dr. Pascual and the patient is going to be taken to IR for possible embolization emergently due to life-threatening condition uncontrolled GI bleed. 03/06: Remains intubated sedated. 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 Pascual. Episode of hypotension today, started on Levophed, 2U PRBC stat ordered, and 2L NS bolus. with improvement in BP. No evident GIB. Remains on Protonix and octreotide gtt. Hb 8.9 on Stat re check 03/07: Remains intubated, now off Levophed. Hb remains stable. No GIB reported. Will attempt SBT today for possible extubation. Discuss with Dr. Jerome Beverly. No plan for any surgical procedures at this time. DC octreotide in 24 hours. Continue Protonix infusion and Carafate per Dr. beverly 03/08: Extubated yesterday without complication. Hemoglobin this a.m. pending. No additional GI bleeding. Still complaining of abdominal pain. Requesting pain medication at the present time. 03/09: Complaining of abdominal pain 8 out of 10. Hemoglobin remained stable. Positive BM. Tolerating clear liquid diet. 03/10: Complaining of right lower quadrant pain 8 out of 10. On liquid Bryan 7.5/325 added by general surgery today. On full liquid diet. Continues to have heme + smelling stools. Hospitalist Notes: 03/11: Seen in her bedroom, discussed with nurse Miss Ortega, no nausea, vomit or diarrhea, no signs of infection, has fever 103F, she is been on Empiric management with Zosyn by certified executive chef, asked for CXR, UA, blood cultures, Vancomycin started and asked for ID specialist. 03/12: Stable in her bedroom seen in the presence of nurse Miss Ortega, no nausea , vomit or diarrhea continue with Fever, blood cultures taken yesterday Yeast growing, is on Diflucan, given one dose of Micafungin by ID specialist, removed IJ catheter and changed from the Right side to the left neck side. recommended to continue Cefepime and Flagyl, Diflucan, Sent IJ tip for culture. No nausea, vomit or diarrhea. 03/13: Patient complaint of dizziness on Orthostatic position, also is been Hypotensive since admission, receiving large amounts of fluids, asked for Echocardiogram, Orthostatic vital sings, farm specialist consult, she continue Tachycardic. continue management as per ID specialist with antibiotics by now for sepsis. 03/14: Seen in her bedroom, no nausea,vomit or diarrhea, Discussed with farm specialist Doctor Ray and he does not see any Cardiac issue at this time Will follow Echocardiogram, maintenance parts technician at this time to make the Echocardiogram, as per ID specialist Sepsis probable line related, improving temperature, has yeast in BC, Юлия glabrata sepsis, recommended to Stop Cefepime , Flagyl and Vancomycin and Diflucan and continue Micafungin. follow culture sensitivity. Objective Vital Signs Date Time Temp Pulse Resp B/P Pulse Ox O2 Delivery O2 Flow Rate FiO2 03/14/17 10:00 98 03/14/17 08:56 18 03/14/17 08:02 99 21 03/14/17 08:00 96 03/14/17 08:00 97.7 96 33 97/59 99 03/14/17 07:00 98 Room Air 03/14/17 06:00 92 03/14/17 04:00 111 03/14/17 04:00 98.3 111 18 112/73 100 03/14/17 02:00 91 03/14/17 00:00 97.7 89 11 112/78 99 03/14/17 00:00 89 03/13/17 22:00 99 03/13/17 20:00 113 03/13/17 20:00 98.3 113 26 106/68 95 03/13/17 19:00 100 Room Air 03/13/17 18:00 126 03/13/17 16:00 87 14 87/50 97 03/13/17 16:00 87 03/13/17 14:00 118 03/13/17 12:00 122 03/13/17 12:00 122 21 96/67 97 I/O 03/13/17 03/13/17 03/13/17 03/14/17 03/14/17 03/14/17 07:00 15:00 23:00 07:00 15:00 23:00 Intake Total 1540 ml 1238 ml 3337 ml 1970 ml Output Total 1000 ml 3100 ml 800 ml 1475 ml Balance 540 ml -1862 ml 2537 ml 495 ml Intake Oral 250 ml 200 ml 1200 ml 900 ml IV Total 605 ml 623 ml 1184 ml 380 ml TPN/PPN 475 ml 415 ml 901 ml 495 ml Lipid 210 ml 52 ml 195 ml Output Urine Total 1000 ml 3100 ml 800 ml 1475 ml # Bowel Movements 0 0 0 Result Diagram: 03/13/17 0925 03/13/1725 Imaging Last Impressions Abdomen/Pelvis CT 03/13/17 0000 Signed Impressions: Service Date/Time: Monday, March 13, 2017 11:03 - CONCLUSION: 1. 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 No findings are present to indicate acute hemorrhage. 2. Nonacute findings include small hiatal hernia and mild atherosclerotic disease. There are postsurgical findings indicative of prior [place] gastric bypass surgery. 3. L1 compression fracture of uncertain chronicity. Terry Larry MD Lower Extremity Ultrasound 03/12/17 0000 Signed Impressions: Service Date/Time: Sunday, March 12, 2017 14:01 - CONCLUSION: No DVT. Terry Poon MD Chest X-Ray 03/12/17 0000 Signed Impressions: Service Date/Time: Sunday, March 12, 2017 10:04 - CONCLUSION: 1. Left central line in good position. No pneumothorax. 2. No acute pulmonary infiltrates. Edwin Martin MD Splenic Arteriogram 03/06/17 0000 Signed Impressions: Service Date/Time: Sunday, March 05, 2017 23:50 - CONCLUSION: 1. 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 The proximal splenic artery was embolized to occlusion. The patient will likely need splenectomy to prevent back bleeding into the anastomosis. There is also high probability of complete infarct of the spleen as well. Darren Pascual MD Upper GI Series 02/28/17 0000 Signed Impressions: Service Date/Time: Tuesday, February 28, 2017 17:21 - CONCLUSION: 1. No evidence of extravasation to suggest perforation. 2. Focal collection of contrast within the gastric remnant raising the possibility of focal ulceration. Upper endoscopy would be helpful for further evaluation of this finding if there is strong clinical concern for ulceration within the gastric remnant. Maycol Castro MD Gall Bladder Ultrasound 02/28/17 0000 Signed Impressions: Service Date/Time: Tuesday, February 28, 2017 14:50 - CONCLUSION: 1. Single mobile stone in the gallbladder. 2. Extrarenal pelvis on the right. Darren Pascual MD Procedures Line: Central Venous Catheter Side: Right Location: Internal, Jugular Endotracheal Intubation Pressors use. Other Results Laboratory Tests Test 03/08/17 03/11/17 03/12/17 03/13/17 09:50 14:10 11:44 09:25 Blood Type O POSITIVE Antibody Screen NEGATIVE Crossmatch Leukocyte-Reduced Red Blood Cells Blood Bank Comment Urine Color LIGHT-YELLOW Urine Turbidity CLEAR Urine pH 7.5 Urine Specific [place] 1.005 Urine Protein NEG mg/dL Urine Glucose (UA) NEG mg/dL Urine Ketones NEG mg/dL Urine Occult Blood NEG Urine Nitrite NEG Urine Bilirubin NEG Urine Urobilinogen LESS THAN 2.0 MG/DL Urine Leukocyte Esterase NEG Urine RBC 1 /hpf Urine Mucus FEW /lpf Microscopic Urinalysis Comment CATH-CULT NOT IND Vitamin B12 Level 618 PG/ML White Blood Count 4.7 TH/MM3 Red Blood Count 3.61 MIL/MM3 Hemoglobin 10.1 GM/DL Hematocrit 30.1 % Mean Corpuscular Volume 83.5 FL Mean Corpuscular Hemoglobin 27.9 PG Mean Corpuscular Hemoglobin 33.5 % Concent Red Cell Distribution Width 16.8 % Platelet Count 198 TH/MM3 Mean Platelet Volume 10.6 FL Neutrophils (%) (Auto) 77.6 % Lymphocytes (%) (Auto) 13.8 % Monocytes (%) (Auto) 5.3 % Eosinophils (%) (Auto) 2.1 % Basophils (%) (Auto) 1.2 % Neutrophils # (Auto) 3.6 TH/MM3 Lymphocytes # (Auto) 0.6 TH/MM3 Monocytes # (Auto) 0.2 TH/MM3 Eosinophils # (Auto) 0.1 TH/MM3 Basophils # (Auto) 0.1 TH/MM3 CBC Comment DIFF FINAL Differential Comment Sodium Level 138 MEQ/L Potassium Level 3.5 MEQ/L Chloride Level 103 MEQ/L Carbon Dioxide Level 28.6 MEQ/L Anion Gap 6 MEQ/L Blood Urea Nitrogen 6 MG/DL Creatinine 0.30 MG/DL Estimat Glomerular Filtration 238 ML/MIN Rate Random Glucose 130 MG/DL Calcium Level 8.0 MG/DL Phosphorus Level 1.9 MG/DL Magnesium Level 1.7 MG/DL Total Bilirubin 0.4 MG/DL Aspartate Amino Transf 108 U/L (AST/SGOT) Alanine Aminotransferase 60 U/L (ALT/SGPT) Alkaline Phosphatase 160 U/L Total Protein 6.0 GM/DL Albumin 1.9 GM/DL Test 03/14/17 02:37 Vancomycin Level Trough 6.0 MCG/ML Objective Remarks GENERAL: No acute distress SKIN: Warm and dry. No rash HEAD: Normocephalic. EYES: No scleral icterus. No injection or drainage. PERRL. 3 mm bilaterally and reactive. NECK: Supple, trachea midline. No JVD or lymphadenopathy. Right IJ clean dry and intact CARDIOVASCULAR: RRR. S1, S2. No S4. Without murmur, clicks, Gallops or rubs, Tachycardia. RESPIRATORY: Breath sounds clear to auscultation and equal bilaterally. Symmetrical excursion. No accessory muscle use. GASTROINTESTINAL: Abdomen soft, tender to palpation epigastric/right lower quadrant with voluntary rebound and no rigidity. Hypoactive bowel sounds MUSCULOSKELETAL: No edema. L groin Cordis removed yesterday that hematoma, R groin art line removed yesterday without hematoma Neuro: Cranial nerves II through XII grossly intact. Strength is equal symmetric. Normal sensation. Medications and IVs Current Medications Medications (Trade) Dose Ordered Sig/Kaleb Route Start Time Stop Time Status Last Admin (NS Flush) 2 ml UNSCH PRN IVF 02/28/17 09:45 03/09/17 17:18 Miscellaneous Information 1 Q361D XX 02/28/17 16:00 (Chlorhexidine 2% Cloth) Taper DAILY@04 TOP 03/01/17 04:00 02/25/18 03:59 03/13/17 03:08 (Chlorhexidine 2% Cloth) 3 pack UNSCH PRN TOP 02/28/17 16:00 (D50w (Vial) Inj) 50 ml UNSCH PRN IV 02/28/17 16:15 (Glucagon Inj) 1 mg UNSCH PRN OTHER 02/28/17 16:15 (NovoLIN R SUPPLEMENTAL SCALE) 1 Q6H SQ 02/28/17 16:15 03/12/17 16:47 Sucralfate 1 gm 1 gm Q6H PO 03/01/17 10:00 03/14/17 08:07 Potassium Chloride 100 ml @ 50 mls/hr Q2H PRN IV 03/01/17 10:00 03/02/17 08:41 (KCl 20 Meq Premix Inj) 100 ml @ 50 mls/hr Q2H PRN IV 03/01/17 10:00 Potassium Bicarb/ Potassium Chloride 50 meq 50 meq UNSCH PRN PO 03/01/17 10:00 Potassium Chloride 100 ml @ 25 mls/hr UNSCH PRN IV 03/01/17 10:00 Potassium Chloride 100 ml @ 50 mls/hr Q2H PRN IV 03/01/17 10:00 (Magnesium Sulfate Inj/NS Inj) 100 ml @ 50 mls/hr UNSCH PRN IV 03/01/17 10:00 Magnesium Oxide 800 mg 800 mg UNSCH PRN PO 03/01/17 10:00 (Magnesium Sulfate Inj/NS Inj) 100 ml @ 50 mls/hr UNSCH PRN IV 03/01/17 10:00 Potassium Phosphate 2000 mg 2,000 mg Q4H PRN PO 03/01/17 10:00 (Sodium Phosphate Inj/NS 250 ml Inj) 250 ml @ 42 mls/hr UNSCH PRN IV 03/01/17 10:00 Potassium Phosphate 2000 mg 2,000 mg UNSCH PRN PO/TUBE 03/01/17 10:00 Potassium Phosphate 30 mmol/ Sodium Chloride 260 ml @ 42 mls/hr UNSCH PRN IV 03/01/17 10:00 Multivitamins 10 ml/Folic Acid 1 mg/Amino Acids/ Electrolytes/ Dextrose 2,010.2 ml @ 60 mls/hr Q24H IV-CENTRAL 03/01/17 20:00 03/13/17 19:59 (Liposyn Iii 20% Inj) 250 ml @ 31.25 mls/ hr Q24H IV-CENTRAL 03/01/17 20:00 03/13/17 20:04 (ZyPREXA) 2.5 mg Q12HR PO 03/01/17 21:00 03/14/17 08:07 (KlonoPIN) 1 mg Q8HR PO 03/02/17 14:00 03/14/17 05:04 (Zofran Inj) 4 mg Q6H PRN IV PUSH 03/02/17 16:00 03/10/17 11:38 (Compazine Inj) 5 mg Q6H PRN IV PUSH 03/02/17 16:00 (Xanax) 1 mg Q8H PRN PO 03/02/17 22:00 03/13/17 20:02 (Ventolin Hfa Inh) 2 puff Q6HR INH 03/03/17 12:00 03/14/17 05:04 (Spiriva Inh) 18 mcg DAILY INH 03/03/17 09:00 03/14/17 08:08 (SINEquan) 200 mg HS PO 03/03/17 21:00 03/13/17 20:02 (Symbicort 80-4.5 Mcg Inh) 2 puff Q12HR INH 03/03/17 21:00 03/14/17 08:08 Clonidine 0.1 mg 0.1 mg Q6H PRN PO 03/04/17 16:30 Pantoprazole Sodium 80 mg/ Sodium Chloride 100 ml @ 10 mls/hr Q10H IV 03/06/17 01:35 03/14/17 10:09 Pharmacy Profile Note 0 ml @ 0 mls/hr UNSCH OTHER 03/11/17 14:15 (Maxipime Inj/NS Inj) 100 ml @ 200 mls/hr Q12H IV 03/11/17 16:00 03/14/17 03:55 Metronidazole 500 mg 500 mg Q8H PO 03/11/17 16:00 03/14/17 08:07 (Diflucan 400 Mg Premix Bag) 200 ml @ 100 mls/hr Q24H IV 03/11/17 17:00 03/13/17 16:12 (Tylenol) 500 mg Q4H PRN PO 03/11/17 19:30 03/13/17 05:55 (Percocet 10-325 Mg) 1 tab Q4H PRN PO 03/11/17 19:30 03/13/17 09:32 Hydromorphone HCl 1 mg 1 mg Q4H PRN IV PUSH 03/13/17 12:00 03/14/17 08:07 (Mycamine Inj/NS Inj) 100 ml @ 100 mls/hr Q24H IV 03/13/17 11:00 03/13/17 10:33 Oxycodone/ Acetaminophen 2 tab 2 tab Q4H PRN PO 03/13/17 14:30 03/14/17 04:52 (Vancomycin Inj/ NS 250 ml Inj) 257.5 ml @ 250 mls/hr Q8H IV 03/14/17 12:00 Miscellaneous Information SPECIFIC LAB TO BE DRAWN:VANCOMYCIN TROUGH DATE TO... ONCE ONCE .XX 03/15/17 11:45 03/15/17 11:46 A/P Assessment and Plan 1. Bipolar Disorder/Schizophrenia/Depression and Anxiety Continue Klonopin, Zyprexa, Doxepin,Xanax PRN for Anxiety, Pain medicines Hydrocodone, decrease Hydromorphone dosages. 2. VDRF Improved. status post Endotracheal Intubation Tobacco dependence Follow Oxygen saturation, continue Bronchodilator, Mucolytic, Incentive spirometry 3. Hemorrhagic Shock resolved, received fluid resuscitation, Blood transfusion and Vasopressors 4. Electrolyte derangement replaced. 5. 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 Pascual. Status post emergent EGD on 03/[address] Beverly, no further surgical interventions planned at this time EGD 03/01 revealed a large ulcer with adjacent clot. Protonix drip continued at 8 mg an hour discontinue octreotide drip at 03/09 Continue Carafate 1 g po q6hr 6. New Fevers in a patient treated with Empiric Zosyn since admission developed fever 103F recommended Vancomycin, taken blood cultures now growing Юлия Glabrata, Lion cath removed, removed central line sent tip for culture, As per ID specialist Sepsis probable line related , improving temperature, has yeast in BC, Юлия glabrata sepsis, recommended to Stop Cefepime, Flagyl and Vancomycin and Diflucan and continue Micafungin. follow culture and sensitivity. 7. Acute blood loss post hemorrhagic anemia, Thrombocytopenia s/p transfusion 2units PRBC 02/28 and 2units PRBC 03/01 for Hgb 6.9/4 units of FFP's/1 unit of cryoprecipitate Additional 2 U PRBC 03/06 8. Hypotension and dizziness, asked for Orthostatic vital signs, will follow Echocardiogram, as per farm specialist Doctor Ray recommended to continue management for Sepsis he did not found pathology continue IV fluids and if necessary start Pressors. GI prophylaxis with Protonix gtt DVT prophylaxis with SCD. No pharmacological prophylaxis with bleeding Lines: Right IJ CVP placed 02/28, new IJ on Left Neck area 03/12/17. Femoral cordis placed 03/05-DC 03/07 Seen in the room in the presence of nurse Miss Deleon, all questions answered to the best of my abilities. Discharge Planning Once cleared by Specialists. Anoop Stern MD Mar 14, 2017 10:15
[2017-03-14] MEDS: MICAFUNGIN INJ 100 MG in SODIUM CHLORIDE 0.9% INJ 100 ML IV SCH (11:03)
[2017-03-14] MEDS ORDERED: VANCOMYCIN INJ 750 MG in SODIUM CHLOR 0.9% 250 ML INJ 250 ML IV SCH (12:00)
[2017-03-14] MEDS: ALPRAZolam 1 MG TAB PO PRN ×2 (12:04→20:25)
--- NOTE | 2017-03-14 12:50 | HHI.IDPN ---
Subjective Subjective Remarks Patient is a 46-year-old female, admitted to the hospital February 28 with complaints of generalized weakness, lightheadedness and dizziness. She also was complaining of abdominal pain. She gave a history that she had bypass surgery about 4 years ago. When she presented she had a significant low hemoglobin and upper endoscopy revealed evidence of a gastrojejunal ulcer which was not actively bleeding at the time of the procedure. She received multiple transfusions, and her hemoglobin stabilized. She was initially in the ICU, and was transferred out to the floor. On March 05 she had development of hypotension and active GI bleed, and was transferred back to the ICU. IR was consult to due to the life-threatening bleed, and the patient underwent embolization of her splenic artery. She ended up getting intubated, on the , and was successfully extubated on the . Patient has been on Zosyn since admission. She had some cultures done on admission and they were all negative. Patient has been stabilizing, and today she started having fevers up to 103. She denies any respiratory complaint. She has a Lion catheter in place. She has a central line in the right IJ. She is complaining of abdominal pain, and points more to the right than on the left. Notes reviewed D/W RN Temps better BP borderline Heart rate better I and O reviewed - she is still about 1.5L on negative side C/O epigastric pain Still with dizziness but better Walking with PT No new (+) BC BC from with C glabrata Line tip C/S negative CT A/P - no abscess, has multiple splenic infarcts On TPN Antibiotics Diflucan Vanco Cefepime Flagyl Micafungin Lines new line - LSC Past Medical History Schizophrenia. Bipolar disorder. Anxiety, depression. Anemia. Bronchial asthma. Past Surgical History Gastric bypass surgery four years ago. Previous abdominal surgery about one to two years ago for Allergies: Coded Allergies: Sulfa (Verified Allergy, Severe, Anaphylaxis, 02/28/17) Objective . Vital Signs Date Time Temp Pulse Resp B/P Pulse Ox O2 Delivery O2 Flow Rate FiO2 03/14/17 12:04 9 03/14/17 10:00 98 03/14/17 08:56 18 03/14/17 08:02 99 21 03/14/17 08:00 96 03/14/17 08:00 97.7 96 33 97/59 99 03/14/17 07:00 98 Room Air 03/14/17 06:00 92 03/14/17 04:00 111 03/14/17 04:00 98.3 111 18 112/73 100 03/14/17 02:00 91 03/14/17 00:00 97.7 89 11 112/78 99 03/14/17 00:00 89 03/13/17 22:00 99 03/13/17 20:00 113 03/13/17 20:00 98.3 113 26 106/68 95 03/13/17 19:00 100 Room Air 03/13/17 18:00 126 03/13/17 16:00 87 14 87/50 97 03/13/17 16:00 87 03/13/17 14:00 118 03/13/17 03/13/17 03/14/17 15:00 23:00 07:00 Intake Total 1238 ml 3337 ml 1970 ml Output Total 3100 ml 800 ml 1475 ml Balance -1862 ml 2537 ml 495 ml Intake Oral 200 ml 1200 ml 900 ml IV Total 623 ml 1184 ml 380 ml TPN/PPN 415 ml 901 ml 495 ml Lipid 52 ml 195 ml Output Urine Total 3100 ml 800 ml 1475 ml # Bowel Movements 0 0 0 . Laboratory Tests Test 03/13/17 09:25 White Blood Count 4.7 TH/MM3 Red Blood Count 3.61 MIL/MM3 Hemoglobin 10.1 GM/DL Hematocrit 30.1 % Mean Corpuscular Volume 83.5 FL Mean Corpuscular Hemoglobin 27.9 PG Mean Corpuscular Hemoglobin 33.5 % Concent Red Cell Distribution Width 16.8 % Platelet Count 198 TH/MM3 Mean Platelet Volume 10.6 FL Neutrophils (%) (Auto) 77.6 % Lymphocytes (%) (Auto) 13.8 % Monocytes (%) (Auto) 5.3 % Eosinophils (%) (Auto) 2.1 % Basophils (%) (Auto) 1.2 % Neutrophils # (Auto) 3.6 TH/MM3 Lymphocytes # (Auto) 0.6 TH/MM3 Monocytes # (Auto) 0.2 TH/MM3 Eosinophils # (Auto) 0.1 TH/MM3 Basophils # (Auto) 0.1 TH/MM3 CBC Comment DIFF FINAL Differential Comment Laboratory Tests Test 03/13/17 03/13/17 05:45 09:25 Creatinine 0.29 MG/DL 0.30 MG/DL Estimat Glomerular Filtration 248 ML/MIN 238 ML/MIN Rate Sodium Level 138 MEQ/L Potassium Level 3.5 MEQ/L Chloride Level 103 MEQ/L Carbon Dioxide Level 28.6 MEQ/L Anion Gap 6 MEQ/L Blood Urea Nitrogen 6 MG/DL Random Glucose 130 MG/DL Calcium Level 8.0 MG/DL Phosphorus Level 1.9 MG/DL Magnesium Level 1.7 MG/DL Total Bilirubin 0.4 MG/DL Aspartate Amino Transf 108 U/L (AST/SGOT) Alanine Aminotransferase 60 U/L (ALT/SGPT) Alkaline Phosphatase 160 U/L Total Protein 6.0 GM/DL Albumin 1.9 GM/DL Microbiology Date/Time Procedure Status Source Growth 03/11/17 15:12 Aerobic Blood Culture - Final Complete Blood Peripheral Юлия Glabrata 03/11/17 15:12 Anaerobic Blood Culture - Final Complete Юлия Glabrata 03/11/17 15:16 Aerobic Blood Culture - Final Complete Blood Peripheral Юлия Glabrata 03/11/17 15:16 Anaerobic Blood Culture - Final Complete Юлия Glabrata 03/12/17 12:55 Aerobic Blood Culture - Preliminary Resulted Blood Line NO GROWTH IN 2 DAYS 03/12/17 12:55 Anaerobic Blood Culture - Preliminary Resulted Blood Line NO GROWTH IN 2 DAYS 03/12/17 12:55 Wound Culture - Final Complete Catheter Tip Central Venous Line NO GROWTH IN 48 HOURS. 03/13/17 17:00 Aerobic Blood Culture - Preliminary Resulted Blood Peripheral NO GROWTH IN 1 DAY 03/13/17 17:00 Anaerobic Blood Culture - Preliminary Resulted Blood Peripheral NO GROWTH IN 1 DAY Imaging Last Impressions Chest X-Ray 03/12/17 0000 Signed Impressions: Service Date/Time: Sunday, March 12, 2017 10:04 - CONCLUSION: 1. Left central line in good position. No pneumothorax. 2. No acute pulmonary infiltrates. Edwin Martin MD Splenic Arteriogram 03/06/17 0000 Signed Impressions: Service Date/Time: Sunday, March 05, 2017 23:50 - CONCLUSION: 1. 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 The proximal splenic artery was embolized to occlusion. The patient will likely need splenectomy to prevent back bleeding into the anastomosis. There is also high probability of complete infarct of the spleen as well. Darren Pascual MD Abdomen/Pelvis CT 03/05/17 0000 Signed Impressions: Service Date/Time: Monday, March 06, 2017 01:51 - CONCLUSION: 1. Apparent early or partial small bowel obstruction, appears to be occurring at the level of the mid to distal ileum and is probably in the low abdomen. 2. Heterogeneous attenuation of the spleen and of concern for incomplete infarction. Patient has been administered intravenous contrast recently but not for this study. 3. Mild ascites. Anasarca and small bilateral pleural effusions are also noted. 4. Previous gastric bypass, with distention of the stomach and gastrojejunal anastomosis noted. The nasogastric tube tip is above the diaphragm within a moderate hiatal hernia. 5. There is a right femoral vein catheter with tip in main common iliac vein. A left femoral vein sheath is present with tip in main external iliac vein. Terry Hurtado MD Upper GI Series 02/28/17 0000 Signed Impressions: Service Date/Time: Tuesday, February 28, 2017 17:21 - CONCLUSION: 1. No evidence of extravasation to suggest perforation. 2. Focal collection of contrast within the gastric remnant raising the possibility of focal ulceration. Upper endoscopy would be helpful for further evaluation of this finding if there is strong clinical concern for ulceration within the gastric remnant. Maycol Castro MD Gall Bladder Ultrasound 02/28/17 0000 Signed Impressions: Service Date/Time: Tuesday, February 28, 2017 14:50 - CONCLUSION: 1. Single mobile stone in the gallbladder. 2. Extrarenal pelvis on the right. Darren Pascual MD Physical Exam GENERAL: awake and alert, not in respiratory distress. SKIN: Warm and dry. No generalized rash, no ecchymoses and no evidence of embolic lesions. Decreased turgor HEAD: Atraumatic. Normocephalic. No temporal wasting, or tenderness. EYES: [place] conjunctiva. No petechia or hemorrhage. Pupils equal, round and reactive to light. No scleral icterus. No injection or drainage. EARS, NOSE AND THROAT: Nose without bleeding or purulent nasal discharge. No sinus tenderness. Mucous membranes pink and moist. Poor dentition. No oral lesions noted. No exudate. No oral thrush. NECK: Trachea midline. Supple and not tender, no meningeal signs CARDIOVASCULAR: Regular rate and rhythm. Tachycardic. No murmurs, rubs or gallops heard RESPIRATORY: Clear to auscultation. Breath sounds equal bilaterally. No rales , wheezing or rhonchi ABDOMEN: Soft, mildly distended, with tenderness in both upper quadrant. Bowel sounds present and normoactive. No guarding. No rebound. EXTREMITIES: No clubbing, cyanosis, or edema. No joint effusion, has good ROM. No calf tenderness. Well perfused and warm. NEUROLOGICAL: Awake and alert. Cranial nerves grossly intact. Motor grossly within normal limits. PSYCHIATRIC: Normal affect, calm and cooperative. LINE: New line LSC Assessment & Plan Remarks IMPRESSION New fever, sepsis, source? 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
--- NOTE | 2017-03-14 12:56 | PD.CARD.PN ---
Subjective Subjective Remarks Feels better today, less abdominal pain Objective Medications Current Medications Medications (Trade) Dose Ordered Sig/Kaleb Route Start Time Stop Time Status Last Admin (NS Flush) 2 ml UNSCH PRN IVF 02/28/17 09:45 03/09/17 17:18 Miscellaneous Information 1 Q361D XX 02/28/17 16:00 (Chlorhexidine 2% Cloth) Taper DAILY@04 TOP 03/01/17 04:00 02/25/18 03:59 03/13/17 03:08 (Chlorhexidine 2% Cloth) 3 pack UNSCH PRN TOP 02/28/17 16:00 (D50w (Vial) Inj) 50 ml UNSCH PRN IV 02/28/17 16:15 (Glucagon Inj) 1 mg UNSCH PRN OTHER 02/28/17 16:15 (NovoLIN R SUPPLEMENTAL SCALE) 1 Q6H SQ 02/28/17 16:15 03/12/17 16:47 Sucralfate 1 gm 1 gm Q6H PO 03/01/17 10:00 03/14/17 08:07 Multivitamins 10 ml/Folic Acid 1 mg/Amino Acids/ Electrolytes/ Dextrose 2,010.2 ml @ 60 mls/hr Q24H IV-CENTRAL 03/01/17 20:00 03/13/17 19:59 (Liposyn Iii 20% Inj) 250 ml @ 31.25 mls/ hr Q24H IV-CENTRAL 03/01/17 20:00 03/13/17 20:04 (ZyPREXA) 2.5 mg Q12HR PO 03/01/17 21:00 03/14/17 08:07 (KlonoPIN) 1 mg Q8HR PO 03/02/17 14:00 03/14/17 05:04 (Zofran Inj) 4 mg Q6H PRN IV PUSH 03/02/17 16:00 03/10/17 11:38 (Compazine Inj) 5 mg Q6H PRN IV PUSH 03/02/17 16:00 (Xanax) 1 mg Q8H PRN PO 03/02/17 22:00 03/14/17 12:04 (Ventolin Hfa Inh) 2 puff Q6HR INH 03/03/17 12:00 03/14/17 12:00 (Spiriva Inh) 18 mcg DAILY INH 03/03/17 09:00 03/14/17 08:08 (SINEquan) 200 mg HS PO 03/03/17 21:00 03/13/17 20:02 (Symbicort 80-4.5 Mcg Inh) 2 puff Q12HR INH 03/03/17 21:00 03/14/17 08:08 Clonidine 0.1 mg 0.1 mg Q6H PRN PO 03/04/17 16:30 (Protonix Inj/NS Inj) 100 ml @ 10 mls/hr Q10H IV 03/06/17 01:35 03/14/17 10:09 (Tylenol) 500 mg Q4H PRN PO 03/11/17 19:30 03/13/17 05:55 (Percocet 10-325 Mg) 1 tab Q4H PRN PO 03/11/17 19:30 03/13/17 09:32 Hydromorphone HCl 1 mg 1 mg Q4H PRN IV PUSH 03/13/17 12:00 03/14/17 08:07 (Mycamine Inj/NS Inj) 100 ml @ 100 mls/hr Q24H IV 03/13/17 11:00 03/14/17 11:03 (Percocet 10-325 Mg) 2 tab Q4H PRN PO 03/13/17 14:30 03/14/17 10:54 Vital Signs / I&O Vital Signs Date Time Temp Pulse Resp B/P Pulse Ox O2 Delivery O2 Flow Rate FiO2 03/14/17 12:04 9 03/14/17 10:00 98 03/14/17 08:56 18 03/14/17 08:02 99 21 03/14/17 08:00 96 03/14/17 08:00 97.7 96 33 97/59 99 03/14/17 07:00 98 Room Air 03/14/17 06:00 92 03/14/17 04:00 111 03/14/17 04:00 98.3 111 18 112/73 100 03/14/17 02:00 91 03/14/17 00:00 97.7 89 11 112/78 99 03/14/17 00:00 89 03/13/17 22:00 99 03/13/17 20:00 113 03/13/17 20:00 98.3 113 26 106/68 95 03/13/17 19:00 100 Room Air 03/13/17 18:00 126 03/13/17 16:00 87 14 87/50 97 03/13/17 16:00 87 03/13/17 14:00 118 I/O 03/13/17 03/13/17 03/13/17 03/14/17 03/14/17 03/14/17 07:00 15:00 23:00 07:00 15:00 23:00 Intake Total 1540 ml 1238 ml 3337 ml 1970 ml Output Total 1000 ml 3100 ml 800 ml 1475 ml Balance 540 ml -1862 ml 2537 ml 495 ml Intake Oral 250 ml 200 ml 1200 ml 900 ml IV Total 605 ml 623 ml 1184 ml 380 ml TPN/PPN 475 ml 415 ml 901 ml 495 ml Lipid 210 ml 52 ml 195 ml Output Urine Total 1000 ml 3100 ml 800 ml 1475 ml # Bowel Movements 0 0 0 Physical Exam GENERAL: NAD, AAOx3 SKIN: Warm and dry. HEAD: Atraumatic. Normocephalic. EYES: Pupils equal and round. No scleral icterus. No injection or drainage. ENT: No nasal bleeding or discharge. Mucous membranes pink and moist. NECK: Trachea midline. No JVD. CARDIOVASCULAR: Tachycardic, regular rhythm RESPIRATORY: No accessory muscle use. Clear to auscultation. Breath sounds equal bilaterally. GASTROINTESTINAL: Abdomen soft, non-tender, nondistended. Hepatic and splenic margins not palpable. MUSCULOSKELETAL: Extremities without clubbing, cyanosis, or edema. No obvious deformities. NEUROLOGICAL: Awake and alert. No obvious cranial nerve deficits. Motor grossly within normal limits. Five out of 5 muscle strength in the arms and legs. Normal speech. PSYCHIATRIC: Appropriate mood and affect; insight and judgment normal. Laboratory Laboratory Tests Test 03/14/17 02:37 Vancomycin Level Trough 6.0 MCG/ML Assessment and Plan Problem List: (1) SIRS (systemic inflammatory response syndrome) (2) Sinus tachycardia (3) Symptomatic anemia (4) GI bleed (5) Hypotension Assessment and Plan 1) Mild hypotension noted with fevers and sinus tachycardia, questionable SIRS/ Sepsis 2) ID further looking into possible causes 3) 2D echo pending at this time 4) Sinus tachycardia most likely due to underlying cause (possible SIRS/Sepsis) Problem Qualifiers (1) GI bleed: Qualified Code: K92.2 - Gastrointestinal hemorrhage, unspecified gastrointestinal hemorrhage type (2) Hypotension: Qualified Code: I95.9 - Hypotension, unspecified hypotension type Frantz Bell DO Mar 14, 2017 12:55
--- NOTE | 2017-03-14 13:05 | HHI.PR ---
Subjective Subjective Notes Resting in bed C/o pain at about 8 Objective Vitals/I&O Vital Signs Date Time Temp Pulse Resp B/P Pulse Ox O2 Delivery O2 Flow Rate FiO2 03/14/17 12:04 9 03/14/17 10:00 98 03/14/17 08:02 99 21 03/14/17 08:00 97.7 97/59 03/14/17 07:00 Room Air 03/10/17 07:00 2.00 Labs Laboratory Tests Test 03/14/17 02:37 Vancomycin Level Trough 6.0 Date/Time Procedure Status Source Growth 03/13/17 17:00 Aerobic Blood Culture - Preliminary Resulted Blood Peripheral NO GROWTH IN 1 DAY 03/13/17 17:00 Anaerobic Blood Culture - Preliminary Resulted Blood Peripheral NO GROWTH IN 1 DAY 03/12/17 12:55 Wound Culture - Final Complete Catheter Tip Central Venous Line NO GROWTH IN 48 HOURS. 03/11/17 15:16 Aerobic Blood Culture - Final Complete Blood Peripheral Юлия Glabrata 03/11/17 15:16 Anaerobic Blood Culture - Final Complete Юлия Glabrata 03/11/17 15:12 - Final Complete Other Cardiovascular: Regular Lungs: Clear Abdomen: Other (abdomen soft; tender to palpation ) Extremities: No edema A/P Assessment and Plan 46 year old female s/p gastric bypass surgery, weight loss, cachetic, malnutrition, GI bleed; anemia and NSAID use -S/p EGD -- Gastrojejunostomy ulcer; with active bleeding--stable -S/p EGD and IR coil of splenic artery for massive GI bleed -Continue to monitor Hmg; transfuse as needed -Labs tomorrow -Continue TPN -Tolerating fulls -Percocet and IV Dilaudid for pain ---Added Flexeril Attending Statement patient seen at bedside agree with above still with pain no bleeding Attestation The exam, history, and the medical decision-making described in the above note were completed with the assistance of the mid-level provider. I reviewed and agree with the findings presented. I attest that I had a [id number] encounter with the patient on the same day, and personally performed and documented my assessment and findings in the medical record. Jannette Garnett Mar 14, 2017 13:05 Jerome Arias MD Mar 25, 2017 21:23
[2017-03-14] MEDS ORDERED: CYCLOBENZAPRINE HCL 10 MG TAB PO PRN (13:15)
[2017-03-14] MEDS ORDERED: PILL SPLITTER OTHER PRN (14:15)
--- NOTE | 2017-03-14 14:34 | ECHRPT ---
Indication: sepsis CONCLUSIONS Normal left ventricular size and wall thickness. The left ventricular systolic function is normal wi th an estimated ejection fraction in the range of 60-65%. Left ventricular diastolic function parameters a re normal. Normal wall motion. Structurally normal mitral valve. Trace mitral regurgitation. BP: 137 / 78 HR: 106 Rhythm: MEASUREMENTS (Male / Female) Normal Values Technical Quality:Good 2D ECHO LV Diastolic Diameter PLAX 3.7 cm 4.2 - 5.9 / 3.9 - 5.3 cm LV Systolic Diameter PLAX 2.7 cm IVS Diastolic Thickness 1.0 cm 0.6 - 1.0 / 0.6 - 0.9 cm LVPW Diastolic Thickness 0.9 cm 0.6 - 1.0 / 0.6 - 0.9 cm LV Relative Wall Thickness 0.5 RV Internal Dim ED PLAX 1.9 cm M-MODE Aortic Root Diameter MM 3.1 cm LA Systolic Diameter MM 4.0 cm LA Ao Ratio MM 1.3 AV Cusp Separation MM 1.5 cm DOPPLER Mitral E Point Velocity 82.8 cm/s Mitral A Point Velocity 90.9 cm/s Mitral E to A Ratio 0.9 LV E' Lateral Velocity 9.0 cm/s Mitral E to LV E' Lateral Ratio 9.2 FINDINGS LEFT VENTRICLE Normal left ventricular size and wall thickness. The left ventricular systolic function is normal wi th an estimated ejection fraction in the range of 60-65%. Left ventricular diastolic function parameters a re normal. Normal wall motion. RIGHT VENTRICLE Normal right ventricular size and systolic function. LEFT ATRIUM The left atrial size is normal. RIGHT ATRIUM The right atrial size is normal. ATRIAL SEPTUM Normal atrial septal thickness without atrial level shunting by limited color doppler interrogation. AORTA The aortic root and proximal ascending aorta are normal in size on limited imaging. MITRAL VALVE Structurally normal mitral valve. Trace mitral regurgitation. AORTIC VALVE Trileaflet aortic valve. No aortic valve stenosis or regurgitation. TRICUSPID VALVE Structurally normal tricuspid valve. No tricuspid valve stenosis or regurgitation. PULMONARY VALVE The pulmonary valve is not well visualized. VESSELS The inferior vena cava is normal in size. PERICARDIUM No pericardial effusion. Preston Bee MD (Electronically Signed) Final Date:14 March 2017 14:34
[2017-03-14] MEDS: DOXEPIN HCL 50 MG CAP PO SCH (19:47)
[2017-03-14] MEDS: FAT EMULSION 20% INJ 250 ML (Daily over 8 hours) IV-CENTRAL SCH (19:48)
[2017-03-14] MEDS: CLINIMIX E 4.25/25 2000 mL- >42 mls/hr IV-CENTRAL SCH ×3 (19:48)
[2017-03-15] VITALS (10 sets, daily range): BP systolic 96–117; BP diastolic 62–71; PULSE 107–124; RESP 16–20; TEMP 97.4–98.6; O2SAT 95–98
[2017-03-15] MEDS: CHLORHEXIDINE GLUCONATE 2 % 1 PACK (2 CLOTHS) TOP SCH (03:25)
[2017-03-15] MEDS: INSULIN NovoLIN REGULAR SUPPLEMENTAL SCALE SQ SCH ×5 (04:15→20:57)
[2017-03-15] MEDS: oxyCODONE/ACETAMINOPHEN 10 MG/325 MG TAB PO PRN ×5 (04:21→20:56)
[2017-03-15] MEDS: SUCRALFATE 1 GM/10 ML CUP PO SCH ×4 (04:21→20:55)
[2017-03-15] MEDS: ALPRAZolam 1 MG TAB PO PRN ×2 (04:21→18:45)
[2017-03-15] MEDS: RESP: ALBUTEROL 2.5 MG/IPRATROPIUM 0.5 MG NEB (PRN) INH ×4 (04:42→20:46)
[2017-03-15] MEDS: ALBUTEROL SULFATE 90 MCG/ACT HFA 18 GM INHALER INH SCH ×4 (06:00→16:36)
[2017-03-15] MEDS: PANTOPRAZOLE 80 MG/100 ML NS IV SCH ×4 (06:27→16:34)
[2017-03-15] MEDS: clonazePAM 1 MG TAB PO SCH ×3 (06:27→20:56)
[2017-03-15] MEDS: HYDROmorphone HCL PF 1 MG/ML VIAL IV PUSH PRN ×4 (06:28→18:45)
[2017-03-15] MEDS: OLANZapine 2.5 MG TAB PO SCH ×2 (08:20→20:56)
[2017-03-15] MEDS: TIOTROPIUM BROMIDE 18 MCG INH INH SCH (08:20)
[2017-03-15] MEDS: BUDESONIDE-FORMOTEROL 80/4.5 MCG INHALER INH SCH ×2 (08:20→20:56)
[2017-03-15 08:43] LABS: ALKALINE PHOSPHATASE 264 U/L (45-117); ALT (GPT) 43 U/L (10-53); ANION GAP 4 MEQ/L (5-15); AST (GOT) 59 U/L (15-37); BICARBONATE 30.8 MEQ/L (21.0-32.0); BLOOD UREA NITROGEN 5 MG/DL (7-18); CHLORIDE 102 MEQ/L (98-107); GLOMERULAR FILTRATION RATE 221 ML/MIN (>89); POTASSIUM 4.5 MEQ/L (3.5-5.1); SODIUM (NA) 137 MEQ/L (136-145); TOTAL BILIRUBIN ADULT 0.3 MG/DL (0.2-1.0)
[2017-03-15 08:48] LABS: AUTOMATED NEUTROPHIL # 3.7 TH/MM3 (1.8-7.7); BASOPHIL % 0.7 % (0.0-2.0); EOSINOPHIL # 0.2 TH/MM3 (0-0.4); EOSINOPHIL % 4.2 % (0.0-4.0); HEMATOCRIT 29.5 % (35.0-46.0); HEMO FLAGS DIFF FINAL; LYMPH % 22.3 % (9.0-44.0); LYMPHOCYTE # 1.3 TH/MM3 (1.0-4.8); MEAN CELL VOLUME 84.8 FL (80.0-100.0); MEAN CORPUSCULAR HEMOGLOBIN 27.9 PG (27.0-34.0); MONO % 8.2 % (0.0-8.0); NEUT % 64.6 % (16.0-70.0); PLATELET COUNT 240 TH/MM3 (150-450); RED BLOOD COUNT 3.47 MIL/MM3 (4.00-5.30); RED CELL DISTRIBUTION WIDTH 17.6 % (11.6-17.2); WHITE BLOOD COUNT 5.7 TH/MM3 (4.0-11.0)
--- NOTE | 2017-03-15 09:53 | HHI.PR ---
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 She presented to [facility] Emergency Department with complaints of feeling dizziness, light headedness, generalized weakness, multiple falls and inability to ambulate. On further history she has a history of gastric bypass four years ago in [place] and another abdominal surgery about one to two years ago for Intussusception in [place] as well. She states that she weighed 200 lbs when she had the gastric bypass surgery preformed, now she weighs 80 pounds, she reports chronic abdominal pain associated with intractable nausea and vomiting for several months. In addition to decreased p.o. intake. Her abdominal pain progressively worsened and mainly in the right upper quadrant and left lower quadrat. She denies any chest pain, shortness of breath, cough or any constitutional symptoms. On arrival to the emergency room she was hypotensive with systolic blood pressure in the 80's, tachycardic with heart rate in the 120's and her laboratory data showed hemoglobin of 7.2, lactic acid level of 2.9. Her liver enzymes are within normal limits with a total bilirubin of 0.2. Aspartate aminotransferase 21, alt 12, alkaline phosphatase 138. In the ER she received one out of two units of packed red blood cells and approximately 1.5 liters of normal saline. She responded to volume resuscitation and current blood pressure is 108/71 with a pulse of 112. Her o2 saturation is 97% on room air. Due to her abdominal pain, CT abdomen and pelvis were preformed which showed gallbladder wall thickening, mild hepatosplenomegaly and chronic mild compression deformity is noted involving L1. Chest x-ray in the emergency department showed right fifth rib fractures which appear old, otherwise no evidence of acute cardiopulmonary disease. Right IJ central line was placed by emergency department physician. She also has a ultrasound of the abdomen which is pending during the time of this dictation. The patient received Protonix, Unasyn and dilated in the emergency room. 03/01 Patient is lying in bed in NAD. s/p transfusion 2units PRBC this morning for Hgb 6.9. s/p EGD showed G-J ulcer, adherent clot with no evidence of bleeding. 03/02: Requesting Klonopin today. Hemoglobin stable for the past 12 hours. Very anxious and verbose. Complaining of pain epigastric/right upper quadrant region. 02/22/16: Currently afebrile. Requesting doxepin along with increasing pain medications. Days of pain in epigastric/right upper quadrant region. Hemoglobin stable. [facility] reconsulted on 03/05/17 -around 6 PM a rapid response was activated due to low blood pressure and hematemesis. She was transferred to ICU. The fluid resuscitation was started however patient continued vomiting blood and required intubation for an airway protection. Shortly after intubation she dropped her blood pressure again without palpable pulses in the CPR was initiated. There was a run of 2 cycles of CPR with return of spontaneous circulation. The Cordis introducer was inserted to left femoral vein and the rapid infuser was used to transfuse 4 units of PRBCs and FFP since cryoprecipitate. Dr. Beverly emergently performed upper EGD. Without successful finding off source of bleeding. This was discussed with interventional radiologist Dr. Pascual and the patient is going to be taken to IR for possible embolization emergently due to life-threatening condition uncontrolled GI bleed. 03/06: Remains intubated sedated. 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 Pascual. Episode of hypotension today, started on Levophed, 2U PRBC stat ordered, and 2L NS bolus. with improvement in BP. No evident GIB. Remains on Protonix and octreotide gtt. Hb 8.9 on Stat re check 03/07: Remains intubated, now off Levophed. Hb remains stable. No GIB reported. Will attempt SBT today for possible extubation. Discuss with Dr. Jerome Beverly. No plan for any surgical procedures at this time. DC octreotide in 24 hours. Continue Protonix infusion and Carafate per Dr. bveerly 03/08: Extubated yesterday without complication. Hemoglobin this a.m. pending. No additional GI bleeding. Still complaining of abdominal pain. Requesting pain medication at the present time. 03/09: Complaining of abdominal pain 8 out of 10. Hemoglobin remained stable. Positive BM. Tolerating clear liquid diet. 03/10: Complaining of right lower quadrant pain 8 out of 10. On liquid [place] 7.5/325 added by general surgery today. On full liquid diet. Continues to have heme + smelling stools. Hospitalist Notes: 03/11: Seen in her bedroom, discussed with nurse Miss Ortega, no nausea, vomit or diarrhea, no signs of infection, has fever 103F, she is been on Empiric management with Zosyn by community support professional, asked for CXR, UA, blood cultures, Vancomycin started and asked for ID specialist. 03/12: Stable in her bedroom seen in the presence of nurse Miss Ortega, no nausea , vomit or diarrhea continue with Fever, blood cultures taken yesterday Yeast growing, is on Diflucan, given one dose of Micafungin by ID specialist, removed IJ catheter and changed from the Right side to the left neck side. recommended to continue Cefepime and Flagyl, Diflucan, Sent IJ tip for culture. No nausea, vomit or diarrhea. 03/13: Patient complaint of dizziness on Orthostatic position, also is been Hypotensive since admission, receiving large amounts of fluids, asked for Echocardiogram, Orthostatic vital sings, corrosion control specialist consult, she continue Tachycardic. continue management as per ID specialist with antibiotics by now for sepsis. 03/14: Seen in her bedroom, no nausea,vomit or diarrhea, Discussed with corrosion control specialist Doctor Ray and he does not see any Cardiac issue at this time Will follow Echocardiogram, design technician at this time to make the Echocardiogram, as per ID specialist Sepsis probable line related, improving temperature, has yeast in BC, Юлия glabrata sepsis, recommended to Stop Cefepime , Flagyl and Vancomycin and Diflucan and continue Micafungin. follow culture sensitivity. 03/15: Seen in her bedroom, discussed with nurse Miss Thapa, clinically improving, General Surgery following, Echocardiogram EF 60-65%, normal wall Motion no nausea, vomit or diarrhea. follow PT evaluation assessment. Objective Vital Signs Date Time Temp Pulse Resp B/P Pulse Ox O2 Delivery O2 Flow Rate FiO2 03/15/17 08:00 97.4 107 20 96/62 98 03/15/17 08:00 Room Air 03/15/17 04:44 96 21 03/15/17 04:00 98.6 120 16 117/71 96 03/15/17 04:00 Room Air 03/15/17 00:00 Room Air 03/15/17 00:00 98.4 108 16 102/67 95 03/14/17 22:19 Room Air 03/14/17 22:19 108 22 113/68 97 03/14/17 20:00 99 03/14/17 20:00 Room Air 03/14/17 20:00 98.0 99 18 103/61 100 03/14/17 16:05 98.8 96 16 100/59 99 03/14/17 16:00 Room Air 03/14/17 14:38 105 03/14/17 13:50 Room Air 03/14/17 12:46 98.0 99 16 124/62 100 03/14/17 12:04 9 03/14/17 10:00 98 I/O 03/14/17 03/14/17 03/14/17 03/15/17 03/15/17 03/15/17 07:00 15:00 23:00 07:00 15:00 23:00 Intake Total 1970 ml 648 ml 717 ml Output Total 1475 ml 800 ml 750 ml Balance 495 ml -152 ml -33 ml Intake Oral 900 ml IV Total 380 ml 87 ml 77 ml TPN/PPN 495 ml 497 ml 459 ml Lipid 195 ml 64 ml 181 ml Output Urine Total 1475 ml 800 ml 750 ml # Bowel Movements 0 Result Diagram: 03/15/17 0755 03/15/17 0755 Imaging Last Impressions Abdomen/Pelvis CT 03/13/17 0000 Signed Impressions: Service Date/Time: Monday, March 13, 2017 11:03 - CONCLUSION: 1. 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 No findings are present to indicate acute hemorrhage. 2. Nonacute findings include small hiatal hernia and mild atherosclerotic disease. There are postsurgical findings indicative of prior [place]-en-Y gastric bypass surgery. 3. L1 compression fracture of uncertain chronicity. Terry Larry MD Lower Extremity Ultrasound 03/12/17 0000 Signed Impressions: Service Date/Time: Sunday, March 12, 2017 14:01 - CONCLUSION: No DVT. Terry Poon MD Chest X-Ray 03/12/17 0000 Signed Impressions: Service Date/Time: Sunday, March 12, 2017 10:04 - CONCLUSION: 1. Left central line in good position. No pneumothorax. 2. No acute pulmonary infiltrates. Edwin Martin MD Splenic Arteriogram 03/06/17 0000 Signed Impressions: Service Date/Time: Sunday, March 05, 2017 23:50 - CONCLUSION: 1. 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 The proximal splenic artery was embolized to occlusion. The patient will likely need splenectomy to prevent back bleeding into the anastomosis. There is also high probability of complete infarct of the spleen as well. Darren Pascual MD Upper GI Series 02/28/17 0000 Signed Impressions: Service Date/Time: Tuesday, February 28, 2017 17:21 - CONCLUSION: 1. No evidence of extravasation to suggest perforation. 2. Focal collection of contrast within the gastric remnant raising the possibility of focal ulceration. Upper endoscopy would be helpful for further evaluation of this finding if there is strong clinical concern for ulceration within the gastric remnant. Maycol Castro MD Gall Bladder Ultrasound 02/28/17 0000 Signed Impressions: Service Date/Time: Tuesday, February 28, 2017 14:50 - CONCLUSION: 1. Single mobile stone in the gallbladder. 2. Extrarenal pelvis on the right. Darren Pascual MD Procedures Line: Central Venous Catheter Side: Right Location: Internal, Jugular Endotracheal Intubation Pressors use. Other Results Laboratory Tests Test 03/08/17 03/11/17 03/12/17 03/13/17 09:50 14:10 11:44 09:25 Blood Type O POSITIVE Antibody Screen NEGATIVE Crossmatch Leukocyte-Reduced Red Blood Cells Blood Bank Comment Urine Color LIGHT-YELLOW Urine Turbidity CLEAR Urine pH 7.5 Urine Specific [place] 1.005 Urine Protein NEG mg/dL Urine Glucose (UA) NEG mg/dL Urine Ketones NEG mg/dL Urine Occult Blood NEG Urine Nitrite NEG Urine Bilirubin NEG Urine Urobilinogen LESS THAN 2.0 MG/DL Urine Leukocyte Esterase NEG Urine RBC 1 /hpf Urine Mucus FEW /lpf Microscopic Urinalysis Comment CATH-CULT NOT IND Vitamin B12 Level 618 PG/ML Phosphorus Level 1.9 MG/DL Magnesium Level 1.7 MG/DL Test 03/14/17 03/15/17 02:37 07:55 Vancomycin Level Trough 6.0 MCG/ML White Blood Count 5.7 TH/MM3 Red Blood Count 3.47 MIL/MM3 Hemoglobin 9.7 GM/DL Hematocrit 29.5 % Mean Corpuscular Volume 84.8 FL Mean Corpuscular Hemoglobin 27.9 PG Mean Corpuscular Hemoglobin 33.0 % Concent Red Cell Distribution Width 17.6 % Platelet Count 240 TH/MM3 Mean Platelet Volume 11.2 FL Neutrophils (%) (Auto) 64.6 % Lymphocytes (%) (Auto) 22.3 % Monocytes (%) (Auto) 8.2 % Eosinophils (%) (Auto) 4.2 % Basophils (%) (Auto) 0.7 % Neutrophils # (Auto) 3.7 TH/MM3 Lymphocytes # (Auto) 1.3 TH/MM3 Monocytes # (Auto) 0.5 TH/MM3 Eosinophils # (Auto) 0.2 TH/MM3 Basophils # (Auto) 0.0 TH/MM3 CBC Comment DIFF FINAL Differential Comment Sodium Level 137 MEQ/L Potassium Level 4.5 MEQ/L Chloride Level 102 MEQ/L Carbon Dioxide Level 30.8 MEQ/L Anion Gap 4 MEQ/L Blood Urea Nitrogen 5 MG/DL Creatinine 0.32 MG/DL Estimat Glomerular Filtration 221 ML/MIN Rate Random Glucose 129 MG/DL Calcium Level 8.2 MG/DL Total Bilirubin 0.3 MG/DL Aspartate Amino Transf 59 U/L (AST/SGOT) Alanine Aminotransferase 43 U/L (ALT/SGPT) Alkaline Phosphatase 264 U/L Total Protein 6.0 GM/DL Albumin 1.9 GM/DL Prealbumin 12 MG/DL Objective Remarks GENERAL: No acute distress SKIN: Warm and dry. No rash HEAD: Normocephalic. EYES: No scleral icterus. No injection or drainage. PERRL. NECK: Supple, no JVD no Lymphadenopathy. CARDIOVASCULAR: RRR. S1, S2. No S4. Without murmur, clicks, Gallops or rubs. Left subclavian central line. RESPIRATORY: Breath sounds clear to auscultation and equal bilaterally. GASTROINTESTINAL: Abdomen soft, no tender. MUSCULOSKELETAL: No edema. Neuro: Cranial nerves II through XII grossly intact. Strength is equal symmetric. Normal sensation. Medications and IVs Current Medications Medications (Trade) Dose Ordered Sig/Kaleb Route Start Time Stop Time Status Last Admin (NS Flush) 2 ml UNSCH PRN IVF 02/28/17 09:45 03/09/17 17:18 Miscellaneous Information 1 Q361D XX 02/28/17 16:00 (Chlorhexidine 2% Cloth) Taper DAILY@04 TOP 03/01/17 04:00 02/25/18 03:59 03/13/17 03:08 (Chlorhexidine 2% Cloth) 3 pack UNSCH PRN TOP 02/28/17 16:00 (D50w (Vial) Inj) 50 ml UNSCH PRN IV 02/28/17 16:15 (Glucagon Inj) 1 mg UNSCH PRN OTHER 02/28/17 16:15 (NovoLIN R SUPPLEMENTAL SCALE) 1 Q6H SQ 02/28/17 16:15 03/12/17 16:47 Sucralfate 1 gm 1 gm Q6H PO 03/01/17 10:00 03/15/17 04:21 Multivitamins 10 ml/Folic Acid 1 mg/Amino Acids/ Electrolytes/ Dextrose 2,010.2 ml @ 60 mls/hr Q24H IV-CENTRAL 03/01/17 20:00 03/14/17 19:48 (Liposyn Iii 20% Inj) 250 ml @ 31.25 mls/ hr Q24H IV-CENTRAL 03/01/17 20:00 03/14/17 19:48 (ZyPREXA) 2.5 mg Q12HR PO 03/01/17 21:00 03/15/17 08:20 (KlonoPIN) 1 mg Q8HR PO 03/02/17 14:00 03/15/17 06:27 (Zofran Inj) 4 mg Q6H PRN IV PUSH 03/02/17 16:00 03/10/17 11:38 (Compazine Inj) 5 mg Q6H PRN IV PUSH 03/02/17 16:00 (Xanax) 1 mg Q8H PRN PO 03/02/17 22:00 03/15/17 04:21 (Ventolin Hfa Inh) 2 puff Q6HR INH 03/03/17 12:00 03/15/17 06:00 (Spiriva Inh) 18 mcg DAILY INH 03/03/17 09:00 03/15/17 08:20 (SINEquan) 200 mg HS PO 03/03/17 21:00 03/14/17 19:47 (Symbicort 80-4.5 Mcg Inh) 2 puff Q12HR INH 03/03/17 21:00 03/15/17 08:20 Clonidine 0.1 mg 0.1 mg Q6H PRN PO 03/04/17 16:30 (Protonix Inj/NS Inj) 100 ml @ 10 mls/hr Q10H IV 03/06/17 01:35 03/15/17 06:27 (Tylenol) 500 mg Q4H PRN PO 03/11/17 19:30 03/13/17 05:55 (Percocet 10-325 Mg) 1 tab Q4H PRN PO 03/11/17 19:30 03/13/17 09:32 Hydromorphone HCl 1 mg 1 mg Q4H PRN IV PUSH 03/13/17 12:00 03/15/17 06:28 (Mycamine Inj/NS Inj) 100 ml @ 100 mls/hr Q24H IV 03/13/17 11:00 03/14/17 11:03 (Percocet 10-325 Mg) 2 tab Q4H PRN PO 03/13/17 14:30 03/15/17 08:21 (Flexeril) 5 mg Q8H PRN PO 03/14/17 13:15 (Pill Splitter) 1 ea UNSCH PRN OTHER 03/14/17 14:15 A/P Assessment and Plan 1. Bipolar Disorder/Schizophrenia/Depression and Anxiety Continue Klonopin, Zyprexa, Doxepin,Xanax PRN for Anxiety, Pain medicines Hydrocodone, decrease Hydromorphone dosages. 2. VDRF Improved. status post Endotracheal Intubation Tobacco dependence Follow Oxygen saturation, continue Bronchodilator, Mucolytic, Incentive spirometry 3. Hemorrhagic Shock Resolved, received fluid resuscitation, Blood transfusion and Vasopressors 4. Electrolyte derangement replaced. 5. 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 Pascual. Status post emergent EGD on 03/[address] Beverly, no further surgical interventions planned at this time EGD 03/01 revealed a large ulcer with adjacent clot. Protonix drip continued at 8 mg an hour discontinue octreotide drip at 03/09 Continue Carafate 1 g po q6hr 6. Юлия Glabrata Sepsis on Micafungin as per ID specialist to continue for 14 days. Lion cath removed, removed central line Right IJ and now has Left Subclavian central line. 7. Acute blood loss post hemorrhagic anemia, Thrombocytopenia s/p transfusion 2units PRBC 02/28 and 2units PRBC 03/01 for Hgb 6.9/4 units of FFP's/1 unit of cryoprecipitate Additional 2 U PRBC 03/06 now Hemoglobin 9.7 8. Hypotension and dizziness, as per Cardiology related to Sepsis, her Echocardiogram EF 60-65%. GI prophylaxis with Protonix gtt DVT prophylaxis with SCD. No pharmacological prophylaxis with bleeding Left Subclavian Central Line 03/12/17 Seen in the room and discussed with nurse Miss Thapa, all questions answered to the best of my abilities. Discharge Planning Once cleared by Specialists. PT evaluation in progress. Anoop Stern MD Mar 15, 2017 09:53 Seen in the room in the presence of nurse Miss Deleon, all questions answered to the best of my abilities. Discharge Planning Once cleared by Specialists. Anoop Stern MD Mar 15, 2017 09:53 Anoop Stern MD Mar 15, 2017 09:53
--- NOTE | 2017-03-15 10:24 | HHI.IDPN ---
Subjective Subjective Remarks Patient is a 46-year-old female, admitted to the hospital February 28 with complaints of generalized weakness, lightheadedness and dizziness. She also was complaining of abdominal pain. She gave a history that she had bypass surgery about 4 years ago. When she presented she had a significant low hemoglobin and upper endoscopy revealed evidence of a gastrojejunal ulcer which was not actively bleeding at the time of the procedure. She received multiple transfusions, and her hemoglobin stabilized. She was initially in the ICU, and was transferred out to the floor. On March 05 she had development of hypotension and active GI bleed, and was transferred back to the ICU. IR was consult to due to the life-threatening bleed, and the patient underwent embolization of her splenic artery. She ended up getting intubated, on the , and was successfully extubated on the . Patient has been on Zosyn since admission. She had some cultures done on admission and they were all negative. Patient has been stabilizing, and today she started having fevers up to 103. She denies any respiratory complaint. She has a Lion catheter in place. She has a central line in the right IJ. She is complaining of abdominal pain, and points more to the right than on the left. Notes reviewed Temps ok Still C/O abdominal pain No new (+) BC Line tip C/S negative CT A/P - no abscess, has multiple splenic infarcts On TPN Antibiotics Micafungin Lines new line - LSC Past Medical History Schizophrenia. Bipolar disorder. Anxiety, depression. Anemia. Bronchial asthma. Past Surgical History Gastric bypass surgery four years ago. Previous abdominal surgery about one to two years ago for Allergies: Coded Allergies: Sulfa (Verified Allergy, Severe, Anaphylaxis, 02/28/17) Objective . Vital Signs Date Time Temp Pulse Resp B/P Pulse Ox O2 Delivery O2 Flow Rate FiO2 03/15/17 08:08 111 03/15/17 08:00 97.4 107 20 96/62 98 03/15/17 08:00 Room Air 03/15/17 04:44 96 21 03/15/17 04:00 98.6 120 16 117/71 96 03/15/17 04:00 Room Air 03/15/17 00:00 Room Air 03/15/17 00:00 98.4 108 16 102/67 95 03/14/17 22:19 Room Air 03/14/17 22:19 108 22 113/68 97 03/14/17 20:00 99 03/14/17 20:00 Room Air 03/14/17 20:00 98.0 99 18 103/61 100 03/14/17 16:05 98.8 96 16 100/59 99 03/14/17 16:00 Room Air 03/14/17 14:38 105 03/14/17 13:50 Room Air 03/14/17 12:46 98.0 99 16 124/62 100 03/14/17 12:04 9 03/14/17 03/14/17 03/15/17 15:00 23:00 07:00 Intake Total 648 ml 717 ml Output Total 800 ml 750 ml Balance -152 ml -33 ml IV Total 87 ml 77 ml TPN/PPN 497 ml 459 ml Lipid 64 ml 181 ml Output Urine Total 800 ml 750 ml . Laboratory Tests Test 03/15/17 07:55 White Blood Count 5.7 TH/MM3 Red Blood Count 3.47 MIL/MM3 Hemoglobin 9.7 GM/DL Hematocrit 29.5 % Mean Corpuscular Volume 84.8 FL Mean Corpuscular Hemoglobin 27.9 PG Mean Corpuscular Hemoglobin 33.0 % Concent Red Cell Distribution Width 17.6 % Platelet Count 240 TH/MM3 Mean Platelet Volume 11.2 FL Neutrophils (%) (Auto) 64.6 % Lymphocytes (%) (Auto) 22.3 % Monocytes (%) (Auto) 8.2 % Eosinophils (%) (Auto) 4.2 % Basophils (%) (Auto) 0.7 % Neutrophils # (Auto) 3.7 TH/MM3 Lymphocytes # (Auto) 1.3 TH/MM3 Monocytes # (Auto) 0.5 TH/MM3 Eosinophils # (Auto) 0.2 TH/MM3 Basophils # (Auto) 0.0 TH/MM3 CBC Comment DIFF FINAL Differential Comment Laboratory Tests Test 03/15/17 07:55 Sodium Level 137 MEQ/L Potassium Level 4.5 MEQ/L Chloride Level 102 MEQ/L Carbon Dioxide Level 30.8 MEQ/L Anion Gap 4 MEQ/L Blood Urea Nitrogen 5 MG/DL Creatinine 0.32 MG/DL Estimat Glomerular Filtration 221 ML/MIN Rate Random Glucose 129 MG/DL Calcium Level 8.2 MG/DL Total Bilirubin 0.3 MG/DL Aspartate Amino Transf 59 U/L (AST/SGOT) Alanine Aminotransferase 43 U/L (ALT/SGPT) Alkaline Phosphatase 264 U/L Total Protein 6.0 GM/DL Albumin 1.9 GM/DL Prealbumin 12 MG/DL Microbiology Date/Time Procedure Status Source Growth 03/12/17 12:55 Aerobic Blood Culture - Preliminary Resulted Blood Line NO GROWTH IN 2 DAYS 03/12/17 12:55 Anaerobic Blood Culture - Preliminary Resulted Blood Line NO GROWTH IN 2 DAYS 03/12/17 12:55 Wound Culture - Final Complete Catheter Tip Central Venous Line NO GROWTH IN 48 HOURS. 03/13/17 17:00 Aerobic Blood Culture - Preliminary Resulted Blood Peripheral NO GROWTH IN 1 DAY 03/13/17 17:00 Anaerobic Blood Culture - Preliminary Resulted Blood Peripheral NO GROWTH IN 1 DAY Imaging Last Impressions Chest X-Ray 03/12/17 0000 Signed Impressions: Service Date/Time: Sunday, March 12, 2017 10:04 - CONCLUSION: 1. Left central line in good position. No pneumothorax. 2. No acute pulmonary infiltrates. Edwin Martin MD Splenic Arteriogram 03/06/17 0000 Signed Impressions: Service Date/Time: Sunday, March 05, 2017 23:50 - CONCLUSION: 1. 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 The proximal splenic artery was embolized to occlusion. The patient will likely need splenectomy to prevent back bleeding into the anastomosis. There is also high probability of complete infarct of the spleen as well. Darren Pascual MD Abdomen/Pelvis CT 03/05/17 0000 Signed Impressions: Service Date/Time: Monday, March 06, 2017 01:51 - CONCLUSION: 1. Apparent early or partial small bowel obstruction, appears to be occurring at the level of the mid to distal ileum and is probably in the low abdomen. 2. Heterogeneous attenuation of the spleen and of concern for incomplete infarction. Patient has been administered intravenous contrast recently but not for this study. 3. Mild ascites. Anasarca and small bilateral pleural effusions are also noted. 4. Previous gastric bypass, with distention of the stomach and gastrojejunal anastomosis noted. The nasogastric tube tip is above the diaphragm within a moderate hiatal hernia. 5. There is a right femoral vein catheter with tip in main common iliac vein. A left femoral vein sheath is present with tip in main external iliac vein. Terry Hurtado MD Upper GI Series 02/28/17 0000 Signed Impressions: Service Date/Time: Tuesday, February 28, 2017 17:21 - CONCLUSION: 1. No evidence of extravasation to suggest perforation. 2. Focal collection of contrast within the gastric remnant raising the possibility of focal ulceration. Upper endoscopy would be helpful for further evaluation of this finding if there is strong clinical concern for ulceration within the gastric remnant. Maycol Castro MD Gall Bladder Ultrasound 02/28/17 0000 Signed Impressions: Service Date/Time: Tuesday, February 28, 2017 14:50 - CONCLUSION: 1. Single mobile stone in the gallbladder. 2. Extrarenal pelvis on the right. Darren Pascual MD Physical Exam GENERAL: awake and alert, not in respiratory distress. SKIN: Warm and dry. No generalized rash, no ecchymoses and no evidence of embolic lesions. Decreased turgor HEAD: Atraumatic. Normocephalic. No temporal wasting, or tenderness. EYES: [place] conjunctiva. No petechia or hemorrhage. Pupils equal, round and reactive to light. No scleral icterus. No injection or drainage. EARS, NOSE AND THROAT: Nose without bleeding or purulent nasal discharge. No sinus tenderness. Mucous membranes pink and moist. Poor dentition. No oral lesions noted. No exudate. No oral thrush. NECK: Trachea midline. Supple and not tender, no meningeal signs CARDIOVASCULAR: Regular rate and rhythm. Tachycardic. No murmurs, rubs or gallops heard RESPIRATORY: Clear to auscultation. Breath sounds equal bilaterally. No rales , wheezing or rhonchi ABDOMEN: Soft, mildly distended, with tenderness in both upper quadrant. Bowel sounds present and normoactive. No guarding. No rebound. EXTREMITIES: No clubbing, cyanosis, or edema. No joint effusion, has good ROM. No calf tenderness. Well perfused and warm. NEUROLOGICAL: Awake and alert. Cranial nerves grossly intact. Motor grossly within normal limits. PSYCHIATRIC: Normal affect, calm and cooperative. LINE: New line C Assessment & Plan Remarks IMPRESSION New fever, sepsis, source? 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
[2017-03-15] MEDS: MICAFUNGIN INJ 100 MG in SODIUM CHLORIDE 0.9% INJ 100 ML IV SCH (10:26)
[2017-03-15] MEDS ORDERED: PHARMACY ORDERED LAB ONE (11:45)
--- NOTE | 2017-03-15 13:04 | PD.CARD.PN ---
Subjective Subjective Remarks No events over night No subjective fevers/chills Objective Medications Current Medications Medications (Trade) Dose Ordered Sig/Kaleb Route Start Time Stop Time Status Last Admin (NS Flush) 2 ml UNSCH PRN IVF 02/28/17 09:45 03/09/17 17:18 Miscellaneous Information 1 Q361D XX 02/28/17 16:00 (Chlorhexidine 2% Cloth) Taper DAILY@04 TOP 03/01/17 04:00 02/25/18 03:59 03/13/17 03:08 (Chlorhexidine 2% Cloth) 3 pack UNSCH PRN TOP 02/28/17 16:00 (D50w (Vial) Inj) 50 ml UNSCH PRN IV 02/28/17 16:15 (Glucagon Inj) 1 mg UNSCH PRN OTHER 02/28/17 16:15 Sucralfate 1 gm 1 gm Q6H PO 03/01/17 10:00 03/15/17 10:25 Multivitamins 10 ml/Folic Acid 1 mg/Amino Acids/ Electrolytes/ Dextrose 2,010.2 ml @ 60 mls/hr Q24H IV-CENTRAL 03/01/17 20:00 03/14/17 19:48 (Liposyn Iii 20% Inj) 250 ml @ 31.25 mls/ hr Q24H IV-CENTRAL 03/01/17 20:00 03/14/17 19:48 (ZyPREXA) 2.5 mg Q12HR PO 03/01/17 21:00 03/15/17 08:20 (KlonoPIN) 1 mg Q8HR PO 03/02/17 14:00 03/15/17 12:24 (Zofran Inj) 4 mg Q6H PRN IV PUSH 03/02/17 16:00 03/10/17 11:38 (Compazine Inj) 5 mg Q6H PRN IV PUSH 03/02/17 16:00 (Xanax) 1 mg Q8H PRN PO 03/02/17 22:00 03/15/17 04:21 (Ventolin Hfa Inh) 2 puff Q6HR INH 03/03/17 12:00 03/15/17 12:24 (Spiriva Inh) 18 mcg DAILY INH 03/03/17 09:00 03/15/17 08:20 (SINEquan) 200 mg HS PO 03/03/17 21:00 03/14/17 19:47 (Symbicort 80-4.5 Mcg Inh) 2 puff Q12HR INH 03/03/17 21:00 03/15/17 08:20 Clonidine 0.1 mg 0.1 mg Q6H PRN PO 03/04/17 16:30 (Protonix Inj/NS Inj) 100 ml @ 10 mls/hr Q10H IV 03/06/17 01:35 03/15/17 06:27 (Tylenol) 500 mg Q4H PRN PO 03/11/17 19:30 03/13/17 05:55 (Percocet 10-325 Mg) 1 tab Q4H PRN PO 03/11/17 19:30 03/13/17 09:32 Hydromorphone HCl 1 mg 1 mg Q4H PRN IV PUSH 03/13/17 12:00 03/15/17 10:27 (Mycamine Inj/NS Inj) 100 ml @ 100 mls/hr Q24H IV 03/13/17 11:00 03/15/17 10:26 (Percocet 10-325 Mg) 2 tab Q4H PRN PO 03/13/17 14:30 03/15/17 12:25 (Flexeril) 5 mg Q8H PRN PO 03/14/17 13:15 (Pill Splitter) 1 ea UNSCH PRN OTHER 03/14/17 14:15 (NovoLIN R SUPPLEMENTAL SCALE) 1 ACHS SQ 03/15/17 11:30 Vital Signs / I&O Vital Signs Date Time Temp Pulse Resp B/P Pulse Ox O2 Delivery O2 Flow Rate FiO2 03/15/17 08:08 111 03/15/17 08:00 97.4 107 20 96/62 98 03/15/17 08:00 Room Air 03/15/17 04:44 96 21 03/15/17 04:00 98.6 120 16 117/71 96 03/15/17 04:00 Room Air 03/15/17 00:00 Room Air 03/15/17 00:00 98.4 108 16 102/67 95 03/14/17 22:19 Room Air 03/14/17 22:19 108 22 113/68 97 03/14/17 20:00 99 03/14/17 20:00 Room Air 03/14/17 20:00 98.0 99 18 103/61 100 03/14/17 16:05 98.8 96 16 100/59 99 03/14/17 16:00 Room Air 03/14/17 14:38 105 03/14/17 13:50 Room Air I/O 03/14/17 03/14/17 03/14/17 03/15/17 03/15/17 03/15/17 07:00 15:00 23:00 07:00 15:00 23:00 Intake Total 1970 ml 648 ml 717 ml Output Total 1475 ml 800 ml 750 ml Balance 495 ml -152 ml -33 ml Intake Oral 900 ml IV Total 380 ml 87 ml 77 ml TPN/PPN 495 ml 497 ml 459 ml Lipid 195 ml 64 ml 181 ml Output Urine Total 1475 ml 800 ml 750 ml # Bowel Movements 0 Physical Exam GENERAL: NAD, AAOx3 SKIN: Warm and dry. HEAD: Atraumatic. Normocephalic. EYES: Pupils equal and round. No scleral icterus. No injection or drainage. ENT: No nasal bleeding or discharge. Mucous membranes pink and moist. NECK: Trachea midline. No JVD. CARDIOVASCULAR: Tachycardic, regular rhythm RESPIRATORY: No accessory muscle use. Clear to auscultation. Breath sounds equal bilaterally. GASTROINTESTINAL: Abdomen soft, non-tender, nondistended. Hepatic and splenic margins not palpable. MUSCULOSKELETAL: Extremities without clubbing, cyanosis, or edema. No obvious deformities. NEUROLOGICAL: Awake and alert. No obvious cranial nerve deficits. Motor grossly within normal limits. Five out of 5 muscle strength in the arms and legs. Normal speech. PSYCHIATRIC: Appropriate mood and affect; insight and judgment normal. Laboratory Laboratory Tests Test 03/15/17 07:55 White Blood Count 5.7 TH/MM3 Red Blood Count 3.47 MIL/MM3 Hemoglobin 9.7 GM/DL Hematocrit 29.5 % Mean Corpuscular Volume 84.8 FL Mean Corpuscular Hemoglobin 27.9 PG Mean Corpuscular Hemoglobin 33.0 % Concent Red Cell Distribution Width 17.6 % Platelet Count 240 TH/MM3 Mean Platelet Volume 11.2 FL Neutrophils (%) (Auto) 64.6 % Lymphocytes (%) (Auto) 22.3 % Monocytes (%) (Auto) 8.2 % Eosinophils (%) (Auto) 4.2 % Basophils (%) (Auto) 0.7 % Neutrophils # (Auto) 3.7 TH/MM3 Lymphocytes # (Auto) 1.3 TH/MM3 Monocytes # (Auto) 0.5 TH/MM3 Eosinophils # (Auto) 0.2 TH/MM3 Basophils # (Auto) 0.0 TH/MM3 CBC Comment DIFF FINAL Differential Comment Sodium Level 137 MEQ/L Potassium Level 4.5 MEQ/L Chloride Level 102 MEQ/L Carbon Dioxide Level 30.8 MEQ/L Anion Gap 4 MEQ/L Blood Urea Nitrogen 5 MG/DL Creatinine 0.32 MG/DL Estimat Glomerular Filtration 221 ML/MIN Rate Random Glucose 129 MG/DL Calcium Level 8.2 MG/DL Total Bilirubin 0.3 MG/DL Aspartate Amino Transf 59 U/L (AST/SGOT) Alanine Aminotransferase 43 U/L (ALT/SGPT) Alkaline Phosphatase 264 U/L Total Protein 6.0 GM/DL Albumin 1.9 GM/DL Prealbumin 12 MG/DL Assessment and Plan Problem List: (1) SIRS (systemic inflammatory response syndrome) (2) Sinus tachycardia (3) Symptomatic anemia (4) GI bleed (5) Hypotension Assessment and Plan 1) Mild hypotension noted with fevers and sinus tachycardia, questionable SIRS/ Sepsis, seems to be resolving 2) Patient states she has borderline tachycardia at baseline, heart rates better , blood pressure more normalized 3) Echo showing normal function, no valvulopathies 4) Will see PRN, call with questions Problem Qualifiers (1) GI bleed: Qualified Code: K92.2 - Gastrointestinal hemorrhage, unspecified gastrointestinal hemorrhage type (2) Hypotension: Qualified Code: I95.9 - Hypotension, unspecified hypotension type Frantz Bell DO Mar 15, 2017 13:04
--- NOTE | 2017-03-15 15:41 | HHI.PR ---
Subjective Subjective Notes Resting in bed Had large BM this AM Objective Vitals/I&O Vital Signs Date Time Temp Pulse Resp B/P Pulse Ox O2 Delivery O2 Flow Rate FiO2 03/15/17 15:27 96 21 03/15/17 12:00 98.0 124 20 98/68 03/15/17 12:00 Room Air Labs Laboratory Tests Test 03/15/17 07:55 White Blood Count 5.7 Red Blood Count 3.47 Hemoglobin 9.7 Hematocrit 29.5 Mean Corpuscular Volume 84.8 Mean Corpuscular Hemoglobin 27.9 Mean Corpuscular Hemoglobin 33.0 Concent Red Cell Distribution Width 17.6 Platelet Count 240 Mean Platelet Volume 11.2 Neutrophils (%) (Auto) 64.6 Lymphocytes (%) (Auto) 22.3 Monocytes (%) (Auto) 8.2 Eosinophils (%) (Auto) 4.2 Basophils (%) (Auto) 0.7 Neutrophils # (Auto) 3.7 Lymphocytes # (Auto) 1.3 Monocytes # (Auto) 0.5 Eosinophils # (Auto) 0.2 Basophils # (Auto) 0.0 CBC Comment DIFF FINAL Differential Comment Sodium Level 137 Potassium Level 4.5 Chloride Level 102 Carbon Dioxide Level 30.8 Anion Gap 4 Blood Urea Nitrogen 5 Creatinine 0.32 Estimat Glomerular Filtration 221 Rate Random Glucose 129 Calcium Level 8.2 Total Bilirubin 0.3 Aspartate Amino Transf 59 (AST/SGOT) Alanine Aminotransferase 43 (ALT/SGPT) Alkaline Phosphatase 264 Total Protein 6.0 Albumin 1.9 Prealbumin 12 Date/Time Procedure Status Source Growth 03/13/17 17:00 Aerobic Blood Culture - Preliminary Resulted Blood Peripheral NO GROWTH IN 2 DAYS 03/13/17 17:00 Anaerobic Blood Culture - Preliminary Resulted Blood Peripheral NO GROWTH IN 2 DAYS 03/12/17 12:55 Wound Culture - Final Complete Catheter Tip Central Venous Line NO GROWTH IN 48 HOURS. 03/11/17 15:16 Aerobic Blood Culture - Final Complete Blood Peripheral Юлия Glabrata 03/11/17 15:16 Anaerobic Blood Culture - Final Complete Юлия Glabrata 03/11/17 15:12 - Final Complete Other Cardiovascular: Regular Lungs: Clear Abdomen: Non-distended, Other (tender to palpation ) Extremities: No edema A/P Assessment and Plan 46 year old female s/p gastric bypass surgery, weight loss, cachetic, malnutrition, GI bleed; anemia and NSAID use -S/p EGD -- Gastrojejunostomy ulcer; with active bleeding--stable -S/p EGD and IR coil of splenic artery for massive GI bleed -Continue to monitor Hmg; transfuse as needed -Continue TPN -Tolerating fulls ---added Protein shakes -Percocet and IV Dilaudid for pain Attending Statement large bm no blood hh stable work on increase nutrition patient seen at bedside agree with above Attestation The exam, history, and the medical decision-making described in the above note were completed with the assistance of the mid-level provider. I reviewed and agree with the findings presented. I attest that I had a [id number] encounter with the patient on the same day, and personally performed and documented my assessment and findings in the medical record. Jannette Garnett Mar 15, 2017 15:41 Jerome Arias MD Mar 25, 2017 21:41
--- NOTE | 2017-03-15 17:08 | HHI.FF ---
Face to Face Verification Diagnosis: (1) GI bleed (2) Symptomatic anemia (3) Sinus tachycardia (4) SIRS (systemic inflammatory response syndrome) Physical Therapy Order: Evaluate and Treat, Improve ambulation, Strength and gait training Home Health Nursing Order: Medical education Signs/symptoms of disease process Oxygen administration education Medication education-adverse effect Nursing assessment with vital signs I have seen patient Dea Baugh on 03/15/17. My clinical findings support the need for the requested home health care services because: Ltd mobility - disease progression I certify that my clinical findings support that this patient is homebound because: Unsafe to leave home unassisted Anoop Stern MD Mar 15, 2017 17:08
[2017-03-15] MEDS: FAT EMULSION 20% INJ 250 ML (Daily over 8 hours) IV-CENTRAL SCH (19:52)
[2017-03-15] MEDS: CLINIMIX E 4.25/25 2000 mL- >42 mls/hr IV-CENTRAL SCH ×3 (19:52)
[2017-03-15] MEDS: DOXEPIN HCL 50 MG CAP PO SCH (20:55)
[2017-03-16] VITALS (14 sets, daily range): BP systolic 97–124; BP diastolic 56–95; PULSE 78–119; RESP 17–20; TEMP 97.9–98.8; O2SAT 96–99
[2017-03-16] MEDS: PANTOPRAZOLE 80 MG/100 ML NS IV SCH ×4 (01:22→11:35)
[2017-03-16] MEDS: oxyCODONE/ACETAMINOPHEN 10 MG/325 MG TAB PO PRN ×5 (01:23→20:44)
[2017-03-16] MEDS: CHLORHEXIDINE GLUCONATE 2 % 1 PACK (2 CLOTHS) TOP SCH (04:00)
[2017-03-16] MEDS: SUCRALFATE 1 GM/10 ML CUP PO SCH ×4 (04:00→23:01)
[2017-03-16] MEDS: HYDROmorphone HCL PF 1 MG/ML VIAL IV PUSH PRN ×5 (04:13→23:02)
[2017-03-16] MEDS: ALBUTEROL SULFATE 90 MCG/ACT HFA 18 GM INHALER INH SCH ×4 (06:00→17:13)
[2017-03-16] MEDS: clonazePAM 1 MG TAB PO SCH ×3 (06:00→23:01)
[2017-03-16] MEDS: INSULIN NovoLIN REGULAR SUPPLEMENTAL SCALE SQ SCH ×4 (06:03→20:47)
[2017-03-16 08:22] LABS: INTERNATIONAL NORMALIZED RATIO 0.9 RATIO; PROTHROMBIN TIME - PATIENT 10.1 SEC (9.8-11.6)
[2017-03-16] MEDS: OLANZapine 2.5 MG TAB PO SCH ×2 (08:24→20:27)
[2017-03-16 08:29] LABS: AUTOMATED NEUTROPHIL # 3.7 TH/MM3 (1.8-7.7); BASOPHIL # 0.1 TH/MM3 (0-0.2); EOSINOPHIL # 0.4 TH/MM3 (0-0.4); HEMATOCRIT 32.9 % (35.0-46.0); HEMO FLAGS DIFF FINAL; LYMPH % 26.9 % (9.0-44.0); LYMPHOCYTE # 1.8 TH/MM3 (1.0-4.8); MEAN CELL VOLUME 85.7 FL (80.0-100.0); MEAN CORPUSCULAR HEMOGLOBIN 27.2 PG (27.0-34.0); MEAN CORPUSCULAR HGB CONC 31.7 % (32.0-36.0); NEUT % 57.1 % (16.0-70.0); PLATELET COUNT 245 TH/MM3 (150-450); RED BLOOD COUNT 3.84 MIL/MM3 (4.00-5.30); RED CELL DISTRIBUTION WIDTH 17.1 % (11.6-17.2); WHITE BLOOD COUNT 6.5 TH/MM3 (4.0-11.0)
[2017-03-16] MEDS: BUDESONIDE-FORMOTEROL 80/4.5 MCG INHALER INH SCH ×2 (08:42→20:28)
[2017-03-16] MEDS: TIOTROPIUM BROMIDE 18 MCG INH INH SCH (08:42)
[2017-03-16 08:49] LABS: ANION GAP 7 MEQ/L (5-15); AST (GOT) 40 U/L (15-37); BICARBONATE 30.5 MEQ/L (21.0-32.0); BLOOD UREA NITROGEN 6 MG/DL (7-18); CHLORIDE 103 MEQ/L (98-107); GLOMERULAR FILTRATION RATE 221 ML/MIN (>89); MAGNESIUM 1.8 MG/DL (1.5-2.5); POTASSIUM 4.1 MEQ/L (3.5-5.1); SODIUM (NA) 140 MEQ/L (136-145)
[2017-03-16 08:57] LABS: ALKALINE PHOSPHATASE 340 U/L (45-117); ALT (GPT) 40 U/L (10-53); TOTAL BILIRUBIN ADULT 0.3 MG/DL (0.2-1.0)
[2017-03-16] MEDS: MICAFUNGIN INJ 100 MG in SODIUM CHLORIDE 0.9% INJ 100 ML IV SCH (11:23)
[2017-03-16] MEDS: RESP: ALBUTEROL 2.5 MG/IPRATROPIUM 0.5 MG NEB (PRN) INH ×3 (11:45→23:24)
--- NOTE | 2017-03-16 12:39 | HHI.PR ---
Subjective Remarks Reports some increased abdominal pain in mid epigastric area radiating toward the right upper part of the abdomen. Still tolerating clear liquids. No increasing nausea and no vomiting. Had a bowel movement yesterday. Objective Vitals Vital Signs Date Time Temp Pulse Resp B/P Pulse Ox O2 Delivery O2 Flow Rate FiO2 03/16/17 12:19 98.2 97 18 124/95 98 03/16/17 12:02 84 03/16/17 11:33 98 03/16/17 08:34 78 03/16/17 08:06 97.9 95 18 97/58 96 03/16/17 07:53 Room Air 03/16/17 04:38 Room Air 03/16/17 04:38 97.9 105 18 110/56 98 03/16/17 00:38 Room Air 03/16/17 00:38 98.0 103 18 105/58 96 03/15/17 20:18 119 03/15/17 20:00 98.3 108 18 100/71 97 03/15/17 20:00 Room Air 03/15/17 16:00 Room Air 03/15/17 16:00 97.9 114 20 103/66 97 03/15/17 15:27 96 21 I/O 03/15/17 03/15/17 03/15/17 03/16/17 03/16/17 03/16/17 07:00 15:00 23:00 07:00 15:00 23:00 Intake Total 717 ml 1417 ml 633 ml 2533 ml Output Total 750 ml 700 ml 1425 ml Balance -33 ml 717 ml 633 ml 1108 ml Intake Oral 960 ml 1710 ml IV Total 77 ml 457 ml 80 ml 74 ml TPN/PPN 459 ml 489 ml 563 ml Lipid 181 ml 64 ml 186 ml Output Urine Total 750 ml 700 ml 1425 ml # Voids 2 1 # Bowel Movements 2 0 Result Diagram: 03/16/17 0738 03/16/17 0738 Objective Remarks GENERAL: This is a well-nourished, well-developed patient, in no apparent distress. CARDIOVASCULAR: Regular rate and rhythm RESPIRATORY: Clear to auscultation. Breath sounds equal bilaterally. No wheezes , rales, or rhonchi. GASTROINTESTINAL: Abdomen soft, no significant tenderness or rebound guarding, nondistended. Normal active bowel sounds MUSCULOSKELETAL: Extremities without clubbing, cyanosis, or edema. NEURO: Alert & Oriented x4 to person, place, time, situation. Moves all ext x4 Vascular Central Line Catheter: Yes Assessment to: Continue Date of Insertion: Mar 12, 2017 Line: Central Venous Catheter Side: Left Location: Subclavian Reason for Continuation Currently on TPN. A/P Problem List: (1) GI bleed ICD Code: K92.2 Status: Acute Assessment and Plan 1. Bipolar Disorder/Schizophrenia/Depression and Anxiety Patient is currently on Klonopin, Zyprexa, Doxepin, Xanax PRN for Anxiety, 2. Previous VDRF Improved. status post Endotracheal Intubation, currently on room air. Tobacco dependence cessation counseling. Continue Bronchodilator, Mucolytic, Incentive spirometry 3. Hemorrhagic Shock Resolved, received fluid resuscitation, had pre-fifthly received Blood transfusion and Vasopressors in the ICU. 4. Electrolyte derangement replaced and now resolved. 5. 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 Pascual. Status post emergent EGD on 03/[address] Arias, no further surgical interventions planned at this time, continue postop care. Patient currently on TPN and tolerating clear diet. Previous EGD 03/01 revealed a large ulcer with adjacent clot- Continue Carafate 1 g po q6hr 6. Юлия Glabrata Sepsis on Micafungin as per ID specialist to continue for 14 days. Lion cath removed, removed central line Right IJ and now has Left Subclavian central line placed on 03/12. 7. Acute blood loss post hemorrhagic anemia, Thrombocytopenia s/p transfusion 2 units PRBC 02/28 and 2 units PRBC 03/01 for Hgb 6.9/4 units of FFP's/1 unit of cryoprecipitate Additional 2 U PRBC 03/06 now Hemoglobin 10.4 and hb remains stable GI prophylaxis with changing Protonix drip to Protonix by mouth twice a day. DVT prophylaxis with SCD. No pharmacological prophylaxis with history of GI bleed. Discharge Planning Disposition depends on clinical status. Currently patient still on TPN. Problem Qualifiers (1) GI bleed: Qualified Code: K92.2 - Gastrointestinal hemorrhage, unspecified gastrointestinal hemorrhage type Yanelis Joyner MD Mar 16, 2017 12:39
--- NOTE | 2017-03-16 13:20 | HHI.IDPN ---
Subjective Subjective Remarks Patient is a 46-year-old female, admitted to the hospital February 28 with complaints of generalized weakness, lightheadedness and dizziness. She also was complaining of abdominal pain. She gave a history that she had bypass surgery about 4 years ago. When she presented she had a significant low hemoglobin and upper endoscopy revealed evidence of a gastrojejunal ulcer which was not actively bleeding at the time of the procedure. She received multiple transfusions, and her hemoglobin stabilized. She was initially in the ICU, and was transferred out to the floor. On March 05 she had development of hypotension and active GI bleed, and was transferred back to the ICU. IR was consult to due to the life-threatening bleed, and the patient underwent embolization of her splenic artery. She ended up getting intubated, on the , and was successfully extubated on the . Patient has been on Zosyn since admission. She had some cultures done on admission and they were all negative. Patient has been stabilizing, and today she started having fevers up to 103. She denies any respiratory complaint. She has a Lion catheter in place. She has a central line in the right IJ. She is complaining of abdominal pain, and points more to the right than on the left. Notes reviewed Temps ok Still C/O abdominal pain Has one new (+) BC 03/12 Line removed 03/12 Tolerating liquids Had BM Line tip C/S negative CT A/P - no abscess, has multiple splenic infarcts On TPN Echo valves ok Antibiotics Micafungin Lines new line - LSC 03/12 Past Medical History Schizophrenia. Bipolar disorder. Anxiety, depression. Anemia. Bronchial asthma. Past Surgical History Gastric bypass surgery four years ago. Previous abdominal surgery about one to two years ago for Allergies: Coded Allergies: Sulfa (Verified Allergy, Severe, Anaphylaxis, 02/28/17) Objective . Vital Signs Date Time Temp Pulse Resp B/P Pulse Ox O2 Delivery O2 Flow Rate FiO2 03/16/17 12:19 98.2 97 18 124/95 98 03/16/17 12:02 84 03/16/17 11:33 98 03/16/17 08:34 78 03/16/17 08:06 97.9 95 18 97/58 96 03/16/17 07:53 Room Air 03/16/17 04:38 Room Air 03/16/17 04:38 97.9 105 18 110/56 98 03/16/17 00:38 Room Air 03/16/17 00:38 98.0 103 18 105/58 96 03/15/17 20:18 119 03/15/17 20:00 98.3 108 18 100/71 97 03/15/17 20:00 Room Air 03/15/17 16:00 Room Air 03/15/17 16:00 97.9 114 20 103/66 97 03/15/17 15:27 96 21 03/15/17 03/15/17 03/16/17 14:59 22:59 06:59 Intake Total 1417 ml 633 ml 2533 ml Output Total 700 ml 1425 ml Balance 717 ml 633 ml 1108 ml Intake Oral 960 ml 1710 ml IV Total 457 ml 80 ml 74 ml TPN/PPN 489 ml 563 ml Lipid 64 ml 186 ml Output Urine Total 700 ml 1425 ml # Voids 2 1 # Bowel Movements 2 0 . Laboratory Tests Test 03/15/17 03/16/17 07:55 07:38 White Blood Count 5.7 TH/MM3 6.5 TH/MM3 Red Blood Count 3.47 MIL/MM3 3.84 MIL/MM3 Hemoglobin 9.7 GM/DL 10.4 GM/DL Hematocrit 29.5 % 32.9 % Mean Corpuscular Volume 84.8 FL 85.7 FL Mean Corpuscular Hemoglobin 27.9 PG 27.2 PG Mean Corpuscular Hemoglobin 33.0 % 31.7 % Concent Red Cell Distribution Width 17.6 % 17.1 % Platelet Count 240 TH/MM3 245 TH/MM3 Mean Platelet Volume 11.2 FL 10.5 FL Neutrophils (%) (Auto) 64.6 % 57.1 % Lymphocytes (%) (Auto) 22.3 % 26.9 % Monocytes (%) (Auto) 8.2 % 9.0 % Eosinophils (%) (Auto) 4.2 % 6.0 % Basophils (%) (Auto) 0.7 % 1.0 % Neutrophils # (Auto) 3.7 TH/MM3 3.7 TH/MM3 Lymphocytes # (Auto) 1.3 TH/MM3 1.8 TH/MM3 Monocytes # (Auto) 0.5 TH/MM3 0.6 TH/MM3 Eosinophils # (Auto) 0.2 TH/MM3 0.4 TH/MM3 Basophils # (Auto) 0.0 TH/MM3 0.1 TH/MM3 CBC Comment DIFF FINAL DIFF FINAL Differential Comment Laboratory Tests Test 03/15/17 03/16/17 07:55 07:38 Sodium Level 137 MEQ/L 140 MEQ/L Potassium Level 4.5 MEQ/L 4.1 MEQ/L Chloride Level 102 MEQ/L 103 MEQ/L Carbon Dioxide Level 30.8 MEQ/L 30.5 MEQ/L Anion Gap 4 MEQ/L 7 MEQ/L Blood Urea Nitrogen 5 MG/DL 6 MG/DL Creatinine 0.32 MG/DL 0.32 MG/DL Estimat Glomerular Filtration 221 ML/MIN 221 ML/MIN Rate Random Glucose 129 MG/DL 113 MG/DL Calcium Level 8.2 MG/DL 8.4 MG/DL Total Bilirubin 0.3 MG/DL 0.3 MG/DL Aspartate Amino Transf 59 U/L 40 U/L (AST/SGOT) Alanine Aminotransferase 43 U/L 40 U/L (ALT/SGPT) Alkaline Phosphatase 264 U/L 340 U/L Total Protein 6.0 GM/DL 6.6 GM/DL Albumin 1.9 GM/DL 2.1 GM/DL Prealbumin 12 MG/DL Phosphorus Level 4.2 MG/DL Magnesium Level 1.8 MG/DL Triglycerides Level 139 MG/DL Microbiology Date/Time Procedure Status Source Growth 03/13/17 17:00 Aerobic Blood Culture - Preliminary Resulted Blood Peripheral NO GROWTH IN 3 DAYS 03/13/17 17:00 Anaerobic Blood Culture - Preliminary Resulted Blood Peripheral NO GROWTH IN 3 DAYS Imaging Last Impressions Chest X-Ray 03/12/17 0000 Signed Impressions: Service Date/Time: Sunday, March 12, 2017 10:04 - CONCLUSION: 1. Left central line in good position. No pneumothorax. 2. No acute pulmonary infiltrates. Edwin Martin MD Splenic Arteriogram 03/06/17 0000 Signed Impressions: Service Date/Time: Sunday, March 05, 2017 23:50 - CONCLUSION: 1. 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 The proximal splenic artery was embolized to occlusion. The patient will likely need splenectomy to prevent back bleeding into the anastomosis. There is also high probability of complete infarct of the spleen as well. Darren Pascual MD Abdomen/Pelvis CT 03/05/17 0000 Signed Impressions: Service Date/Time: Monday, March 06, 2017 01:51 - CONCLUSION: 1. Apparent early or partial small bowel obstruction, appears to be occurring at the level of the mid to distal ileum and is probably in the low abdomen. 2. Heterogeneous attenuation of the spleen and of concern for incomplete infarction. Patient has been administered intravenous contrast recently but not for this study. 3. Mild ascites. Anasarca and small bilateral pleural effusions are also noted. 4. Previous gastric bypass, with distention of the stomach and gastrojejunal anastomosis noted. The nasogastric tube tip is above the diaphragm within a moderate hiatal hernia. 5. There is a right femoral vein catheter with tip in main common iliac vein. A left femoral vein sheath is present with tip in main external iliac vein. Terry Hurtado MD Upper GI Series 02/28/17 0000 Signed Impressions: Service Date/Time: Tuesday, February 28, 2017 17:21 - CONCLUSION: 1. No evidence of extravasation to suggest perforation. 2. Focal collection of contrast within the gastric remnant raising the possibility of focal ulceration. Upper endoscopy would be helpful for further evaluation of this finding if there is strong clinical concern for ulceration within the gastric remnant. Maycol Castro MD Gall Bladder Ultrasound 02/28/17 0000 Signed Impressions: Service Date/Time: Tuesday, February 28, 2017 14:50 - CONCLUSION: 1. Single mobile stone in the gallbladder. 2. Extrarenal pelvis on the right. Darren Pascual MD Physical Exam GENERAL: awake and alert, not in respiratory distress. SKIN: Warm and dry. No generalized rash, no ecchymoses and no evidence of embolic lesions. Decreased turgor HEAD: Atraumatic. Normocephalic. No temporal wasting, or tenderness. EYES: Peyton conjunctiva. No petechia or hemorrhage. Pupils equal, round and reactive to light. No scleral icterus. No injection or drainage. EARS, NOSE AND THROAT: Nose without bleeding or purulent nasal discharge. No sinus tenderness. Mucous membranes pink and moist. Poor dentition. No oral lesions noted. No exudate. No oral thrush. NECK: Trachea midline. Supple and not tender, no meningeal signs CARDIOVASCULAR: Regular rate and rhythm. Tachycardic. No murmurs, rubs or gallops heard RESPIRATORY: Clear to auscultation. Breath sounds equal bilaterally. No rales , wheezing or rhonchi ABDOMEN: Soft, mildly distended, with tenderness in both upper quadrant. Bowel sounds present and normoactive. No guarding. No rebound. EXTREMITIES: No clubbing, cyanosis, or edema. No joint effusion, has good ROM. No calf tenderness. Well perfused and warm. NEUROLOGICAL: Awake and alert. Cranial nerves grossly intact. Motor grossly within normal limits. PSYCHIATRIC: Normal affect, calm and cooperative. LINE: New line [facility] Assessment & Plan Remarks IMPRESSION New fever, sepsis, source? 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
--- NOTE | 2017-03-16 15:26 | HHI.PR ---
Subjective Subjective Notes Resting in bed Feels tired today Objective Vitals/I&O Vital Signs Date Time Temp Pulse Resp B/P Pulse Ox O2 Delivery O2 Flow Rate FiO2 03/16/17 14:22 118 03/16/17 12:19 98.2 18 124/95 98 03/16/17 07:53 Room Air 03/15/17 15:27 21 Labs Laboratory Tests Test 03/16/17 07:38 White Blood Count 6.5 Red Blood Count 3.84 Hemoglobin 10.4 Hematocrit 32.9 Mean Corpuscular Volume 85.7 Mean Corpuscular Hemoglobin 27.2 Mean Corpuscular Hemoglobin 31.7 Concent Red Cell Distribution Width 17.1 Platelet Count 245 Mean Platelet Volume 10.5 Neutrophils (%) (Auto) 57.1 Lymphocytes (%) (Auto) 26.9 Monocytes (%) (Auto) 9.0 Eosinophils (%) (Auto) 6.0 Basophils (%) (Auto) 1.0 Neutrophils # (Auto) 3.7 Lymphocytes # (Auto) 1.8 Monocytes # (Auto) 0.6 Eosinophils # (Auto) 0.4 Basophils # (Auto) 0.1 CBC Comment DIFF FINAL Differential Comment Prothrombin Time 10.1 Prothromb Time International 0.9 Ratio Sodium Level 140 Potassium Level 4.1 Chloride Level 103 Carbon Dioxide Level 30.5 Anion Gap 7 Blood Urea Nitrogen 6 Creatinine 0.32 Estimat Glomerular Filtration 221 Rate Random Glucose 113 Calcium Level 8.4 Phosphorus Level 4.2 Magnesium Level 1.8 Total Bilirubin 0.3 Aspartate Amino Transf 40 (AST/SGOT) Alanine Aminotransferase 40 (ALT/SGPT) Alkaline Phosphatase 340 Total Protein 6.6 Albumin 2.1 Triglycerides Level 139 Date/Time Procedure Status Source Growth 03/13/17 17:00 Aerobic Blood Culture - Preliminary Resulted Blood Peripheral NO GROWTH IN 3 DAYS 03/13/17 17:00 Anaerobic Blood Culture - Preliminary Resulted Blood Peripheral NO GROWTH IN 3 DAYS 03/12/17 12:55 Wound Culture - Final Complete Catheter Tip Central Venous Line NO GROWTH IN 48 HOURS. Cardiovascular: Regular Lungs: Clear Abdomen: Other (tenderness with palpation ) Extremities: No edema A/P Assessment and Plan 46 year old female s/p gastric bypass surgery, weight loss, cachetic, malnutrition, GI bleed; anemia and NSAID use -S/p EGD -- Gastrojejunostomy ulcer; with active bleeding--stable -S/p EGD and IR coil of splenic artery for massive GI bleed -Continue to monitor Hmg; transfuse as needed -Continue TPN -Tolerating fulls ---added Protein shakes ---need to monitor pre-albumin -Pain control Attending Statement fatigue otherwise stable patient seen at bedside agree with above Attestation The exam, history, and the medical decision-making described in the above note were completed with the assistance of the mid-level provider. I reviewed and agree with the findings presented. I attest that I had a [id number] encounter with the patient on the same day, and personally performed and documented my assessment and findings in the medical record. Jannette Garnett Mar 16, 2017 15:26 Jerome Arias MD Mar 25, 2017 21:45
--- NOTE | 2017-03-16 17:35 | RADRPT ---
EXAM DATE/TIME: 03/16/2017 16:39 [facility] COMPARISON: No previous studies available for comparison. INDICATIONS : Right arm swelling. MEDICAL HISTORY : Thyroid disease. Asthma. Hematemesis. Anemia. Anxiety. Depression. Bipolar d isorder. Schizophrenia. GI bleed. SURGICAL HISTORY : Gastric bypass. Exploratory laparoscopy. ENCOUNTER: Initial ACUITY: 1 day PAIN SCORE: 0/10 LOCATION: Right arm. FINDINGS: There is spontaneous flow documented in the brachial, basilic, cephalic, axillary, and subclavian vei ns. The vessels are compressible and augmentation response is documented. No filling defects are se en. The flow is phasic with respiration. Direction of flow in the jugular vein is caudal. CONCLUSION: No evidence of deep or superficial thrombophlebitis. Jean Love MD on March 16, 2017 at 17:31 Board Certified Radiologist. This report was verified electronically.
[2017-03-16] MEDS: CLINIMIX E 4.25/25 2000 mL- >42 mls/hr IV-CENTRAL SCH ×3 (20:22)
[2017-03-16] MEDS: FAT EMULSION 20% INJ 250 ML (Daily over 8 hours) IV-CENTRAL SCH (20:23)
[2017-03-16] MEDS: PANTOPRAZOLE SOD 40 MG DELAYED RELEASE TAB PO SCH (20:27)
[2017-03-16] MEDS: DOXEPIN HCL 50 MG CAP PO SCH (20:28)
[2017-03-16] MEDS: ALPRAZolam 1 MG TAB PO PRN (20:41)
[2017-03-17] VITALS (8 sets, daily range): BP systolic 92–126; BP diastolic 55–78; PULSE 106–116; RESP 16–18; TEMP 97.5–98.1; O2SAT 95–100
[2017-03-17] MEDS: ALBUTEROL SULFATE 90 MCG/ACT HFA 18 GM INHALER INH SCH ×5 (00:46→21:44)
[2017-03-17] MEDS: oxyCODONE/ACETAMINOPHEN 10 MG/325 MG TAB PO PRN ×6 (00:47→21:43)
[2017-03-17] MEDS: SUCRALFATE 1 GM/10 ML CUP PO SCH ×4 (04:05→20:31)
[2017-03-17] MEDS: HYDROmorphone HCL PF 1 MG/ML VIAL IV PUSH PRN ×5 (04:06→20:31)
[2017-03-17] MEDS: INSULIN NovoLIN REGULAR SUPPLEMENTAL SCALE SQ SCH ×4 (06:02→20:10)
[2017-03-17] MEDS: clonazePAM 1 MG TAB PO SCH ×3 (06:04→20:30)
[2017-03-17] MEDS: OLANZapine 2.5 MG TAB PO SCH ×2 (08:16→20:08)
[2017-03-17] MEDS: PANTOPRAZOLE SOD 40 MG DELAYED RELEASE TAB PO SCH ×2 (08:16→20:08)
[2017-03-17] MEDS: ALPRAZolam 1 MG TAB PO PRN (08:17)
[2017-03-17] MEDS: BUDESONIDE-FORMOTEROL 80/4.5 MCG INHALER INH SCH ×2 (08:22→20:09)
[2017-03-17] MEDS: RESP: ALBUTEROL 2.5 MG/IPRATROPIUM 0.5 MG NEB (PRN) INH ×2 (08:54→21:45)
[2017-03-17] MEDS: MICAFUNGIN INJ 100 MG in SODIUM CHLORIDE 0.9% INJ 100 ML IV SCH (10:14)
[2017-03-17] MEDS: TIOTROPIUM BROMIDE 18 MCG INH INH SCH (10:41)
--- NOTE | 2017-03-17 10:56 | HHI.PR ---
Subjective Remarks In bed. Says she feels tired. BS was noted low. Also was noted tachycardic. Says she is less nauseated. Did not vomiting. No diarrhea or constipation. No feevr or chills. Discussed with Dr Sondra FERREIRA Objective Vitals Vital Signs Date Time Temp Pulse Resp B/P Pulse Ox O2 Delivery O2 Flow Rate FiO2 03/17/17 08:55 98 21 03/17/17 08:47 18 03/17/17 08:00 97.7 107 18 101/60 98 03/17/17 04:00 97.5 110 18 111/72 100 03/17/17 00:00 97.7 116 18 92/55 95 03/16/17 20:18 96 03/16/17 20:00 98.8 103 20 98 03/16/17 19:30 Room Air 03/16/17 18:14 94 03/16/17 17:40 98 21 03/16/17 16:40 102 03/16/17 16:06 98.1 119 17 111/64 99 03/16/17 14:22 118 03/16/17 12:19 98.2 97 18 124/95 98 03/16/17 12:02 84 03/16/17 11:33 98 I/O 03/16/17 03/16/17 03/16/17 03/17/17 03/17/17 03/17/17 07:00 15:00 23:00 07:00 15:00 23:00 Intake Total 2533 ml 2040 ml 480 ml 480 ml Output Total 1425 ml Balance 1108 ml 2040 ml 480 ml 480 ml Intake Oral 1710 ml 1440 ml 480 ml 480 ml IV Total 74 ml 600 ml TPN/PPN 563 ml Lipid 186 ml Output Urine Total 1425 ml # Voids 1 4 2 3 # Bowel Movements 0 1 Result Diagram: 03/16/17 0738 03/16/17 0738 Imaging Last Impressions Upper Extremity Ultrasound 03/16/17 0000 Signed Impressions: Service Date/Time: February 16:39 - CONCLUSION: No evidence of deep or superficial thrombophlebitis. Jean Love MD Abdomen/Pelvis CT 03/13/17 0000 Signed Impressions: Service Date/Time: Monday, March 13, 2017 11:03 - CONCLUSION: 1. 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 No findings are present to indicate acute hemorrhage. 2. Nonacute findings include small hiatal hernia and mild atherosclerotic disease. There are postsurgical findings indicative of prior [place]-en-Y gastric bypass surgery. 3. L1 compression fracture of uncertain chronicity. Terry Larry MD Lower Extremity Ultrasound 03/12/17 Signed Impressions: Service Date/Time: Sunday, March 12, 2017 14:01 - CONCLUSION: No DVT. Terry Poon MD Chest X-Ray 03/12/17 Signed Impressions: Service Date/Time: Sunday, March 12, 2017 10:04 - CONCLUSION: 1. Left central line in good position. No pneumothorax. 2. No acute pulmonary infiltrates. Edwin Martin MD Splenic Arteriogram 03/06/17 0000 Signed Impressions: Service Date/Time: Sunday, March 05, 2017 23:50 - CONCLUSION: 1. 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 The proximal splenic artery was embolized to occlusion. The patient will likely need splenectomy to prevent back bleeding into the anastomosis. There is also high probability of complete infarct of the spleen as well. Darren Pascual MD Upper GI Series 02/28/17 Signed Impressions: Service Date/Time: Tuesday, February 28, 2017 17:21 - CONCLUSION: 1. No evidence of extravasation to suggest perforation. 2. Focal collection of contrast within the gastric remnant raising the possibility of focal ulceration. Upper endoscopy would be helpful for further evaluation of this finding if there is strong clinical concern for ulceration within the gastric remnant. Maycol Castro MD Gall Bladder Ultrasound 02/28/17 0000 Signed Impressions: Service Date/Time: Tuesday, February 28, 2017 14:50 - CONCLUSION: 1. Single mobile stone in the gallbladder. 2. Extrarenal pelvis on the right. Darren Pascual MD Objective Remarks GENERAL: This is a well-nourished, well-developed patient, in no apparent distress. CARDIOVASCULAR: Regular rate and rhythm RESPIRATORY: Clear to auscultation. Breath sounds equal bilaterally. No wheezes , rales, or rhonchi. GASTROINTESTINAL: Abdomen soft, no significant tenderness or rebound guarding, nondistended. Normal active bowel sounds MUSCULOSKELETAL: Extremities without clubbing, cyanosis, or edema. NEURO: Alert & Oriented x4 to person, place, time, situation. 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 Pascual. Status post emergent EGD on 03/[address] Arias, no further surgical interventions planned at this time, continue postop care. Patient currently on TPN and tolerating clear diet. Previous EGD 03/01 revealed a large ulcer with adjacent clot- Continue Carafate 1 g po q6hr Юлия Glabrata Sepsis on Micafungin as per ID specialist to continue for 14 days. Lion cath removed, removed central line Right IJ and now has Left Subclavian central line placed on 03/12. Acute blood loss post hemorrhagic anemia, Thrombocytopenia s/p transfusion 2 units PRBC 02/28 and 2 units PRBC 03/01 for Hgb 6.9/4 units of FFP's/1 unit of cryoprecipitate Additional 2 U PRBC 03/06 , Hemoglobin 10.4 andH/H remains stable. Monitor and transfuse if need Previous VDRF Improved. status post Endotracheal Intubation, currently on room air. Tobacco dependence cessation counseling. Continue Bronchodilator, Mucolytic, Incentive spirometry Hemorrhagic Shock Resolved, received fluid resuscitation, had pre-fifthly received Blood transfusion and Vasopressors in the ICU. Electrolyte derangement replaced and now resolved. Bipolar Disorder/Schizophrenia/Depression and Anxiety Patient is currently on Klonopin, Zyprexa, Doxepin, Xanax PRN for Anxiety, GI prophylaxis with changing Protonix drip to Protonix by mouth twice a day. DVT prophylaxis with SCD. No pharmacological prophylaxis with history of GI bleed. Discharge Planning Disposition depends on clinical status. Currently patient still on TPN. Increased rate of TPN discussed with pharmacy. Problem Qualifiers (1) GI bleed: Qualified Code: K92.2 - Gastrointestinal hemorrhage, unspecified gastrointestinal hemorrhage type Kimberly Mckeon MD Mar 17, 2017 10:56
[2017-03-17] MEDS ORDERED: SODIUM CHLORID 0.9% 500 ML INJ 500 ML IV ONE (13:00)
--- NOTE | 2017-03-17 13:31 | HHI.IDPN ---
Subjective Subjective Remarks Patient is a 46-year-old female, admitted to the hospital February 28 with complaints of generalized weakness, lightheadedness and dizziness. She also was complaining of abdominal pain. She gave a history that she had bypass surgery about 4 years ago. When she presented she had a significant low hemoglobin and upper endoscopy revealed evidence of a gastrojejunal ulcer which was not actively bleeding at the time of the procedure. She received multiple transfusions, and her hemoglobin stabilized. She was initially in the ICU, and was transferred out to the floor. On March 05 she had development of hypotension and active GI bleed, and was transferred back to the ICU. IR was consult to due to the life-threatening bleed, and the patient underwent embolization of her splenic artery. She ended up getting intubated, on the , and was successfully extubated on the . Patient has been on Zosyn since admission. She had some cultures done on admission and they were all negative. Patient has been stabilizing, and today she started having fevers up to 103. She denies any respiratory complaint. She has a Lion catheter in place. She has a central line in the right IJ. She is complaining of abdominal pain, and points more to the right than on the left. Notes reviewed Temps ok Still C/O abdominal pain BC 03/11, 03/12 with Юлия glabrata Line removed 03/12, tip C/S negative Has one new (+) BC 03/13 with yeast On full liquid diet Denies any visual complaints Line removed 03/12 Had BM Line tip C/S negative CT A/P - no abscess, has multiple splenic infarcts On TPN Echo valves ok on TTE Doppler US RUE no thrombus Antibiotics Micafungin Lines new line - LSC 03/12 Past Medical History Schizophrenia. Bipolar disorder. Anxiety, depression. Anemia. Bronchial asthma. Past Surgical History Gastric bypass surgery four years ago. Previous abdominal surgery about one to two years ago for Allergies: Coded Allergies: Sulfa (Verified Allergy, Severe, Anaphylaxis, 02/28/17) Objective . Vital Signs Date Time Temp Pulse Resp B/P Pulse Ox O2 Delivery O2 Flow Rate FiO2 03/17/17 13:16 20 03/17/17 11:12 18 03/17/17 08:55 98 21 03/17/17 08:00 97.7 107 18 101/60 98 03/17/17 04:00 97.5 110 18 111/72 100 03/17/17 00:00 97.7 116 18 92/55 95 03/16/17 20:18 96 03/16/17 20:00 98.8 103 20 98 03/16/17 19:30 Room Air 03/16/17 18:14 94 03/16/17 17:40 98 21 03/16/17 16:40 102 03/16/17 16:06 98.1 119 17 111/64 99 03/16/17 14:22 118 03/16/17 03/16/17 03/17/17 15:00 23:00 07:00 Intake Total 2040 ml 480 ml 480 ml Balance 2040 ml 480 ml 480 ml Intake Oral 1440 ml 480 ml 480 ml IV Total 600 ml # Voids 4 2 3 # Bowel Movements 1 . Laboratory Tests Test 03/16/17 07:38 White Blood Count 6.5 TH/MM3 Red Blood Count 3.84 MIL/MM3 Hemoglobin 10.4 GM/DL Hematocrit 32.9 % Mean Corpuscular Volume 85.7 FL Mean Corpuscular Hemoglobin 27.2 PG Mean Corpuscular Hemoglobin 31.7 % Concent Red Cell Distribution Width 17.1 % Platelet Count 245 TH/MM3 Mean Platelet Volume 10.5 FL Neutrophils (%) (Auto) 57.1 % Lymphocytes (%) (Auto) 26.9 % Monocytes (%) (Auto) 9.0 % Eosinophils (%) (Auto) 6.0 % Basophils (%) (Auto) 1.0 % Neutrophils # (Auto) 3.7 TH/MM3 Lymphocytes # (Auto) 1.8 TH/MM3 Monocytes # (Auto) 0.6 TH/MM3 Eosinophils # (Auto) 0.4 TH/MM3 Basophils # (Auto) 0.1 TH/MM3 CBC Comment DIFF FINAL Differential Comment Laboratory Tests Test 03/16/17 07:38 Sodium Level 140 MEQ/L Potassium Level 4.1 MEQ/L Chloride Level 103 MEQ/L Carbon Dioxide Level 30.5 MEQ/L Anion Gap 7 MEQ/L Blood Urea Nitrogen 6 MG/DL Creatinine 0.32 MG/DL Estimat Glomerular Filtration 221 ML/MIN Rate Random Glucose 113 MG/DL Calcium Level 8.4 MG/DL Phosphorus Level 4.2 MG/DL Magnesium Level 1.8 MG/DL Total Bilirubin 0.3 MG/DL Aspartate Amino Transf 40 U/L (AST/SGOT) Alanine Aminotransferase 40 U/L (ALT/SGPT) Alkaline Phosphatase 340 U/L Total Protein 6.6 GM/DL Albumin 2.1 GM/DL Triglycerides Level 139 MG/DL Microbiology Date/Time Procedure Status Source Growth 03/16/17 21:48 Aerobic Blood Culture - Preliminary Resulted Blood Peripheral NO GROWTH IN 1 DAY 03/16/17 21:48 Anaerobic Blood Culture - Preliminary Resulted Blood Peripheral NO GROWTH IN 1 DAY 03/17/17 07:55 Aerobic Blood Culture Received Blood Peripheral Pending 03/17/17 07:55 Anaerobic Blood Culture Received Blood Peripheral Pending Imaging Last Impressions Chest X-Ray 03/12/17 0000 Signed Impressions: Service Date/Time: Sunday, March 12, 2017 10:04 - CONCLUSION: 1. Left central line in good position. No pneumothorax. 2. No acute pulmonary infiltrates. Edwin Martin MD Splenic Arteriogram 03/06/17 0000 Signed Impressions: Service Date/Time: Sunday, March 05, 2017 23:50 - CONCLUSION: 1. 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 The proximal splenic artery was embolized to occlusion. The patient will likely need splenectomy to prevent back bleeding into the anastomosis. There is also high probability of complete infarct of the spleen as well. Darren Pascual MD Abdomen/Pelvis CT 03/05/17 0000 Signed Impressions: Service Date/Time: Monday, March 06, 2017 01:51 - CONCLUSION: 1. Apparent early or partial small bowel obstruction, appears to be occurring at the level of the mid to distal ileum and is probably in the low abdomen. 2. Heterogeneous attenuation of the spleen and of concern for incomplete infarction. Patient has been administered intravenous contrast recently but not for this study. 3. Mild ascites. Anasarca and small bilateral pleural effusions are also noted. 4. Previous gastric bypass, with distention of the stomach and gastrojejunal anastomosis noted. The nasogastric tube tip is above the diaphragm within a moderate hiatal hernia. 5. There is a right femoral vein catheter with tip in main common iliac vein. A left femoral vein sheath is present with tip in main external iliac vein. Terry Hurtado MD Upper GI Series 6/13/17 0000 Signed Impressions: Service Date/Time: Tuesday, February 28, 2017 17:21 - CONCLUSION: 1. No evidence of extravasation to suggest perforation. 2. Focal collection of contrast within the gastric remnant raising the possibility of focal ulceration. Upper endoscopy would be helpful for further evaluation of this finding if there is strong clinical concern for ulceration within the gastric remnant. Maycol Castro MD Gall Bladder Ultrasound 02/28/17 0000 Signed Impressions: Service Date/Time: Tuesday, February 28, 2017 14:50 - CONCLUSION: 1. Single mobile stone in the gallbladder. 2. Extrarenal pelvis on the right. Darren Pascual MD Physical Exam GENERAL: awake and alert, not in respiratory distress. SKIN: Warm and dry. No generalized rash, no ecchymoses and no evidence of embolic lesions. Decreased turgor HEAD: Atraumatic. Normocephalic. No temporal wasting, or tenderness. EYES: Anthony conjunctiva. No petechia or hemorrhage. Pupils equal, round and reactive to light. No scleral icterus. No injection or drainage. EARS, NOSE AND THROAT: Nose without bleeding or purulent nasal discharge. No sinus tenderness. Mucous membranes pink and moist. Poor dentition. No oral lesions noted. No exudate. No oral thrush. NECK: Trachea midline. Supple and not tender, no meningeal signs CARDIOVASCULAR: Regular rate and rhythm. Tachycardic. No murmurs, rubs or gallops heard RESPIRATORY: Clear to auscultation. Breath sounds equal bilaterally. No rales , wheezing or rhonchi ABDOMEN: Soft, mildly distended, with tenderness in both upper quadrant. Bowel sounds present and normoactive. No guarding. No rebound. EXTREMITIES: No clubbing, cyanosis, or edema. No joint effusion, has good ROM. No calf tenderness. Well perfused and warm. NEUROLOGICAL: Awake and alert. Cranial nerves grossly intact. Motor grossly within normal limits. PSYCHIATRIC: Normal affect, calm and cooperative. LINE: New line LSC no evidence of infection Assessment & Plan Remarks IMPRESSION New fever, sepsis, source? 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
--- NOTE | 2017-03-17 15:02 | HHI.PR ---
Subjective Subjective Notes Anxious about having HERI done Otherwise no acute issues Objective Vitals/I&O Vital Signs Date Time Temp Pulse Resp B/P Pulse Ox O2 Delivery O2 Flow Rate FiO2 03/17/17 13:16 20 03/17/17 08:55 98 21 03/17/17 08:15 Room Air 03/17/17 08:00 97.7 107 101/60 Labs Date/Time Procedure Status Source Growth 03/17/17 07:55 Aerobic Blood Culture Received Blood Peripheral Pending 03/17/17 07:55 Anaerobic Blood Culture Received Blood Peripheral Pending 03/16/17 21:48 Aerobic Blood Culture - Preliminary Resulted Blood Peripheral NO GROWTH IN 1 DAY 03/16/17 21:48 Anaerobic Blood Culture - Preliminary Resulted Blood Peripheral NO GROWTH IN 1 DAY Cardiovascular: Regular Lungs: Clear Abdomen: Other (abd flat; epigastric tenderness ) Extremities: No edema A/P Assessment and Plan 46 year old female s/p gastric bypass surgery, weight loss, cachetic, malnutrition, GI bleed; anemia and NSAID use -Cardiology consult for evaluation of HERI due to persistent candidemia -S/p EGD -- Gastrojejunostomy ulcer; with active bleeding--stable -S/p EGD and IR coil of splenic artery for massive GI bleed -Continue to monitor Hmg; transfuse as needed -Continue TPN -Tolerating fulls ---added Protein shakes -General Surgery will see peripherally this weekend Attending Statement patient seen at bedside agree with above HERI planning Attestation The exam, history, and the medical decision-making described in the above note were completed with the assistance of the mid-level provider. I reviewed and agree with the findings presented. I attest that I had a [id number] encounter with the patient on the same day, and personally performed and documented my assessment and findings in the medical record. Jannette Garnett Mar 17, 2017 15:02 Jerome Arias MD Mar 25, 2017 21:48
[2017-03-17] MEDS: CLINIMIX E 4.25/25 2000 mL- >42 mls/hr IV-CENTRAL SCH ×3 (20:08)
[2017-03-17] MEDS: FAT EMULSION 20% INJ 250 ML (Daily over 8 hours) IV-CENTRAL SCH (20:08)
[2017-03-17] MEDS: DOXEPIN HCL 50 MG CAP PO SCH (20:08)
[2017-03-17] MEDS: SODIUM CHLORIDE 0.9% FLUSH 10 ML FLUSH IVF PRN (20:10)
[2017-03-18] VITALS (7 sets, daily range): BP systolic 102–141; BP diastolic 55–81; PULSE 97–124; RESP 16–18; TEMP 97.6–98.2; O2SAT 95–100
[2017-03-18] MEDS: HYDROmorphone HCL PF 1 MG/ML VIAL IV PUSH PRN ×6 (01:02→21:10)
[2017-03-18] MEDS: RESP: ALBUTEROL 2.5 MG/IPRATROPIUM 0.5 MG NEB (PRN) INH ×2 (01:16→19:33)
[2017-03-18] MEDS: oxyCODONE/ACETAMINOPHEN 10 MG/325 MG TAB PO PRN ×6 (01:52→22:32)
[2017-03-18] MEDS: ALPRAZolam 1 MG TAB PO PRN ×3 (01:52→21:13)
[2017-03-18] MEDS: SUCRALFATE 1 GM/10 ML CUP PO SCH ×4 (05:01→22:32)
[2017-03-18] MEDS: clonazePAM 1 MG TAB PO SCH ×3 (05:01→22:32)
[2017-03-18] MEDS: ALBUTEROL SULFATE 90 MCG/ACT HFA 18 GM INHALER INH SCH ×3 (05:05→16:56)
[2017-03-18] MEDS: INSULIN NovoLIN REGULAR SUPPLEMENTAL SCALE SQ SCH ×4 (06:28→20:36)
[2017-03-18 07:11] LABS: POTASSIUM 4.1 MEQ/L (3.5-5.1)
[2017-03-18 07:14] LABS: AUTOMATED NEUTROPHIL # 4.5 TH/MM3 (1.8-7.7); BASOPHIL # 0.1 TH/MM3 (0-0.2); BASOPHIL % 0.8 % (0.0-2.0); EOSINOPHIL # 0.6 TH/MM3 (0-0.4); EOSINOPHIL % 7.7 % (0.0-4.0); HEMATOCRIT 27.9 % (35.0-46.0); HEMO FLAGS DIFF FINAL; LYMPH % 25.3 % (9.0-44.0); MEAN CELL VOLUME 84.4 FL (80.0-100.0); MEAN CORPUSCULAR HEMOGLOBIN 28.1 PG (27.0-34.0); MEAN CORPUSCULAR HGB CONC 33.3 % (32.0-36.0); MONO % 10.3 % (0.0-8.0); NEUT % 55.9 % (16.0-70.0); PLATELET COUNT 322 TH/MM3 (150-450); RED CELL DISTRIBUTION WIDTH 17.3 % (11.6-17.2)
[2017-03-18] MEDS: PANTOPRAZOLE SOD 40 MG DELAYED RELEASE TAB PO SCH ×2 (08:53→21:04)
[2017-03-18] MEDS: OLANZapine 2.5 MG TAB PO SCH ×2 (08:53→21:07)
[2017-03-18] MEDS: BUDESONIDE-FORMOTEROL 80/4.5 MCG INHALER INH SCH ×2 (08:54→21:03)
[2017-03-18] MEDS: TIOTROPIUM BROMIDE 18 MCG INH INH SCH (08:54)
[2017-03-18] MEDS: MICAFUNGIN INJ 100 MG in SODIUM CHLORIDE 0.9% INJ 100 ML IV SCH (10:18)
--- NOTE | 2017-03-18 17:45 | HHI.PR ---
Subjective Remarks pt c/o of dizziness specially when she goes to the bathroom she did have a BM Objective Vitals Vital Signs Date Time Temp Pulse Resp B/P Pulse Ox O2 Delivery O2 Flow Rate FiO2 03/18/17 16:00 98.2 115 18 115/72 96 03/18/17 15:23 18 03/18/17 14:02 20 03/18/17 12:00 97.8 120 18 110/55 98 03/18/17 08:00 98.2 97 18 102/66 95 03/18/17 04:00 97.7 124 18 116/57 96 03/18/17 00:00 98.0 108 16 103/57 96 03/17/17 21:48 99 21 03/17/17 20:00 112 03/17/17 20:00 Room Air 03/17/17 20:00 98.1 106 16 126/78 98 I/O 03/17/17 03/17/17 03/17/17 03/18/17 03/18/17 03/18/17 07:00 15:00 23:00 07:00 15:00 23:00 Intake Total 480 ml 1200 ml 650 ml 720 ml 900 ml Output Total 1425 ml 800 ml 900 ml Balance 480 ml -225 ml -150 ml -180 ml 900 ml Intake Oral 480 ml 1200 ml 650 ml 720 ml 900 ml Output Urine Total 1425 ml 800 ml 900 ml # Voids 3 2 3 # Bowel Movements 0 2 0 1 Result Diagram: 03/18/1762703/18/1728 Objective Remarks GENERAL: This is a well-nourished, well-developed patient, in no apparent distress. SKIN: No rashes, warm and dry HEAD: Atraumatic. Normocephalic. EYES: Pupils equal round and reactive. Extraocular motions intact. No scleral icterus. ENT: Nose without bleeding, or drainage, Airway patent. NECK: Trachea midline. Supple CARDIOVASCULAR: Regular rate and rhythm without murmurs, gallops, or rubs. RESPIRATORY: Fair air entry bilaterally. No wheezes, rales, or rhonchi. GASTROINTESTINAL: Abdomen soft, non-tender, nondistended. Positive bowel sounds MUSCULOSKELETAL: Extremities without clubbing, cyanosis, or edema. Pedal pulses appreciated NEUROLOGICAL: Awake and alert. Moves all extremity. 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 Pascual. Status post emergent EGD on 03/[address] Arias, no further surgical interventions planned at this time, continue postop care. Patient currently on TPN and tolerating clear diet. Previous EGD 03/01 revealed a large ulcer with adjacent clot- Continue Carafate 1 g po q6hr Юлия Glabrata Sepsis on Micafungin as per ID specialist to continue for 14 days. Lion cath removed, removed central line Right IJ and now has Left Subclavian central line placed on 03/12. Acute blood loss post hemorrhagic anemia, Thrombocytopenia s/p transfusion 2 units PRBC 02/28 and 2 units PRBC 03/01 for Hgb 6.9/4 units of FFP's/1 unit of cryoprecipitate Additional 2 U PRBC 03/06 , Hemoglobin 10.4 andH/H remains stable. Monitor and transfuse if need Previous VDRF Improved. status post Endotracheal Intubation, currently on room air. Tobacco dependence cessation counseling. Continue Bronchodilator, Mucolytic, Incentive spirometry Hemorrhagic Shock Resolved, received fluid resuscitation, had pre-fifthly received Blood transfusion and Vasopressors in the ICU. Electrolyte derangement replaced and now resolved. Bipolar Disorder/Schizophrenia/Depression and Anxiety Patient is currently on Klonopin, Zyprexa, Doxepin, Xanax PRN for Anxiety, GI prophylaxis with changing Protonix drip to Protonix by mouth twice a day. DVT prophylaxis with SCD. No pharmacological prophylaxis with history of GI bleed. Problem Qualifiers (1) GI bleed: Qualified Code: K92.2 - Gastrointestinal hemorrhage, unspecified gastrointestinal hemorrhage type Louis Soto MD Mar 18, 2017 17:45
[2017-03-18] MEDS: CLINIMIX E 4.25/25 2000 mL- >42 mls/hr IV-CENTRAL SCH ×3 (20:15)
[2017-03-18] MEDS: FAT EMULSION 20% INJ 250 ML (Daily over 8 hours) IV-CENTRAL SCH (20:15)
[2017-03-18] MEDS: DOXEPIN HCL 50 MG CAP PO SCH (21:03)
[2017-03-19] VITALS (14 sets, daily range): BP systolic 82–115; BP diastolic 58–72; PULSE 99–134; RESP 16–19; TEMP 97.2–98.4; O2SAT 96–100
--- NOTE | 2017-03-19 00:15 | RADRPT ---
EXAM DATE/TIME: 03/18/2017 23:37 [facility] COMPARISON: No previous studies available for comparison. INDICATIONS : Left knee pain post fall. MEDICAL HISTORY : Thyroid disease. Asthma. Back pain. Anxiety. Anemia SURGICAL HISTORY : Gastric bypass ENCOUNTER: Initial ACUITY: 1 day PAIN SCORE: 8/10 LOCATION: Left knee FINDINGS: Four view examination of the left knee demonstrates no evidence of fracture or dislocation. Bony min eralization is normal. The articular surfaces are intact. The suprapatellar soft tissues have a nor mal configuration. CONCLUSION: Unremarkable examination of the left knee except mild spurring of both femoral condyles. Chris Malik MD on March 19, 2017 at 0:13 Board Certified Radiologist. This report was verified electronically.
--- NOTE | 2017-03-19 00:30 | RADRPT ---
EXAM DATE/TIME: 03/19/2017 00:05 [facility] COMPARISON: No previous studies available for comparison. INDICATIONS : Trauma, fell and hit head today. RADIATION DOSE: 56.77 CTDIvol (mGy) MEDICAL HISTORY : Asthma. SURGICAL HISTORY : Gastric bypass. ENCOUNTER: Initial ACUITY: 1 day PAIN SCALE: 6/10 LOCATION: cranial TECHNIQUE: Multiple contiguous axial images were obtained of the head. Using automated exposure control and adj ustment of the mA and/or kV according to patient size, radiation dose was kept as low as reasonably a chievable to obtain optimal diagnostic quality images. DICOM format image data is available electro nically for review and comparison. FINDINGS: CEREBRUM: The ventricles are normal for age. No evidence of midline shift, mass lesion, hemorrhage or acute in farction. No extra-axial fluid collections are seen. POSTERIOR FOSSA: The cerebellum and brainstem are intact. The 4th ventricle is midline. The cerebellopontine angle i s unremarkable. EXTRACRANIAL: The visualized portion of the orbits is intact. SKULL: The calvaria is intact. No evidence of skull fracture. CONCLUSION: Normal examination. Chris Malik MD on March 19, 2017 at 0:29 Board Certified Radiologist. This report was verified electronically.
[2017-03-19] MEDS: SUCRALFATE 1 GM/10 ML CUP PO SCH ×4 (04:20→21:31)
[2017-03-19] MEDS: HYDROmorphone HCL PF 1 MG/ML VIAL IV PUSH PRN ×5 (04:42→21:32)
[2017-03-19] MEDS: oxyCODONE/ACETAMINOPHEN 10 MG/325 MG TAB PO PRN (05:57)
[2017-03-19] MEDS: clonazePAM 1 MG TAB PO SCH ×3 (05:57→21:31)
[2017-03-19] MEDS: INSULIN NovoLIN REGULAR SUPPLEMENTAL SCALE SQ SCH ×3 (05:57→16:47)
[2017-03-19] MEDS: ALBUTEROL SULFATE 90 MCG/ACT HFA 18 GM INHALER INH SCH ×4 (05:58→16:45)
[2017-03-19] MEDS: OLANZapine 2.5 MG TAB PO SCH ×2 (08:35→21:31)
[2017-03-19] MEDS: PANTOPRAZOLE SOD 40 MG DELAYED RELEASE TAB PO SCH ×2 (08:35→21:31)
[2017-03-19] MEDS: TIOTROPIUM BROMIDE 18 MCG INH INH SCH (08:37)
[2017-03-19] MEDS: BUDESONIDE-FORMOTEROL 80/4.5 MCG INHALER INH SCH ×2 (08:37→21:31)
[2017-03-19] MEDS: ALPRAZolam 1 MG TAB PO PRN ×2 (08:41→19:55)
[2017-03-19] MEDS ORDERED: SODIUM CHLOR 0.9% 250 ML INJ 250 ML IV ONE (10:15)
[2017-03-19] MEDS ORDERED: oxyCODONE/ACETAMINOPHEN 7.5 MG/325 MG TAB PO PRN (10:15)
[2017-03-19] MEDS: MICAFUNGIN INJ 100 MG in SODIUM CHLORIDE 0.9% INJ 100 ML IV SCH (11:44)
[2017-03-19] MEDS: oxyCODONE/ACETAMINOPHEN 7.5 MG/325 MG TAB PO PRN ×2 (11:49→19:01)
--- NOTE | 2017-03-19 17:19 | HHI.PR ---
Subjective Remarks I was called by the nurse patient having hypotension 82/60 they called Cassy I came to see the patient she was in bed blood pressure already improved after I ordered to 50 cc of normal saline we had to cut back on narcotic Patient is not happy about this she keeps saying "the other doctor is better because he cover my pain "patient is on 20 mg of Percocet every 4 hours along with 1 mg of Dilaudid every 4 hours. Objective Vitals Vital Signs Date Time Temp Pulse Resp B/P Pulse Ox O2 Delivery O2 Flow Rate FiO2 03/19/17 12:05 97.7 132 19 111/69 97 03/19/17 09:31 102/65 03/19/17 09:25 96/65 03/19/17 08:52 Room Air 03/19/17 08:52 99 03/19/17 08:30 82/60 03/19/17 05:30 98.1 124 18 101/63 98 03/19/17 04:00 98.4 109 16 111/60 97 03/19/17 02:30 97.6 112 18 115/62 100 03/19/17 00:00 97.2 134 18 111/58 97 03/18/17 21:40 97.6 111 18 141/81 100 03/18/17 20:00 97.7 116 18 105/59 96 03/18/17 19:25 18 I/O 03/18/17 03/18/17 03/18/17 03/19/17 03/19/17 03/19/17 07:00 15:00 23:00 07:00 15:00 23:00 Intake Total 720 ml 900 ml 2130 ml 1800 ml Output Total 900 ml 1000 ml Balance -180 ml 900 ml 2130 ml 800 ml Intake Oral 720 ml 900 ml 960 ml 1800 ml TPN/PPN 1122 ml Lipid 48 ml Output Urine Total 900 ml 1000 ml # Voids 3 6 # Bowel Movements 0 1 1 0 Result Diagram: 03/18/1762703/18/17627 Objective Remarks GENERAL: This is a well-nourished, well-developed patient, in no apparent distress. SKIN: No rashes, warm and dry HEAD: Atraumatic. Normocephalic. EYES: Pupils equal round and reactive. Extraocular motions intact. No scleral icterus. ENT: Nose without bleeding, or drainage, Airway patent. NECK: Trachea midline. Supple CARDIOVASCULAR: Regular rate and rhythm without murmurs, gallops, or rubs. RESPIRATORY: Fair air entry bilaterally. No wheezes, rales, or rhonchi. GASTROINTESTINAL: Abdomen soft, non-tender, nondistended. Positive bowel sounds MUSCULOSKELETAL: Extremities without clubbing, cyanosis, or edema. Pedal pulses appreciated NEUROLOGICAL: Awake and alert. Moves all extremity. Normal speech.no focal neurological deficit Date of Insertion: Mar 12, 2017 Line: Central Venous Catheter Side: Left Location: Subclavian A/P Problem List: (1) GI bleed ICD Code: K92.2 Status: Acute Assessment and Plan 03/18: reviewed labs , ID/GI notes , cont iv abx , await ophthalmology consult 03/19: Severe hypotension, Hallicat was cold, I ordered 250 cc of normal saline, decrease Percocet and Dilaudid, patient is not happy we'll monitor blood pressure A/P: Massive Upper GIB secondary to 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 Pascual. Status post emergent EGD on 03/[address] Arias, no further surgical interventions planned at this time, continue postop care. Patient currently on TPN and tolerating clear diet. Previous EGD 03/01 revealed a large ulcer with adjacent clot- Continue Carafate 1 g po q6hr Юлия Glabrata Sepsis on Micafungin as per ID specialist to continue for 14 days. Lion cath removed, removed central line Right IJ and now has Left Subclavian central line placed on 03/12. Acute blood loss post hemorrhagic anemia, Thrombocytopenia s/p transfusion 2 units PRBC 02/28 and 2 units PRBC 03/01 for Hgb 6.9/4 units of FFP's/1 unit of cryoprecipitate Additional 2 U PRBC 03/06 , Hemoglobin 10.4 andH/H remains stable. Monitor and transfuse if need Previous VDRF Improved. status post Endotracheal Intubation, currently on room air. Tobacco dependence cessation counseling. Continue Bronchodilator, Mucolytic, Incentive spirometry Hemorrhagic Shock Resolved, received fluid resuscitation, had pre-fifthly received Blood transfusion and Vasopressors in the ICU. Electrolyte derangement replaced and now resolved. Bipolar Disorder/Schizophrenia/Depression and Anxiety Patient is currently on Klonopin, Zyprexa, Doxepin, Xanax PRN for Anxiety, GI prophylaxis with changing Protonix drip to Protonix by mouth twice a day. DVT prophylaxis with SCD. No pharmacological prophylaxis with history of GI bleed. Problem Qualifiers (1) GI bleed: Qualified Code: K92.2 - Gastrointestinal hemorrhage, unspecified gastrointestinal hemorrhage type Louis Soto MD Mar 19, 2017 17:19
[2017-03-19] MEDS: ONDANSETRON HCL 4 MG/2 ML VIAL IV PUSH PRN (19:55)
[2017-03-19] MEDS: CLINIMIX E 4.25/25 2000 mL- >42 mls/hr IV-CENTRAL SCH ×3 (21:30)
[2017-03-19] MEDS: FAT EMULSION 20% INJ 250 ML (Daily over 8 hours) IV-CENTRAL SCH (21:30)
[2017-03-19] MEDS: DOXEPIN HCL 50 MG CAP PO SCH (21:31)
[2017-03-20] VITALS (7 sets, daily range): BP systolic 97–116; BP diastolic 61–69; PULSE 91–106; RESP 16–18; TEMP 97.6–98.1; O2SAT 96–99
[2017-03-20] MEDS: oxyCODONE/ACETAMINOPHEN 7.5 MG/325 MG TAB PO PRN ×5 (02:26→21:11)
[2017-03-20] MEDS: HYDROmorphone HCL PF 1 MG/ML VIAL IV PUSH PRN ×5 (04:10→22:27)
[2017-03-20] MEDS: ALPRAZolam 1 MG TAB PO PRN ×2 (04:10→16:50)
[2017-03-20] MEDS: SUCRALFATE 1 GM/10 ML CUP PO SCH ×4 (04:10→21:10)
[2017-03-20] MEDS: SODIUM CHLORIDE 0.9% FLUSH 10 ML FLUSH IVF PRN (04:11)
[2017-03-20] MEDS: clonazePAM 1 MG TAB PO SCH ×3 (05:58→21:10)
[2017-03-20] MEDS: ALBUTEROL SULFATE 90 MCG/ACT HFA 18 GM INHALER INH SCH ×4 (05:58→18:00)
[2017-03-20] MEDS: INSULIN NovoLIN REGULAR SUPPLEMENTAL SCALE SQ SCH ×5 (06:03→21:00)
[2017-03-20] MEDS: OLANZapine 2.5 MG TAB PO SCH ×2 (10:20→20:24)
[2017-03-20] MEDS: MICAFUNGIN INJ 100 MG in SODIUM CHLORIDE 0.9% INJ 100 ML IV SCH (10:20)
[2017-03-20] MEDS: PANTOPRAZOLE SOD 40 MG DELAYED RELEASE TAB PO SCH ×2 (10:20→20:24)
[2017-03-20] MEDS: BUDESONIDE-FORMOTEROL 80/4.5 MCG INHALER INH SCH ×2 (10:21→20:24)
[2017-03-20] MEDS: TIOTROPIUM BROMIDE 18 MCG INH INH SCH (10:21)
--- NOTE | 2017-03-20 13:58 | ECHRPT ---
Indication: endocarditis CONCLUSIONS No evidence of endocarditis BP: / HR: Rhythm: Technical Quality: Medications Complications There were no complications prior to, during or in recovery from the transesophag eal echocardiogram.. Proc. Components FINDINGS LEFT VENTRICLE Normal left ventricular size and wall thickness. The left ventricular systolic function is normal wi th an estimated ejection fraction in the range of 60-65%. Left ventricular diastolic function parameters a re normal. RIGHT VENTRICLE Normal right ventricular size and systolic function. LEFT ATRIUM The left atrial size is normal. RIGHT ATRIUM The right atrial size is normal. ATRIAL APPENDAGES Normal left atrial appendage size with no evidence of thrombus formation. ATRIAL SEPTUM Normal atrial septal thickness without atrial level shunting by limited color doppler interrogation. AORTA The aortic root and proximal ascending aorta are normal in size on limited imaging. MITRAL VALVE Structurally normal mitral valve. Trace mitral valve regurgitation. AORTIC VALVE Trileaflet aortic valve. No aortic valve stenosis or regurgitation. TRICUSPID VALVE No pulmonary valve regurgitation or stenosis. VESSELS The inferior vena cava is normal in size. PULMONARY VALVE No pulmonary valve regurgitation or stenosis. PERICADIUM There is no pericardial effusion. Mathew Jang MD (Electronically Signed) Final Date:20 March 2017 13:57
--- NOTE | 2017-03-20 15:08 | HHI.PR ---
Subjective Remarks I saw the patient earlier after she had echo: Back to her room And I saw her in her room she was laying in bed talking to her friend on the phone she did not seem to be in distress, however she continued to complain of pain No fever or chills echocardiogram within normal limits EF 60% Objective Vitals Vital Signs Date Time Temp Pulse Resp B/P Pulse Ox O2 Delivery O2 Flow Rate FiO2 03/20/17 12:00 98.0 106 16 97/61 98 03/20/17 08:00 98.1 91 16 113/69 98 03/20/17 05:40 97.7 94 16 100/62 97 03/20/17 05:40 Room Air 03/19/17 23:37 97.6 110 16 96/61 96 03/19/17 23:37 Room Air 03/19/17 21:30 Room Air 03/19/17 21:30 98.3 103 16 113/72 97 03/19/17 20:19 109 03/19/17 16:05 97.9 106 18 108/62 98 I/O 03/19/17 03/19/17 03/19/17 03/20/17 03/20/17 03/20/17 07:00 15:00 23:00 07:00 15:00 23:00 Intake Total 1800 ml 560 ml 1311 ml 663 ml Output Total 1000 ml 650 ml 1450 ml Balance 800 ml 560 ml 661 ml -787 ml Intake Oral 1800 ml 560 ml 720 ml 0 ml TPN/PPN 527 ml 477 ml Lipid 64 ml 186 ml Output Urine Total 1000 ml 650 ml 1450 ml # Voids 7 # Bowel Movements 0 1 1 0 Result Diagram: 03/18/1762703/18/17627 Objective Remarks GENERAL: This is a well-nourished, well-developed patient, in no apparent distress. SKIN: No rashes, warm and dry HEAD: Atraumatic. Normocephalic. EYES: Pupils equal round and reactive. Extraocular motions intact. No scleral icterus. ENT: Nose without bleeding, or drainage, Airway patent. NECK: Trachea midline. Supple CARDIOVASCULAR: Regular rate and rhythm without murmurs, gallops, or rubs. RESPIRATORY: Fair air entry bilaterally. No wheezes, rales, or rhonchi. GASTROINTESTINAL: Abdomen soft, non-tender, nondistended. Positive bowel sounds MUSCULOSKELETAL: Extremities without clubbing, cyanosis, or edema. Pedal pulses appreciated NEUROLOGICAL: Awake and alert. Moves all extremity. Normal speech.no focal neurological deficit Date of Insertion: Mar 12, 2017 Line: Central Venous Catheter Side: Left Location: Subclavian A/P Problem List: (1) GI bleed ICD Code: K92.2 Status: Acute Assessment and Plan 03/18: reviewed labs , ID/GI notes , cont iv abx , await ophthalmology consult 03/19: Severe hypotension, Hallicat was cold, I ordered 250 cc of normal saline, decrease Percocet and Dilaudid, patient is not happy we'll monitor blood pressure 03/20: Blood pressure more stable today, echocardiogram within normal limit EF 60% , patient continued to asked the surgical team to increase pain medication, continue current care A/P: Massive Upper GIB secondary to 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 Pascual. Status post emergent EGD on 03/[address] Arias, no further surgical interventions planned at this time, continue postop care. Patient currently on TPN and tolerating clear diet. Previous EGD 03/01 revealed a large ulcer with adjacent clot- Continue Carafate 1 g po q6hr Юлия Glabrata Sepsis on Micafungin as per ID specialist to continue for 14 days. Lion cath removed, removed central line Right IJ and now has Left Subclavian central line placed on 03/12. Acute blood loss post hemorrhagic anemia, Thrombocytopenia s/p transfusion 2 units PRBC 02/28 and 2 units PRBC 03/01 for Hgb 6.9/4 units of FFP's/1 unit of cryoprecipitate Additional 2 U PRBC 03/06 , Hemoglobin 10.4 andH/H remains stable. Monitor and transfuse if need Previous VDRF Improved. status post Endotracheal Intubation, currently on room air. Tobacco dependence cessation counseling. Continue Bronchodilator, Mucolytic, Incentive spirometry Hemorrhagic Shock Resolved, received fluid resuscitation, had pre-fifthly received Blood transfusion and Vasopressors in the ICU. Electrolyte derangement replaced and now resolved. Bipolar Disorder/Schizophrenia/Depression and Anxiety Patient is currently on Klonopin, Zyprexa, Doxepin, Xanax PRN for Anxiety, GI prophylaxis with changing Protonix drip to Protonix by mouth twice a day. DVT prophylaxis with SCD. No pharmacological prophylaxis with history of GI bleed. Problem Qualifiers (1) GI bleed: Qualified Code: K92.2 - Gastrointestinal hemorrhage, unspecified gastrointestinal hemorrhage type Louis Soto MD Mar 20, 2017 15:08
--- NOTE | 2017-03-20 16:21 | HHI.IDPN ---
Subjective Subjective Remarks Patient is a 46-year-old female, admitted to the hospital February 28 with complaints of generalized weakness, lightheadedness and dizziness. She also was complaining of abdominal pain. She gave a history that she had bypass surgery about 4 years ago. When she presented she had a significant low hemoglobin and upper endoscopy revealed evidence of a gastrojejunal ulcer which was not actively bleeding at the time of the procedure. She received multiple transfusions, and her hemoglobin stabilized. She was initially in the ICU, and was transferred out to the floor. On March 05 she had development of hypotension and active GI bleed, and was transferred back to the ICU. IR was consult to due to the life-threatening bleed, and the patient underwent embolization of her splenic artery. She ended up getting intubated, on the , and was successfully extubated on the . Patient has been on Zosyn since admission. She had some cultures done on admission and they were all negative. Patient has been stabilizing, and today she started having fevers up to 103. She denies any respiratory complaint. She has a Lion catheter in place. She has a central line in the right IJ. She is complaining of abdominal pain, and points more to the right than on the left. Notes reviewed Temps ok Still C/O abdominal pain BC 03/11, 03/12 with Юлия glabrata Line removed 03/12, tip C/S negative Has one new (+) BC 03/13 with yeast On full liquid diet Denies any visual complaints Line removed 03/12 Had BM Line tip C/S negative CT A/P - no abscess, has multiple splenic infarcts On TPN Echo valves ok on TTE Doppler US RUE no thrombus Antibiotics Micafungin Lines new line - LSC 03/12 Past Medical History Schizophrenia. Bipolar disorder. Anxiety, depression. Anemia. Bronchial asthma. Past Surgical History Gastric bypass surgery four years ago. Previous abdominal surgery about one to two years ago for Allergies: Coded Allergies: Sulfa (Verified Allergy, Severe, Anaphylaxis, 02/28/17) Objective . Vital Signs Date Time Temp Pulse Resp B/P Pulse Ox O2 Delivery O2 Flow Rate FiO2 03/20/17 16:00 97.7 103 18 107/66 99 03/20/17 12:00 98.0 106 16 97/61 98 03/20/17 08:00 98.1 91 16 113/69 98 03/20/17 05:40 97.7 94 16 100/62 97 03/20/17 05:40 Room Air 03/19/17 23:37 97.6 110 16 96/61 96 03/19/17 23:37 Room Air 03/19/17 21:30 Room Air 03/19/17 21:30 98.3 103 16 113/72 97 03/19/17 20:19 109 03/19/17 03/19/17 03/20/17 15:00 23:00 07:00 Intake Total 560 ml 1311 ml 663 ml Output Total 650 ml 1450 ml Balance 560 ml 661 ml -787 ml Intake Oral 560 ml 720 ml 0 ml TPN/PPN 527 ml 477 ml Lipid 64 ml 186 ml Output Urine Total 650 ml 1450 ml # Voids 7 # Bowel Movements 1 1 0 Imaging Last Impressions Chest X-Ray 03/12/17 0000 Signed Impressions: Service Date/Time: Sunday, March 12, 2017 10:04 - CONCLUSION: 1. Left central line in good position. No pneumothorax. 2. No acute pulmonary infiltrates. Edwin Martin MD Splenic Arteriogram 03/06/17 0000 Signed Impressions: Service Date/Time: Sunday, March 05, 2017 23:50 - CONCLUSION: 1. 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 The proximal splenic artery was embolized to occlusion. The patient will likely need splenectomy to prevent back bleeding into the anastomosis. There is also high probability of complete infarct of the spleen as well. Darren Pascual MD Abdomen/Pelvis CT 03/05/17 0000 Signed Impressions: Service Date/Time: Monday, March 06, 2017 01:51 - CONCLUSION: 1. Apparent early or partial small bowel obstruction, appears to be occurring at the level of the mid to distal ileum and is probably in the low abdomen. 2. Heterogeneous attenuation of the spleen and of concern for incomplete infarction. Patient has been administered intravenous contrast recently but not for this study. 3. Mild ascites. Anasarca and small bilateral pleural effusions are also noted. 4. Previous gastric bypass, with distention of the stomach and gastrojejunal anastomosis noted. The nasogastric tube tip is above the diaphragm within a moderate hiatal hernia. 5. There is a right femoral vein catheter with tip in main common iliac vein. A left femoral vein sheath is present with tip in main external iliac vein. Terry Hurtado MD Upper GI Series 02/28/17 0000 Signed Impressions: Service Date/Time: Tuesday, February 28, 2017 17:21 - CONCLUSION: 1. No evidence of extravasation to suggest perforation. 2. Focal collection of contrast within the gastric remnant raising the possibility of focal ulceration. Upper endoscopy would be helpful for further evaluation of this finding if there is strong clinical concern for ulceration within the gastric remnant. Maycol Castro MD Gall Bladder Ultrasound 02/28/17 0000 Signed Impressions: Service Date/Time: Tuesday, February 28, 2017 14:50 - CONCLUSION: 1. Single mobile stone in the gallbladder. 2. Extrarenal pelvis on the right. Darren Pascual MD Physical Exam GENERAL: awake and alert, not in respiratory distress. SKIN: Warm and dry. No generalized rash, no ecchymoses and no evidence of embolic lesions. Decreased turgor HEAD: Atraumatic. Normocephalic. No temporal wasting, or tenderness. EYES: [place] conjunctiva. No petechia or hemorrhage. Pupils equal, round and reactive to light. No scleral icterus. No injection or drainage. EARS, NOSE AND THROAT: Nose without bleeding or purulent nasal discharge. No sinus tenderness. Mucous membranes pink and moist. Poor dentition. No oral lesions noted. No exudate. No oral thrush. NECK: Trachea midline. Supple and not tender, no meningeal signs CARDIOVASCULAR: Regular rate and rhythm. Tachycardic. No murmurs, rubs or gallops heard RESPIRATORY: Clear to auscultation. Breath sounds equal bilaterally. No rales , wheezing or rhonchi ABDOMEN: Soft, mildly distended, with tenderness in both upper quadrant. Bowel sounds present and normoactive. No guarding. No rebound. EXTREMITIES: No clubbing, cyanosis, or edema. No joint effusion, has good ROM. No calf tenderness. Well perfused and warm. NEUROLOGICAL: Awake and alert. Cranial nerves grossly intact. Motor grossly within normal limits. PSYCHIATRIC: Normal affect, calm and cooperative. LINE: New line LSC no evidence of infection Assessment & Plan Remarks IMPRESSION New fever, sepsis, source? 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 Julieth Rodas MD Mar 20, 2017 16:20 Other ID MD covering in my absence Julieth Rodas MD Mar 20, 2017 16:20
[2017-03-20] MEDS: DOXEPIN HCL 50 MG CAP PO SCH (20:25)
[2017-03-20] MEDS: FAT EMULSION 20% INJ 250 ML (Daily over 8 hours) IV-CENTRAL SCH (21:20)
[2017-03-21] VITALS (8 sets, daily range): BP systolic 93–128; BP diastolic 50–69; PULSE 93–114; RESP 16–18; TEMP 97.5–98.3; O2SAT 94–100
[2017-03-21] MEDS: RESP: ALBUTEROL 2.5 MG/IPRATROPIUM 0.5 MG NEB (PRN) INH ×2 (00:27→16:35)
[2017-03-21] MEDS: oxyCODONE/ACETAMINOPHEN 7.5 MG/325 MG TAB PO PRN ×7 (01:14→22:25)
[2017-03-21] MEDS: ALPRAZolam 1 MG TAB PO PRN ×2 (01:23→12:25)
[2017-03-21] MEDS: SUCRALFATE 1 GM/10 ML CUP PO SCH ×4 (04:00→22:25)
[2017-03-21] MEDS: ALBUTEROL SULFATE 90 MCG/ACT HFA 18 GM INHALER INH SCH ×4 (06:00→17:36)
[2017-03-21] MEDS: clonazePAM 1 MG TAB PO SCH ×3 (06:29→22:25)
[2017-03-21] MEDS: CLINIMIX E 4.25/25 2000 mL- >42 mls/hr IV-CENTRAL SCH ×6 (06:30→20:32)
[2017-03-21] MEDS: INSULIN NovoLIN REGULAR SUPPLEMENTAL SCALE SQ SCH ×4 (06:39→20:20)
[2017-03-21] MEDS: HYDROmorphone HCL PF 1 MG/ML VIAL IV PUSH PRN ×4 (07:18→20:17)
[2017-03-21] MEDS: PANTOPRAZOLE SOD 40 MG DELAYED RELEASE TAB PO SCH ×2 (07:46→20:18)
[2017-03-21] MEDS: OLANZapine 2.5 MG TAB PO SCH ×2 (07:46→20:18)
[2017-03-21] MEDS: TIOTROPIUM BROMIDE 18 MCG INH INH SCH (07:49)
[2017-03-21] MEDS: BUDESONIDE-FORMOTEROL 80/4.5 MCG INHALER INH SCH ×2 (07:50→20:24)
[2017-03-21] MEDS: MICAFUNGIN INJ 100 MG in SODIUM CHLORIDE 0.9% INJ 100 ML IV SCH (10:28)
--- NOTE | 2017-03-21 11:27 | HHI.PR ---
Subjective Remarks In the chair. Patient did walk to the bedside commode without problems. She doesn't appear in acute distress. Fels nauseated in the morning. No v/d/c. No fever or chills. On TPN Objective Vitals Vital Signs Date Time Temp Pulse Resp B/P Pulse Ox O2 Delivery O2 Flow Rate FiO2 03/21/17 08:07 98.3 98 16 93/50 94 03/21/17 07:52 Room Air 03/21/17 07:42 95 03/21/17 04:18 97.7 94 16 94/59 97 03/21/17 01:46 18 03/21/17 01:46 18 03/21/17 01:45 18 03/21/17 00:38 109 03/21/17 00:27 95 21 03/20/17 23:17 Room Air 03/20/17 23:15 97.6 95 16 104/62 99 03/20/17 21:04 98.0 105 16 116/69 96 03/20/17 16:00 97.7 103 18 107/66 99 03/20/17 12:00 98.0 106 16 97/61 98 I/O 03/20/17 03/20/17 03/20/17 03/21/17 03/21/17 03/21/17 07:00 15:00 23:00 07:00 15:00 23:00 Intake Total 663 ml 720 ml 1080 ml 1200 ml Output Total 1450 ml 1500 ml 1300 ml 1850 ml Balance -787 ml -780 ml -220 ml -650 ml Intake Oral 0 ml 720 ml 1080 ml 1200 ml TPN/PPN 477 ml Lipid 186 ml Output Urine Total 1450 ml 1500 ml 1300 ml 1850 ml # Bowel Movements 0 0 0 Result Diagram: 03/18/17 0628 03/18/1728 Imaging Last Impressions Knee X-Ray 03/18/17 0000 Signed Impressions: Service Date/Time: Saturday, March 18, 2017 23:37 - CONCLUSION: Unremarkable examination of the left knee except mild spurring of both femoral condyles. Chris Malik MD Head CT 03/18/17 0000 Signed Impressions: Service Date/Time: Sunday, March 19, 2017 00:05 - CONCLUSION: Normal examination. Chris Malik MD Upper Extremity Ultrasound 6/29/17 0000 Signed Impressions: Service Date/Time: February 16:39 - CONCLUSION: No evidence of deep or superficial thrombophlebitis. Jean Love MD Abdomen/Pelvis CT 03/13/17 0000 Signed Impressions: Service Date/Time: Monday, March 13, 2017 11:03 - CONCLUSION: 1. 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 No findings are present to indicate acute hemorrhage. 2. Nonacute findings include small hiatal hernia and mild atherosclerotic disease. There are postsurgical findings indicative of prior [place]-en-[place] gastric bypass surgery. 3. L1 compression fracture of uncertain chronicity. Terry Larry MD Lower Extremity Ultrasound 03/12/17 0000 Signed Impressions: Service Date/Time: Sunday, March 12, 2017 14:01 - CONCLUSION: No DVT. Terry Poon MD Chest X-Ray 03/12/17 Signed Impressions: Service Date/Time: Sunday, March 12, 2017 10:04 - CONCLUSION: 1. Left central line in good position. No pneumothorax. 2. No acute pulmonary infiltrates. Edwin Martin MD Splenic Arteriogram 03/06/17 0000 Signed Impressions: Service Date/Time: Sunday, March 05, 2017 23:50 - CONCLUSION: 1. 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 The proximal splenic artery was embolized to occlusion. The patient will likely need splenectomy to prevent back bleeding into the anastomosis. There is also high probability of complete infarct of the spleen as well. Darren Pascual MD Upper GI Series 02/28/17 0000 Signed Impressions: Service Date/Time: Tuesday, February 28, 2017 17:21 - CONCLUSION: 1. No evidence of extravasation to suggest perforation. 2. Focal collection of contrast within the gastric remnant raising the possibility of focal ulceration. Upper endoscopy would be helpful for further evaluation of this finding if there is strong clinical concern for ulceration within the gastric remnant. Maycol Castro MD Gall Bladder Ultrasound 02/28/17 0000 Signed Impressions: Service Date/Time: Tuesday, February 28, 2017 14:50 - CONCLUSION: 1. Single mobile stone in the gallbladder. 2. Extrarenal pelvis on the right. Darren Pascual MD Objective Remarks GENERAL: This is a well-nourished, well-developed patient, in no apparent distress. CARDIOVASCULAR: Regular rate and rhythm RESPIRATORY: Clear to auscultation. Breath sounds equal bilaterally. No wheezes , rales, or rhonchi. GASTROINTESTINAL: Abdomen soft, no significant tenderness or rebound guarding, nondistended. Normal active bowel sounds MUSCULOSKELETAL: Extremities without clubbing, cyanosis, or edema. NEURO: Alert & Oriented x4 to person, place, time, situation. 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 Pascual. Status post emergent EGD on 03/[address] Arias, no further surgical interventions planned at this time, continue postop care. Patient currently on TPN and tolerating full liquid diet. Previous EGD 03/01 revealed a large ulcer with adjacent clot- Continue Carafate 1 g po q6hr Renaldo Glabrata Sepsis on Micafungin as per ID specialist to continue for 14 days. Lion cath removed, removed central line Right IJ and now has Left Subclavian central line placed on 03/12. Acute blood loss post hemorrhagic anemia, Thrombocytopenia s/p transfusion 2 units PRBC 02/28 and 2 units PRBC 03/01 for Hgb 6.9/4 units of FFP's/1 unit of cryoprecipitate Additional 2 U PRBC 03/06 , Hemoglobin 10.4 andH/H remains stable. Monitor and transfuse if need Previous VDRF Improved. status post Endotracheal Intubation, currently on room air. Tobacco dependence cessation counseling. Continue Bronchodilator, Mucolytic, Incentive spirometry Hemorrhagic Shock Resolved, received fluid resuscitation, had pre-fifthly received Blood transfusion and Vasopressors in the ICU. Electrolyte derangement replaced and now resolved. Bipolar Disorder/Schizophrenia/Depression and Anxiety Patient is currently on Klonopin, Zyprexa, Doxepin, Xanax PRN for Anxiety, GI prophylaxis with changing Protonix drip to Protonix by mouth twice a day. DVT prophylaxis with SCD. No pharmacological prophylaxis with history of GI bleed. Discharge Planning Disposition depends on clinical status. Please consult ophthalmology on 03/22/17 for evaluation per ID specialist ( patient with persistent positive blood cultures for renaldo) Problem Qualifiers (1) GI bleed: Qualified Code: K92.2 - Gastrointestinal hemorrhage, unspecified gastrointestinal hemorrhage type Kimberly Mckeon MD Mar 21, 2017 11:27
[2017-03-21] MEDS: DOXEPIN HCL 50 MG CAP PO SCH (20:18)
[2017-03-21] MEDS: FAT EMULSION 20% INJ 250 ML (Daily over 8 hours) IV-CENTRAL SCH (20:32)
[2017-03-22] VITALS (8 sets, daily range): BP systolic 89–116; BP diastolic 55–65; PULSE 92–122; RESP 16–22; TEMP 97.6–98.6; O2SAT 94–99
[2017-03-22] MEDS: HYDROmorphone HCL PF 1 MG/ML VIAL IV PUSH PRN ×6 (00:15→22:25)
[2017-03-22] MEDS: oxyCODONE/ACETAMINOPHEN 7.5 MG/325 MG TAB PO PRN ×5 (02:34→20:03)
[2017-03-22] MEDS: ALPRAZolam 1 MG TAB PO PRN ×2 (02:34→10:38)
[2017-03-22] MEDS: SUCRALFATE 1 GM/10 ML CUP PO SCH ×4 (03:59→22:23)
[2017-03-22] MEDS: DEXTROSE 10% INJ 1,000 ML IV SCH ×2 (04:00→17:20)
[2017-03-22] MEDS: ALBUTEROL SULFATE 90 MCG/ACT HFA 18 GM INHALER INH SCH ×4 (06:00→18:00)
[2017-03-22] MEDS: clonazePAM 1 MG TAB PO SCH ×3 (06:16→22:23)
[2017-03-22] MEDS: INSULIN NovoLIN REGULAR SUPPLEMENTAL SCALE SQ SCH ×4 (06:17→20:07)
--- NOTE | 2017-03-22 08:09 | HHI.PR ---
Subjective Remarks volunteer services specialist Notes: Patient is a 46 year-old female with a past medical history of bronchial asthma , bipolar disorder, schizophrenia, anxiety/depression, and anemia. She presented to [facility] Emergency Department with complaints of feeling dizziness, light headedness, generalized weakness, multiple falls and inability to ambulate. On further history she has a history of gastric bypass four years ago in [place] and another abdominal surgery about one to two years ago for Intussusception in [place] as well. She states that she weighed 200 lbs when she had the gastric bypass surgery preformed, now she weighs 80 pounds, she reports chronic abdominal pain associated with intractable nausea and vomiting for several months. In addition to decreased p.o. intake. Her abdominal pain progressively worsened and mainly in the right upper quadrant and left lower quadrat. She denies any chest pain, shortness of breath, cough or any constitutional symptoms. On arrival to the emergency room she was hypotensive with systolic blood pressure in the 80's, tachycardic with heart rate in the 120's and her laboratory data showed hemoglobin of 7.2, lactic acid level of 2.9. Her liver enzymes are within normal limits with a total bilirubin of 0.2. Aspartate aminotransferase 21, alt 12, alkaline phosphatase 138. In the ER she received one out of two units of packed red blood cells and approximately 1.5 liters of normal saline. She responded to volume resuscitation and current blood pressure is 108/71 with a pulse of 112. Her o2 saturation is 97% on room air. Due to her abdominal pain, CT abdomen and pelvis were preformed which showed gallbladder wall thickening, mild hepatosplenomegaly and chronic mild compression deformity is noted involving L1. Chest x-ray in the emergency department showed right fifth rib fractures which appear old, otherwise no evidence of acute cardiopulmonary disease. Right IJ central line was placed by emergency department physician. She also has a ultrasound of the abdomen which is pending during the time of this dictation. The patient received Protonix, Unasyn and dilated in the emergency room. 03/01 Patient is lying in bed in NAD. s/p transfusion 2units PRBC this morning for Hgb 6.9. s/p EGD showed G-J ulcer, adherent clot with no evidence of bleeding. 03/02: Requesting Klonopin today. Hemoglobin stable for the past 12 hours. Very anxious and verbose. Complaining of pain epigastric/right upper quadrant region. 02/22/16: Currently afebrile. Requesting doxepin along with increasing pain medications. Days of pain in epigastric/right upper quadrant region. Hemoglobin stable. [facility] reconsulted on 03/05/17 -around 6 PM a rapid response was activated due to low blood pressure and hematemesis. She was transferred to ICU. The fluid resuscitation was started however patient continued vomiting blood and required intubation for an airway protection. Shortly after intubation she dropped her blood pressure again without palpable pulses in the CPR was initiated. There was a run of 2 cycles of CPR with return of spontaneous circulation. The Cordis introducer was inserted to left femoral vein and the rapid infuser was used to transfuse 4 units of PRBCs and FFP since cryoprecipitate. Dr. Beverly emergently performed upper EGD. Without successful finding off source of bleeding. This was discussed with interventional radiologist Dr. Pascual and the patient is going to be taken to IR for possible embolization emergently due to life-threatening condition uncontrolled GI bleed. 03/06: Remains intubated sedated. 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 Pascual. Episode of hypotension today, started on Levophed, 2U PRBC stat ordered, and 2L NS bolus. with improvement in BP. No evident GIB. Remains on Protonix and octreotide gtt. Hb 8.9 on Stat re check 03/07: Remains intubated, now off Levophed. Hb remains stable. No GIB reported. Will attempt SBT today for possible extubation. Discuss with Dr. Jerome Beverly. No plan for any surgical procedures at this time. DC octreotide in 24 hours. Continue Protonix infusion and Carafate per Dr. beverly 03/08: Extubated yesterday without complication. Hemoglobin this a.m. pending. No additional GI bleeding. Still complaining of abdominal pain. Requesting pain medication at the present time. 03/09: Complaining of abdominal pain 8 out of 10. Hemoglobin remained stable. Positive BM. Tolerating clear liquid diet. 03/10: Complaining of right lower quadrant pain 8 out of 10. On liquid [place] 7.5/325 added by general surgery today. On full liquid diet. Continues to have heme + smelling stools. Hospitalist Notes: 03/11: Seen in her bedroom, discussed with nurse Miss Ortega, no nausea, vomit or diarrhea, no signs of infection, has fever 103F, she is been on Empiric management with Zosyn by value analysis coordinator, asked for CXR, UA, blood cultures, Vancomycin started and asked for ID specialist. 03/12: Stable in her bedroom seen in the presence of nurse Miss Ortega, no nausea , vomit or diarrhea continue with Fever, blood cultures taken yesterday Yeast growing, is on Diflucan, given one dose of Micafungin by ID specialist, removed IJ catheter and changed from the Right side to the left neck side. recommended to continue Cefepime and Flagyl, Diflucan, Sent IJ tip for culture. No nausea, vomit or diarrhea. 03/13: Patient complaint of dizziness on Orthostatic position, also is been Hypotensive since admission, receiving large amounts of fluids, asked for Echocardiogram, Orthostatic vital sings, organizational development specialist consult, she continue Tachycardic. continue management as per ID specialist with antibiotics by now for sepsis. 03/14: Seen in her bedroom, no nausea,vomit or diarrhea, Discussed with organizational development specialist Doctor Ray and he does not see any Cardiac issue at this time Will follow Echocardiogram, network operations center technician at this time to make the Echocardiogram, as per ID specialist Sepsis probable line related, improving temperature, has yeast in BC, Юлия glabrata sepsis, recommended to Stop Cefepime , Flagyl and Vancomycin and Diflucan and continue Micafungin. follow culture sensitivity. 03/15: Seen in her bedroom, discussed with nurse Miss Thapa, clinically improving, General Surgery following, Echocardiogram EF 60-65%, normal wall Motion no nausea, vomit or diarrhea. follow PT evaluation assessment. 03/22: Seen in her bedroom discussed with nurse Miss Brantley and no nausea, vomit or diarrhea patient at this time going to the restroom, no new issues, not yet discharge by specialists. Objective Vital Signs Date Time Temp Pulse Resp B/P Pulse Ox O2 Delivery O2 Flow Rate FiO2 03/22/17 04:00 97.6 101 17 101/59 98 03/22/17 04:00 Room Air 03/22/17 00:00 Room Air 03/22/17 00:00 97.7 105 18 98/57 95 03/21/17 20:00 Room Air 03/21/17 20:00 97.5 109 18 128/69 100 03/21/17 20:00 93 03/21/17 16:07 97.5 108 16 106/59 97 03/21/17 12:06 97.9 114 16 109/64 95 I/O 03/21/17 03/21/17 03/21/17 03/22/17 03/22/17 03/22/17 07:00 15:00 23:00 07:00 15:00 23:00 Intake Total 1200 ml 3083 ml 1250 ml Output Total 1850 ml 1800 ml Balance -650 ml 1283 ml 1250 ml Intake Oral 1200 ml 960 ml 1250 ml TPN/PPN 2123 ml Output Urine Total 1850 ml 1800 ml # Voids 4 7 # Bowel Movements 0 0 Result Diagram: 03/18/17 0628 03/18/17 0628 Imaging Last Impressions Knee X-Ray 03/18/17 0000 Signed Impressions: Service Date/Time: Saturday, March 18, 2017 23:37 - CONCLUSION: Unremarkable examination of the left knee except mild spurring of both femoral condyles. Chris Malik MD Head CT 03/18/17 0000 Signed Impressions: Service Date/Time: Sunday, March 19, 2017 00:05 - CONCLUSION: Normal examination. Chris Malik MD Upper Extremity Ultrasound 03/16/17 0000 Signed Impressions: Service Date/Time: February 16:39 - CONCLUSION: No evidence of deep or superficial thrombophlebitis. Jean Love MD Abdomen/Pelvis CT 03/13/17 0000 Signed Impressions: Service Date/Time: Monday, March 13, 2017 11:03 - CONCLUSION: 1. 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 No findings are present to indicate acute hemorrhage. 2. Nonacute findings include small hiatal hernia and mild atherosclerotic disease. There are postsurgical findings indicative of prior [place]-en-Y gastric bypass surgery. 3. L1 compression fracture of uncertain chronicity. Terry Larry MD Lower Extremity Ultrasound 03/12/17 0000 Signed Impressions: Service Date/Time: Sunday, March 12, 2017 14:01 - CONCLUSION: No DVT. Terry Poon MD Chest X-Ray 03/12/17 0000 Signed Impressions: Service Date/Time: Sunday, March 12, 2017 10:04 - CONCLUSION: 1. Left central line in good position. No pneumothorax. 2. No acute pulmonary infiltrates. Edwin Martin MD Splenic Arteriogram 03/06/17 0000 Signed Impressions: Service Date/Time: Sunday, March 05, 2017 23:50 - CONCLUSION: 1. 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 The proximal splenic artery was embolized to occlusion. The patient will likely need splenectomy to prevent back bleeding into the anastomosis. There is also high probability of complete infarct of the spleen as well. Darren Pascual MD Upper GI Series 02/28/17 0000 Signed Impressions: Service Date/Time: Tuesday, February 28, 2017 17:21 - CONCLUSION: 1. No evidence of extravasation to suggest perforation. 2. Focal collection of contrast within the gastric remnant raising the possibility of focal ulceration. Upper endoscopy would be helpful for further evaluation of this finding if there is strong clinical concern for ulceration within the gastric remnant. Maycol Castro MD Gall Bladder Ultrasound 02/28/17 0000 Signed Impressions: Service Date/Time: Tuesday, February 28, 2017 14:50 - CONCLUSION: 1. Single mobile stone in the gallbladder. 2. Extrarenal pelvis on the right. Darren Pascual MD Procedures Line: Central Venous Catheter Side: Right Location: Internal, Jugular Endotracheal Intubation Pressors use. Other Results Laboratory Tests Test 03/18/17 06:28 White Blood Count 8.0 TH/MM3 Red Blood Count 3.30 MIL/MM3 Hemoglobin 9.3 GM/DL Hematocrit 27.9 % Mean Corpuscular Volume 84.4 FL Mean Corpuscular Hemoglobin 28.1 PG Mean Corpuscular Hemoglobin 33.3 % Concent Red Cell Distribution Width 17.3 % Platelet Count 322 TH/MM3 Mean Platelet Volume 10.4 FL Neutrophils (%) (Auto) 55.9 % Lymphocytes (%) (Auto) 25.3 % Monocytes (%) (Auto) 10.3 % Eosinophils (%) (Auto) 7.7 % Basophils (%) (Auto) 0.8 % Neutrophils # (Auto) 4.5 TH/MM3 Lymphocytes # (Auto) 2.0 TH/MM3 Monocytes # (Auto) 0.8 TH/MM3 Eosinophils # (Auto) 0.6 TH/MM3 Basophils # (Auto) 0.1 TH/MM3 CBC Comment DIFF FINAL Differential Comment Sodium Level 138 MEQ/L Potassium Level 4.1 MEQ/L Chloride Level 101 MEQ/L Carbon Dioxide Level 33.0 MEQ/L Anion Gap 4 MEQ/L Blood Urea Nitrogen 6 MG/DL Creatinine 0.27 MG/DL Estimat Glomerular Filtration 269 ML/MIN Rate Random Glucose 85 MG/DL Calcium Level 8.5 MG/DL Objective Remarks GENERAL: No acute distress SKIN: Warm and dry. No rash HEAD: Normocephalic. EYES: No scleral icterus. No injection or drainage. PERRL. NECK: Supple, no JVD no Lymphadenopathy. CARDIOVASCULAR: RRR. S1, S2. No S4. Without murmur, clicks, Gallops or rubs. Left subclavian central line. RESPIRATORY: Breath sounds clear to auscultation and equal bilaterally. GASTROINTESTINAL: Abdomen soft, no tender. MUSCULOSKELETAL: No edema. Neuro: Cranial nerves II through XII grossly intact. Strength is equal symmetric. Normal sensation. Medications and IVs Current Medications Medications (Trade) Dose Ordered Sig/Kaleb Route Start Time Stop Time Status Last Admin (NS Flush) 2 ml UNSCH PRN IVF 02/28/17 09:45 03/20/17 04:11 (D50w (Vial) Inj) 50 ml UNSCH PRN IV 02/28/17 16:15 03/17/17 10:33 (Glucagon Inj) 1 mg UNSCH PRN OTHER 02/28/17 16:15 Sucralfate 1 gm 1 gm Q6H PO 03/01/17 10:00 03/22/17 03:59 Multivitamins 10 ml/Folic Acid 1 mg/Amino Acids/ Electrolytes/ Dextrose 2,010.2 ml @ 75 mls/hr Q24H IV-CENTRAL 03/01/17 20:00 03/21/17 20:32 (Liposyn Iii 20% Inj) 250 ml @ 31.25 mls/ hr Q24H IV-CENTRAL 03/01/17 20:00 03/21/17 20:32 (ZyPREXA) 2.5 mg Q12HR PO 03/01/17 21:00 03/21/17 20:18 (KlonoPIN) 1 mg Q8HR PO 03/02/17 14:00 03/22/17 06:16 (Zofran Inj) 4 mg Q6H PRN IV PUSH 03/02/17 16:00 03/19/17 19:55 (Compazine Inj) 5 mg Q6H PRN IV PUSH 03/02/17 16:00 (Xanax) 1 mg Q8H PRN PO 03/02/17 22:00 03/22/17 02:34 (Ventolin Hfa Inh) 2 puff Q6HR INH 03/03/17 12:00 03/22/17 06:00 (Spiriva Inh) 18 mcg DAILY INH 03/03/17 09:00 03/21/17 07:49 (SINEquan) 200 mg HS PO 03/03/17 21:00 03/21/17 20:18 (Symbicort 80-4.5 Mcg Inh) 2 puff Q12HR INH 03/03/17 21:00 03/21/17 20:24 (Catapres) 0.1 mg Q6H PRN PO 03/04/17 16:30 (Tylenol) 500 mg Q4H PRN PO 03/11/17 19:30 03/13/17 05:55 Hydromorphone HCl 1 mg 1 mg Q4H PRN IV PUSH 03/13/17 12:00 03/22/17 04:00 (Mycamine Inj/NS Inj) 100 ml @ 100 mls/hr Q24H IV 03/13/17 11:00 03/21/17 10:28 (Flexeril) 5 mg Q8H PRN PO 03/14/17 13:15 (Pill Splitter) 1 ea UNSCH PRN OTHER 03/14/17 14:15 (NovoLIN R SUPPLEMENTAL SCALE) 1 ACHS SQ 03/15/17 11:30 (Protonix) 40 mg Q12HR PO 03/16/17 21:00 03/21/17 20:18 (Percocet 7.5-325 Mg) 1 tab Q4H PRN PO 03/20/17 14:15 03/21/17 01:22 Oxycodone/ Acetaminophen 2 tab 2 tab Q4H PRN PO 03/20/17 14:15 03/22/17 06:15 (D10w Inj) 1,000 ml @ 75 mls/hr [id number] IV 03/22/17 04:00 03/22/17 04:00 A/P Assessment and Plan 1. Bipolar Disorder/Schizophrenia/Depression and Anxiety Continue Klonopin, Zyprexa, Doxepin,Xanax PRN for Anxiety, Pain medicines Hydrocodone, decrease Hydromorphone dosages. 2. VDRF Improved. status post Endotracheal Intubation Tobacco dependence Follow Oxygen saturation, continue Bronchodilator, Mucolytic, Incentive spirometry 3. Hemorrhagic Shock Resolved, received fluid resuscitation, Blood transfusion and Vasopressors 4. Electrolyte derangement replaced. 5. 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 Pascual. Status post emergent EGD on 03/[address] Beverly, no further surgical interventions planned at this time EGD 03/01 revealed a large ulcer with adjacent clot. Protonix drip continued at 8 mg an hour discontinue octreotide drip at 03/09 Continue Carafate 1 g po q6hr 6. Юлия Glabrata Sepsis on Micafungin as per ID specialist to continue for 14 days. Lion cath removed, removed central line Right IJ and now has Left Subclavian central line. Consulted Cardiology for HERI probable for today, consulted Ophthalmology specialist seen by Doctor Recinos no ophthalmic compromise, continue awaiting sensitivity test for C Glabrata. Repeat Blood culture to document clearing. 7. Acute blood loss post hemorrhagic anemia, Thrombocytopenia s/p transfusion 2units PRBC 02/28 and 2units PRBC 03/01 for Hgb 6.9/4 units of FFP's/1 unit of cryoprecipitate Additional 2 U PRBC 03/06 now Hemoglobin 9.7 8. Hypotension and dizziness, as per Cardiology related to Sepsis, her Echocardiogram EF 60-65%. GI prophylaxis with Protonix gtt DVT prophylaxis with SCD. No pharmacological prophylaxis with bleeding Left Subclavian Central Line 03/12/17 ON TPN GI prophylaxis with Protonix by mouth, DVT prophylaxis with SCD. No pharmacological prophylaxis with history of GI bleed. Discharge Planning Once cleared by Specialists. PT evaluation in progress. Anoop Stern MD Mar 22, 2017 08:09 Once cleared by Specialists. PT evaluation in progress. Anoop Stern MD Mar 22, 2017 08:09
[2017-03-22] MEDS: PANTOPRAZOLE SOD 40 MG DELAYED RELEASE TAB PO SCH ×2 (08:33→20:02)
[2017-03-22] MEDS: OLANZapine 2.5 MG TAB PO SCH ×2 (08:33→20:09)
[2017-03-22] MEDS: TIOTROPIUM BROMIDE 18 MCG INH INH SCH (08:34)
[2017-03-22] MEDS: SODIUM CHLORIDE 0.9% FLUSH 10 ML FLUSH IVF PRN (08:37)
[2017-03-22] MEDS: BUDESONIDE-FORMOTEROL 80/4.5 MCG INHALER INH SCH ×2 (08:42→20:01)
[2017-03-22] MEDS: MICAFUNGIN INJ 100 MG in SODIUM CHLORIDE 0.9% INJ 100 ML IV SCH (10:40)
[2017-03-22] MEDS: ONDANSETRON HCL 4 MG/2 ML VIAL IV PUSH PRN (14:56)
--- NOTE | 2017-03-22 19:21 | RADRPT ---
EXAM DATE/TIME: 03/22/2017 18:51 [place] COMPARISON: No previous studies available for comparison. INDICATIONS : Picc line placement. MEDICAL HISTORY : Asthma. SURGICAL HISTORY : None. ENCOUNTER: Initial ACUITY: 1 day PAIN SCORE: 0/10 LOCATION: chest FINDINGS: There is mild subsegmental air space disease at the bases. No effusion. No pneumothorax. Right PICC l ine tip is in the superior vena cava. CONCLUSION: 1. Right PICC line in superior vena cava. Minimal subsegmental air space disease the bases. No effusi on. Zoltan Tripathi MD on March 22, 2017 at 19:16 Board Certified Radiologist. This report was verified electronically.
[2017-03-22] MEDS: CLINIMIX E 4.25/25 2000 mL- >42 mls/hr IV-CENTRAL SCH ×3 (20:00)
[2017-03-22] MEDS: FAT EMULSION 20% INJ 250 ML (Daily over 8 hours) IV-CENTRAL SCH (20:01)
[2017-03-22] MEDS: DOXEPIN HCL 50 MG CAP PO SCH (20:02)
--- NOTE | 2017-03-22 20:57 | PD.CONS ---
History of Present Illness Service Ophthalmology Consult Requested By ID Reason for Consult rule out fungal endophthalmitis Primary Care Physician No Primary Care Physician Diagnoses: History of Present Illness 46 yo F admitted to the hospital 02/28/17 with complaints of generalized weakness , lightheadedness and abdominal pain. Upper endoscopy revealed a gastrojejunal ulcer. s/p embolization of splenic artery. Positive blood cultures for Юлия glabrata - being treated with Micafungin. Ophthalmology called to rule out fungal endophthalmitis. Patient has no ocular complaints - no decrease in vision , no floaters. No significant ocular history. Past Family Social History Allergies: Coded Allergies: Sulfa (Verified Allergy, Severe, Anaphylaxis, 02/28/17) Physical Exam Vital Signs Vital Signs Date Time Temp Pulse Resp B/P Pulse Ox O2 Delivery O2 Flow Rate FiO2 03/22/17 16:00 97.8 116 22 116/59 96 03/22/17 12:00 98.4 122 20 106/65 94 03/22/17 08:00 98.6 92 18 89/55 95 03/22/17 08:00 99 03/22/17 08:00 Room Air 03/22/17 04:00 97.6 101 17 101/59 98 03/22/17 04:00 Room Air 03/22/17 00:00 Room Air 03/22/17 00:00 97.7 105 18 98/57 95 Physical Exam Va cc at near OD 20/40, OS 20/30 EOM full OU, no diplopia CVF full OU Pupils 2-1 no APD OU IOP normal to palpation OU Anterior exam OD - normal eyelid, C/S W&Q, K clear, AC deep, pupil round, lens clear OS - normal eyelid, C/S W&Q, K clear, AC deep, pupil round, lens clear Dilated exam OD - ON s/p/f, ves normal, vit clear, retina flat OS - ON s/p/f, ves normal, vit clear, retina flat Result Diagram: 03/18/1762703/18/17627 Assessment and Plan Problem List: (1) Fungemia Status: Acute Plan: No ocular involvement. Follow up as outpatient. Nicolle Recinos MD Mar 22, 2017 20:57
[2017-03-22] MEDS ORDERED: SODIUM CHLORIDE 0.9% FLUSH 10 ML FLUSH IV FLUSH PRN (23:45)
[2017-03-23] VITALS (9 sets, daily range): BP systolic 101–120; BP diastolic 58–69; PULSE 99–136; RESP 16–22; TEMP 97.8–98.9; O2SAT 95–100
[2017-03-23] MEDS: oxyCODONE/ACETAMINOPHEN 7.5 MG/325 MG TAB PO PRN ×6 (00:06→21:57)
[2017-03-23] MEDS: ALBUTEROL SULFATE 90 MCG/ACT HFA 18 GM INHALER INH SCH ×5 (00:09→23:55)
[2017-03-23] MEDS: HYDROmorphone HCL PF 1 MG/ML VIAL IV PUSH PRN ×6 (02:28→23:56)
[2017-03-23] MEDS: RESP: ALBUTEROL 2.5 MG/IPRATROPIUM 0.5 MG NEB (PRN) INH ×3 (03:35→20:44)
[2017-03-23] MEDS: SUCRALFATE 1 GM/10 ML CUP PO SCH ×4 (04:14→21:57)
[2017-03-23] MEDS: ONDANSETRON HCL 4 MG/2 ML VIAL IV PUSH PRN (04:14)
[2017-03-23] MEDS: INSULIN NovoLIN REGULAR SUPPLEMENTAL SCALE SQ SCH ×4 (06:17→20:47)
[2017-03-23] MEDS: clonazePAM 1 MG TAB PO SCH ×3 (06:27→21:57)
[2017-03-23 07:49] LABS: PROTHROMBIN TIME - PATIENT 10.6 SEC (9.8-11.6)
[2017-03-23] MEDS: OLANZapine 2.5 MG TAB PO SCH ×2 (08:35→20:07)
[2017-03-23] MEDS: PANTOPRAZOLE SOD 40 MG DELAYED RELEASE TAB PO SCH ×2 (08:35→20:07)
[2017-03-23] MEDS: TIOTROPIUM BROMIDE 18 MCG INH INH SCH (08:35)
[2017-03-23] MEDS: SODIUM CHLORIDE 0.9% FLUSH 10 ML FLUSH IV FLUSH SCH (08:38)
[2017-03-23] MEDS: BUDESONIDE-FORMOTEROL 80/4.5 MCG INHALER INH SCH ×2 (08:38→20:07)
[2017-03-23] MEDS: ALPRAZolam 1 MG TAB PO PRN (09:40)
[2017-03-23 09:48] LABS: ALT (GPT) 20 U/L (10-53); ANION GAP 9 MEQ/L (5-15); AST (GOT) 25 U/L (15-37); BICARBONATE 24.9 MEQ/L (21.0-32.0); BLOOD UREA NITROGEN 6 MG/DL (7-18); CHLORIDE 108 MEQ/L (98-107); GLOMERULAR FILTRATION RATE 157 ML/MIN (>89); MAGNESIUM 1.4 MG/DL (1.5-2.5); POTASSIUM 4.3 MEQ/L (3.5-5.1); SODIUM (NA) 142 MEQ/L (136-145)
[2017-03-23 09:51] LABS: ALKALINE PHOSPHATASE 172 U/L (45-117); TOTAL BILIRUBIN ADULT 0.2 MG/DL (0.2-1.0)
[2017-03-23] MEDS: MICAFUNGIN INJ 100 MG in SODIUM CHLORIDE 0.9% INJ 100 ML IV SCH (10:52)
--- NOTE | 2017-03-23 14:00 | HHI.PR ---
Subjective Subjective Notes Sitting up in bed Very happy that her nurse is Karla today Pain controlled Objective Vitals/I&O Vital Signs Date Time Temp Pulse Resp B/P Pulse Ox O2 Delivery O2 Flow Rate FiO2 03/23/17 12:00 97.8 113 20 101/64 99 03/23/17 03:36 21 03/22/17 19:30 Room Air Labs Laboratory Tests Test 03/23/17 03/23/17 06:45 08:49 Prothrombin Time 10.6 Prothromb Time International 1.0 Ratio Sodium Level 142 Potassium Level 4.3 Chloride Level 108 Carbon Dioxide Level 24.9 Anion Gap 9 Blood Urea Nitrogen 6 Creatinine 0.43 Estimat Glomerular Filtration 157 Rate Random Glucose 104 Calcium Level 7.8 Phosphorus Level 4.6 Magnesium Level 1.4 Total Bilirubin 0.2 Aspartate Amino Transf 25 (AST/SGOT) Alanine Aminotransferase 20 (ALT/SGPT) Alkaline Phosphatase 172 Total Protein 6.6 Albumin 2.1 Triglycerides Level 206 Cardiovascular: Regular Lungs: Clear Abdomen: Non-distended, Non-tender Extremities: No edema A/P Assessment and Plan 46 year old female s/p gastric bypass surgery, weight loss, cachetic, malnutrition, GI bleed; anemia and NSAID use -HERI negative -S/p EGD -- Gastrojejunostomy ulcer; with active bleeding--stable -S/p EGD and IR coil of splenic artery for massive GI bleed -Continue to monitor Hmg; transfuse as needed -Continue TPN -Tolerating fulls ---added Protein shakes -Check pre-albumin today -GS will continue to follow peripherally Jannette Garnett Mar 23, 2017 14:00
--- NOTE | 2017-03-23 16:11 | HHI.PR ---
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 She presented to [facility] Emergency Department with complaints of feeling dizziness, light headedness, generalized weakness, multiple falls and inability to ambulate. On further history she has a history of gastric bypass four years ago in [place] and another abdominal surgery about one to two years ago for Intussusception in [place] as well. She states that she weighed 200 lbs when she had the gastric bypass surgery preformed, now she weighs 80 pounds, she reports chronic abdominal pain associated with intractable nausea and vomiting for several months. In addition to decreased p.o. intake. Her abdominal pain progressively worsened and mainly in the right upper quadrant and left lower quadrat. She denies any chest pain, shortness of breath, cough or any constitutional symptoms. On arrival to the emergency room she was hypotensive with systolic blood pressure in the 80's, tachycardic with heart rate in the 120's and her laboratory data showed hemoglobin of 7.2, lactic acid level of 2.9. Her liver enzymes are within normal limits with a total bilirubin of 0.2. Aspartate aminotransferase 21, alt 12, alkaline phosphatase 138. In the ER she received one out of two units of packed red blood cells and approximately 1.5 liters of normal saline. She responded to volume resuscitation and current blood pressure is 108/71 with a pulse of 112. Her o2 saturation is 97% on room air. Due to her abdominal pain, CT abdomen and pelvis were preformed which showed gallbladder wall thickening, mild hepatosplenomegaly and chronic mild compression deformity is noted involving L1. Chest x-ray in the emergency department showed right fifth rib fractures which appear old, otherwise no evidence of acute cardiopulmonary disease. Right IJ central line was placed by emergency department physician. She also has a ultrasound of the abdomen which is pending during the time of this dictation. The patient received Protonix, Unasyn and dilated in the emergency room. 03/01 Patient is lying in bed in NAD. s/p transfusion 2units PRBC this morning for Hgb 6.9. s/p EGD showed G-J ulcer, adherent clot with no evidence of bleeding. 03/02: Requesting Klonopin today. Hemoglobin stable for the past 12 hours. Very anxious and verbose. Complaining of pain epigastric/right upper quadrant region. 02/22/16: Currently afebrile. Requesting doxepin along with increasing pain medications. Days of pain in epigastric/right upper quadrant region. Hemoglobin stable. [facility] reconsulted on 03/05/17 -around 6 PM a rapid response was activated due to low blood pressure and hematemesis. She was transferred to ICU. The fluid resuscitation was started however patient continued vomiting blood and required intubation for an airway protection. Shortly after intubation she dropped her blood pressure again without palpable pulses in the CPR was initiated. There was a run of 2 cycles of CPR with return of spontaneous circulation. The Cordis introducer was inserted to left femoral vein and the rapid infuser was used to transfuse 4 units of PRBCs and FFP since cryoprecipitate. Dr. Beverly emergently performed upper EGD. Without successful finding off source of bleeding. This was discussed with interventional radiologist Dr. Pascual and the patient is going to be taken to IR for possible embolization emergently due to life-threatening condition uncontrolled GI bleed. 03/06: Remains intubated sedated. 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 Pascual. Episode of hypotension today, started on Levophed, 2U PRBC stat ordered, and 2L NS bolus. with improvement in BP. No evident GIB. Remains on Protonix and octreotide gtt. Hb 8.9 on Stat re check 03/07: Remains intubated, now off Levophed. Hb remains stable. No GIB reported. Will attempt SBT today for possible extubation. Discuss with Dr. Jerome Beverly. No plan for any surgical procedures at this time. DC octreotide in 24 hours. Continue Protonix infusion and Carafate per Dr. beverly 03/08: Extubated yesterday without complication. Hemoglobin this a.m. pending. No additional GI bleeding. Still complaining of abdominal pain. Requesting pain medication at the present time. 03/09: Complaining of abdominal pain 8 out of 10. Hemoglobin remained stable. Positive BM. Tolerating clear liquid diet. 03/10: Complaining of right lower quadrant pain 8 out of 10. On liquid [place] 7.5/325 added by general surgery today. On full liquid diet. Continues to have heme + smelling stools. Hospitalist Notes: 03/11: Seen in her bedroom, discussed with nurse Miss Ortega, no nausea, vomit or diarrhea, no signs of infection, has fever 103F, she is been on Empiric management with Zosyn by coin machine collector supervisor, asked for CXR, UA, blood cultures, Vancomycin started and asked for ID specialist. 03/12: Stable in her bedroom seen in the presence of nurse Miss Ortega, no nausea , vomit or diarrhea continue with Fever, blood cultures taken yesterday Yeast growing, is on Diflucan, given one dose of Micafungin by ID specialist, removed IJ catheter and changed from the Right side to the left neck side. recommended to continue Cefepime and Flagyl, Diflucan, Sent IJ tip for culture. No nausea, vomit or diarrhea. 03/13: Patient complaint of dizziness on Orthostatic position, also is been Hypotensive since admission, receiving large amounts of fluids, asked for Echocardiogram, Orthostatic vital sings, product support specialist consult, she continue Tachycardic. continue management as per ID specialist with antibiotics by now for sepsis. 03/14: Seen in her bedroom, no nausea,vomit or diarrhea, Discussed with product support specialist Doctor Ray and he does not see any Cardiac issue at this time Will follow Echocardiogram, wildlife biology technician at this time to make the Echocardiogram, as per ID specialist Sepsis probable line related, improving temperature, has yeast in BC, Юлия glabrata sepsis, recommended to Stop Cefepime , Flagyl and Vancomycin and Diflucan and continue Micafungin. follow culture sensitivity. 03/15: Seen in her bedroom, discussed with nurse Miss Thapa, clinically improving, General Surgery following, Echocardiogram EF 60-65%, normal wall Motion no nausea, vomit or diarrhea. follow PT evaluation assessment. 03/22: Seen in her bedroom discussed with nurse Miss Brantley patient at this time going to the restroom, no new issues, not yet discharge by specialists. 03/23: Stable in her bedroom no new issues. no nausea, vomit or diarrhea. asking for Insomnia medicine. Objective Vital Signs Date Time Temp Pulse Resp B/P Pulse Ox O2 Delivery O2 Flow Rate FiO2 03/23/17 12:00 97.8 113 20 101/64 99 03/23/17 08:00 98.2 108 22 112/65 99 03/23/17 04:20 98.0 105 16 103/58 95 03/23/17 03:36 99 21 03/22/17 23:37 98.0 100 16 98/58 97 03/22/17 20:32 98.3 105 16 107/57 99 03/22/17 19:59 119 03/22/17 19:30 Room Air I/O 03/22/17 03/22/17 03/22/17 03/23/17 03/23/17 03/23/17 07:00 15:00 23:00 07:00 15:00 23:00 Intake Total 1250 ml 1680 ml 1200 ml 3000 ml 1920 ml Output Total 3200 ml 1600 ml 2600 ml 2800 ml Balance 1250 ml -1520 ml -400 ml 400 ml -880 ml Intake Oral 1250 ml 1680 ml 1200 ml 3000 ml 1920 ml Output Urine Total 3200 ml 1600 ml 2600 ml 2800 ml # Voids 7 # Bowel Movements 3 0 0 2 Result Diagram: 03/23/17 0849 Imaging Last Impressions Chest X-Ray 03/22/17 0000 Signed Impressions: Service Date/Time: Wednesday, March 22, 2017 18:51 - CONCLUSION: 1. Right PICC line in superior vena cava. Minimal subsegmental air space disease the bases. No effusion. Zoltan Tripathi MD Knee X-Ray 03/18/17 0000 Signed Impressions: Service Date/Time: Saturday, March 18, 2017 23:37 - CONCLUSION: Unremarkable examination of the left knee except mild spurring of both femoral condyles. Chris Malik MD Head CT 03/18/17 0000 Signed Impressions: Service Date/Time: Sunday, March 19, 2017 00:05 - CONCLUSION: Normal examination. Chris Malik MD Upper Extremity Ultrasound 03/16/17 0000 Signed Impressions: Service Date/Time: February 16:39 - CONCLUSION: No evidence of deep or superficial thrombophlebitis. Jean Love MD Abdomen/Pelvis CT 03/13/17 0000 Signed Impressions: Service Date/Time: Monday, March 13, 2017 11:03 - CONCLUSION: 1. 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 No findings are present to indicate acute hemorrhage. 2. Nonacute findings include small hiatal hernia and mild atherosclerotic disease. There are postsurgical findings indicative of prior [place]-en-Y gastric bypass surgery. 3. L1 compression fracture of uncertain chronicity. Terry Larry MD Lower Extremity Ultrasound 03/12/17 0000 Signed Impressions: Service Date/Time: Sunday, March 12, 2017 14:01 - CONCLUSION: No DVT. Terry Poon MD Splenic Arteriogram 03/06/17 0000 Signed Impressions: Service Date/Time: Sunday, March 05, 2017 23:50 - CONCLUSION: 1. 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 The proximal splenic artery was embolized to occlusion. The patient will likely need splenectomy to prevent back bleeding into the anastomosis. There is also high probability of complete infarct of the spleen as well. Darren Pascual MD Upper GI Series 02/28/17 0000 Signed Impressions: Service Date/Time: Tuesday, February 28, 2017 17:21 - CONCLUSION: 1. No evidence of extravasation to suggest perforation. 2. Focal collection of contrast within the gastric remnant raising the possibility of focal ulceration. Upper endoscopy would be helpful for further evaluation of this finding if there is strong clinical concern for ulceration within the gastric remnant. Maycol Castro MD Gall Bladder Ultrasound 02/28/17 0000 Signed Impressions: Service Date/Time: Tuesday, February 28, 2017 14:50 - CONCLUSION: 1. Single mobile stone in the gallbladder. 2. Extrarenal pelvis on the right. Darren Pascual MD Procedures Line: Central Venous Catheter Side: Right Location: Internal, Jugular Endotracheal Intubation Pressors use. Other Results Laboratory Tests Test 03/23/17 03/23/17 06:45 08:49 Prothrombin Time 10.6 SEC Prothromb Time International 1.0 RATIO Ratio Sodium Level 142 MEQ/L Potassium Level 4.3 MEQ/L Chloride Level 108 MEQ/L Carbon Dioxide Level 24.9 MEQ/L Anion Gap 9 MEQ/L Blood Urea Nitrogen 6 MG/DL Creatinine 0.43 MG/DL Estimat Glomerular Filtration 157 ML/MIN Rate Random Glucose 104 MG/DL Calcium Level 7.8 MG/DL Phosphorus Level 4.6 MG/DL Magnesium Level 1.4 MG/DL Total Bilirubin 0.2 MG/DL Aspartate Amino Transf 25 U/L (AST/SGOT) Alanine Aminotransferase 20 U/L (ALT/SGPT) Alkaline Phosphatase 172 U/L Total Protein 6.6 GM/DL Albumin 2.1 GM/DL Prealbumin 23 MG/DL Triglycerides Level 206 MG/DL Objective Remarks GENERAL: No acute distress SKIN: Warm and dry. No rash HEAD: Normocephalic. EYES: No scleral icterus. No injection or drainage. PERRL. NECK: Supple, no JVD no Lymphadenopathy. CARDIOVASCULAR: RRR. S1, S2. No S4. Without murmur, clicks, Gallops or rubs. RESPIRATORY: Breath sounds clear to auscultation and equal bilaterally. GASTROINTESTINAL: Abdomen soft, no tender. MUSCULOSKELETAL: No edema. Neuro: Cranial nerves II through XII grossly intact. Strength is equal symmetric. Normal sensation. Medications and IVs Current Medications Medications (Trade) Dose Ordered Sig/Kaleb Route Start Time Stop Time Status Last Admin (NS Flush) 2 ml UNSCH PRN IVF 02/28/17 09:45 03/22/17 08:37 (D50w (Vial) Inj) 50 ml UNSCH PRN IV 02/28/17 16:15 03/17/17 10:33 (Glucagon Inj) 1 mg UNSCH PRN OTHER 02/28/17 16:15 Sucralfate 1 gm 1 gm Q6H PO 03/01/17 10:00 03/23/17 12:17 Multivitamins 10 ml/Folic Acid 1 mg/Amino Acids/ Electrolytes/ Dextrose 2,010.2 ml @ 75 mls/hr Q24H IV-CENTRAL 03/01/17 20:00 03/22/17 20:00 (Liposyn Iii 20% Inj) 250 ml @ 31.25 mls/ hr Q24H IV-CENTRAL 03/01/17 20:00 03/22/17 20:01 (ZyPREXA) 2.5 mg Q12HR PO 03/01/17 21:00 03/23/17 08:35 (KlonoPIN) 1 mg Q8HR PO 03/02/17 14:00 03/23/17 15:54 (Zofran Inj) 4 mg Q6H PRN IV PUSH 03/02/17 16:00 03/23/17 04:14 (Compazine Inj) 5 mg Q6H PRN IV PUSH 03/02/17 16:00 (Xanax) 1 mg Q8H PRN PO 03/02/17 22:00 03/23/17 09:40 (Ventolin Hfa Inh) 2 puff Q6HR INH 03/03/17 12:00 03/23/17 11:07 (Spiriva Inh) 18 mcg DAILY INH 03/03/17 09:00 03/23/17 08:35 (SINEquan) 200 mg HS PO 03/03/17 21:00 03/22/17 20:02 (Symbicort 80-4.5 Mcg Inh) 2 puff Q12HR INH 03/03/17 21:00 03/23/17 08:38 (Catapres) 0.1 mg Q6H PRN PO 03/04/17 16:30 (Tylenol) 500 mg Q4H PRN PO 03/11/17 19:30 03/13/17 05:55 Hydromorphone HCl 1 mg 1 mg Q4H PRN IV PUSH 03/13/17 12:00 03/23/17 14:51 (Mycamine Inj/NS Inj) 100 ml @ 100 mls/hr Q24H IV 03/13/17 11:00 03/23/17 10:52 (Flexeril) 5 mg Q8H PRN PO 03/14/17 13:15 (Pill Splitter) 1 ea UNSCH PRN OTHER 03/14/17 14:15 (NovoLIN R SUPPLEMENTAL SCALE) 1 ACHS SQ 03/15/17 11:30 (Protonix) 40 mg Q12HR PO 03/16/17 21:00 03/23/17 08:35 (Percocet 7.5-325 Mg) 1 tab Q4H PRN PO 03/20/17 14:15 03/21/17 01:22 Oxycodone/ Acetaminophen 2 tab 2 tab Q4H PRN PO 03/20/17 14:15 03/23/17 12:46 (D10w Inj) 1,000 ml @ 75 mls/hr [id number] IV 03/22/17 04:00 03/22/17 17:20 (NS Flush) See Protocol DAILY IV FLUSH 03/23/17 09:00 03/23/17 08:38 (NS Flush) See Protocol UNSCH PRN IV FLUSH 03/22/17 23:45 (Heparin Central Flush) See Protocol DAILY IV FLUSH 03/23/17 09:00 03/23/17 08:38 (Heparin Central Flush) See Protocol UNSCH PRN IV FLUSH 03/22/17 23:45 (NS Flush) UNSCH PRN IV FLUSH 03/22/17 23:45 A/P Assessment and Plan 1. Bipolar Disorder/Schizophrenia/Depression and Anxiety Continue Klonopin, Zyprexa, Doxepin,Xanax PRN for Anxiety, Pain medicines Hydrocodone, Hydromorphone 2. VDRF Improved. status post Endotracheal Intubation Tobacco dependence strongly recommended to stop smoking. Follow Oxygen saturation, continue Bronchodilator, Mucolytic, Incentive spirometry 3. Hemorrhagic Shock Resolved, received fluid resuscitation, Blood transfusion and Vasopressors 4. Electrolyte derangement replaced. 5. 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 Pascual. Status post emergent EGD on 03/[address] Beverly, no further surgical interventions planned at this time EGD 03/01 revealed a large ulcer with adjacent clot. Protonix drip continued at 8 mg an hour discontinue octreotide drip at 03/09 removed by General Surgery. Continue Carafate 1 g po q6hr 6. Юлия Glabrata Sepsis on Micafungin as per ID specialist to continue for 14 days. Lion cath removed, removed central line Right IJ and now has Left Subclavian central line. Consulted Cardiology for HERI probable for today, consulted Ophthalmology specialist seen by Doctor Recinos no ophthalmic compromise, continue awaiting sensitivity test for C Glabrata. Repeat Blood culture to document clearing. 7. Acute blood loss post hemorrhagic anemia, Thrombocytopenia s/p transfusion 2units PRBC 02/28 and 2units PRBC 03/01 for Hgb 6.9/4 units of FFP's/1 unit of cryoprecipitate Additional 2 U PRBC 03/06 now Hemoglobin 9.7 8. Hypotension and dizziness, as per Cardiology related to Sepsis, her Echocardiogram EF 60-65%. 9. Insomnia started on Ambien as needed. 10. Central Line dislodge asked for PICC line placement. GI prophylaxis with Protonix gtt DVT prophylaxis with SCD. No pharmacological prophylaxis with bleeding Left Subclavian Central Line 03/12/17 ON TPN GI prophylaxis with Protonix by mouth, DVT prophylaxis with SCD. No pharmacological prophylaxis with history of GI bleed. Discharge Planning Once cleared by Specialists. PT evaluation in progress. Anoop Stenr MD Mar 23, 2017 16:11
--- NOTE | 2017-03-23 16:39 | HHI.PR ---
Addendum to Inpatient Note Addendum Reason: Additional Documentation Additional Information d/w Surgery PA and also case management: DC pending clearance by surgery. Patient will need Micafungin IV on discharge to resume care on Monday03/27/2017. Will follow prn in the interim. Julieth Rodas MD Mar 23, 2017 16:39
[2017-03-23] MEDS: DEXTROSE 10% INJ 1,000 ML IV SCH (19:47)
[2017-03-23] MEDS: CLINIMIX E 4.25/25 2000 mL- >42 mls/hr IV-CENTRAL SCH ×3 (19:55)
[2017-03-23] MEDS: ZOLPIDEM TARTRATE 5 MG TAB PO PRN (20:07)
[2017-03-23] MEDS: DOXEPIN HCL 50 MG CAP PO SCH (20:07)
[2017-03-23] MEDS: FAT EMULSION 20% INJ 250 ML (Daily over 8 hours) IV-CENTRAL SCH (20:44)
[2017-03-24] VITALS (8 sets, daily range): BP systolic 93–119; BP diastolic 57–72; PULSE 88–131; RESP 16–24; TEMP 97.1–98.8; O2SAT 94–99
[2017-03-24] MEDS: oxyCODONE/ACETAMINOPHEN 7.5 MG/325 MG TAB PO PRN ×5 (02:02→21:54)
[2017-03-24] MEDS: SUCRALFATE 1 GM/10 ML CUP PO SCH ×4 (03:58→21:55)
[2017-03-24] MEDS: HYDROmorphone HCL PF 1 MG/ML VIAL IV PUSH PRN ×3 (04:00→14:47)
[2017-03-24] MEDS: INSULIN NovoLIN REGULAR SUPPLEMENTAL SCALE SQ SCH ×4 (06:12→20:54)
[2017-03-24] MEDS: ALBUTEROL SULFATE 90 MCG/ACT HFA 18 GM INHALER INH SCH ×3 (06:12→17:12)
[2017-03-24] MEDS: clonazePAM 1 MG TAB PO SCH ×3 (06:12→21:55)
[2017-03-24] MEDS: DEXTROSE 10% INJ 1,000 ML IV SCH (09:20)
[2017-03-24] MEDS: PANTOPRAZOLE SOD 40 MG DELAYED RELEASE TAB PO SCH ×2 (09:58→20:53)
[2017-03-24] MEDS: OLANZapine 2.5 MG TAB PO SCH ×2 (09:58→20:53)
[2017-03-24] MEDS: TIOTROPIUM BROMIDE 18 MCG INH INH SCH (09:59)
[2017-03-24] MEDS: BUDESONIDE-FORMOTEROL 80/4.5 MCG INHALER INH SCH ×2 (10:00→20:54)
[2017-03-24] MEDS: SODIUM CHLORIDE 0.9% FLUSH 10 ML FLUSH IV FLUSH SCH (10:00)
--- NOTE | 2017-03-24 11:00 | HHI.PR ---
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 She presented to [facility] Emergency Department with complaints of feeling dizziness, light headedness, generalized weakness, multiple falls and inability to ambulate. On further history she has a history of gastric bypass four years ago in [place] and another abdominal surgery about one to two years ago for Intussusception in [place] as well. She states that she weighed 200 lbs when she had the gastric bypass surgery preformed, now she weighs 80 pounds, she reports chronic abdominal pain associated with intractable nausea and vomiting for several months. In addition to decreased p.o. intake. Her abdominal pain progressively worsened and mainly in the right upper quadrant and left lower quadrat. She denies any chest pain, shortness of breath, cough or any constitutional symptoms. On arrival to the emergency room she was hypotensive with systolic blood pressure in the 80's, tachycardic with heart rate in the 120's and her laboratory data showed hemoglobin of 7.2, lactic acid level of 2.9. Her liver enzymes are within normal limits with a total bilirubin of 0.2. Aspartate aminotransferase 21, alt 12, alkaline phosphatase 138. In the ER she received one out of two units of packed red blood cells and approximately 1.5 liters of normal saline. She responded to volume resuscitation and current blood pressure is 108/71 with a pulse of 112. Her o2 saturation is 97% on room air. Due to her abdominal pain, CT abdomen and pelvis were preformed which showed gallbladder wall thickening, mild hepatosplenomegaly and chronic mild compression deformity is noted involving L1. Chest x-ray in the emergency department showed right fifth rib fractures which appear old, otherwise no evidence of acute cardiopulmonary disease. Right IJ central line was placed by emergency department physician. She also has a ultrasound of the abdomen which is pending during the time of this dictation. The patient received Protonix, Unasyn and dilated in the emergency room. 03/01 Patient is lying in bed in NAD. s/p transfusion 2units PRBC this morning for Hgb 6.9. s/p EGD showed G-J ulcer, adherent clot with no evidence of bleeding. 03/02: Requesting Klonopin today. Hemoglobin stable for the past 12 hours. Very anxious and verbose. Complaining of pain epigastric/right upper quadrant region. 02/22/16: Currently afebrile. Requesting doxepin along with increasing pain medications. Days of pain in epigastric/right upper quadrant region. Hemoglobin stable. [facility] reconsulted on 03/05/17 -around 6 PM a rapid response was activated due to low blood pressure and hematemesis. She was transferred to ICU. The fluid resuscitation was started however patient continued vomiting blood and required intubation for an airway protection. Shortly after intubation she dropped her blood pressure again without palpable pulses in the CPR was initiated. There was a run of 2 cycles of CPR with return of spontaneous circulation. The Cordis introducer was inserted to left femoral vein and the rapid infuser was used to transfuse 4 units of PRBCs and FFP since cryoprecipitate. Dr. Beverly emergently performed upper EGD. Without successful finding off source of bleeding. This was discussed with interventional radiologist Dr. Pascual and the patient is going to be taken to IR for possible embolization emergently due to life-threatening condition uncontrolled GI bleed. 03/06: Remains intubated sedated. 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 Pascual. Episode of hypotension today, started on Levophed, 2U PRBC stat ordered, and 2L NS bolus. with improvement in BP. No evident GIB. Remains on Protonix and octreotide gtt. Hb 8.9 on Stat re check 03/07: Remains intubated, now off Levophed. Hb remains stable. No GIB reported. Will attempt SBT today for possible extubation. Discuss with Dr. Jerome Beverly. No plan for any surgical procedures at this time. DC octreotide in 24 hours. Continue Protonix infusion and Carafate per Dr. beverly 03/08: Extubated yesterday without complication. Hemoglobin this a.m. pending. No additional GI bleeding. Still complaining of abdominal pain. Requesting pain medication at the present time. 03/09: Complaining of abdominal pain 8 out of 10. Hemoglobin remained stable. Positive BM. Tolerating clear liquid diet. 03/10: Complaining of right lower quadrant pain 8 out of 10. On liquid [place] 7.5/325 added by general surgery today. On full liquid diet. Continues to have heme + smelling stools. Hospitalist Notes: 03/11: Seen in her bedroom, discussed with nurse Miss Ortega, no nausea, vomit or diarrhea, no signs of infection, has fever 103F, she is been on Empiric management with Zosyn by grade and center marker, asked for CXR, UA, blood cultures, Vancomycin started and asked for ID specialist. 03/12: Stable in her bedroom seen in the presence of nurse Miss Ortega, no nausea , vomit or diarrhea continue with Fever, blood cultures taken yesterday Yeast growing, is on Diflucan, given one dose of Micafungin by ID specialist, removed IJ catheter and changed from the Right side to the left neck side. recommended to continue Cefepime and Flagyl, Diflucan, Sent IJ tip for culture. No nausea, vomit or diarrhea. 03/13: Patient complaint of dizziness on Orthostatic position, also is been Hypotensive since admission, receiving large amounts of fluids, asked for Echocardiogram, Orthostatic vital sings, mattress specialist consult, she continue Tachycardic. continue management as per ID specialist with antibiotics by now for sepsis. 03/14: Seen in her bedroom, no nausea,vomit or diarrhea, Discussed with mattress specialist Doctor Ray and he does not see any Cardiac issue at this time Will follow Echocardiogram, die technician at this time to make the Echocardiogram, as per ID specialist Sepsis probable line related, improving temperature, has yeast in BC, Юлия glabrata sepsis, recommended to Stop Cefepime , Flagyl and Vancomycin and Diflucan and continue Micafungin. follow culture sensitivity. 03/15: Seen in her bedroom, discussed with nurse Miss Thapa, clinically improving, General Surgery following, Echocardiogram EF 60-65%, normal wall Motion no nausea, vomit or diarrhea. follow PT evaluation assessment. 03/22: Seen in her bedroom discussed with nurse Miss Brantley patient at this time going to the restroom, no new issues, not yet discharge by specialists. 03/23: asking for Insomnia medicine. 03/24: Seen in her bedroom in the presence of nurse, complaint of some dizziness when walking, asking for pain medicine, continue followed by General Surgery no nausea, vomit or diarrhea. Objective Vital Signs Date Time Temp Pulse Resp B/P Pulse Ox O2 Delivery O2 Flow Rate FiO2 03/24/17 08:00 98.0 88 18 93/60 98 03/24/17 04:00 98.0 109 20 104/66 96 03/24/17 00:00 97.1 131 20 109/72 94 03/23/17 20:47 100 21 03/23/17 20:07 98.9 115 16 120/69 99 03/23/17 19:50 119 03/23/17 19:30 Room Air 03/23/17 16:00 98.1 99 22 117/68 99 03/23/17 16:00 Room Air 03/23/17 12:00 Room Air 03/23/17 12:00 97.8 113 20 101/64 99 I/O 03/23/17 03/23/17 03/23/17 03/24/17 03/24/17 03/24/17 06:59 14:59 22:59 06:59 14:59 22:59 Intake Total 3000 ml 3512 ml 420 ml 1200 ml Output Total 2600 ml 2800 ml 1600 ml 1200 ml Balance 400 ml 712 ml -1180 ml 0 ml Intake Oral 3000 ml 1920 ml 420 ml 1200 ml IV Total 104 ml TPN/PPN 1488 ml Output Urine Total 2600 ml 2800 ml 1600 ml 1200 ml # Bowel Movements 0 2 2 0 Result Diagram: 03/23/17 0849 Imaging Last Impressions Chest X-Ray 03/22/17 0000 Signed Impressions: Service Date/Time: Wednesday, March 22, 2017 18:51 - CONCLUSION: 1. Right PICC line in superior vena cava. Minimal subsegmental air space disease the bases. No effusion. Zoltan Tripathi MD Knee X-Ray 03/18/17 0000 Signed Impressions: Service Date/Time: Saturday, March 18, 2017 23:37 - CONCLUSION: Unremarkable examination of the left knee except mild spurring of both femoral condyles. Chris Malik MD Head CT 03/18/17 0000 Signed Impressions: Service Date/Time: Sunday, March 19, 2017 00:05 - CONCLUSION: Normal examination. Chris Malik MD Upper Extremity Ultrasound 03/16/17 0000 Signed Impressions: Service Date/Time: February 16:39 - CONCLUSION: No evidence of deep or superficial thrombophlebitis. Jean Love MD Abdomen/Pelvis CT 03/13/17 0000 Signed Impressions: Service Date/Time: Monday, March 13, 2017 11:03 - CONCLUSION: 1. 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 No findings are present to indicate acute hemorrhage. 2. Nonacute findings include small hiatal hernia and mild atherosclerotic disease. There are postsurgical findings indicative of prior [place]-en-Y gastric bypass surgery. 3. L1 compression fracture of uncertain chronicity. Terry Larry MD Lower Extremity Ultrasound 03/12/17 0000 Signed Impressions: Service Date/Time: Sunday, March 12, 2017 14:01 - CONCLUSION: No DVT. Terry Poon MD Splenic Arteriogram 03/06/17 0000 Signed Impressions: Service Date/Time: Sunday, March 05, 2017 23:50 - CONCLUSION: 1. 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 The proximal splenic artery was embolized to occlusion. The patient will likely need splenectomy to prevent back bleeding into the anastomosis. There is also high probability of complete infarct of the spleen as well. Darren Pascual MD Upper GI Series 02/28/17 0000 Signed Impressions: Service Date/Time: Tuesday, February 28, 2017 17:21 - CONCLUSION: 1. No evidence of extravasation to suggest perforation. 2. Focal collection of contrast within the gastric remnant raising the possibility of focal ulceration. Upper endoscopy would be helpful for further evaluation of this finding if there is strong clinical concern for ulceration within the gastric remnant. Maycol Castro MD Gall Bladder Ultrasound 02/28/17 0000 Signed Impressions: Service Date/Time: Tuesday, February 28, 2017 14:50 - CONCLUSION: 1. Single mobile stone in the gallbladder. 2. Extrarenal pelvis on the right. Darren Pascual MD Procedures Line: Central Venous Catheter Side: Right Location: Internal, Jugular Endotracheal Intubation Pressors use. Other Results Laboratory Tests Test 03/23/17 03/23/17 06:45 08:49 Prothrombin Time 10.6 SEC Prothromb Time International 1.0 RATIO Ratio Sodium Level 142 MEQ/L Potassium Level 4.3 MEQ/L Chloride Level 108 MEQ/L Carbon Dioxide Level 24.9 MEQ/L Anion Gap 9 MEQ/L Blood Urea Nitrogen 6 MG/DL Creatinine 0.43 MG/DL Estimat Glomerular Filtration 157 ML/MIN Rate Random Glucose 104 MG/DL Calcium Level 7.8 MG/DL Phosphorus Level 4.6 MG/DL Magnesium Level 1.4 MG/DL Total Bilirubin 0.2 MG/DL Aspartate Amino Transf 25 U/L (AST/SGOT) Alanine Aminotransferase 20 U/L (ALT/SGPT) Alkaline Phosphatase 172 U/L Total Protein 6.6 GM/DL Albumin 2.1 GM/DL Prealbumin 23 MG/DL Triglycerides Level 206 MG/DL Objective Remarks GENERAL: No acute distress SKIN: Warm and dry. No rash HEAD: Normocephalic. EYES: No scleral icterus. No injection or drainage. PERRL. NECK: Supple, no JVD no Lymphadenopathy. CARDIOVASCULAR: RRR. S1, S2. No S4. Without murmur, clicks, Gallops or rubs. RESPIRATORY: Breath sounds clear to auscultation and equal bilaterally. GASTROINTESTINAL: Abdomen soft, no tender. MUSCULOSKELETAL: No edema. Neuro: Cranial nerves II through XII grossly intact. Strength is equal symmetric. Normal sensation. Medications and IVs Current Medications Medications (Trade) Dose Ordered Sig/Kaleb Route Start Time Stop Time Status Last Admin (NS Flush) 2 ml UNSCH PRN IVF 02/28/17 09:45 03/22/17 08:37 (D50w (Vial) Inj) 50 ml UNSCH PRN IV 02/28/17 16:15 03/17/17 10:33 (Glucagon Inj) 1 mg UNSCH PRN OTHER 02/28/17 16:15 Sucralfate 1 gm 1 gm Q6H PO 03/01/17 10:00 03/24/17 09:58 (Mvi-12 Inj/ Folvite Inj/ Clinimix E 4.25/ 25) 2,010.2 ml @ 75 mls/hr Q24H IV-CENTRAL 03/01/17 20:00 03/23/17 19:55 (ZyPREXA) 2.5 mg Q12HR PO 03/01/17 21:00 03/24/17 09:58 (KlonoPIN) 1 mg Q8HR PO 03/02/17 14:00 03/24/17 06:12 (Zofran Inj) 4 mg Q6H PRN IV PUSH 03/02/17 16:00 03/23/17 04:14 (Compazine Inj) 5 mg Q6H PRN IV PUSH 03/02/17 16:00 (Xanax) 1 mg Q8H PRN PO 03/02/17 22:00 03/23/17 09:40 (Ventolin Hfa Inh) 2 puff Q6HR INH 03/03/17 12:00 03/24/17 06:12 (Spiriva Inh) 18 mcg DAILY INH 03/03/17 09:00 03/24/17 09:59 (SINEquan) 200 mg HS PO 03/03/17 21:00 03/23/17 20:07 (Symbicort 80-4.5 Mcg Inh) 2 puff Q12HR INH 03/03/17 21:00 03/24/17 10:00 (Catapres) 0.1 mg Q6H PRN PO 03/04/17 16:30 (Tylenol) 500 mg Q4H PRN PO 03/11/17 19:30 03/13/17 05:55 Hydromorphone HCl 1 mg 1 mg Q4H PRN IV PUSH 03/13/17 12:00 03/24/17 10:01 (Mycamine Inj/NS Inj) 100 ml @ 100 mls/hr Q24H IV 03/13/17 11:00 03/23/17 10:52 (Flexeril) 5 mg Q8H PRN PO 03/14/17 13:15 (Pill Splitter) 1 ea UNSCH PRN OTHER 03/14/17 14:15 (NovoLIN R SUPPLEMENTAL SCALE) 1 ACHS SQ 03/15/17 11:30 (Protonix) 40 mg Q12HR PO 03/16/17 21:00 03/24/17 09:58 (Percocet 7.5-325 Mg) 1 tab Q4H PRN PO 03/20/17 14:15 03/21/17 01:22 Oxycodone/ Acetaminophen 2 tab 2 tab Q4H PRN PO 03/20/17 14:15 03/24/17 06:12 (D10w Inj) 1,000 ml @ 75 mls/hr [id number] IV 03/22/17 04:00 03/22/17 17:20 (NS Flush) See Protocol DAILY IV FLUSH 03/23/17 09:00 03/24/17 10:00 (NS Flush) See Protocol UNSCH PRN IV FLUSH 03/22/17 23:45 (Heparin Central Flush) See Protocol DAILY IV FLUSH 03/23/17 09:00 03/24/17 09:59 (Heparin Central Flush) See Protocol UNSCH PRN IV FLUSH 03/22/17 23:45 (NS Flush) UNSCH PRN IV FLUSH 03/22/17 23:45 (Ambien) 5 mg HS PRN PO 03/23/17 16:15 03/23/17 20:07 A/P Assessment and Plan 1. Bipolar Disorder/Schizophrenia/Depression and Anxiety Continue Klonopin, Zyprexa, Doxepin,Xanax PRN for Anxiety, Pain medicines Hydrocodone, Hydromorphone 2. VDRF Improved. status post Endotracheal Intubation Tobacco dependence strongly recommended to stop smoking. Follow Oxygen saturation, continue Bronchodilator, Mucolytic, Incentive spirometry 3. Hemorrhagic Shock Resolved, received fluid resuscitation, Blood transfusion and Vasopressors 4. Electrolyte derangement replaced. 5. 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 Pascual. Status post emergent EGD on 03/[address] Beverly, no further surgical interventions planned at this time EGD 03/01 revealed a large ulcer with adjacent clot. now on Protonix by mouth. Carafate. 6. Юлия Glabrata Sepsis on Micafungin as per ID specialist to continue for 14 days. Lion cath removed, removed central line Right IJ and now has Left Subclavian central line. Consulted Cardiology for HERI probable for today, consulted Ophthalmology specialist seen by Doctor Recinos no ophthalmic compromise. Repeat Blood culture to document clearing. 7. Acute blood loss post hemorrhagic anemia, Thrombocytopenia s/p transfusion 2units PRBC 02/28 and 2units PRBC 03/01 for Hgb 6.9/4 units of FFP's/1 unit of cryoprecipitate Additional 2 U PRBC 03/06 now Hemoglobin 9.3 8. Hypotension and dizziness, as per Cardiology related to Sepsis, her Echocardiogram EF 60-65%. 9. Insomnia started on Ambien as needed. 10. Central Line dislodge new PICC line in place. GI prophylaxis with Protonix gtt DVT prophylaxis with SCD. No pharmacological prophylaxis with bleeding Left Subclavian Central Line 03/12/17, removed by patient. ON TPN GI prophylaxis with Protonix by mouth, DVT prophylaxis with SCD. No pharmacological prophylaxis with history of GI bleed. Discharge Planning Once cleared by Specialists. PT evaluation recommend Home with HHC versus Rehab placement. Expected by tomorrow. Anoop Stern MD Mar 24, 2017 11:00 Anoop Stern MD Mar 24, 2017 11:00
[2017-03-24] MEDS: RESP: ALBUTEROL 2.5 MG/IPRATROPIUM 0.5 MG NEB (PRN) INH (12:24)
[2017-03-24] MEDS: ALPRAZolam 1 MG TAB PO PRN (12:30)
[2017-03-24] MEDS: MICAFUNGIN INJ 100 MG in SODIUM CHLORIDE 0.9% INJ 100 ML IV SCH (12:31)
[2017-03-24] MEDS: CLINIMIX E 4.25/25 2000 mL- >42 mls/hr IV-CENTRAL SCH ×3 (20:52)
[2017-03-24] MEDS: DOXEPIN HCL 50 MG CAP PO SCH (20:53)
[2017-03-24] MEDS: ZOLPIDEM TARTRATE 5 MG TAB PO PRN (21:12)
[2017-03-25] VITALS (10 sets, daily range): BP systolic 83–123; BP diastolic 53–62; PULSE 82–114; RESP 16–20; TEMP 97.8–98; O2SAT 91–100
[2017-03-25] MEDS: ALBUTEROL SULFATE 90 MCG/ACT HFA 18 GM INHALER INH SCH ×5 (00:05→23:58)
[2017-03-25] MEDS: HYDROmorphone HCL PF 1 MG/ML VIAL IV PUSH PRN ×6 (00:05→21:33)
[2017-03-25] MEDS: oxyCODONE/ACETAMINOPHEN 7.5 MG/325 MG TAB PO PRN ×6 (02:25→23:57)
[2017-03-25] MEDS: SUCRALFATE 1 GM/10 ML CUP PO SCH ×4 (04:35→21:31)
[2017-03-25] MEDS: INSULIN NovoLIN REGULAR SUPPLEMENTAL SCALE SQ SCH ×4 (06:23→21:00)
[2017-03-25] MEDS: clonazePAM 1 MG TAB PO SCH ×3 (06:39→21:31)
[2017-03-25] MEDS: BUDESONIDE-FORMOTEROL 80/4.5 MCG INHALER INH SCH ×2 (09:00→21:00)
[2017-03-25] MEDS: SODIUM CHLORIDE 0.9% FLUSH 10 ML FLUSH IV FLUSH SCH (09:27)
[2017-03-25] MEDS: OLANZapine 2.5 MG TAB PO SCH ×2 (09:35→20:59)
[2017-03-25] MEDS: PANTOPRAZOLE SOD 40 MG DELAYED RELEASE TAB PO SCH ×2 (09:36→20:59)
[2017-03-25] MEDS: TIOTROPIUM BROMIDE 18 MCG INH INH SCH (09:37)
[2017-03-25] MEDS: ALPRAZolam 1 MG TAB PO PRN ×2 (09:47→17:16)
[2017-03-25] MEDS: RESP: ALBUTEROL 2.5 MG/IPRATROPIUM 0.5 MG NEB (PRN) INH (09:58)
[2017-03-25] MEDS: DEXTROSE 10% INJ 1,000 ML IV SCH (10:57)
[2017-03-25] MEDS: ONDANSETRON HCL 4 MG/2 ML VIAL IV PUSH PRN (10:58)
[2017-03-25] MEDS: MICAFUNGIN INJ 100 MG in SODIUM CHLORIDE 0.9% INJ 100 ML IV SCH (10:59)
--- NOTE | 2017-03-25 11:11 | HHI.PR ---
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 She presented to [facility] Emergency Department with complaints of feeling dizziness, light headedness, generalized weakness, multiple falls and inability to ambulate. On further history she has a history of gastric bypass four years ago in [place] and another abdominal surgery about one to two years ago for Intussusception in [place] as well. She states that she weighed 200 lbs when she had the gastric bypass surgery preformed, now she weighs 80 pounds, she reports chronic abdominal pain associated with intractable nausea and vomiting for several months. In addition to decreased p.o. intake. Her abdominal pain progressively worsened and mainly in the right upper quadrant and left lower quadrat. She denies any chest pain, shortness of breath, cough or any constitutional symptoms. On arrival to the emergency room she was hypotensive with systolic blood pressure in the 80's, tachycardic with heart rate in the 120's and her laboratory data showed hemoglobin of 7.2, lactic acid level of 2.9. Her liver enzymes are within normal limits with a total bilirubin of 0.2. Aspartate aminotransferase 21, alt 12, alkaline phosphatase 138. In the ER she received one out of two units of packed red blood cells and approximately 1.5 liters of normal saline. She responded to volume resuscitation and current blood pressure is 108/71 with a pulse of 112. Her o2 saturation is 97% on room air. Due to her abdominal pain, CT abdomen and pelvis were preformed which showed gallbladder wall thickening, mild hepatosplenomegaly and chronic mild compression deformity is noted involving L1. Chest x-ray in the emergency department showed right fifth rib fractures which appear old, otherwise no evidence of acute cardiopulmonary disease. Right IJ central line was placed by emergency department physician. She also has a ultrasound of the abdomen which is pending during the time of this dictation. The patient received Protonix, Unasyn and dilated in the emergency room. 03/01 Patient is lying in bed in NAD. s/p transfusion 2units PRBC this morning for Hgb 6.9. s/p EGD showed G-J ulcer, adherent clot with no evidence of bleeding. 03/02: Requesting Klonopin today. Hemoglobin stable for the past 12 hours. Very anxious and verbose. Complaining of pain epigastric/right upper quadrant region. 02/22/16: Currently afebrile. Requesting doxepin along with increasing pain medications. Days of pain in epigastric/right upper quadrant region. Hemoglobin stable. [facility] reconsulted on 03/05/17 -around 6 PM a rapid response was activated due to low blood pressure and hematemesis. She was transferred to ICU. The fluid resuscitation was started however patient continued vomiting blood and required intubation for an airway protection. Shortly after intubation she dropped her blood pressure again without palpable pulses in the CPR was initiated. There was a run of 2 cycles of CPR with return of spontaneous circulation. The Cordis introducer was inserted to left femoral vein and the rapid infuser was used to transfuse 4 units of PRBCs and FFP since cryoprecipitate. Dr. Beverly emergently performed upper EGD. Without successful finding off source of bleeding. This was discussed with interventional radiologist Dr. Pascual and the patient is going to be taken to IR for possible embolization emergently due to life-threatening condition uncontrolled GI bleed. 03/06: Remains intubated sedated. 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 Pascual. Episode of hypotension today, started on Levophed, 2U PRBC stat ordered, and 2L NS bolus. with improvement in BP. No evident GIB. Remains on Protonix and octreotide gtt. Hb 8.9 on Stat re check 03/07: Remains intubated, now off Levophed. Hb remains stable. No GIB reported. Will attempt SBT today for possible extubation. Discuss with Dr. Jerome Beverly. No plan for any surgical procedures at this time. DC octreotide in 24 hours. Continue Protonix infusion and Carafate per Dr. beverly 03/08: Extubated yesterday without complication. Hemoglobin this a.m. pending. No additional GI bleeding. Still complaining of abdominal pain. Requesting pain medication at the present time. 03/09: Complaining of abdominal pain 8 out of 10. Hemoglobin remained stable. Positive BM. Tolerating clear liquid diet. 03/10: Complaining of right lower quadrant pain 8 out of 10. On liquid [address] 7.5/325 added by general surgery today. On full liquid diet. Continues to have heme + smelling stools. Hospitalist Notes: 03/11: Seen in her bedroom, discussed with nurse Miss Ortega, no nausea, vomit or diarrhea, no signs of infection, has fever 103F, she is been on Empiric management with Zosyn by rehab manager, asked for CXR, UA, blood cultures, Vancomycin started and asked for ID specialist. 03/12: Stable in her bedroom seen in the presence of nurse Miss Ortega, no nausea , vomit or diarrhea continue with Fever, blood cultures taken yesterday Yeast growing, is on Diflucan, given one dose of Micafungin by ID specialist, removed IJ catheter and changed from the Right side to the left neck side. recommended to continue Cefepime and Flagyl, Diflucan, Sent IJ tip for culture. No nausea, vomit or diarrhea. 03/13: Patient complaint of dizziness on Orthostatic position, also is been Hypotensive since admission, receiving large amounts of fluids, asked for Echocardiogram, Orthostatic vital sings, food service specialist consult, she continue Tachycardic. continue management as per ID specialist with antibiotics by now for sepsis. 03/14: Seen in her bedroom, no nausea,vomit or diarrhea, Discussed with food service specialist Doctor Ray and he does not see any Cardiac issue at this time Will follow Echocardiogram, industrial controls technician at this time to make the Echocardiogram, as per ID specialist Sepsis probable line related, improving temperature, has yeast in BC, Юлия glabrata sepsis, recommended to Stop Cefepime , Flagyl and Vancomycin and Diflucan and continue Micafungin. follow culture sensitivity. 03/15: Seen in her bedroom, discussed with nurse Miss Thapa, clinically improving, General Surgery following, Echocardiogram EF 60-65%, normal wall Motion no nausea, vomit or diarrhea. follow PT evaluation assessment. 03/22: Seen in her bedroom discussed with nurse Miss Brantley patient at this time going to the restroom, no new issues, not yet discharge by specialists. 03/23: asking for Insomnia medicine. 03/24: Seen in her bedroom in the presence of nurse, complaint of some dizziness when walking, asking for pain medicine, continue followed by General Surgery no nausea, vomit or diarrhea. 03/25: Seen in her bedroom, discussed with nurse, No nausea, vomit or diarrhea, will try to improve her blood pressure low at this time, given Midodrine. and following the patient states develops dizziness when standing. Objective Vital Signs Date Time Temp Pulse Resp B/P Pulse Ox O2 Delivery O2 Flow Rate FiO2 03/25/17 09:07 101/57 03/25/17 08:00 97.8 82 20 83/57 91 84/53 03/25/17 06:40 97/57 03/25/17 05:07 97.8 114 16 93/62 97 03/24/17 23:58 97.6 97 16 101/57 99 03/24/17 20:32 98.2 100 16 112/62 98 03/24/17 20:11 97 03/24/17 20:00 Room Air 03/24/17 16:00 Room Air 03/24/17 16:00 98.8 117 24 119/71 97 03/24/17 12:00 Room Air 03/24/17 12:00 98.1 106 22 113/71 98 I/O 03/24/17 03/24/17 03/24/17 03/25/17 03/25/17 03/25/17 07:00 15:00 23:00 07:00 15:00 23:00 Intake Total 1200 ml 1222 ml 1440 ml 1180 ml Output Total 1200 ml 2200 ml 2100 ml Balance 0 ml 1222 ml -760 ml -920 ml Intake Oral 1200 ml 1440 ml 1180 ml IV Total 1222 ml Output Urine Total 1200 ml 2200 ml 2100 ml # Bowel Movements 0 0 0 Result Diagram: 03/23/17 0849 Imaging Last Impressions Chest X-Ray 03/22/17 0000 Signed Impressions: Service Date/Time: Wednesday, March 22, 2017 18:51 - CONCLUSION: 1. Right PICC line in superior vena cava. Minimal subsegmental air space disease the bases. No effusion. Zoltan Tripathi MD Knee X-Ray 03/18/17 0000 Signed Impressions: Service Date/Time: Saturday, March 18, 2017 23:37 - CONCLUSION: Unremarkable examination of the left knee except mild spurring of both femoral condyles. Chris Malik MD Head CT 03/18/17 0000 Signed Impressions: Service Date/Time: Sunday, March 19, 2017 00:05 - CONCLUSION: Normal examination. Chris Malik MD Upper Extremity Ultrasound 03/16/17 0000 Signed Impressions: Service Date/Time: February 16:39 - CONCLUSION: No evidence of deep or superficial thrombophlebitis. Jean Love MD Abdomen/Pelvis CT 03/13/17 0000 Signed Impressions: Service Date/Time: Monday, March 13, 2017 11:03 - CONCLUSION: 1. 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 No findings are present to indicate acute hemorrhage. 2. Nonacute findings include small hiatal hernia and mild atherosclerotic disease. There are postsurgical findings indicative of prior [place]-en-Y gastric bypass surgery. 3. L1 compression fracture of uncertain chronicity. Terry Larry MD Lower Extremity Ultrasound 03/12/17 0000 Signed Impressions: Service Date/Time: Sunday, March 12, 2017 14:01 - CONCLUSION: No DVT. Terry Poon MD Splenic Arteriogram 03/06/17 0000 Signed Impressions: Service Date/Time: Sunday, March 05, 2017 23:50 - CONCLUSION: 1. 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 The proximal splenic artery was embolized to occlusion. The patient will likely need splenectomy to prevent back bleeding into the anastomosis. There is also high probability of complete infarct of the spleen as well. Darren Pascual MD Upper GI Series 02/28/17 0000 Signed Impressions: Service Date/Time: Tuesday, February 28, 2017 17:21 - CONCLUSION: 1. No evidence of extravasation to suggest perforation. 2. Focal collection of contrast within the gastric remnant raising the possibility of focal ulceration. Upper endoscopy would be helpful for further evaluation of this finding if there is strong clinical concern for ulceration within the gastric remnant. Maycol Castro MD Gall Bladder Ultrasound 02/28/17 0000 Signed Impressions: Service Date/Time: Tuesday, February 28, 2017 14:50 - CONCLUSION: 1. Single mobile stone in the gallbladder. 2. Extrarenal pelvis on the right. Darren Pascual MD Procedures Line: Central Venous Catheter Side: Right Location: Internal, Jugular Endotracheal Intubation Pressors use. Other Results Laboratory Tests Test 03/23/17 03/23/17 06:45 08:49 Prothrombin Time 10.6 SEC Prothromb Time International 1.0 RATIO Ratio Sodium Level 142 MEQ/L Potassium Level 4.3 MEQ/L Chloride Level 108 MEQ/L Carbon Dioxide Level 24.9 MEQ/L Anion Gap 9 MEQ/L Blood Urea Nitrogen 6 MG/DL Creatinine 0.43 MG/DL Estimat Glomerular Filtration 157 ML/MIN Rate Random Glucose 104 MG/DL Calcium Level 7.8 MG/DL Phosphorus Level 4.6 MG/DL Magnesium Level 1.4 MG/DL Total Bilirubin 0.2 MG/DL Aspartate Amino Transf 25 U/L (AST/SGOT) Alanine Aminotransferase 20 U/L (ALT/SGPT) Alkaline Phosphatase 172 U/L Total Protein 6.6 GM/DL Albumin 2.1 GM/DL Prealbumin 23 MG/DL Triglycerides Level 206 MG/DL Objective Remarks GENERAL: No acute distress SKIN: Warm and dry. No rash HEAD: Normocephalic. EYES: No scleral icterus. No injection or drainage. PERRL. NECK: Supple, no JVD no Lymphadenopathy. CARDIOVASCULAR: RRR. S1, S2. No S4. Without murmur, clicks, Gallops or rubs. RESPIRATORY: Breath sounds clear to auscultation and equal bilaterally. GASTROINTESTINAL: Abdomen soft, no tender. MUSCULOSKELETAL: No edema. Neuro: Cranial nerves II through XII grossly intact. Strength is equal symmetric. Normal sensation. Medications and IVs Current Medications Medications (Trade) Dose Ordered Sig/Kaleb Route Start Time Stop Time Status Last Admin (NS Flush) 2 ml UNSCH PRN IVF 02/28/17 09:45 03/22/17 08:37 (D50w (Vial) Inj) 50 ml UNSCH PRN IV 02/28/17 16:15 03/17/17 10:33 (Glucagon Inj) 1 mg UNSCH PRN OTHER 02/28/17 16:15 Sucralfate 1 gm 1 gm Q6H PO 03/01/17 10:00 03/25/17 09:36 (Mvi-12 Inj/ Folvite Inj/ Clinimix E 4.25/ 25) 2,010.2 ml @ 75 mls/hr Q24H IV-CENTRAL 03/01/17 20:00 03/24/17 20:52 (ZyPREXA) 2.5 mg Q12HR PO 03/01/17 21:00 03/25/17 09:35 (KlonoPIN) 1 mg Q8HR PO 03/02/17 14:00 03/25/17 06:39 (Zofran Inj) 4 mg Q6H PRN IV PUSH 03/02/17 16:00 03/25/17 10:58 (Compazine Inj) 5 mg Q6H PRN IV PUSH 03/02/17 16:00 (Xanax) 1 mg Q8H PRN PO 03/02/17 22:00 03/25/17 09:47 (Ventolin Hfa Inh) 2 puff Q6HR INH 03/03/17 12:00 03/25/17 06:41 (Spiriva Inh) 18 mcg DAILY INH 03/03/17 09:00 03/25/17 09:37 (SINEquan) 200 mg HS PO 03/03/17 21:00 03/24/17 20:53 (Symbicort 80-4.5 Mcg Inh) 2 puff Q12HR INH 03/03/17 21:00 03/25/17 09:00 (Tylenol) 500 mg Q4H PRN PO 03/11/17 19:30 03/13/17 05:55 Hydromorphone HCl 1 mg 1 mg Q4H PRN IV PUSH 03/13/17 12:00 03/25/17 09:23 (Mycamine Inj/NS Inj) 100 ml @ 100 mls/hr Q24H IV 03/13/17 11:00 03/25/17 10:59 (Flexeril) 5 mg Q8H PRN PO 03/14/17 13:15 (Pill Splitter) 1 ea UNSCH PRN OTHER 03/14/17 14:15 (NovoLIN R SUPPLEMENTAL SCALE) 1 ACHS SQ 03/15/17 11:30 (Protonix) 40 mg Q12HR PO 03/16/17 21:00 03/25/17 09:36 (Percocet 7.5-325 Mg) 1 tab Q4H PRN PO 03/20/17 14:15 03/21/17 01:22 Oxycodone/ Acetaminophen 2 tab 2 tab Q4H PRN PO 03/20/17 14:15 03/25/17 11:01 (D10w Inj) 1,000 ml @ 75 mls/hr [id number] IV 03/22/17 04:00 03/22/17 17:20 (NS Flush) See Protocol DAILY IV FLUSH 03/23/17 09:00 03/25/17 09:27 (NS Flush) See Protocol UNSCH PRN IV FLUSH 03/22/17 23:45 (Heparin Central Flush) See Protocol DAILY IV FLUSH 03/23/17 09:00 03/25/17 09:26 (Heparin Central Flush) See Protocol UNSCH PRN IV FLUSH 03/22/17 23:45 (NS Flush) UNSCH PRN IV FLUSH 03/22/17 23:45 (Ambien) 5 mg HS PRN PO 03/23/17 16:15 03/24/17 21:12 (Proamatine) 5 mg TID@07,12,17 PO 03/25/17 12:00 A/P Assessment and Plan 1. Bipolar Disorder/Schizophrenia/Depression and Anxiety Continue Klonopin, Zyprexa, Doxepin,Xanax PRN for Anxiety, Pain medicines Hydrocodone, Hydromorphone 2. VDRF Improved. status post Endotracheal Intubation Tobacco dependence strongly recommended to stop smoking. Follow Oxygen saturation, continue Bronchodilator, Mucolytic, Incentive spirometry 3. Hemorrhagic Shock Resolved, received fluid resuscitation, Blood transfusion and Vasopressors 4. Electrolyte derangement replaced. 5. 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 Pascual. Status post emergent EGD on 03/[address] Beverly, no further surgical interventions planned at this time EGD 03/01 revealed a large ulcer with adjacent clot. now on Protonix by mouth. Carafate. 6. Юлия Glabrata Sepsis on Micafungin as per ID specialist to continue for 14 days. Lion cath removed, removed central line Right IJ and now has Left Subclavian central line. Consulted Cardiology for HERI probable for today, consulted Ophthalmology specialist seen by Doctor Recinos no ophthalmic compromise. Repeat Blood culture to document clearing. 7. Acute blood loss post hemorrhagic anemia, Thrombocytopenia s/p transfusion 2units PRBC 02/28 and 2units PRBC 03/01 for Hgb 6.9/4 units of FFP's/1 unit of cryoprecipitate Additional 2 U PRBC 03/06 now Hemoglobin 9.3 8. Hypotension and dizziness, as per Cardiology related to Sepsis, her Echocardiogram EF 60-65%. started on Midodrine low dose and following. 9. Insomnia started on Ambien as needed. 10. Central Line dislodge new PICC line in place. GI prophylaxis with Protonix gtt DVT prophylaxis with SCD. No pharmacological prophylaxis with bleeding Left Subclavian Central Line 03/12/17, removed by patient. ON TPN GI prophylaxis with Protonix by mouth, DVT prophylaxis with SCD. No pharmacological prophylaxis with history of GI bleed. Discharge Planning Expected for next Monday03/28/17 Anoop Stern MD Mar 25, 2017 11:11
[2017-03-25] MEDS: MIDODRINE 5 MG TAB PO SCH ×2 (12:11→17:16)
[2017-03-25] MEDS: CLINIMIX E 4.25/25 2000 mL- >42 mls/hr IV-CENTRAL SCH ×3 (20:00)
[2017-03-25] MEDS: DOXEPIN HCL 50 MG CAP PO SCH (21:00)
[2017-03-25] MEDS: ZOLPIDEM TARTRATE 5 MG TAB PO PRN (21:31)
[2017-03-26] VITALS (7 sets, daily range): BP systolic 102–123; BP diastolic 61–95; PULSE 0–112; RESP 17–21; TEMP 96.7–97.8; O2SAT 95–100
[2017-03-26] MEDS: HYDROmorphone HCL PF 1 MG/ML VIAL IV PUSH PRN ×5 (02:45→18:35)
[2017-03-26] MEDS: SUCRALFATE 1 GM/10 ML CUP PO SCH ×4 (03:17→20:41)
[2017-03-26] MEDS: oxyCODONE/ACETAMINOPHEN 7.5 MG/325 MG TAB PO PRN ×5 (04:09→20:32)
[2017-03-26] MEDS: ALBUTEROL SULFATE 90 MCG/ACT HFA 18 GM INHALER INH SCH ×3 (05:31→18:37)
[2017-03-26] MEDS: clonazePAM 1 MG TAB PO SCH ×3 (05:32→20:41)
[2017-03-26] MEDS: MIDODRINE 5 MG TAB PO SCH ×3 (06:46→16:10)
[2017-03-26] MEDS: INSULIN NovoLIN REGULAR SUPPLEMENTAL SCALE SQ SCH ×4 (06:53→20:46)
[2017-03-26] MEDS: PANTOPRAZOLE SOD 40 MG DELAYED RELEASE TAB PO SCH ×2 (08:09→20:41)
[2017-03-26] MEDS: OLANZapine 2.5 MG TAB PO SCH ×2 (08:10→20:41)
[2017-03-26] MEDS: TIOTROPIUM BROMIDE 18 MCG INH INH SCH (08:11)
[2017-03-26] MEDS: SODIUM CHLORIDE 0.9% FLUSH 10 ML FLUSH IV FLUSH SCH (08:19)
[2017-03-26] MEDS: BUDESONIDE-FORMOTEROL 80/4.5 MCG INHALER INH SCH ×2 (09:00→20:50)
[2017-03-26] MEDS: ALPRAZolam 1 MG TAB PO PRN ×2 (10:07→18:43)
[2017-03-26] MEDS: MICAFUNGIN INJ 100 MG in SODIUM CHLORIDE 0.9% INJ 100 ML IV SCH (11:02)
--- NOTE | 2017-03-26 11:29 | HHI.PR ---
Subjective Remarks medical care evaluation specialist Notes: Patient is a 46 year-old female with a past medical history of bronchial asthma , bipolar disorder, schizophrenia, anxiety/depression, and anemia. She presented to [facility] Emergency Department with complaints of feeling dizziness, light headedness, generalized weakness, multiple falls and inability to ambulate. On further history she has a history of gastric bypass four years ago in [place] and another abdominal surgery about one to two years ago for Intussusception in [place] as well. She states that she weighed 200 lbs when she had the gastric bypass surgery preformed, now she weighs 80 pounds, she reports chronic abdominal pain associated with intractable nausea and vomiting for several months. In addition to decreased p.o. intake. Her abdominal pain progressively worsened and mainly in the right upper quadrant and left lower quadrat. She denies any chest pain, shortness of breath, cough or any constitutional symptoms. On arrival to the emergency room she was hypotensive with systolic blood pressure in the 80's, tachycardic with heart rate in the 120's and her laboratory data showed hemoglobin of 7.2, lactic acid level of 2.9. Her liver enzymes are within normal limits with a total bilirubin of 0.2. Aspartate aminotransferase 21, alt 12, alkaline phosphatase 138. In the ER she received one out of two units of packed red blood cells and approximately 1.5 liters of normal saline. She responded to volume resuscitation and current blood pressure is 108/71 with a pulse of 112. Her o2 saturation is 97% on room air. Due to her abdominal pain, CT abdomen and pelvis were preformed which showed gallbladder wall thickening, mild hepatosplenomegaly and chronic mild compression deformity is noted involving L1. Chest x-ray in the emergency department showed right fifth rib fractures which appear old, otherwise no evidence of acute cardiopulmonary disease. Right IJ central line was placed by emergency department physician. She also has a ultrasound of the abdomen which is pending during the time of this dictation. The patient received Protonix, Unasyn and dilated in the emergency room. 03/01 Patient is lying in bed in NAD. s/p transfusion 2units PRBC this morning for Hgb 6.9. s/p EGD showed G-J ulcer, adherent clot with no evidence of bleeding. 03/02: Requesting Klonopin today. Hemoglobin stable for the past 12 hours. Very anxious and verbose. Complaining of pain epigastric/right upper quadrant region. 02/22/16: Currently afebrile. Requesting doxepin along with increasing pain medications. Days of pain in epigastric/right upper quadrant region. Hemoglobin stable. [facility] reconsulted on 03/05/17 -around 6 PM a rapid response was activated due to low blood pressure and hematemesis. She was transferred to ICU. The fluid resuscitation was started however patient continued vomiting blood and required intubation for an airway protection. Shortly after intubation she dropped her blood pressure again without palpable pulses in the CPR was initiated. There was a run of 2 cycles of CPR with return of spontaneous circulation. The Cordis introducer was inserted to left femoral vein and the rapid infuser was used to transfuse 4 units of PRBCs and FFP since cryoprecipitate. Dr. Beverly emergently performed upper EGD. Without successful finding off source of bleeding. This was discussed with interventional radiologist Dr. Pascual and the patient is going to be taken to IR for possible embolization emergently due to life-threatening condition uncontrolled GI bleed. 03/06: Remains intubated sedated. 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 Pascual. Episode of hypotension today, started on Levophed, 2U PRBC stat ordered, and 2L NS bolus. with improvement in BP. No evident GIB. Remains on Protonix and octreotide gtt. Hb 8.9 on Stat re check 03/07: Remains intubated, now off Levophed. Hb remains stable. No GIB reported. Will attempt SBT today for possible extubation. Discuss with Dr. Jerome Beverly. No plan for any surgical procedures at this time. DC octreotide in 24 hours. Continue Protonix infusion and Carafate per Dr. beverly 03/08: Extubated yesterday without complication. Hemoglobin this a.m. pending. No additional GI bleeding. Still complaining of abdominal pain. Requesting pain medication at the present time. 03/09: Complaining of abdominal pain 8 out of 10. Hemoglobin remained stable. Positive BM. Tolerating clear liquid diet. 03/10: Complaining of right lower quadrant pain 8 out of 10. On liquid [place] 7.5/325 added by general surgery today. On full liquid diet. Continues to have heme + smelling stools. Hospitalist Notes: 03/11: Seen in her bedroom, discussed with nurse Miss Ortega, no nausea, vomit or diarrhea, no signs of infection, has fever 103F, she is been on Empiric management with Zosyn by senior developer, asked for CXR, UA, blood cultures, Vancomycin started and asked for ID specialist. 03/12: Stable in her bedroom seen in the presence of nurse Miss Ortega, no nausea , vomit or diarrhea continue with Fever, blood cultures taken yesterday Yeast growing, is on Diflucan, given one dose of Micafungin by ID specialist, removed IJ catheter and changed from the Right side to the left neck side. recommended to continue Cefepime and Flagyl, Diflucan, Sent IJ tip for culture. No nausea, vomit or diarrhea. 03/13: Patient complaint of dizziness on Orthostatic position, also is been Hypotensive since admission, receiving large amounts of fluids, asked for Echocardiogram, Orthostatic vital sings, occupancy specialist consult, she continue Tachycardic. continue management as per ID specialist with antibiotics by now for sepsis. 03/14: Seen in her bedroom, no nausea,vomit or diarrhea, Discussed with occupancy specialist Doctor Ray and he does not see any Cardiac issue at this time Will follow Echocardiogram, machine technician at this time to make the Echocardiogram, as per ID specialist Sepsis probable line related, improving temperature, has yeast in BC, Юлия glabrata sepsis, recommended to Stop Cefepime , Flagyl and Vancomycin and Diflucan and continue Micafungin. follow culture sensitivity. 03/15: Seen in her bedroom, discussed with nurse Miss Thapa, clinically improving, General Surgery following, Echocardiogram EF 60-65%, normal wall Motion no nausea, vomit or diarrhea. follow PT evaluation assessment. 03/22: Seen in her bedroom discussed with nurse Miss Brantley patient at this time going to the restroom, no new issues, not yet discharge by specialists. 03/23: asking for Insomnia medicine. 03/24: Seen in her bedroom in the presence of nurse, complaint of some dizziness when walking, asking for pain medicine, continue followed by General Surgery no nausea, vomit or diarrhea. 03/25: Seen in her bedroom, discussed with nurse, No nausea, vomit or diarrhea, will try to improve her blood pressure low at this time, given Midodrine. and following the patient states develops dizziness when standing. 03/26: Seen in her bedroom in the presence of nurse Miss Fowler, asked for psychiatry specialist consult, no nausea, vomit or diarrhea, Removed IV fluids, Midodrine increased to 10 mg TID and try to switch pain medicine to by mouth. Objective Vital Signs Date Time Temp Pulse Resp B/P Pulse Ox O2 Delivery O2 Flow Rate FiO2 03/26/17 08:00 98 03/26/17 08:00 96 Room Air 21 03/26/17 08:00 97.2 92 20 109/63 95 03/26/17 04:00 97.8 99 18 108/67 98 03/26/17 00:00 97.3 71 19 102/61 98 03/25/17 20:03 100 03/25/17 20:00 98.0 102 18 123/56 100 03/25/17 19:32 18 03/25/17 19:30 Room Air 03/25/17 16:14 98.0 103 20 96/54 97 03/25/17 15:03 97.8 111 20 103/58 96 03/25/17 12:00 97.9 110 20 97/53 97 03/25/17 12:00 97 Room Air I/O 03/25/17 03/25/17 03/25/17 03/26/17 03/26/17 03/26/17 07:00 15:00 23:00 07:00 15:00 23:00 Intake Total 1180 ml 1400 ml 1440 ml 1200 ml Output Total 2100 ml 350 ml 4000 ml 3200 ml Balance -920 ml 1050 ml -2560 ml -2000 ml Intake Oral 1180 ml 1400 ml 1440 ml 1200 ml Output Urine Total 2100 ml 350 ml 4000 ml 3200 ml # Voids 2 # Bowel Movements 0 1 Result Diagram: 03/23/17 0849 Imaging Last Impressions Chest X-Ray 03/22/17 0000 Signed Impressions: Service Date/Time: Wednesday, March 22, 2017 18:51 - CONCLUSION: 1. Right PICC line in superior vena cava. Minimal subsegmental air space disease the bases. No effusion. Zoltan Tripathi MD Knee X-Ray 03/18/17 0000 Signed Impressions: Service Date/Time: Saturday, March 18, 2017 23:37 - CONCLUSION: Unremarkable examination of the left knee except mild spurring of both femoral condyles. Chris Malik MD Head CT 03/18/17 0000 Signed Impressions: Service Date/Time: Sunday, March 19, 2017 00:05 - CONCLUSION: Normal examination. Chris Malik MD Upper Extremity Ultrasound 03/16/17 0000 Signed Impressions: Service Date/Time: February 16:39 - CONCLUSION: No evidence of deep or superficial thrombophlebitis. Jean Love MD Abdomen/Pelvis CT 03/13/17 0000 Signed Impressions: Service Date/Time: Monday, March 13, 2017 11:03 - CONCLUSION: 1. 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 No findings are present to indicate acute hemorrhage. 2. Nonacute findings include small hiatal hernia and mild atherosclerotic disease. There are postsurgical findings indicative of prior [place]-en-Y gastric bypass surgery. 3. L1 compression fracture of uncertain chronicity. Terry Larry MD Lower Extremity Ultrasound 03/12/17 0000 Signed Impressions: Service Date/Time: Sunday, March 12, 2017 14:01 - CONCLUSION: No DVT. Terry Poon MD Splenic Arteriogram 03/06/17 0000 Signed Impressions: Service Date/Time: Sunday, March 05, 2017 23:50 - CONCLUSION: 1. 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 The proximal splenic artery was embolized to occlusion. The patient will likely need splenectomy to prevent back bleeding into the anastomosis. There is also high probability of complete infarct of the spleen as well. Darren Pascual MD Upper GI Series 02/28/17 0000 Signed Impressions: Service Date/Time: Tuesday, February 28, 2017 17:21 - CONCLUSION: 1. No evidence of extravasation to suggest perforation. 2. Focal collection of contrast within the gastric remnant raising the possibility of focal ulceration. Upper endoscopy would be helpful for further evaluation of this finding if there is strong clinical concern for ulceration within the gastric remnant. Maycol Castro MD Gall Bladder Ultrasound 02/28/17 0000 Signed Impressions: Service Date/Time: Tuesday, February 28, 2017 14:50 - CONCLUSION: 1. Single mobile stone in the gallbladder. 2. Extrarenal pelvis on the right. Darren Pascual MD Procedures Line: Central Venous Catheter Side: Right Location: Internal, Jugular Endotracheal Intubation Pressors use. Other Results Laboratory Tests Test 03/23/17 03/23/17 06:45 08:49 Prothrombin Time 10.6 SEC Prothromb Time International 1.0 RATIO Ratio Sodium Level 142 MEQ/L Potassium Level 4.3 MEQ/L Chloride Level 108 MEQ/L Carbon Dioxide Level 24.9 MEQ/L Anion Gap 9 MEQ/L Blood Urea Nitrogen 6 MG/DL Creatinine 0.43 MG/DL Estimat Glomerular Filtration 157 ML/MIN Rate Random Glucose 104 MG/DL Calcium Level 7.8 MG/DL Phosphorus Level 4.6 MG/DL Magnesium Level 1.4 MG/DL Total Bilirubin 0.2 MG/DL Aspartate Amino Transf 25 U/L (AST/SGOT) Alanine Aminotransferase 20 U/L (ALT/SGPT) Alkaline Phosphatase 172 U/L Total Protein 6.6 GM/DL Albumin 2.1 GM/DL Prealbumin 23 MG/DL Triglycerides Level 206 MG/DL Objective Remarks GENERAL: No acute distress SKIN: Warm and dry. No rash HEAD: Normocephalic. EYES: No scleral icterus. No injection or drainage. PERRL. NECK: Supple, no JVD no Lymphadenopathy. CARDIOVASCULAR: RRR. S1, S2. No S4. Without murmur, clicks, Gallops or rubs. RESPIRATORY: Breath sounds clear to auscultation and equal bilaterally. GASTROINTESTINAL: Abdomen soft, no tender. MUSCULOSKELETAL: No edema. Neuro: Cranial nerves II through XII grossly intact. Strength is equal symmetric. Normal sensation. Medications and IVs Current Medications Medications (Trade) Dose Ordered Sig/Kaleb Route Start Time Stop Time Status Last Admin (NS Flush) 2 ml UNSCH PRN IVF 02/28/17 09:45 03/22/17 08:37 (D50w (Vial) Inj) 50 ml UNSCH PRN IV 02/28/17 16:15 03/17/17 10:33 (Glucagon Inj) 1 mg UNSCH PRN OTHER 02/28/17 16:15 Sucralfate 1 gm 1 gm Q6H PO 03/01/17 10:00 03/26/17 08:09 (Mvi-12 Inj/ Folvite Inj/ Clinimix E 4.25/ 25) 2,010.2 ml @ 75 mls/hr Q24H IV-CENTRAL 03/01/17 20:00 03/24/17 20:52 (ZyPREXA) 2.5 mg Q12HR PO 03/01/17 21:00 03/26/17 08:10 (KlonoPIN) 1 mg Q8HR PO 03/02/17 14:00 03/26/17 05:32 (Zofran Inj) 4 mg Q6H PRN IV PUSH 03/02/17 16:00 03/25/17 10:58 (Compazine Inj) 5 mg Q6H PRN IV PUSH 03/02/17 16:00 (Xanax) 1 mg Q8H PRN PO 03/02/17 22:00 03/26/17 10:07 (Ventolin Hfa Inh) 2 puff Q6HR INH 03/03/17 12:00 03/26/17 05:31 (Spiriva Inh) 18 mcg DAILY INH 03/03/17 09:00 03/26/17 08:11 (SINEquan) 200 mg HS PO 03/03/17 21:00 03/25/17 21:00 (Symbicort 80-4.5 Mcg Inh) 2 puff Q12HR INH 03/03/17 21:00 03/26/17 09:00 (Tylenol) 500 mg Q4H PRN PO 03/11/17 19:30 03/13/17 05:55 Hydromorphone HCl 1 mg 1 mg Q4H PRN IV PUSH 03/13/17 12:00 03/26/17 10:56 (Mycamine Inj/NS Inj) 100 ml @ 100 mls/hr Q24H IV 03/13/17 11:00 03/26/17 11:02 (Flexeril) 5 mg Q8H PRN PO 03/14/17 13:15 (Pill Splitter) 1 ea UNSCH PRN OTHER 03/14/17 14:15 (NovoLIN R SUPPLEMENTAL SCALE) 1 ACHS SQ 03/15/17 11:30 (Protonix) 40 mg Q12HR PO 03/16/17 21:00 03/26/17 08:09 (Percocet 7.5-325 Mg) 1 tab Q4H PRN PO 03/20/17 14:15 03/21/17 01:22 Oxycodone/ Acetaminophen 2 tab 2 tab Q4H PRN PO 03/20/17 14:15 03/26/17 08:10 (D10w Inj) 1,000 ml @ 75 mls/hr [id number] IV 03/22/17 04:00 03/22/17 17:20 (NS Flush) See Protocol DAILY IV FLUSH 03/23/17 09:00 03/26/17 08:19 (NS Flush) See Protocol UNSCH PRN IV FLUSH 03/22/17 23:45 (Heparin Central Flush) See Protocol DAILY IV FLUSH 03/23/17 09:00 03/26/17 08:20 (Heparin Central Flush) See Protocol UNSCH PRN IV FLUSH 03/22/17 23:45 (NS Flush) UNSCH PRN IV FLUSH 03/22/17 23:45 (Ambien) 5 mg HS PRN PO 03/23/17 16:15 03/25/17 21:31 (Proamatine) 5 mg TID@07,12,17 PO 03/25/17 12:00 03/26/17 06:46 A/P Assessment and Plan 1. Bipolar Disorder/Schizophrenia/Depression and Anxiety Continue Klonopin, Zyprexa, Doxepin,Xanax PRN for Anxiety, Pain medicines Hydrocodone, Hydromorphone 2. VDRF Improved. status post Endotracheal Intubation Tobacco dependence strongly recommended to stop smoking. Follow Oxygen saturation, continue Bronchodilator, Mucolytic, Incentive spirometry 3. Hemorrhagic Shock Resolved, received fluid resuscitation, Blood transfusion and Vasopressors 4. Electrolyte derangement replaced. 5. 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 Pascual. Status post emergent EGD on 03/[address] Beverly, no further surgical interventions planned at this time EGD 03/01 revealed a large ulcer with adjacent clot. now on Protonix by mouth. Carafate. 6. Юлия Glabrata Sepsis on Micafungin as per ID specialist to continue for 14 days. Lion cath removed, removed central line Right IJ and now has Left Subclavian central line. Consulted Cardiology for HERI probable for today, consulted Ophthalmology specialist seen by Doctor Recinos no ophthalmic compromise. Repeat Blood culture to document clearing. 7. Acute blood loss post hemorrhagic anemia, Thrombocytopenia s/p transfusion 2units PRBC 02/28 and 2units PRBC 03/01 for Hgb 6.9/4 units of FFP's/1 unit of cryoprecipitate Additional 2 U PRBC 03/06 now Hemoglobin 9.3 8. Hypotension and dizziness, as per Cardiology related to Sepsis, her Echocardiogram EF 60-65%. started on Midodrine increased to 10 mg TID. removed IV fluids. asked for Psychiatry specialist consult. 9. Insomnia started on Ambien as needed. 10. Central Line dislodge new PICC line in place. GI prophylaxis with Protonix gtt DVT prophylaxis with SCD. No pharmacological prophylaxis with bleeding Left Subclavian Central Line 03/12/17, removed by patient. ON TPN GI prophylaxis with Protonix by mouth, DVT prophylaxis with SCD. No pharmacological prophylaxis with history of GI bleed. Discharge Planning Expected by tomorrow. Anoop Stern MD Mar 26, 2017 11:29
[2017-03-26] MEDS: RESP: ALBUTEROL 2.5 MG/IPRATROPIUM 0.5 MG NEB (PRN) INH (11:52)
[2017-03-26] MEDS: ONDANSETRON HCL 4 MG/2 ML VIAL IV PUSH PRN (12:16)
[2017-03-26] MEDS: CLINIMIX E 4.25/25 2000 mL- >42 mls/hr IV-CENTRAL SCH ×3 (20:00)
[2017-03-26] MEDS: DOXEPIN HCL 50 MG CAP PO SCH (20:41)
[2017-03-27] VITALS (9 sets, daily range): BP systolic 97–122; BP diastolic 54–64; PULSE 85–108; RESP 18–20; TEMP 97.5–98.5; O2SAT 96–100
[2017-03-27] MEDS: ALBUTEROL SULFATE 90 MCG/ACT HFA 18 GM INHALER INH SCH ×4 (00:15→17:01)
[2017-03-27] MEDS: HYDROmorphone HCL PF 1 MG/ML VIAL IV PUSH PRN ×2 (00:16→06:29)
[2017-03-27] MEDS: SUCRALFATE 1 GM/10 ML CUP PO SCH ×4 (03:33→20:35)
[2017-03-27] MEDS: oxyCODONE/ACETAMINOPHEN 7.5 MG/325 MG TAB PO PRN ×5 (03:34→22:07)
[2017-03-27] MEDS: clonazePAM 1 MG TAB PO SCH ×3 (06:16→20:34)
[2017-03-27] MEDS: MIDODRINE 5 MG TAB PO SCH ×4 (06:16→17:02)
[2017-03-27] MEDS: INSULIN NovoLIN REGULAR SUPPLEMENTAL SCALE SQ SCH ×4 (06:17→20:35)
[2017-03-27] MEDS: TIOTROPIUM BROMIDE 18 MCG INH INH SCH ×2 (09:46→10:16)
[2017-03-27] MEDS: PANTOPRAZOLE SOD 40 MG DELAYED RELEASE TAB PO SCH ×2 (09:47→20:34)
[2017-03-27] MEDS: OLANZapine 2.5 MG TAB PO SCH ×2 (09:49→20:35)
[2017-03-27] MEDS: SODIUM CHLORIDE 0.9% FLUSH 10 ML FLUSH IV FLUSH SCH (10:17)
[2017-03-27] MEDS: BUDESONIDE-FORMOTEROL 80/4.5 MCG INHALER INH SCH ×2 (10:18→20:34)
[2017-03-27] MEDS ORDERED: HYDROmorphone HCL 2 MG TAB PO PRN (11:00)
--- NOTE | 2017-03-27 11:07 | PD.PSY.CON ---
Provisional Diagnosis Admission Date Feb 28, 2017 at 15:29 [place]. Bipolar disorder, depressive type History of Present Illness Service Psychiatry Consult Requested By Primary Care Physician No Primary Care Physician HPI The patient is a 46 year-old female with a past medical history of bronchial asthma, bipolar disorder, schizophrenia, anxiety/depression, and anemia. She presented to [facility] Emergency Department with complaints of feeling dizziness, light headedness, generalized weakness, multiple falls and inability to ambulate. On further history she has a history of gastric bypass four years ago in [place] and another abdominal surgery about one to two years ago for Intussusception in [place] as well. She states that she weighed 200 lbs when she had the gastric bypass surgery preformed, now she weighs 80 pounds, she reports chronic abdominal pain associated with intractable nausea and vomiting for several months. In addition to decreased p.o. intake. Her abdominal pain progressively worsened and mainly in the right upper quadrant and left lower quadrat. On arrival to the emergency room she was hypotensive with systolic blood pressure in the 80's, tachycardic with heart rate in the 120's and her laboratory data showed hemoglobin of 7.2, lactic acid level of 2.9. Her liver enzymes are within normal limits with a total bilirubin of 0.2. Aspartate aminotransferase 21, alt 12, alkaline phosphatase 138. In the ER she received one out of two units of packed red blood cells and approximately 1.5 liters of normal saline. She responded to volume resuscitation and current blood pressure is 108/71 with a pulse of 112. Her o2 saturation is 97% on room air. Due to her abdominal pain, CT abdomen and pelvis were preformed which showed gallbladder wall thickening, mild hepatosplenomegaly and chronic mild compression deformity is noted involving L1. Chest x-ray in the emergency department showed right fifth rib fractures which appear old, otherwise no evidence of acute cardiopulmonary disease. Right IJ central line was placed by emergency department physician. He was admitted due shock. intervened surgically. Multiple acute medical problems. Now stable. Consulted to psychiatry for psychotropic management. On somatic evaluation today patient is calm, cooperative and pleasant. Patient reports that she is frustrated due to the length of her hospitalization and to her pain. She says that she wants to go home with her family. She reports frustration and anxiety, but denies depressive symptoms, denies poor concentration, denies problems with sleep, she denies hopelessness, she denies helplessness, she denies worthlessness, she denies suicidal or homicidal ideation. She denies visual and auditory hallucinations. No robbin, no psychosis, no fluctuation of consciousness, no agitation, no aggressive behavior , no paranoia, no delusions of reference observed during this evaluation. Patient says that she is no history of bipolar disorder, she sees a primary outpatient psychiatrist in [place], she doesn't remember the name. She takes doxepin 200, Xanax 1, clonazepam 1 and olanzapine 2.5, and she says that she has been stable in the psychotropic regimen. Patient denies the use of drugs and alcohol. No collateral information available at this moment. Review of Systems Constitutional: DENIES: Diaphoretic episodes, Fatigue, Fever, Weight gain, Weight loss, Chills, Dizziness, Change in appetite, Night Sweats Endocrine: DENIES: Abnorml menstrual pattern, Heat/cold intolerance, Polydipsia , Polyuria, Polyphagia Ears, nose, mouth, throat: DENIES: Tinnitus, Hearing loss, Vertigo, Nasal discharge, Oral lesions, Throat pain, Hoarseness, Ear Pain, Running Nose, Epistaxis, Sinus Pain, Toothache, Odynophagia Respiratory: DENIES: Apneas, Cough, Snoring, Wheezing, Hemoptysis, Sputum production, Shortness of breath Cardiovascular: DENIES: Chest pain, Palpitations, Syncope, Dyspnea on Exertion , PND, Lower Extremity Edema, Orthopnea, Claudication Genitourinary: DENIES: Abnormal vaginal bleeding, Dysmenorrhea, Dyspareunia, Sexual dysfunction, Urinary frequency, Urinary incontinence, Urgency, Hematuria , Dysuria, Nocturia, Vaginal discharge Musculoskeletal: DENIES: Joint pain, Muscle aches, Stiffness, Joint Swelling, Back pain, Neck pain Integumentary: DENIES: Abnormal pigmentation, Pruritus, Rash, Nail changes, Breast masses, Breast skin changes, Nipple discharge Neurologic: DENIES: Abnormal gait, Headache, Localized weakness, Paresthesias, Seizures, Speech Problems, Tremor, Poor Balance Psychiatric: DENIES: Anxiety, Confusion, Mood changes, Depression, Hallucinations, Agitation, Suicidal Ideation, Homicidal Ideation, Delusions Past Family Social History Coded Allergies: Sulfa (Verified Allergy, Severe, Anaphylaxis, 02/28/17) Reported Medications Clonazepam (Klonopin)2 Mg Tab2 Mg PO TID #90 TAB Ref 0 02/28/17 Budesonide-Formoterol Inh (Symbicort Inh)80-4.5 Mcg/Act Aero1 Puff INH Q12HR # 1 INHALER Ref 0 02/28/17 Albuterol 18 GM Inh (Ventolin Hfa 18 GM Inh)90 Mcg/Act Aer1 Puff INH Q4H PRN ( SHORTNESS OF BREATH) #1 INHALER Ref 0 02/28/17 Oxycodone-Acetaminophen (Percocet)10-325 mg Tab1 Tab PO Q4H PRN (PAIN) Ref 0 02/28/17 Current Medications Medications (Trade) Dose Ordered Sig/Kaleb Route Start Time Stop Time Status Last Admin (NS Flush) 2 ml UNSCH PRN IVF 02/28/17 09:45 03/22/17 08:37 (D50w (Vial) Inj) 50 ml UNSCH PRN IV 02/28/17 16:15 03/17/17 10:33 (Glucagon Inj) 1 mg UNSCH PRN OTHER 02/28/17 16:15 (Carafate Liq) 1 gm Q6H PO 03/01/17 10:00 03/27/17 10:17 (ZyPREXA) 2.5 mg Q12HR PO 03/01/17 21:00 03/27/17 09:49 (KlonoPIN) 1 mg Q8HR PO 03/02/17 14:00 03/27/17 06:16 (Zofran Inj) 4 mg Q6H PRN IV PUSH 03/02/17 16:00 03/26/17 12:16 (Compazine Inj) 5 mg Q6H PRN IV PUSH 03/02/17 16:00 (Xanax) 1 mg Q8H PRN PO 03/02/17 22:00 03/26/17 18:43 (Ventolin Hfa Inh) 2 puff Q6HR INH 03/03/17 12:00 03/27/17 06:17 (Spiriva Inh) 18 mcg DAILY INH 03/03/17 09:00 03/27/17 10:16 (SINEquan) 200 mg HS PO 03/03/17 21:00 03/26/17 20:41 (Symbicort 80-4.5 Mcg Inh) 2 puff Q12HR INH 03/03/17 21:00 03/27/17 10:18 Acetaminophen 500 mg 500 mg Q4H PRN PO 03/11/17 19:30 03/13/17 05:55 (Mycamine Inj/NS Inj) 100 ml @ 100 mls/hr Q24H IV 03/13/17 11:00 03/26/17 11:02 (Flexeril) 5 mg Q8H PRN PO 03/14/17 13:15 (Pill Splitter) 1 ea UNSCH PRN OTHER 03/14/17 14:15 (NovoLIN R SUPPLEMENTAL SCALE) 1 ACHS SQ 03/15/17 11:30 (Protonix) 40 mg Q12HR PO 03/16/17 21:00 03/27/17 09:47 (Percocet 7.5-325 Mg) 1 tab Q4H PRN PO 03/20/17 14:15 03/21/17 01:22 (Percocet 7.5-325 Mg) 2 tab Q4H PRN PO 03/20/17 14:15 03/27/17 09:50 (NS Flush) See Protocol DAILY IV FLUSH 03/23/17 09:00 03/27/17 10:17 (NS Flush) See Protocol UNSCH PRN IV FLUSH 03/22/17 23:45 (Heparin Central Flush) See Protocol DAILY IV FLUSH 03/23/17 09:00 03/27/17 09:51 (Heparin Central Flush) See Protocol UNSCH PRN IV FLUSH 03/22/17 23:45 (NS Flush) UNSCH PRN IV FLUSH 03/22/17 23:45 (Ambien) 5 mg HS PRN PO 03/23/17 16:15 03/25/17 21:31 (Proamatine) 10 mg TID@07,12,17 PO 03/26/17 17:00 03/27/17 09:48 (Dilaudid Pf Inj) 1 mg Q6HR PRN IV PUSH 03/26/17 18:00 03/27/17 06:29 Physical Exam Vital Signs Vital Signs Date Time Temp Pulse Resp B/P Pulse Ox O2 Delivery O2 Flow Rate FiO2 03/27/17 08:00 97.8 85 18 99/58 97 03/26/17 20:45 Room Air 03/26/17 08:00 21 I/O 03/26/17 03/26/17 03/27/17 08:00 16:00 00:00 Intake Total 1200 ml 2450 ml Output Total 3200 ml Balance -2000 ml 2450 ml Lab Results Imaging Last Impressions Chest X-Ray 03/22/17 0000 Signed Impressions: Service Date/Time: Wednesday, March 22, 2017 18:51 - CONCLUSION: 1. Right PICC line in superior vena cava. Minimal subsegmental air space disease the bases. No effusion. Zoltan Tripathi MD Knee X-Ray 03/18/17 0000 Signed Impressions: Service Date/Time: Saturday, March 18, 2017 23:37 - CONCLUSION: Unremarkable examination of the left knee except mild spurring of both femoral condyles. Chris Malik MD Head CT 03/18/17 0000 Signed Impressions: Service Date/Time: Sunday, March 19, 2017 00:05 - CONCLUSION: Normal examination. Chris Malik MD Upper Extremity Ultrasound 03/16/17 0000 Signed Impressions: Service Date/Time: February 16:39 - CONCLUSION: No evidence of deep or superficial thrombophlebitis. Jean Love MD Abdomen/Pelvis CT 03/13/17 0000 Signed Impressions: Service Date/Time: Monday, March 13, 2017 11:03 - CONCLUSION: 1. 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 No findings are present to indicate acute hemorrhage. 2. Nonacute findings include small hiatal hernia and mild atherosclerotic disease. There are postsurgical findings indicative of prior [place] gastric bypass surgery. 3. L1 compression fracture of uncertain chronicity. Terry Larry MD Lower Extremity Ultrasound 03/12/17 0000 Signed Impressions: Service Date/Time: Sunday, March 12, 2017 14:01 - CONCLUSION: No DVT. Terry Poon MD Splenic Arteriogram 03/06/17 0000 Signed Impressions: Service Date/Time: Sunday, March 05, 2017 23:50 - CONCLUSION: 1. 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 The proximal splenic artery was embolized to occlusion. The patient will likely need splenectomy to prevent back bleeding into the anastomosis. There is also high probability of complete infarct of the spleen as well. Darren Pascual MD Upper GI Series 02/28/17 0000 Signed Impressions: Service Date/Time: Tuesday, February 28, 2017 17:21 - CONCLUSION: 1. No evidence of extravasation to suggest perforation. 2. Focal collection of contrast within the gastric remnant raising the possibility of focal ulceration. Upper endoscopy would be helpful for further evaluation of this finding if there is strong clinical concern for ulceration within the gastric remnant. Maycol Castro MD Gall Bladder Ultrasound 02/28/17 0000 Signed Impressions: Service Date/Time: Tuesday, February 28, 2017 14:50 - CONCLUSION: 1. Single mobile stone in the gallbladder. 2. Extrarenal pelvis on the right. Darren Pascual MD Mental Status Examination Appearance woman, age appearing, hospital [facility], calm and cooperative Speech: Unremarkable Orientation: x3 Memory: Unremarkable Thought Process: Logical Thought Content: Unremarkable Hallucination Type: None Previous Suicide Attempts: No Homicidal Ideation: No Previous Homicide Attempts: No Insight: Good Affect: Good Mood: Euthymic Motor Activity: Normal gait Assessment & Plan Problem List: (1) Bipolar disorder in full remission Assessment & Plan: At the moment of this evaluation patient doesn't need to present any evident symptomatology of depression, bipolar disorder, psychosis or anxiety. Patient denies suicidal ideation, she denies visual and auditory hallucinations. He expresses frustration and sadness related with the length of her hospitalization, but she seems to be coping okay. Unfortunately, at this moment he could not get any collateral information regarding her baseline, psychiatric history and compliance with medications and follow-ups. She does not meet criteria for psychiatric admission at this moment. There is not objection at this moment to continue her psychotropics, doxepin 200 mg, olanzapine 2.5 mg twice a day, clonazepam 1 3 times per day. Support, motivation and psychoeducation provided. We'll follow-up.. ICD Code: F31.70 Assessment & Plan Estimated LOS: Dave Arizmendi MD Mar 27, 2017 11:07
--- NOTE | 2017-03-27 11:07 | HHI.IDPN ---
Subjective Subjective Remarks Patient is a 46-year-old female, admitted to the hospital February 28 with complaints of generalized weakness, lightheadedness and dizziness. She also was complaining of abdominal pain. She gave a history that she had bypass surgery about 4 years ago. When she presented she had a significant low hemoglobin and upper endoscopy revealed evidence of a gastrojejunal ulcer which was not actively bleeding at the time of the procedure. She received multiple transfusions, and her hemoglobin stabilized. She was initially in the ICU, and was transferred out to the floor. On March 05 she had development of hypotension and active GI bleed, and was transferred back to the ICU. IR was consult to due to the life-threatening bleed, and the patient underwent embolization of her splenic artery. She ended up getting intubated, on the , and was successfully extubated on the . Patient has been on Zosyn since admission. She had some cultures done on admission and they were all negative. Patient has been stabilizing, and today she started having fevers up to 103. She denies any respiratory complaint. She has a Lion catheter in place. She has a central line in the right IJ. She is complaining of abdominal pain, and points more to the right than on the left. Events of last week noted Notes reviewed Temps ok Seems clinically stable from ID standpoint Last (+) BC 03/13 HERI negative Eye exam negative Per notes awaiting clearance from surgery for D/C Has PICC in place Still C/O abdominal pain BC 03/11, 03/12 with Юлия glabrata Line removed 03/12, tip C/S negative Has one new (+) BC 03/13 with yeast On full liquid diet Denies any visual complaints Line removed 03/12 Had BM Line tip C/S negative CT A/P - no abscess, has multiple splenic infarcts On TPN Echo valves ok on TTE Doppler US RUE no thrombus Antibiotics Micafungin Lines PICC - 03/20 Past Medical History Schizophrenia. Bipolar disorder. Anxiety, depression. Anemia. Bronchial asthma. Past Surgical History Gastric bypass surgery four years ago. Previous abdominal surgery about one to two years ago for Allergies: Coded Allergies: Sulfa (Verified Allergy, Severe, Anaphylaxis, 02/28/17) Objective . Vital Signs Date Time Temp Pulse Resp B/P Pulse Ox O2 Delivery O2 Flow Rate FiO2 03/27/17 08:00 97.8 85 18 99/58 97 7/10/17 06:48 18 03/27/17 06:35 98.5 106 18 105/62 96 03/27/17 01:28 97.8 108 20 105/56 98 03/26/17 22:52 18 03/26/17 21:01 96.7 105 21 120/68 100 03/26/17 20:45 Room Air 03/26/17 20:00 97 03/26/17 16:52 97.7 112 17 123/67 99 114/70 03/26/17 13:50 97.8 0 18 114/95 95 114/95 03/26/17 03/26/17 03/27/17 15:00 23:00 07:00 Intake Total 2450 ml 32 ml Balance 2450 ml 32 ml Intake Oral 2450 ml Oral Supplement 0 ml IV Total 32 ml Imaging Last Impressions Chest X-Ray 03/12/17 0000 Signed Impressions: Service Date/Time: Sunday, March 12, 2017 10:04 - CONCLUSION: 1. Left central line in good position. No pneumothorax. 2. No acute pulmonary infiltrates. Edwin Martin MD Splenic Arteriogram 03/06/17 0000 Signed Impressions: Service Date/Time: Sunday, March 05, 2017 23:50 - CONCLUSION: 1. 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 The proximal splenic artery was embolized to occlusion. The patient will likely need splenectomy to prevent back bleeding into the anastomosis. There is also high probability of complete infarct of the spleen as well. Darren Pascual MD Abdomen/Pelvis CT 03/05/17 0000 Signed Impressions: Service Date/Time: Monday, March 06, 2017 01:51 - CONCLUSION: 1. Apparent early or partial small bowel obstruction, appears to be occurring at the level of the mid to distal ileum and is probably in the low abdomen. 2. Heterogeneous attenuation of the spleen and of concern for incomplete infarction. Patient has been administered intravenous contrast recently but not for this study. 3. Mild ascites. Anasarca and small bilateral pleural effusions are also noted. 4. Previous gastric bypass, with distention of the stomach and gastrojejunal anastomosis noted. The nasogastric tube tip is above the diaphragm within a moderate hiatal hernia. 5. There is a right femoral vein catheter with tip in main common iliac vein. A left femoral vein sheath is present with tip in main external iliac vein. Terry Hurtado MD Upper GI Series 02/28/17 0000 Signed Impressions: Service Date/Time: Tuesday, February 28, 2017 17:21 - CONCLUSION: 1. No evidence of extravasation to suggest perforation. 2. Focal collection of contrast within the gastric remnant raising the possibility of focal ulceration. Upper endoscopy would be helpful for further evaluation of this finding if there is strong clinical concern for ulceration within the gastric remnant. Maycol Castro MD Gall Bladder Ultrasound 02/28/17 0000 Signed Impressions: Service Date/Time: Tuesday, February 28, 2017 14:50 - CONCLUSION: 1. Single mobile stone in the gallbladder. 2. Extrarenal pelvis on the right. Darren Pascual MD Physical Exam GENERAL: awake and alert, not in respiratory distress. SKIN: Warm and dry. No generalized rash, no ecchymoses and no evidence of embolic lesions. HEAD: Atraumatic. Normocephalic. No temporal wasting, or tenderness. EYES: [place] conjunctiva. No petechia or hemorrhage. Pupils equal, round and reactive to light. No scleral icterus. No injection or drainage. EARS, NOSE AND THROAT: Nose without bleeding or purulent nasal discharge. Mucous membranes pink and moist. Poor dentition. No oral lesions noted. NECK: Trachea midline. Supple and not tender, no meningeal signs CARDIOVASCULAR: Regular rate and rhythm. Tachycardic. No murmurs, rubs or gallops heard RESPIRATORY: Clear to auscultation. Breath sounds equal bilaterally. No rales , wheezing or rhonchi ABDOMEN: Soft, mildly distended, with tenderness in both upper quadrant. Bowel sounds present and normoactive. No guarding. No rebound. EXTREMITIES: No clubbing, cyanosis, or edema. No joint effusion, has good ROM. No calf tenderness. Well perfused and warm. NEUROLOGICAL: Awake and alert. Cranial nerves grossly intact. Motor grossly within normal limits. PSYCHIATRIC: Normal affect, calm and cooperative. LINE: PICC no evidence of infection Assessment & Plan Remarks IMPRESSION New fever, sepsis, source? 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
--- NOTE | 2017-03-27 11:19 | HHI.FF ---
Infusion Therapy Patient Information Patient Weight 45 kg Diagnosis: Diagnosis Prolonged candidemia Coded Allergies: Sulfa (Verified Allergy, Severe, Anaphylaxis, 02/28/17) Administer Medication Micafungin 100 mg IV q 24 hours Stop Treatment: Apr 23, 2017 Additional Information Venous access: PICC Line Additional Instructions [x] Peripheral flush and dressing changes per protocol [x] Implanted port and central apprentice/lineman: * Implanted port: 10 ml Normal Saline followed by 5 ml Heparin 100 units/ml Heparin flush after each use and monthly to maintain. [] May leave port accessed during therapy. [] May leave peripheral site accessed for duration of therapy. [x] If patient has SOB or respiratory distress, check oxygen saturation. If less than 90% or clinical signs of respiratory distress, administer oxygen at 2 L/min. via nasal cannula and notify physician. [x] Anaphylaxis/Reaction orders: * Stop infusion. * Keep IV line open with saline flush. * Notify physician. * Monitor vital signs every 15 minutes until symptoms resolve. * Check Oxygen saturation; Oxygen at 2 L/min. via nasal cannula if less than 90% or clinical signs of respiratory distress. * Administer diphenhydramine (Benadryl) 25 mg IV STAT, (unless patient has received as pre-med). May repeat once, if necessary. * Solu-Cortef 250 mg IVP over 30-60 seconds, use 100 mg vials for each dissolution. * Epinephrine (1mg/1 ml) 0.3 mg subcutaneously or IVP now with any signs of respiratory distress. * Check with physician for new additional pre-med orders if patient is re- challenged or re-treated. [x] May remove PICC line when treatment complete, after confirming with Physician. [x] If the patient is admitted to the hospital, the ED, or transferred via [facility] , complete transfer form including medication reconciliation order sheet. Laboratory Tests Weekly Labs: CBC w/diff, Creatinine (Labs every monday, copy to ct), LFT's ( Hepatic function test) Luz Amaro MD Mar 27, 2017 11:19
[2017-03-27] MEDS: ALPRAZolam 1 MG TAB PO PRN ×2 (11:43→20:34)
[2017-03-27] MEDS: MICAFUNGIN INJ 100 MG in SODIUM CHLORIDE 0.9% INJ 100 ML IV SCH (11:43)
[2017-03-27 13:38] LABS: BASOPHIL # 0.1 TH/MM3 (0-0.2); EOSINOPHIL # 0.2 TH/MM3 (0-0.4); EOSINOPHIL % 3.1 % (0.0-4.0); HEMATOCRIT 30.9 % (35.0-46.0); HEMO FLAGS DIFF FINAL; LYMPH % 18.8 % (9.0-44.0); LYMPHOCYTE # 1.4 TH/MM3 (1.0-4.8); MEAN CELL VOLUME 86.5 FL (80.0-100.0); MEAN CORPUSCULAR HEMOGLOBIN 27.9 PG (27.0-34.0); MEAN CORPUSCULAR HGB CONC 32.3 % (32.0-36.0); MONO % 9.3 % (0.0-8.0); NEUT % 67.8 % (16.0-70.0); PLATELET COUNT 290 TH/MM3 (150-450); RED BLOOD COUNT 3.58 MIL/MM3 (4.00-5.30); RED CELL DISTRIBUTION WIDTH 17.7 % (11.6-17.2); WHITE BLOOD COUNT 7.4 TH/MM3 (4.0-11.0)
--- NOTE | 2017-03-27 16:37 | RADRPT ---
EXAM DATE/TIME: 03/27/2017 15:51 [place] COMPARISON: CHEST SINGLE AP, March 22, 2017, 18:51. INDICATIONS : Post PICC line placement. MEDICAL HISTORY : Asthma. SURGICAL HISTORY : None. ENCOUNTER: Initial ACUITY: 1 day PAIN SCORE: 0/10 LOCATION: Bilateral chest FINDINGS: Mild left lung base infiltrate has not changed. Left subclavian PICC line is present with tip overlap ping the expected region of the SVC. No definite pneumothorax is seen for technique. CONCLUSION: Slight left lung base infiltrate. Aster Rodriguez MD on March 27, 2017 at 16:34 Board Certified Radiologist. This report was verified electronically.
--- NOTE | 2017-03-27 17:42 | HHI.PR ---
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 She presented to [facility] Emergency Department with complaints of feeling dizziness, light headedness, generalized weakness, multiple falls and inability to ambulate. On further history she has a history of gastric bypass four years ago in [place] and another abdominal surgery about one to two years ago for Intussusception in [place] as well. She states that she weighed 200 lbs when she had the gastric bypass surgery preformed, now she weighs 80 pounds, she reports chronic abdominal pain associated with intractable nausea and vomiting for several months. In addition to decreased p.o. intake. Her abdominal pain progressively worsened and mainly in the right upper quadrant and left lower quadrat. She denies any chest pain, shortness of breath, cough or any constitutional symptoms. On arrival to the emergency room she was hypotensive with systolic blood pressure in the 80's, tachycardic with heart rate in the 120's and her laboratory data showed hemoglobin of 7.2, lactic acid level of 2.9. Her liver enzymes are within normal limits with a total bilirubin of 0.2. Aspartate aminotransferase 21, alt 12, alkaline phosphatase 138. In the ER she received one out of two units of packed red blood cells and approximately 1.5 liters of normal saline. She responded to volume resuscitation and current blood pressure is 108/71 with a pulse of 112. Her o2 saturation is 97% on room air. Due to her abdominal pain, CT abdomen and pelvis were preformed which showed gallbladder wall thickening, mild hepatosplenomegaly and chronic mild compression deformity is noted involving L1. Chest x-ray in the emergency department showed right fifth rib fractures which appear old, otherwise no evidence of acute cardiopulmonary disease. Right IJ central line was placed by emergency department physician. She also has a ultrasound of the abdomen which is pending during the time of this dictation. The patient received Protonix, Unasyn and dilated in the emergency room. 03/01 Patient is lying in bed in NAD. s/p transfusion 2units PRBC this morning for Hgb 6.9. s/p EGD showed G-J ulcer, adherent clot with no evidence of bleeding. 03/02: Requesting Klonopin today. Hemoglobin stable for the past 12 hours. Very anxious and verbose. Complaining of pain epigastric/right upper quadrant region. 02/22/16: Currently afebrile. Requesting doxepin along with increasing pain medications. Days of pain in epigastric/right upper quadrant region. Hemoglobin stable. [facility] reconsulted on 03/05/17 -around 6 PM a rapid response was activated due to low blood pressure and hematemesis. She was transferred to ICU. The fluid resuscitation was started however patient continued vomiting blood and required intubation for an airway protection. Shortly after intubation she dropped her blood pressure again without palpable pulses in the CPR was initiated. There was a run of 2 cycles of CPR with return of spontaneous circulation. The Cordis introducer was inserted to left femoral vein and the rapid infuser was used to transfuse 4 units of PRBCs and FFP since cryoprecipitate. Dr. Beverly emergently performed upper EGD. Without successful finding off source of bleeding. This was discussed with interventional radiologist Dr. Pascual and the patient is going to be taken to IR for possible embolization emergently due to life-threatening condition uncontrolled GI bleed. 03/06: Remains intubated sedated. 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 Pascual. Episode of hypotension today, started on Levophed, 2U PRBC stat ordered, and 2L NS bolus. with improvement in BP. No evident GIB. Remains on Protonix and octreotide gtt. Hb 8.9 on Stat re check 03/07: Remains intubated, now off Levophed. Hb remains stable. No GIB reported. Will attempt SBT today for possible extubation. Discuss with Dr. Jerome Beverly. No plan for any surgical procedures at this time. DC octreotide in 24 hours. Continue Protonix infusion and Carafate per Dr. beverly 03/08: Extubated yesterday without complication. Hemoglobin this a.m. pending. No additional GI bleeding. Still complaining of abdominal pain. Requesting pain medication at the present time. 03/09: Complaining of abdominal pain 8 out of 10. Hemoglobin remained stable. Positive BM. Tolerating clear liquid diet. 03/10: Complaining of right lower quadrant pain 8 out of 10. On liquid [place] 7.5/325 added by general surgery today. On full liquid diet. Continues to have heme + smelling stools. Hospitalist Notes: 03/11: Seen in her bedroom, discussed with nurse Miss Ortega, no nausea, vomit or diarrhea, no signs of infection, has fever 103F, she is been on Empiric management with Zosyn by plum packer, asked for CXR, UA, blood cultures, Vancomycin started and asked for ID specialist. 03/12: Stable in her bedroom seen in the presence of nurse Miss Ortega, no nausea , vomit or diarrhea continue with Fever, blood cultures taken yesterday Yeast growing, is on Diflucan, given one dose of Micafungin by ID specialist, removed IJ catheter and changed from the Right side to the left neck side. recommended to continue Cefepime and Flagyl, Diflucan, Sent IJ tip for culture. No nausea, vomit or diarrhea. 03/13: Patient complaint of dizziness on Orthostatic position, also is been Hypotensive since admission, receiving large amounts of fluids, asked for Echocardiogram, Orthostatic vital sings, patient care specialist consult, she continue Tachycardic. continue management as per ID specialist with antibiotics by now for sepsis. 03/14: Seen in her bedroom, no nausea,vomit or diarrhea, Discussed with patient care specialist Doctor Ray and he does not see any Cardiac issue at this time Will follow Echocardiogram, broadcast technician at this time to make the Echocardiogram, as per ID specialist Sepsis probable line related, improving temperature, has yeast in BC, Юлия glabrata sepsis, recommended to Stop Cefepime , Flagyl and Vancomycin and Diflucan and continue Micafungin. follow culture sensitivity. 03/15: Seen in her bedroom, discussed with nurse Miss Thapa, clinically improving, General Surgery following, Echocardiogram EF 60-65%, normal wall Motion no nausea, vomit or diarrhea. follow PT evaluation assessment. 03/22: Seen in her bedroom discussed with nurse Miss Brantley patient at this time going to the restroom, no new issues, not yet discharge by specialists. 03/23: asking for Insomnia medicine. 03/24: Seen in her bedroom in the presence of nurse, complaint of some dizziness when walking, asking for pain medicine, continue followed by General Surgery no nausea, vomit or diarrhea. 03/25: Seen in her bedroom, discussed with nurse, No nausea, vomit or diarrhea, will try to improve her blood pressure low at this time, given Midodrine. and following the patient states develops dizziness when standing. 03/26: Seen in her bedroom in the presence of nurse Miss Fowler, asked for psychiatry specialist consult, no nausea, vomit or diarrhea, Removed IV fluids, Midodrine increased to 10 mg TID and try to switch pain medicine to by mouth. 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 seen by Psychiatry Specialist. Objective Vital Signs Date Time Temp Pulse Resp B/P Pulse Ox O2 Delivery O2 Flow Rate FiO2 03/27/17 14:22 Room Air 03/27/17 13:23 86 03/27/17 11:58 97.5 97 18 114/61 97 03/27/17 11:16 86 03/27/17 08:00 97.8 85 18 99/58 97 03/27/17 06:48 18 03/27/17 06:35 98.5 106 18 105/62 96 03/27/17 01:28 97.8 108 20 105/56 98 03/26/17 22:52 18 03/26/17 21:01 96.7 105 21 120/68 100 03/26/17 20:45 Room Air 03/26/17 20:00 97 I/O 03/26/17 03/26/17 03/26/17 03/27/17 03/27/17 03/27/17 07:00 15:00 23:00 07:00 15:00 23:00 Intake Total 1200 ml 2450 ml 32 ml Output Total 3200 ml Balance -2000 ml 2450 ml 32 ml Intake Oral 1200 ml 2450 ml Oral Supplement 0 ml IV Total 32 ml Output Urine Total 3200 ml Result Diagram: 03/27/17 1318 03/23/17 0849 Imaging Last Impressions Chest X-Ray 03/27/17 0000 Signed Impressions: Service Date/Time: Monday, March 27, 2017 15:51 - CONCLUSION: Slight left lung base infiltrate. K. Kevin Rodriguez MD Knee X-Ray 03/18/17 Signed Impressions: Service Date/Time: Saturday, March 18, 2017 23:37 - CONCLUSION: Unremarkable examination of the left knee except mild spurring of both femoral condyles. Chris Malik MD Head CT 03/18/17 Signed Impressions: Service Date/Time: Sunday, March 19, 2017 00:05 - CONCLUSION: Normal examination. Chris Malik MD Upper Extremity Ultrasound 03/16/17 0000 Signed Impressions: Service Date/Time: February 16:39 - CONCLUSION: No evidence of deep or superficial thrombophlebitis. Jean Love MD Abdomen/Pelvis CT 03/13/17 0000 Signed Impressions: Service Date/Time: Monday, March 13, 2017 11:03 - CONCLUSION: 1. 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 No findings are present to indicate acute hemorrhage. 2. Nonacute findings include small hiatal hernia and mild atherosclerotic disease. There are postsurgical findings indicative of prior [place]-en-Y gastric bypass surgery. 3. L1 compression fracture of uncertain chronicity. Terry Larry MD Lower Extremity Ultrasound 03/12/17 0000 Signed Impressions: Service Date/Time: Sunday, March 12, 2017 14:01 - CONCLUSION: No DVT. Terry Poon MD Splenic Arteriogram 03/06/17 0000 Signed Impressions: Service Date/Time: Sunday, March 05, 2017 23:50 - CONCLUSION: 1. 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 The proximal splenic artery was embolized to occlusion. The patient will likely need splenectomy to prevent back bleeding into the anastomosis. There is also high probability of complete infarct of the spleen as well. Darren Pascual MD Upper GI Series 02/28/17 0000 Signed Impressions: Service Date/Time: Tuesday, February 28, 2017 17:21 - CONCLUSION: 1. No evidence of extravasation to suggest perforation. 2. Focal collection of contrast within the gastric remnant raising the possibility of focal ulceration. Upper endoscopy would be helpful for further evaluation of this finding if there is strong clinical concern for ulceration within the gastric remnant. Maycol Castro MD Gall Bladder Ultrasound 02/28/17 0000 Signed Impressions: Service Date/Time: Tuesday, February 28, 2017 14:50 - CONCLUSION: 1. Single mobile stone in the gallbladder. 2. Extrarenal pelvis on the right. Darren Pascual MD Procedures Line: Central Venous Catheter Side: Right Location: Internal, Jugular Endotracheal Intubation Pressors use. Other Results Laboratory Tests Test 03/23/17 03/23/17 03/27/17 06:45 08:49 13:18 Prothrombin Time 10.6 SEC Prothromb Time International 1.0 RATIO Ratio Sodium Level 142 MEQ/L Potassium Level 4.3 MEQ/L Chloride Level 108 MEQ/L Carbon Dioxide Level 24.9 MEQ/L Anion Gap 9 MEQ/L Blood Urea Nitrogen 6 MG/DL Creatinine 0.43 MG/DL Estimat Glomerular Filtration 157 ML/MIN Rate Random Glucose 104 MG/DL Calcium Level 7.8 MG/DL Phosphorus Level 4.6 MG/DL Magnesium Level 1.4 MG/DL Total Bilirubin 0.2 MG/DL Aspartate Amino Transf 25 U/L (AST/SGOT) Alanine Aminotransferase 20 U/L (ALT/SGPT) Alkaline Phosphatase 172 U/L Total Protein 6.6 GM/DL Albumin 2.1 GM/DL Prealbumin 23 MG/DL Triglycerides Level 206 MG/DL White Blood Count 7.4 TH/MM3 Red Blood Count 3.58 MIL/MM3 Hemoglobin 10.0 GM/DL Hematocrit 30.9 % Mean Corpuscular Volume 86.5 FL Mean Corpuscular Hemoglobin 27.9 PG Mean Corpuscular Hemoglobin 32.3 % Concent Red Cell Distribution Width 17.7 % Platelet Count 290 TH/MM3 Mean Platelet Volume 9.2 FL Neutrophils (%) (Auto) 67.8 % Lymphocytes (%) (Auto) 18.8 % Monocytes (%) (Auto) 9.3 % Eosinophils (%) (Auto) 3.1 % Basophils (%) (Auto) 1.0 % Neutrophils # (Auto) 5.0 TH/MM3 Lymphocytes # (Auto) 1.4 TH/MM3 Monocytes # (Auto) 0.7 TH/MM3 Eosinophils # (Auto) 0.2 TH/MM3 Basophils # (Auto) 0.1 TH/MM3 CBC Comment DIFF FINAL Differential Comment Objective Remarks GENERAL: No acute distress SKIN: Warm and dry. No rash HEAD: Normocephalic. EYES: No scleral icterus. No injection or drainage. PERRL. NECK: Supple, no JVD no Lymphadenopathy. CARDIOVASCULAR: RRR. S1, S2. No S4. Without murmur, clicks, Gallops or rubs. RESPIRATORY: Breath sounds clear to auscultation and equal bilaterally. GASTROINTESTINAL: Abdomen soft, no tender. MUSCULOSKELETAL: No edema. Neuro: Cranial nerves II through XII grossly intact. Strength is equal symmetric. Normal sensation. Medications and IVs Current Medications Medications (Trade) Dose Ordered Sig/Kaleb Route Start Time Stop Time Status Last Admin (NS Flush) 2 ml UNSCH PRN IVF 02/28/17 09:45 03/22/17 08:37 (D50w (Vial) Inj) 50 ml UNSCH PRN IV 02/28/17 16:15 03/17/17 10:33 (Glucagon Inj) 1 mg UNSCH PRN OTHER 02/28/17 16:15 (Carafate Liq) 1 gm Q6H PO 03/01/17 10:00 03/27/17 16:27 (ZyPREXA) 2.5 mg Q12HR PO 03/01/17 21:00 03/27/17 09:49 (KlonoPIN) 1 mg Q8HR PO 03/02/17 14:00 03/27/17 14:01 (Zofran Inj) 4 mg Q6H PRN IV PUSH 03/02/17 16:00 03/26/17 12:16 (Compazine Inj) 5 mg Q6H PRN IV PUSH 03/02/17 16:00 (Xanax) 1 mg Q8H PRN PO 03/02/17 22:00 03/27/17 11:43 (Ventolin Hfa Inh) 2 puff Q6HR INH 03/03/17 12:00 03/27/17 17:01 (Spiriva Inh) 18 mcg DAILY INH 03/03/17 09:00 03/27/17 10:16 (SINEquan) 200 mg HS PO 03/03/17 21:00 03/26/17 20:41 (Symbicort 80-4.5 Mcg Inh) 2 puff Q12HR INH 03/03/17 21:00 03/27/17 10:18 Acetaminophen 500 mg 500 mg Q4H PRN PO 03/11/17 19:30 03/13/17 05:55 (Mycamine Inj/NS Inj) 100 ml @ 100 mls/hr Q24H IV 03/13/17 11:00 03/27/17 11:43 (Flexeril) 5 mg Q8H PRN PO 03/14/17 13:15 (Pill Splitter) 1 ea UNSCH PRN OTHER 03/14/17 14:15 (NovoLIN R SUPPLEMENTAL SCALE) 1 ACHS SQ 03/15/17 11:30 (Protonix) 40 mg Q12HR PO 03/16/17 21:00 03/27/17 09:47 (Percocet 7.5-325 Mg) 1 tab Q4H PRN PO 03/20/17 14:15 03/27/17 14:01 (Percocet 7.5-325 Mg) 2 tab Q4H PRN PO 03/20/17 14:15 03/27/17 09:50 (NS Flush) See Protocol DAILY IV FLUSH 03/23/17 09:00 03/27/17 10:17 (NS Flush) See Protocol UNSCH PRN IV FLUSH 03/22/17 23:45 (Heparin Central Flush) See Protocol DAILY IV FLUSH 03/23/17 09:00 03/27/17 09:51 (Heparin Central Flush) See Protocol UNSCH PRN IV FLUSH 03/22/17 23:45 (NS Flush) UNSCH PRN IV FLUSH 03/22/17 23:45 (Ambien) 5 mg HS PRN PO 03/23/17 16:15 03/25/17 21:31 (Proamatine) 10 mg TID@07,12,17 PO 03/26/17 17:00 03/27/17 17:02 A/P Assessment and Plan 1. Bipolar Disorder/Schizophrenia/Depression and Anxiety Continue Klonopin, Zyprexa, Doxepin,Xanax PRN for Anxiety, Pain medicines Hydrocodone, Hydromorphone Psychiatry specialist consult done not yet uploaded in EMR. 2. VDRF Improved. status post Endotracheal Intubation Tobacco dependence strongly recommended to stop smoking. Follow Oxygen saturation, continue Bronchodilator, Mucolytic, Incentive spirometry 3. Hemorrhagic Shock Resolved, received fluid resuscitation, Blood transfusion and Vasopressors 4. Electrolyte derangement replaced. 5. 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 Pascual. Status post emergent EGD on 03/[address] Beverly, no further surgical interventions planned at this time EGD 03/01 revealed a large ulcer with adjacent clot. now on Protonix by mouth. Carafate. 6. Юлия Glabrata Sepsis on Micafungin as per ID specialist to continue for 14 days. Lion cath removed, removed central line Right IJ and now has Left Subclavian central line. Consulted Cardiology for HERI probable for today, consulted Ophthalmology specialist seen by Doctor Recinos no ophthalmic compromise. Repeat Blood culture to document clearing. 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 7. Acute blood loss post hemorrhagic anemia, Thrombocytopenia s/p transfusion 2units PRBC 02/28 and 2units PRBC 03/01 for Hgb 6.9/4 units of FFP's/1 unit of cryoprecipitate Additional 2 U PRBC 03/06 now Hemoglobin 10 8. Hypotension and dizziness, as per Cardiology related to Sepsis, her Echocardiogram EF 60-65%. started on Midodrine increased to 10 mg TID. removed IV fluids. asked for Psychiatry specialist consult. 9. Insomnia started on Ambien as needed. 10. Central Line dislodge new PICC line in place. GI prophylaxis with Protonix gtt DVT prophylaxis with SCD. No pharmacological prophylaxis with bleeding Left Subclavian Central Line 03/12/17, removed by patient. Removed TPN Removed IV pain medicine. Discharge Planning Expected by tomorrow. Anoop Stern MD Mar 27, 2017 17:42
[2017-03-27] MEDS: DOXEPIN HCL 50 MG CAP PO SCH (20:35)
[2017-03-28] VITALS (7 sets, daily range): BP systolic 87–117; BP diastolic 54–65; PULSE 85–108; RESP 16–20; TEMP 97.4–98.5; O2SAT 94–99
[2017-03-28] MEDS: ZOLPIDEM TARTRATE 5 MG TAB PO PRN (02:00)
[2017-03-28] MEDS: ALBUTEROL SULFATE 90 MCG/ACT HFA 18 GM INHALER INH SCH ×3 (02:19→11:28)
[2017-03-28] MEDS: oxyCODONE/ACETAMINOPHEN 7.5 MG/325 MG TAB PO PRN ×3 (02:20→10:20)
[2017-03-28] MEDS: SUCRALFATE 1 GM/10 ML CUP PO SCH ×2 (04:19→09:39)
[2017-03-28] MEDS: ALPRAZolam 1 MG TAB PO PRN (04:20)
[2017-03-28] MEDS: INSULIN NovoLIN REGULAR SUPPLEMENTAL SCALE SQ SCH ×2 (05:32→11:00)
[2017-03-28] MEDS: clonazePAM 1 MG TAB PO SCH (06:06)
[2017-03-28] MEDS: MIDODRINE 5 MG TAB PO SCH ×2 (06:06→11:27)
--- NOTE | 2017-03-28 08:27 | HHI.PR ---
Subjective Subjective Notes no acute issues, still with pain but seen in bed sleeping, tolerating diet 3300 recorded, HH stable Objective Vitals/I&O Vital Signs Date Time Temp Pulse Resp B/P Pulse Ox O2 Delivery O2 Flow Rate FiO2 03/28/17 05:32 Room Air 03/28/17 04:00 98.5 98 18 97/57 94 03/26/17 08:00 21 Labs Laboratory Tests Test 03/27/17 13:18 White Blood Count 7.4 Red Blood Count 3.58 Hemoglobin 10.0 Hematocrit 30.9 Mean Corpuscular Volume 86.5 Mean Corpuscular Hemoglobin 27.9 Mean Corpuscular Hemoglobin 32.3 Concent Red Cell Distribution Width 17.7 Platelet Count 290 Mean Platelet Volume 9.2 Neutrophils (%) (Auto) 67.8 Lymphocytes (%) (Auto) 18.8 Monocytes (%) (Auto) 9.3 Eosinophils (%) (Auto) 3.1 Basophils (%) (Auto) 1.0 Neutrophils # (Auto) 5.0 Lymphocytes # (Auto) 1.4 Monocytes # (Auto) 0.7 Eosinophils # (Auto) 0.2 Basophils # (Auto) 0.1 CBC Comment DIFF FINAL Differential Comment Cardiovascular: Regular Lungs: Clear Abdomen: Other (soft mild ttp epigastric area, no rebound) A/P Assessment and Plan hx rygb, hx of gj ulcers presents with abd pain, gi bleed UGI shows concern for G-G fistula, egd with bleeding and clot unable to visualized ulcer due to blood, pt remains tachycardic on pressors, s/p EGD s/p ir coil splenic a PLAN will need scrips for PPI, Carafate f/u 1 month ok to d/c from general surgery stand point Jerome Arias MD Mar 28, 2017 08:27
[2017-03-28] MEDS: PANTOPRAZOLE SOD 40 MG DELAYED RELEASE TAB PO SCH (08:40)
[2017-03-28] MEDS: SODIUM CHLORIDE 0.9% FLUSH 10 ML FLUSH IV FLUSH SCH (08:40)
[2017-03-28] MEDS: OLANZapine 2.5 MG TAB PO SCH (08:40)
[2017-03-28] MEDS: BUDESONIDE-FORMOTEROL 80/4.5 MCG INHALER INH SCH (08:43)
[2017-03-28] MEDS: MICAFUNGIN INJ 100 MG in SODIUM CHLORIDE 0.9% INJ 100 ML IV SCH (10:15)
--- NOTE | 2017-03-28 11:20 | HHI.PR ---
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 She presented to [facility] Emergency Department with complaints of feeling dizziness, light headedness, generalized weakness, multiple falls and inability to ambulate. On further history she has a history of gastric bypass four years ago in [place] and another abdominal surgery about one to two years ago for Intussusception in [place] as well. She states that she weighed 200 lbs when she had the gastric bypass surgery preformed, now she weighs 80 pounds, she reports chronic abdominal pain associated with intractable nausea and vomiting for several months. In addition to decreased p.o. intake. Her abdominal pain progressively worsened and mainly in the right upper quadrant and left lower quadrat. She denies any chest pain, shortness of breath, cough or any constitutional symptoms. On arrival to the emergency room she was hypotensive with systolic blood pressure in the 80's, tachycardic with heart rate in the 120's and her laboratory data showed hemoglobin of 7.2, lactic acid level of 2.9. Her liver enzymes are within normal limits with a total bilirubin of 0.2. Aspartate aminotransferase 21, alt 12, alkaline phosphatase 138. In the ER she received one out of two units of packed red blood cells and approximately 1.5 liters of normal saline. She responded to volume resuscitation and current blood pressure is 108/71 with a pulse of 112. Her o2 saturation is 97% on room air. Due to her abdominal pain, CT abdomen and pelvis were preformed which showed gallbladder wall thickening, mild hepatosplenomegaly and chronic mild compression deformity is noted involving L1. Chest x-ray in the emergency department showed right fifth rib fractures which appear old, otherwise no evidence of acute cardiopulmonary disease. Right IJ central line was placed by emergency department physician. She also has a ultrasound of the abdomen which is pending during the time of this dictation. The patient received Protonix, Unasyn and dilated in the emergency room. 03/01 Patient is lying in bed in NAD. s/p transfusion 2units PRBC this morning for Hgb 6.9. s/p EGD showed G-J ulcer, adherent clot with no evidence of bleeding. 03/02: Requesting Klonopin today. Hemoglobin stable for the past 12 hours. Very anxious and verbose. Complaining of pain epigastric/right upper quadrant region. 02/22/16: Currently afebrile. Requesting doxepin along with increasing pain medications. Days of pain in epigastric/right upper quadrant region. Hemoglobin stable. [facility] reconsulted on 03/05/17 -around 6 PM a rapid response was activated due to low blood pressure and hematemesis. She was transferred to ICU. The fluid resuscitation was started however patient continued vomiting blood and required intubation for an airway protection. Shortly after intubation she dropped her blood pressure again without palpable pulses in the CPR was initiated. There was a run of 2 cycles of CPR with return of spontaneous circulation. The Cordis introducer was inserted to left femoral vein and the rapid infuser was used to transfuse 4 units of PRBCs and FFP since cryoprecipitate. Dr. Beverly emergently performed upper EGD. Without successful finding off source of bleeding. This was discussed with interventional radiologist Dr. Pascual and the patient is going to be taken to IR for possible embolization emergently due to life-threatening condition uncontrolled GI bleed. 03/06: Remains intubated sedated. 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 Pascual. Episode of hypotension today, started on Levophed, 2U PRBC stat ordered, and 2L NS bolus. with improvement in BP. No evident GIB. Remains on Protonix and octreotide gtt. Hb 8.9 on Stat re check 03/07: Remains intubated, now off Levophed. Hb remains stable. No GIB reported. Will attempt SBT today for possible extubation. Discuss with Dr. Jerome Beverly. No plan for any surgical procedures at this time. DC octreotide in 24 hours. Continue Protonix infusion and Carafate per Dr. beverly 03/08: Extubated yesterday without complication. Hemoglobin this a.m. pending. No additional GI bleeding. Still complaining of abdominal pain. Requesting pain medication at the present time. 03/09: Complaining of abdominal pain 8 out of 10. Hemoglobin remained stable. Positive BM. Tolerating clear liquid diet. 03/10: Complaining of right lower quadrant pain 8 out of 10. On liquid [place] 7.5/325 added by general surgery today. On full liquid diet. Continues to have heme + smelling stools. Hospitalist Notes: 03/11: Seen in her bedroom, discussed with nurse Miss Ortega, no nausea, vomit or diarrhea, no signs of infection, has fever 103F, she is been on Empiric management with Zosyn by senior planning manager, asked for CXR, UA, blood cultures, Vancomycin started and asked for ID specialist. 03/12: Stable in her bedroom seen in the presence of nurse Miss Ortega, no nausea , vomit or diarrhea continue with Fever, blood cultures taken yesterday Yeast growing, is on Diflucan, given one dose of Micafungin by ID specialist, removed IJ catheter and changed from the Right side to the left neck side. recommended to continue Cefepime and Flagyl, Diflucan, Sent IJ tip for culture. No nausea, vomit or diarrhea. 03/13: Patient complaint of dizziness on Orthostatic position, also is been Hypotensive since admission, receiving large amounts of fluids, asked for Echocardiogram, Orthostatic vital sings, systems specialist consult, she continue Tachycardic. continue management as per ID specialist with antibiotics by now for sepsis. 03/14: Seen in her bedroom, no nausea,vomit or diarrhea, Discussed with systems specialist Doctor Ray and he does not see any Cardiac issue at this time Will follow Echocardiogram, oxygen equipment technician at this time to make the Echocardiogram, as per ID specialist Sepsis probable line related, improving temperature, has yeast in BC, Юлия glabrata sepsis, recommended to Stop Cefepime , Flagyl and Vancomycin and Diflucan and continue Micafungin. follow culture sensitivity. 03/15: Seen in her bedroom, discussed with nurse Miss Thapa, clinically improving, General Surgery following, Echocardiogram EF 60-65%, normal wall Motion no nausea, vomit or diarrhea. follow PT evaluation assessment. 03/22: Seen in her bedroom discussed with nurse Miss Brantley patient at this time going to the restroom, no new issues, not yet discharge by specialists. 03/23: asking for Insomnia medicine. 03/24: Seen in her bedroom in the presence of nurse, complaint of some dizziness when walking, asking for pain medicine, continue followed by General Surgery no nausea, vomit or diarrhea. 03/25: Seen in her bedroom, discussed with nurse, No nausea, vomit or diarrhea, will try to improve her blood pressure low at this time, given Midodrine. and following the patient states develops dizziness when standing. 03/26: Seen in her bedroom in the presence of nurse Miss Fowler, asked for psychiatry specialist consult, no nausea, vomit or diarrhea, Removed IV fluids, Midodrine increased to 10 mg TID and try to switch pain medicine to by mouth. 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 seen by Psychiatry Specialist. 03/28: Seen by General habilitation training specialist Doctor Jerome Beverly recommended scripts for PPI and Carafate, follow up in one month and okay to discharge home as per Psychiatry specialist okay to discharge recommended to continue her psychotropics Doxepin 200 mg, Olanzapine 2.5 mg bid and Clonazepam 1 to 3 times a day. no need for inpatient admission. no nausea, vomit or diarrhea, seen walking in the aisle with Physical Therapy without any kind of help. Objective Vital Signs Date Time Temp Pulse Resp B/P Pulse Ox O2 Delivery O2 Flow Rate FiO2 03/28/17 08:00 97.7 87 16 107/65 95 03/28/17 07:49 88 03/28/17 07:49 Room Air 03/28/17 05:32 Room Air 03/28/17 04:00 98.5 98 18 97/57 94 03/28/17 02:10 98/57 03/28/17 01:35 97/57 03/28/17 01:26 Room Air 03/28/17 00:00 97.4 95 19 87/54 98 03/27/17 22:45 Room Air 03/27/17 20:37 95 03/27/17 20:00 97.6 107 18 97/54 97 03/27/17 16:00 97.7 92 18 122/64 100 03/27/17 14:22 Room Air 03/27/17 13:23 86 03/27/17 12:00 97 Room Air 03/27/17 12:00 100 Room Air 03/27/17 11:58 97.5 97 18 114/61 97 I/O 03/27/17 03/27/17 03/27/17 03/28/17 03/28/17 03/28/17 07:00 15:00 23:00 07:00 15:00 23:00 Intake Total 32 ml 1440 ml 722 ml 1200 ml Balance 32 ml 1440 ml 722 ml 1200 ml Intake Oral 1440 ml 720 ml 1200 ml IV Total 32 ml 2 ml # Voids 4 2 3 # Bowel Movements 2 Result Diagram: 03/27/17 1318 Imaging Last Impressions Chest X-Ray 03/27/17 0000 Signed Impressions: Service Date/Time: Monday, March 27, 2017 15:51 - CONCLUSION: Slight left lung base infiltrate. Aster Rodriguez MD Knee X-Ray 03/18/17 0000 Signed Impressions: Service Date/Time: Saturday, March 18, 2017 23:37 - CONCLUSION: Unremarkable examination of the left knee except mild spurring of both femoral condyles. Chris Malik MD Head CT 03/18/17 0000 Signed Impressions: Service Date/Time: Sunday, March 19, 2017 00:05 - CONCLUSION: Normal examination. Chris Malik MD Upper Extremity Ultrasound 03/16/17 0000 Signed Impressions: Service Date/Time: February 16:39 - CONCLUSION: No evidence of deep or superficial thrombophlebitis. Jean Love MD Abdomen/Pelvis CT 03/13/17 0000 Signed Impressions: Service Date/Time: Monday, March 13, 2017 11:03 - CONCLUSION: 1. 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 No findings are present to indicate acute hemorrhage. 2. Nonacute findings include small hiatal hernia and mild atherosclerotic disease. There are postsurgical findings indicative of prior [place]-en-Y gastric bypass surgery. 3. L1 compression fracture of uncertain chronicity. Terry Larry MD Lower Extremity Ultrasound 03/12/17 0000 Signed Impressions: Service Date/Time: Sunday, March 12, 2017 14:01 - CONCLUSION: No DVT. Terry Poon MD Splenic Arteriogram 03/06/17 0000 Signed Impressions: Service Date/Time: Sunday, March 05, 2017 23:50 - CONCLUSION: 1. 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 The proximal splenic artery was embolized to occlusion. The patient will likely need splenectomy to prevent back bleeding into the anastomosis. There is also high probability of complete infarct of the spleen as well. Darren Pascual MD Upper GI Series 02/28/17 0000 Signed Impressions: Service Date/Time: Tuesday, February 28, 2017 17:21 - CONCLUSION: 1. No evidence of extravasation to suggest perforation. 2. Focal collection of contrast within the gastric remnant raising the possibility of focal ulceration. Upper endoscopy would be helpful for further evaluation of this finding if there is strong clinical concern for ulceration within the gastric remnant. Maycol Castro MD Gall Bladder Ultrasound 02/28/17 0000 Signed Impressions: Service Date/Time: Tuesday, February 28, 2017 14:50 - CONCLUSION: 1. Single mobile stone in the gallbladder. 2. Extrarenal pelvis on the right. Darren Pascual MD Procedures Line: Central Venous Catheter Side: Right Location: Internal, Jugular Endotracheal Intubation Pressors use. Other Results Laboratory Tests Test 03/27/17 13:18 White Blood Count 7.4 TH/MM3 Red Blood Count 3.58 MIL/MM3 Hemoglobin 10.0 GM/DL Hematocrit 30.9 % Mean Corpuscular Volume 86.5 FL Mean Corpuscular Hemoglobin 27.9 PG Mean Corpuscular Hemoglobin 32.3 % Concent Red Cell Distribution Width 17.7 % Platelet Count 290 TH/MM3 Mean Platelet Volume 9.2 FL Neutrophils (%) (Auto) 67.8 % Lymphocytes (%) (Auto) 18.8 % Monocytes (%) (Auto) 9.3 % Eosinophils (%) (Auto) 3.1 % Basophils (%) (Auto) 1.0 % Neutrophils # (Auto) 5.0 TH/MM3 Lymphocytes # (Auto) 1.4 TH/MM3 Monocytes # (Auto) 0.7 TH/MM3 Eosinophils # (Auto) 0.2 TH/MM3 Basophils # (Auto) 0.1 TH/MM3 CBC Comment DIFF FINAL Differential Comment Objective Remarks GENERAL: No acute distress SKIN: Warm and dry. No rash HEAD: Normocephalic. EYES: No scleral icterus. No injection or drainage. PERRL. NECK: Supple, no JVD no Lymphadenopathy. CARDIOVASCULAR: RRR. S1, S2. No S4. Without murmur, clicks, Gallops or rubs. RESPIRATORY: Breath sounds clear to auscultation and equal bilaterally. GASTROINTESTINAL: Abdomen soft, no tender. MUSCULOSKELETAL: No edema. Neuro: Cranial nerves II through XII grossly intact. Strength is equal symmetric. Normal sensation. Medications and IVs Current Medications Medications (Trade) Dose Ordered Sig/Kaleb Route Start Time Stop Time Status Last Admin (NS Flush) 2 ml UNSCH PRN IVF 02/28/17 09:45 03/22/17 08:37 (D50w (Vial) Inj) 50 ml UNSCH PRN IV 02/28/17 16:15 03/17/17 10:33 (Glucagon Inj) 1 mg UNSCH PRN OTHER 02/28/17 16:15 (Carafate Liq) 1 gm Q6H PO 03/01/17 10:00 03/28/17 09:39 (ZyPREXA) 2.5 mg Q12HR PO 03/01/17 21:00 03/28/17 08:40 (KlonoPIN) 1 mg Q8HR PO 03/02/17 14:00 03/28/17 06:06 (Zofran Inj) 4 mg Q6H PRN IV PUSH 03/02/17 16:00 03/26/17 12:16 (Compazine Inj) 5 mg Q6H PRN IV PUSH 03/02/17 16:00 (Xanax) 1 mg Q8H PRN PO 03/02/17 22:00 03/28/17 04:20 (Ventolin Hfa Inh) 2 puff Q6HR INH 03/03/17 12:00 03/28/17 06:06 (Spiriva Inh) 18 mcg DAILY INH 03/03/17 09:00 03/27/17 10:16 (SINEquan) 200 mg HS PO 03/03/17 21:00 03/27/17 20:35 (Symbicort 80-4.5 Mcg Inh) 2 puff Q12HR INH 03/03/17 21:00 03/28/17 08:43 Acetaminophen 500 mg 500 mg Q4H PRN PO 03/11/17 19:30 6/26/17 05:55 (Mycamine Inj/NS Inj) 100 ml @ 100 mls/hr Q24H IV 03/13/17 11:00 03/28/17 10:15 (Flexeril) 5 mg Q8H PRN PO 03/14/17 13:15 (Pill Splitter) 1 ea UNSCH PRN OTHER 03/14/17 14:15 (NovoLIN R SUPPLEMENTAL SCALE) 1 ACHS SQ 03/15/17 11:30 (Protonix) 40 mg Q12HR PO 03/16/17 21:00 03/28/17 08:40 (Percocet 7.5-325 Mg) 1 tab Q4H PRN PO 03/20/17 14:15 03/27/17 14:01 (Percocet 7.5-325 Mg) 2 tab Q4H PRN PO 03/20/17 14:15 03/28/17 10:20 (NS Flush) See Protocol DAILY IV FLUSH 03/23/17 09:00 03/28/17 08:40 (NS Flush) See Protocol UNSCH PRN IV FLUSH 03/22/17 23:45 (Heparin Central Flush) See Protocol DAILY IV FLUSH 03/23/17 09:00 03/28/17 08:40 (Heparin Central Flush) See Protocol UNSCH PRN IV FLUSH 03/22/17 23:45 (NS Flush) UNSCH PRN IV FLUSH 03/22/17 23:45 (Ambien) 5 mg HS PRN PO 03/23/17 16:15 03/28/17 02:00 (Proamatine) 10 mg TID@07,12,17 PO 03/26/17 17:00 03/28/17 06:06 A/P Assessment and Plan 1. Bipolar Disorder/Schizophrenia/Depression and Anxiety Continue Klonopin, Zyprexa, Doxepin,Xanax PRN for Anxiety, Pain medicines Hydrocodone, Hydromorphone as per Psychiatry specialist no need for inpatient admission 2. VDRF Improved. status post Endotracheal Intubation Tobacco dependence strongly recommended to stop smoking. Follow Oxygen saturation, continue Bronchodilator, Mucolytic, Incentive spirometry 3. Hemorrhagic Shock Resolved, received fluid resuscitation, Blood transfusion and Vasopressors 4. Electrolyte derangement replaced. 5. 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 Pascual. Status post emergent EGD on 03/[address] Beverly, no further surgical interventions planned at this time EGD 03/01 revealed a large ulcer with adjacent clot. now on Protonix by mouth. Carafate. 6. Юлия Glabrata Sepsis on Micafungin as per ID specialist to continue for 14 days. Lion cath removed, removed central line Right IJ and now has Left Subclavian central line. Consulted Cardiology for HERI probable for today, consulted Ophthalmology specialist seen by Doctor Recinos no ophthalmic compromise. Repeat Blood culture to document clearing. 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 Acute blood loss post hemorrhagic anemia, Thrombocytopenia s/p transfusion 2units PRBC 02/28 and 2units PRBC 03/01 for Hgb 6.9/4 units of FFP's/1 unit of cryoprecipitate Additional 2 U PRBC 03/06 now Hemoglobin 10 8. Hypotension and dizziness, as per Cardiology related to Sepsis, her Echocardiogram EF 60-65%. started on Midodrine increased to 10 mg TID improving. 9. Insomnia started on Ambien as needed. 10. Central Line dislodge new PICC line in place. GI prophylaxis with Protonix gtt DVT prophylaxis with SCD. No pharmacological prophylaxis with bleeding Left Subclavian Central Line 03/12/17, removed by patient. Removed TPN Removed IV pain medicine. Okay to discharge from psychiatry specialist and General Surgery doctor Jerome Beverly continue PPI, Carafate, follow in one month continue Doxepin 200 mg, Olanzapine 2.5 mg BID and Clonazepam 1 to 3 times a day. Discharge home on [facility] to continue Micafungin until May 13 2017 Discharge Planning Discharge Home on [facility] Anoop Stern MD 11, 2017 11:20
--- NOTE | 2017-03-28 12:29 | HHI.FF ---
Face to Face Verification Diagnosis: (1) GI bleed (2) Symptomatic anemia (3) Sinus tachycardia (4) Hypotension (5) SIRS (systemic inflammatory response syndrome) (6) Fungemia (7) Bipolar disorder in full remission Home Health Nursing Order: Medical education Signs/symptoms of disease process Medication education-adverse effect Nursing assessment with vital signs IV medication administration Instructions: Patient will need to continue Micafungin until April 23 2017, Antibiotics as per ID specialist. I have seen patient Dea Baugh on 03/28/17. My clinical findings support the need for the requested home health care services because: Med compliance is questionable Limited ability to care for self I certify that my clinical findings support that this patient is homebound because: Impaired cognitive ability/safety Anoop Stern MD Mar 28, 2017 12:29
[2017-03-28] MEDS ORDERED: DOXE50CA3 PO (12:46)
[2017-03-28] MEDS ORDERED: CYCL1TAB29 PO (12:46)
[2017-03-28] MEDS ORDERED: MIDO5TAB PO (12:46)
[2017-03-28] MEDS ORDERED: CLON1 PO (12:46)
[2017-03-28] MEDS ORDERED: OLAN2.5T PO (12:46)
[2017-03-28] MEDS ORDERED: CARA1TAB6 PO (12:46)
[2017-03-28] MEDS ORDERED: PANT40TA3 PO (12:46)
--- NOTE | 2017-03-28 12:48 | HHI.DS ---
Discharge Summary Admission Date Feb 28, 2017 at 15:29 Discharge Date: Mar 28, 2017 Admitting Diagnosis symptomatic anemia, GI bleed, hypotension, right upper quadrant abdo (1) GI bleed ICD Code: K92.2 Diagnosis: Principal Procedures Line: Central Venous Catheter Side: Right Location: Internal, Jugular Endotracheal Intubation Pressors use. Brief History - From Admission The patient is a 46 year-old female with a past medical history of bronchial asthma, bipolar disorder, schizophrenia, anxiety/depression, and anemia. She presented to [facility] Emergency Department withy complaints of feeling dizziness, light headedness, generalized weakness, multiple falls and inability to ambulate. On further history she has a history of gastric bypass four years ago in [place] and another abdominal surgery about one to two years ago for <<1:05>> in [place] as well. The patient states that she weighed 200 lbs when she had the gastric bypass surgery preformed, now she weighs 80 pounds, she reports chronic abdominal pain associated with intractable nausea and vomiting for several months. In addition to decreased p.o. intake. Her abdominal pain progressively worsened and mainly in the right upper quadrant and left lower quadrat. She denies any chest pain, shortness of breath, cough or any constitutional symptoms. On arrival to the emergency room she was hypotensive with systolic blood pressure in the 80's, tachycardic with heart rate in the 120's and her laboratory data showed hemoglobin of 7.2, lactic acid level of 2.9. Her liver enzymes are within normal limits with a total bilirubin of 0.2. Aspartate aminotransferase 21, alt 12, alkaline phosphatase 138. In the ER she received one out of two units of packed red blood cells and approximately 1.5 liters of normal saline. She responded to volume resuscitation and current blood pressure is 108/71 with a pulse of 112. Her o2 saturation is 97% on room air. Due to her abdominal pain, CT abdomen and pelvis were preformed which showed gallbladder wall thickening, mild hepatosplenomegaly and chronic mild compression deformity is noted involving L1. Chest x-ray in the emergency department showed right fifth rib fractures which appear old, otherwise no evidence of acute cardiopulmonary disease. Right eye IJ central line was placed by emergency department physician. She also has a ultrasound of the abdomen which is pending during the time of this dictation. The patient received Protonix, Unasyn and dilated in the emergency room. CBC/BMP: 03/27/17 1318 Significant Findings Laboratory Tests Test 03/27/17 13:18 Red Blood Count 3.58 MIL/MM3 (4.00-5.30) Hemoglobin 10.0 GM/DL (11.6-15.3) Hematocrit 30.9 % (35.0-46.0) Red Cell Distribution Width 17.7 % (11.6-17.2) Monocytes (%) (Auto) 9.3 % (0.0-8.0) Imaging Last Impressions Chest X-Ray 03/27/17 0000 Signed Impressions: Service Date/Time: Monday, March 27, 2017 15:51 - CONCLUSION: Slight left lung base infiltrate. Aster Rodriguez MD Knee X-Ray 03/18/17 0000 Signed Impressions: Service Date/Time: Saturday, March 18, 2017 23:37 - CONCLUSION: Unremarkable examination of the left knee except mild spurring of both femoral condyles. Chris Malik MD Head CT 03/18/17 0000 Signed Impressions: Service Date/Time: Sunday, March 19, 2017 00:05 - CONCLUSION: Normal examination. Chris Malik MD Upper Extremity Ultrasound 03/16/17 0000 Signed Impressions: Service Date/Time: February 16:39 - CONCLUSION: No evidence of deep or superficial thrombophlebitis. Jean Love MD Abdomen/Pelvis CT 03/13/17 0000 Signed Impressions: Service Date/Time: Monday, March 13, 2017 11:03 - CONCLUSION: 1. 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 No findings are present to indicate acute hemorrhage. 2. Nonacute findings include small hiatal hernia and mild atherosclerotic disease. There are postsurgical findings indicative of prior [place] gastric bypass surgery. 3. L1 compression fracture of uncertain chronicity. Terry Larry MD Lower Extremity Ultrasound 03/12/17 0000 Signed Impressions: Service Date/Time: Sunday, March 12, 2017 14:01 - CONCLUSION: No DVT. Terry Poon MD Splenic Arteriogram 03/06/17 0000 Signed Impressions: Service Date/Time: Sunday, March 05, 2017 23:50 - CONCLUSION: 1. 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 The proximal splenic artery was embolized to occlusion. The patient will likely need splenectomy to prevent back bleeding into the anastomosis. There is also high probability of complete infarct of the spleen as well. Darren Pascual MD Upper GI Series 02/28/17 0000 Signed Impressions: Service Date/Time: Tuesday, February 28, 2017 17:21 - CONCLUSION: 1. No evidence of extravasation to suggest perforation. 2. Focal collection of contrast within the gastric remnant raising the possibility of focal ulceration. Upper endoscopy would be helpful for further evaluation of this finding if there is strong clinical concern for ulceration within the gastric remnant. Maycol Castro MD Gall Bladder Ultrasound 02/28/17 0000 Signed Impressions: Service Date/Time: Tuesday, February 28, 2017 14:50 - CONCLUSION: 1. Single mobile stone in the gallbladder. 2. Extrarenal pelvis on the right. Darren Pascual MD PE at Discharge GENERAL: This is a well-nourished, well-developed patient, in no apparent distress. SKIN: No rashes, warm and dry HEAD: Atraumatic. Normocephalic. EYES: Pupils equal round and reactive. Extraocular motions intact. No scleral icterus. ENT: Nose without bleeding, or drainage, Airway patent. NECK: Trachea midline. Supple CARDIOVASCULAR: Regular rate and rhythm without murmurs, gallops, or rubs. RESPIRATORY: Fair air entry bilaterally. No wheezes, rales, or rhonchi. GASTROINTESTINAL: Abdomen soft, non-tender, nondistended. Positive bowel sounds MUSCULOSKELETAL: Extremities without clubbing, cyanosis, or edema. Pedal pulses appreciated NEUROLOGICAL: Awake and alert. Moves all extremity. Normal speech.no focal neurological deficit Transfer Summary Please see note below Hospital Course evidence specialist Notes: Patient is a 46 year-old female with a past medical history of bronchial asthma , bipolar disorder, schizophrenia, anxiety/depression, and anemia. She presented to [facility] Emergency Department with complaints of feeling dizziness, light headedness, generalized weakness, multiple falls and inability to ambulate. On further history she has a history of gastric bypass four years ago in [place] and another abdominal surgery about one to two years ago for Intussusception in [place] as well. She states that she weighed 200 lbs when she had the gastric bypass surgery preformed, now she weighs 80 pounds, she reports chronic abdominal pain associated with intractable nausea and vomiting for several months. In addition to decreased p.o. intake. Her abdominal pain progressively worsened and mainly in the right upper quadrant and left lower quadrat. She denies any chest pain, shortness of breath, cough or any constitutional symptoms. On arrival to the emergency room she was hypotensive with systolic blood pressure in the 80's, tachycardic with heart rate in the 120's and her laboratory data showed hemoglobin of 7.2, lactic acid level of 2.9. Her liver enzymes are within normal limits with a total bilirubin of 0.2. Aspartate aminotransferase 21, alt 12, alkaline phosphatase 138. In the ER she received one out of two units of packed red blood cells and approximately 1.5 liters of normal saline. She responded to volume resuscitation and current blood pressure is 108/71 with a pulse of 112. Her o2 saturation is 97% on room air. Due to her abdominal pain, CT abdomen and pelvis were preformed which showed gallbladder wall thickening, mild hepatosplenomegaly and chronic mild compression deformity is noted involving L1. Chest x-ray in the emergency department showed right fifth rib fractures which appear old, otherwise no evidence of acute cardiopulmonary disease. Right IJ central line was placed by emergency department physician. She also has a ultrasound of the abdomen which is pending during the time of this dictation. The patient received Protonix, Unasyn and dilated in the emergency room. 03/01 Patient is lying in bed in NAD. s/p transfusion 2units PRBC this morning for Hgb 6.9. s/p EGD showed G-J ulcer, adherent clot with no evidence of bleeding. 03/02: Requesting Klonopin today. Hemoglobin stable for the past 12 hours. Very anxious and verbose. Complaining of pain epigastric/right upper quadrant region. 02/22/16: Currently afebrile. Requesting doxepin along with increasing pain medications. Days of pain in epigastric/right upper quadrant region. Hemoglobin stable. [facility] [place] 03/05/17 -around 6 PM a rapid response was activated due to low blood pressure and hematemesis. She was transferred to ICU. The fluid resuscitation was started however patient continued vomiting blood and required intubation for an airway protection. Shortly after intubation she dropped her blood pressure again without palpable pulses in the CPR was initiated. There was a run of 2 cycles of CPR with return of spontaneous circulation. The Cordis introducer was inserted to left femoral vein and the rapid infuser was used to transfuse 4 units of PRBCs and FFP since cryoprecipitate. Dr. Beverly emergently performed upper EGD. Without successful finding off source of bleeding. This was discussed with interventional radiologist Dr. Pascual and the patient is going to be taken to IR for possible embolization emergently due to life-threatening condition uncontrolled GI bleed. 03/06: Remains intubated sedated. 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 Pascual. Episode of hypotension today, started on Levophed, 2U PRBC stat ordered, and 2L NS bolus. with improvement in BP. No evident GIB. Remains on Protonix and octreotide gtt. Hb 8.9 on Stat re check 03/07: Remains intubated, now off Levophed. Hb remains stable. No GIB reported. Will attempt SBT today for possible extubation. Discuss with Dr. Jerome Beverly. No plan for any surgical procedures at this time. DC octreotide in 24 hours. Continue Protonix infusion and Carafate per Dr. beverly 03/08: Extubated yesterday without complication. Hemoglobin this a.m. pending. No additional GI bleeding. Still complaining of abdominal pain. Requesting pain medication at the present time. 03/09: Complaining of abdominal pain 8 out of 10. Hemoglobin remained stable. Positive BM. Tolerating clear liquid diet. 03/10: Complaining of right lower quadrant pain 8 out of 10. On liquid [place] 7.5/325 added by general surgery today. On full liquid diet. Continues to have heme + smelling stools. Hospitalist Notes: 03/11: Seen in her bedroom, discussed with nurse Miss Ortega, no nausea, vomit or diarrhea, no signs of infection, has fever 103F, she is been on Empiric management with Zosyn by mailing section clerk, asked for CXR, UA, blood cultures, Vancomycin started and asked for ID specialist. 03/12: Stable in her bedroom seen in the presence of nurse Miss Ortega, no nausea , vomit or diarrhea continue with Fever, blood cultures taken yesterday Yeast growing, is on Diflucan, given one dose of Micafungin by ID specialist, removed IJ catheter and changed from the Right side to the left neck side. recommended to continue Cefepime and Flagyl, Diflucan, Sent IJ tip for culture. No nausea, vomit or diarrhea. 03/13: Patient complaint of dizziness on Orthostatic position, also is been Hypotensive since admission, receiving large amounts of fluids, asked for Echocardiogram, Orthostatic vital sings, donor specialist consult, she continue Tachycardic. continue management as per ID specialist with antibiotics by now for sepsis. 03/14: Seen in her bedroom, no nausea,vomit or diarrhea, Discussed with donor specialist Doctor Bell and he does not see any Cardiac issue at this time Will follow Echocardiogram, heavy equipment service technician at this time to make the Echocardiogram, as per ID specialist Sepsis probable line related, improving temperature, has yeast in BC, Юлия glabrata sepsis, recommended to Stop Cefepime , Flagyl and Vancomycin and Diflucan and continue Micafungin. follow culture sensitivity. 03/15: Seen in her bedroom, discussed with nurse Miss Thapa, clinically improving, General Surgery following, Echocardiogram EF 60-65%, normal wall Motion no nausea, vomit or diarrhea. follow PT evaluation assessment. 03/22: Seen in her bedroom discussed with nurse Miss Brantley patient at this time going to the restroom, no new issues, not yet discharge by specialists. 03/23: asking for Insomnia medicine. 03/24: Seen in her bedroom in the presence of nurse, complaint of some dizziness when walking, asking for pain medicine, continue followed by General Surgery no nausea, vomit or diarrhea. 03/25: Seen in her bedroom, discussed with nurse, No nausea, vomit or diarrhea, will try to improve her blood pressure low at this time, given Midodrine. and following the patient states develops dizziness when standing. 03/26: Seen in her bedroom in the presence of nurse Miss Fowler, asked for psychiatry specialist consult, no nausea, vomit or diarrhea, Removed IV fluids, Midodrine increased to 10 mg TID and try to switch pain medicine to by mouth. 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 seen by Psychiatry Specialist. 03/28: Seen by General refrigeration specialist Doctor Jerome Beverly recommended scripts for PPI and Carafate, follow up in one month and okay to discharge home as per Psychiatry specialist okay to discharge recommended to continue her psychotropics Doxepin 200 mg, Olanzapine 2.5 mg bid and Clonazepam 1 to 3 times a day. no need for inpatient admission. no nausea, vomit or diarrhea, seen walking in the aisle with Physical Therapy without any kind of help. Assessment and Plan 1. Bipolar Disorder/Schizophrenia/Depression and Anxiety Continue Klonopin, Zyprexa, Doxepin,Xanax PRN for Anxiety, Pain medicines Hydrocodone, Hydromorphone as per Psychiatry specialist no need for inpatient admission 2. VDRF Improved. status post Endotracheal Intubation Tobacco dependence strongly recommended to stop smoking. Follow Oxygen saturation, continue Bronchodilator, Mucolytic, Incentive spirometry 3. Hemorrhagic Shock Resolved, received fluid resuscitation, Blood transfusion and Vasopressors 4. Electrolyte derangement replaced. 5. 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 Pascual. Status post emergent EGD on 03/[address] Beverly, no further surgical interventions planned at this time EGD 03/01 revealed a large ulcer with adjacent clot. now on Protonix by mouth. Carafate. 6. Юлия Glabrata Sepsis on Micafungin as per ID specialist to continue for 14 days. Lion cath removed, removed central line Right IJ and now has Left Subclavian central line. Consulted Cardiology for HERI probable for today, consulted Ophthalmology specialist seen by Doctor Recinos no ophthalmic compromise. Repeat Blood culture to document clearing. 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 Acute blood loss post hemorrhagic anemia, Thrombocytopenia s/p transfusion 2units PRBC 02/28 and 2units PRBC 03/01 for Hgb 6.9/4 units of FFP's/1 unit of cryoprecipitate Additional 2 U PRBC 03/06 now Hemoglobin 10 8. Hypotension and dizziness, as per Cardiology related to Sepsis, her Echocardiogram EF 60-65%. started on Midodrine increased to 10 mg TID improving. 9. Insomnia started on Ambien as needed. 10. Central Line dislodge new PICC line in place. GI prophylaxis with Protonix gtt DVT prophylaxis with SCD. No pharmacological prophylaxis with bleeding Left Subclavian Central Line 03/12/17, removed by patient. Removed TPN Removed IV pain medicine. Okay to discharge from psychiatry specialist and General Surgery doctor Jerome Beverly continue PPI, Carafate, follow in one month continue Doxepin 200 mg, Olanzapine 2.5 mg BID and Clonazepam 1 to 3 times a day. Discharge home on [facility] to continue Micafungin until May 13 2017 Discharge Planning Discharge Home on [facility] Pt Condition on Discharge: Good Discharge Disposition: Disch w/ Home Health Serv Discharge Time: > 30 minutes Discharge Instructions DIET: Follow Instructions for: Heart Healthy Diet Activities you can perform: Regular-No Restrictions Anoop Stern MD Mar 28, 2017 12:48
--- NOTE | 2017-03-28 14:31 | HHI.PYPN ---
Subjective Remarks Patient was seen today for psychiatric reevaluation, patient found calm, cooperative and pleasant. Patient reports good mood, she says that she feels happy that she is going home. Denies depressive symptoms, denies anxiety, denies psychosis, denies suicidal and homicidal ideation, denies visual and auditory hallucinations. Oriented 3. Review of Systems Other No somatic complaints Objective Alert: Yes [place]: Person, Place, Date, Situation Mood: Calm Affect: Appropriate Memory Intact: Immediate, Recent, Remote Hallucinations: Other (she denies) Delusions: No Delusion Type: Other (none elicited) Suicidal: Ideation (no SI) Homicidal: Ideation (no HI) Insight/Judgment Good Vitals/IOs Vital Signs Date Time Temp Pulse Resp B/P Pulse Ox O2 Delivery O2 Flow Rate FiO2 03/28/17 12:00 97.7 108 16 112/59 99 03/28/17 07:49 Room Air 03/26/17 08:00 21 Intake and Output 03/27/17 03/27/17 03/28/17 08:00 16:00 00:00 Intake Total 32 ml 1440 ml 722 ml Balance 32 ml 1440 ml 722 ml Assessment & Plan Problem List: (1) Bipolar disorder in full remission Assessment & Plan: Patient revisited today for psychiatric reevaluation, again no evidence of depressive symptoms, anxiety, psychosis. Not immediate need of psychiatric intervention at this moment. Support, motivation psycho education provided. ICD Code: F31.70 Assessment & Plan Estimated LOS: days Justification for Cont. Inpt. Patient does not meet criteria for psychiatric admission at this moment. Dave Estrada MD Mar 28, 2017 14:31
== END 2017-03-28 13:39 | disposition home health service (06) | DRG 356 ==
LOC: NEPE 09:29 → NEDA 15:29 → NEDH 21:15 → HIMN 03-01 13:15 → HOCA 03-03 16:43 → HIMW 03-05 18:00 → HIMN 03-08 18:45 → N04B 03-14 12:46
PROVIDERS: ADMIT Internal Medicine; ATTEND Internal Medicine
PROC: 02HV33Z Insertion of Infusion Device into Superior Vena Cava, Percutaneous Approach (ICD-10-PCS; 2017-02-25)
PROC: 02HV33Z Insertion of Infusion Device into Superior Vena Cava, Percutaneous Approach (ICD-10-PCS; 2017-02-28)
PROC: 30233N1 Transfusion of Nonautologous Red Blood Cells into Peripheral Vein, Percutaneous Approach (ICD-10-PCS; 2017-02-28)
PROC: 3E0436Z Introduction of Nutritional Substance into Central Vein, Percutaneous Approach (ICD-10-PCS; 2017-03-01)
PROC: 0DJ08ZZ Inspection of Upper Intestinal Tract, Via Natural or Artificial Opening Endoscopic (ICD-10-PCS; 2017-03-01)
PROC: 5A1945Z Respiratory Ventilation, 24-96 Consecutive Hours (ICD-10-PCS; 2017-03-05)
PROC: 0BH17EZ Insertion of Endotracheal Airway into Trachea, Via Natural or Artificial Opening (ICD-10-PCS; 2017-03-05)
PROC: 5A12012 Performance of Cardiac Output, Single, Manual (ICD-10-PCS; 2017-03-05)
PROC: 0DJ08ZZ Inspection of Upper Intestinal Tract, Via Natural or Artificial Opening Endoscopic (ICD-10-PCS; 2017-03-05)
PROC: 30233K1 Transfusion of Nonautologous Frozen Plasma into Peripheral Vein, Percutaneous Approach (ICD-10-PCS; 2017-03-05)
PROC: 30233M1 Transfusion of Nonautologous Plasma Cryoprecipitate into Peripheral Vein, Percutaneous Approach (ICD-10-PCS; 2017-03-05)
PROC: 04L43DZ Occlusion of Splenic Artery with Intraluminal Device, Percutaneous Approach (ICD-10-PCS; principal; 2017-03-06)
PROC: B4141ZZ Fluoroscopy of Superior Mesenteric Artery using Low Osmolar Contrast (ICD-10-PCS; 2017-03-06)
PROC: 05H633Z Insertion of Infusion Device into Left Subclavian Vein, Percutaneous Approach (ICD-10-PCS; 2017-03-12)
PROC: B246ZZ4 Ultrasonography of Right and Left Heart, Transesophageal (ICD-10-PCS; 2017-03-20)
DX: K28.4 Chronic or unspecified gastrojejunal ulcer with hemorrhage (principal); R57.1 Hypovolemic shock; J96.00 Acute respiratory failure, unspecified whether with hypoxia or hypercapnia; R64 Cachexia; I77.2 Rupture of artery; K31.6 Fistula of stomach and duodenum; I95.9 Hypotension, unspecified; B37.7 Candidal sepsis; E46 Unspecified protein-calorie malnutrition; E87.2 Acidosis; E87.1 Hypo-osmolality and hyponatremia; D62 Acute posthemorrhagic anemia; Z68.1 Body mass index [BMI] 19.9 or less, adult; M48.56XA Collapsed vertebra, not elsewhere classified, lumbar region, initial encounter for fracture; K80.10 Calculus of gallbladder with chronic cholecystitis without obstruction; T80.211A Bloodstream infection due to central venous catheter, initial encounter; I95.89 Other hypotension; D69.6 Thrombocytopenia, unspecified; I72.8 Aneurysm of other specified arteries; E83.42 Hypomagnesemia; E87.6 Hypokalemia; E83.51 Hypocalcemia; R29.6 Repeated falls; J45.909 Unspecified asthma, uncomplicated; R16.2 Hepatomegaly with splenomegaly, not elsewhere classified; M41.9 Scoliosis, unspecified; K59.09 Other constipation; D73.5 Infarction of spleen; G47.00 Insomnia, unspecified; F17.200 Nicotine dependence, unspecified, uncomplicated; F20.9 Schizophrenia, unspecified; F31.70 Bipolar disorder, currently in remission, most recent episode unspecified; F41.9 Anxiety disorder, unspecified; Z79.1 Long term (current) use of non-steroidal anti-inflammatories (NSAID); Z88.2 Allergy status to sulfonamides; Z91.14 Patient's other noncompliance with medication regimen; Z98.84 Bariatric surgery status
CPT/HCPCS: 31500; 36245; 36246; 36248; 36430; 36556; 36569; 36600; 37244; 70450; 71010; 73564; 74176; 74177; 74240; 75726; 75774; 76705; 76937; 80048; 80053; 80202; 81001; 82565; 82607; 82805; 82948; 83540; 83550; 83605; 83735; 84100; 84132; 84134; 84155; 84478; 85014; 85018; 85025; 85027; 85610; 85730; 86850; 86900; 86901; 86920; 86922; 86927; 86965; 87040; 87071; 87086; 87106; 87186; 87205; 87641; 92950; 93005; 93306; 93312; 93320; 93325; 93970; 93971; 94002; 94003; 94150; 94640; 94664; 96361; 96374; 96375; C1760; C1769; C1887; C1894; C9113; J0171; J0295; J0610; J0692; J1170; J1200; J1450; J1642; J2060; J2248; J2250; J2354; J2405; J2543; J3010; J3370; J3411; J3420; J3475; J3480; J7030; J7040; J7042; J7050; P9016; P9017; P9047; Q9963; Q9967

== ENCOUNTER 2017-05-15 12:56 | Emergency (ER) | payer MEDICARE, OTHER ==
[~2017-05-15 12:56] MED LIST: CARA1TAB6 PO; CLON1 PO; CYCL1TAB29 PO; DOXE50CA3 PO; MIDO5TAB PO; OLAN2.5T PO; PANT40TA3 PO; SYMB80AE INH; VENTAER INH
[2017-05-15 13:01] VITALS: BP 132/82; PULSE 111; RESP 16; TEMP 98.8; O2SAT 96
[2017-05-15] MEDS ORDERED: LORazepam 2 MG/ML VIAL IV PUSH ONE (13:15)
[2017-05-15] MEDS ORDERED: SODIUM CHLORIDE 0.9% FLUSH 10 ML FLUSH IV FLUSH PRN (13:15)
[2017-05-15] MEDS ORDERED: SODIUM CHLOR 0.9% 1000 ML INJ 1,000 ML IV ONE (13:15)
[2017-05-15] MEDS ORDERED: clonazePAM 1 MG TAB PO ONE (13:15)
--- NOTE | 2017-05-15 13:15 | PD ---
HPI Chief Complaint: Seizure Time Seen by Provider: 13:13 Travel History International Travel<30 days: No Contact w/Intl Traveler<30days: No Traveled to known affect area: No History of Present Illness HPI Patient is a 47-year-old female presents emergency Department recurrent seizure. Patient states she's been out of her Klonopin for 4 days and this happens to her retention is out of her anxiety medicine. She states been on Klonopin for 20 years. [place] new psychiatrist whom she admits she doesn't like wrote her prescription for only 60 tablets in a month rather than her usual 90. When she called her psychiatrist for psychiatrist told her that they had discussed weaning off these medicines and she is taking only to 3 times a day rather than 2. The she' s ran out early. Patient arrived via EMS and EMS stated that a family member witnessed a short seizure-like activity. EMS is not redness anything no postictal phase noted, patient is mildly tremulous. Appears somewhat anxious. Denies any tongue laceration head injury neck pain. PFSH Past Medical History Anemia: Yes Asthma: Yes Anxiety: Yes Cancer: No Cardiovascular Problems: No Diabetes: No Endocrine: Yes Genitourinary: No Implanted Vascular Access Dvce: No Musculoskeletal: No Neurologic: No Reproductive: No Respiratory: Yes Seizures: Yes Thyroid Disease: Yes Tetanus Vaccination: > 5 Years Influenza Vaccination: Yes ?: Not Past Surgical History Abdominal Surgery: Yes (GASTRIC BYPASS) Cardiac Surgery: No Ear Surgery: No Endocrine Surgery: No Eye Surgery: No Genitourinary Surgery: No Gynecologic Surgery: No Thoracic Surgery: No Other Surgery: Yes Social History Alcohol Use: No Tobacco Use: Yes Substance Use: No Allergies-Medications (Allergen,Severity, Reaction): Coded Allergies: Sulfa (Sulfonamide Antibiotics) (Unverified Allergy, Severe, Anaphylaxis, 05/15/17) Reported Meds & Prescriptions Reported Meds & Active Scripts Active Carafate (Sucralfate) 1 Gm Tab 1 Gm PO QID On empty stomach Pantoprazole (Pantoprazole Sodium) 40 Mg Tab 40 Mg PO Q12HR Olanzapine 2.5 Mg Tab 2.5 Mg PO Q12HR Midodrine 5 Mg Tab 10 Mg PO TID@,,17 Doxepin (Doxepin HCl) 50 Mg Cap 200 Mg PO HS Flexeril (Cyclobenzaprine HCl) 10 Mg Tab 5 Mg PO Q8H PRN Klonopin (Clonazepam) 1 Mg Tab 1 Mg PO Q8HR do not use this medicine if you will drive a car or use a machine, only use it when resting at home. Reported Symbicort Inh (Budesonide/Formoterol Fumarate) 80-4.5 Mcg/Act Aero 1 Puff INH Q12HR Ventolin Hfa 18 GM Inh (Albuterol Sulfate) 90 Mcg/Act Aer 1 Puff INH Q4H PRN Review of Systems Except as stated in HPI: all other systems reviewed are Neg Physical Exam Narrative GENERAL: Well-developed well-nourished, appears older than stated age in no obvious distress per SKIN: Focused skin assessment warm/dry. HEAD: Atraumatic. Normocephalic. EYES: Pupils equal and round. No scleral icterus. No injection or drainage. ENT: No nasal bleeding or discharge. Mucous membranes pink and moist. No tongue laceration. The lip laceration. NECK: Trachea midline. No JVD. CARDIOVASCULAR: Regular rate and rhythm. No murmur appreciated. RESPIRATORY: No accessory muscle use. Clear to auscultation. Breath sounds equal bilaterally. GASTROINTESTINAL: Abdomen soft, non-tender, nondistended. Hepatic and splenic margins not palpable. MUSCULOSKELETAL: No obvious deformities. No clubbing. No cyanosis. No edema. NEUROLOGICAL: Awake and alert. Minimally tremulous, cranial nerves II-12 grossly intact and nonfocal, 5 out of 5 strength in all 4 extremities. Several testing negative, amylase 2 and from the bathroom in no distress. PSYCHIATRIC: Normal mood and anxious affect. Insight and judgment normal. Data Data Last Documented VS Vital Signs Date Time Temp Pulse Resp B/P (MAP) Pulse Ox O2 Delivery O2 Flow Rate FiO2 05/15/17 15:55 100 16 110/65 (80) 96 05/15/17 13:23 Room Air 05/15/17 13:01 98.8 Orders Orders Lorazepam Inj (Ativan Inj) (05/15/17 13:15) Clonazepam (Klonopin) (05/15/17 13:15) Sodium Chlor 0.9% 1000 Ml Inj (Ns 1000 M (05/15/17 13:15) Complete Blood Count With Diff (05/15/17 13:13) Comprehensive Metabolic Panel (05/15/17 13:13) Iv Access Insert/Monitor (05/15/17 13:13) Ecg Monitoring (05/15/17 13:13) Oximetry (05/15/17 13:13) Sodium Chloride 0.9% Flush (Ns Flush) (05/15/17 13:15) Labs Laboratory Tests Test 05/15/17 13:30 White Blood Count 4.2 TH/MM3 Red Blood Count 4.21 MIL/MM3 Hemoglobin 11.1 GM/DL Hematocrit 35.1 % Mean Corpuscular Volume 83.3 FL Mean Corpuscular Hemoglobin 26.4 PG Mean Corpuscular Hemoglobin Concent 31.6 % Red Cell Distribution Width 13.4 % Platelet Count 209 TH/MM3 Mean Platelet Volume 9.1 FL Neutrophils (%) (Auto) 69.6 % Lymphocytes (%) (Auto) 20.2 % Monocytes (%) (Auto) 6.5 % Eosinophils (%) (Auto) 2.6 % Basophils (%) (Auto) 1.1 % Neutrophils # (Auto) 3.0 TH/MM3 Lymphocytes # (Auto) 0.8 TH/MM3 Monocytes # (Auto) 0.3 TH/MM3 Eosinophils # (Auto) 0.1 TH/MM3 Basophils # (Auto) 0.0 TH/MM3 CBC Comment AUTO DIFF Differential Comment AUTO DIFF CONFIRMED Platelet Estimate NORMAL Platelet Morphology Comment NORMAL Blood Urea Nitrogen 8 MG/DL Creatinine 0.63 MG/DL Random Glucose 108 MG/DL Total Protein 7.2 GM/DL Albumin 3.1 GM/DL Calcium Level 7.9 MG/DL Alkaline Phosphatase 114 U/L Aspartate Amino Transf (AST/SGOT) 20 U/L Alanine Aminotransferase (ALT/SGPT) 15 U/L Total Bilirubin 0.1 MG/DL Sodium Level 139 MEQ/L Potassium Level 3.6 MEQ/L Chloride Level 106 MEQ/L Carbon Dioxide Level 25.2 MEQ/L Anion Gap 8 MEQ/L Estimat Glomerular Filtration Rate 101 ML/MIN [facility] Medical Decision Making Medical Screen Exam Complete: Yes Emergency Medical Condition: Yes Differential Diagnosis Chronic anxiety, benzodiazepine withdrawal seizure, anxiety, tremor, electro- light abnormality. Narrative Course Patient roomed emergency department, given Ativan and Klonopin. Initial blood work negative. Discussed with her need follow-up with a psychiatrist and recommended to her [place] act. Also recommended calling her psychiatrist but then she informed me that her psychiatrist was not going to refill her medicine early. According to E forced patient has had at least 7 different prescribers in the past 3 months prescribe her controlled substances. I am not inclined to refill substances of this nature at this time. This was explained to her and she is reasonable to except. Discussed return to ED criteria and first aid for seizures. She stable for discharge. Diagnosis Primary Impression: Seizure Referrals: [facility] Disposition: 01 DISCHARGE HOME Condition: Stable Maycol Olivera MD May 15, 2017 13:15
[2017-05-15 13:23] VITALS: O2SAT 96
[2017-05-15 13:38] LABS: BASOPHIL % 1.1 % (0.0-2.0); EOSINOPHIL # 0.1 TH/MM3 (0-0.4); EOSINOPHIL % 2.6 % (0.0-4.0); HEMATOCRIT 35.1 % (35.0-46.0); LYMPH % 20.2 % (9.0-44.0); LYMPHOCYTE # 0.8 TH/MM3 (1.0-4.8); MEAN CELL VOLUME 83.3 FL (80.0-100.0); MEAN CORPUSCULAR HEMOGLOBIN 26.4 PG (27.0-34.0); MEAN CORPUSCULAR HGB CONC 31.6 % (32.0-36.0); MONO % 6.5 % (0.0-8.0); NEUT % 69.6 % (16.0-70.0); PLATELET COUNT 209 TH/MM3 (150-450); RED BLOOD COUNT 4.21 MIL/MM3 (4.00-5.30); RED CELL DISTRIBUTION WIDTH 13.4 % (11.6-17.2); WHITE BLOOD COUNT 4.2 TH/MM3 (4.0-11.0)
[2017-05-15 14:00] LABS: CHLORIDE 106 MEQ/L (98-107); POTASSIUM 3.6 MEQ/L (3.5-5.1); SODIUM (NA) 139 MEQ/L (136-145)
[2017-05-15 14:04] LABS: ANION GAP 8 MEQ/L (5-15); BICARBONATE 25.2 MEQ/L (21.0-32.0); BLOOD UREA NITROGEN 8 MG/DL (7-18)
[2017-05-15 14:06] LABS: HEMO FLAGS AUTO DIFF
[2017-05-15 14:07] LABS: ALT (GPT) 15 U/L (10-53); AST (GOT) 20 U/L (15-37); GLOMERULAR FILTRATION RATE 101 ML/MIN (>89)
[2017-05-15 14:08] LABS: TOTAL BILIRUBIN ADULT 0.1 MG/DL (0.2-1.0)
[2017-05-15 14:10] LABS: ALKALINE PHOSPHATASE 114 U/L (45-117)
[2017-05-15 14:12] VITALS: BP 119/75; PULSE 101; RESP 16; O2SAT 100
[2017-05-15 14:35] LABS: PLATELET ESTIMATE SMEAR NORMAL (NORMAL); PLATELET MORPHOLOGY NORMAL (NORMAL); SCAN/DIFF AUTO DIFF CONFIRMED
[2017-05-15 15:55] VITALS: BP 110/65
== END 2017-05-15 16:03 | disposition home or self-care (01) ==
LOC: PHED 12:56
DX: R56.9 Unspecified convulsions (principal); Z72.0 Tobacco use
CPT/HCPCS: 80053; 85025; 96361; 96374; 99284; J2060; J7030